=== PATIENT | female | born 1965 | race Caucasian/White ===

== ENCOUNTER 2020-03-17 09:00 | Outpatient (REF) | payer OTHER, SELFPAY ==
[2020-03-17 10:52] LABS: Alanine Aminotransferase 22 U/L (0-31); Albumin Level 4.4 g/dL (3.5-5.0); Alkaline Phosphatase 78 U/L (39-117); Anion Gap 11 (12-20); Aspartate Amino Transferase 19 U/L (5-31); Bilirubin Total 0.6 mg/dL (0.0-1.0); Blood Urea Nitrogen 22 mg/dL (9-16); Calcium 9.4 mg/dL (8.4-10.2); Carbon Dioxide 32 mmol/L (22-29); Chloride 99 mmol/L (96-108); Cholesterol 146 mg/dL; Estimated Glomerular Filt Rate > 60; Glucose Fasting 96 mg/dL (60-99); HDL Cholesterol 56 mg/dL; LDL Cholesterol Calculated 69 mg/dl; Potassium 3.8 mmol/l (3.3-5.1); Sodium 138 mmol/L (135-145); Triglycerides 105 mg/dL
[2020-03-17 11:14] LABS: TSH reflex Free T4 1.38 mIU/mL (0.32-4.0)
== END 2020-03-17 09:01 | disposition home or self-care (01) ==
LOC: HO.LAB 09:00
PROVIDERS: PCP Internal Medicine; Visit Provider Internal Medicine
DX: I10 Essential (primary) hypertension (principal); E66.01 Morbid (severe) obesity due to excess calories
CPT/HCPCS: 80053; 80061; 84443

== ENCOUNTER → 2020-03-24 09:49 | Outpatient (BNVA) | payer OTHER, SELFPAY | PROVIDERS: PCP Internal Medicine; Referring Provider Internal Medicine; Visit Provider Internal Medicine Gastroenterology | DX: K21.00 Gastro-esophageal reflux disease with esophagitis, without bleeding (principal); K64.8 Other hemorrhoids; Z86.010 Personal history of colon polyps; Z80.0 Family history of malignant neoplasm of digestive organs | CPT/HCPCS: 99213 ==

== ENCOUNTER 2020-03-29 08:09 | Outpatient (REF) | payer OTHER, SELFPAY | END 2020-03-29 08:10 | disposition home or self-care (01) | LOC: HO.RADIR 08:09 | PROVIDERS: Visit Provider Anesthesiology | DX: Z13.89 Encounter for screening for other disorder (principal) ==

== ENCOUNTER 2020-03-29 10:13 | Outpatient (REF) | payer OTHER, SELFPAY | END 2020-03-29 10:14 | disposition home or self-care (01) | LOC: HO.LAB 10:13 | PROVIDERS: Visit Provider Internal Medicine | DX: Z20.828 Contact with and (suspected) exposure to other viral communicable diseases (principal) | CPT/HCPCS: 87635 ==

== ENCOUNTER 2020-04-19 05:33 | Outpatient (REF) | payer OTHER, SELFPAY ==
--- NOTE | 2020-04-19 15:07 | FL_ITS ---
EXAMINATION: XR FLUOROSCOPY WITH IMAGES CLINICAL INFORMATION: Spondylosis without myelopathy or radiculopathy COMPARISON: None. TECHNIQUE: Fluoroscopy performed by Dr. Jeffery Flores. Fluoroscopy time: 0.3 minutes DAP: 3.44 Gycm2 Images: 4 FINDINGS: Radiopaque needles project over the lower lumbar spine at multiple levels bilaterally, likely L4-L5 and L5-S1. Contrast injected with spread. FL/FL guidance in treatment room IMPRESSION: Fluoroscopic guidance for lumbar spinal intervention. Please refer to procedural report for further information.
== END 2020-04-19 05:34 | disposition home or self-care (01) ==
LOC: HO.RADIR 05:33
PROVIDERS: Visit Provider Anesthesiology
DX: M47.816 Spondylosis without myelopathy or radiculopathy, lumbar region (principal)
CPT/HCPCS: 64493; 99212; Q9967

== ENCOUNTER 2020-04-29 14:23 | Outpatient (REF) | payer OTHER, SELFPAY | END 2020-04-29 14:24 | disposition home or self-care (01) | LOC: HO.LAB 14:23 | PROVIDERS: Visit Provider Internal Medicine | DX: Z20.828 Contact with and (suspected) exposure to other viral communicable diseases (principal) | CPT/HCPCS: C9803; U0003 ==

== ENCOUNTER 2020-05-05 09:05 | Outpatient (REF) | payer OTHER, SELFPAY ==
[2020-05-09 15:37] LABS: HPV mRNA E6/E7 Not Detected (Not Detected)
== END 2020-05-05 09:06 | disposition home or self-care (01) ==
LOC: HO.LAB 09:05
PROVIDERS: PCP Internal Medicine; Referring Provider Internal Medicine; Visit Provider Obstetrics & Gynecology
DX: Z01.419 Encounter for gynecological examination (general) (routine) without abnormal findings (principal); Z79.899 Other long term (current) drug therapy
CPT/HCPCS: 87624; 88142

== ENCOUNTER 2020-06-10 11:01 | Outpatient (REF) | payer OTHER, SELFPAY | END 2020-06-10 11:02 | disposition home or self-care (01) | LOC: HO.LAB 11:01 | PROVIDERS: Visit Provider Internal Medicine | DX: Z20.822 Contact with and (suspected) exposure to COVID-19 (principal) | CPT/HCPCS: 36415; C9803; U0003 ==

== ENCOUNTER 2020-06-20 16:35 | Outpatient (REF) | payer OTHER, SELFPAY ==
--- NOTE | 2020-06-20 16:51 | US_ITS ---
EXAMINATION: NONINVASIVE ASSESSMENT OF THE ARTERIES OF THE RIGHT LOWER EXTREMITY Balbir Mello MD CLINICAL INFORMATION: Right lower extremity pain TECHNIQUE: Right lower extremity duplex ultrasound was performed with velocity measurements and waveform analysis in the common femoral artery, profunda femoris artery, proximal mid and distal superficial femoral arteries, popliteal arteries and tibial vessels. This study was performed only at rest. COMPARISON: None FINDINGS: Velocities in cm/sec and phasicity as well as the presence of plaque are reported below. RIGHT LEG: Minimal plaque is present. Multiphasic flow (mostly triphasic) is noted throughout the right lower extremity. No areas of velocity acceleration are seen to suggest focal stenoses. Common Femoral: 179 Profunda Femoris: 98 Proximal SFA: 141 Mid SFA: 101 Distal SFA: 106 Popliteal: 78 Posterior tibial artery 128 Peroneal: 85 Some right groin lymph nodes are present measuring 1.0 x 0.5 x 0.8 cm and 2.8 x 0.6 x 2.6 cm. US/US arterial duplex LE RT IMPRESSION: There is no evidence of any hemodynamically significant lower extremity arterial disease by pressure, waveform or duplex Doppler criteria at rest.
== END 2020-06-20 16:36 | disposition home or self-care (01) ==
LOC: HO.US 16:35
PROVIDERS: PCP Internal Medicine; Visit Provider Internal Medicine
DX: M79.604 Pain in right leg (principal); R60.0 Localized edema
CPT/HCPCS: 93926

== ENCOUNTER 2020-09-16 13:41 | Outpatient (REF) | payer OTHER, SELFPAY | END 2020-09-16 13:42 | disposition home or self-care (01) | LOC: HO.LAB 13:41 | PROVIDERS: Visit Provider Internal Medicine | DX: Z20.822 Contact with and (suspected) exposure to COVID-19 (principal) | CPT/HCPCS: C9803; U0003; U0005 ==

== ENCOUNTER 2020-10-28 12:32 | Outpatient (REF) | payer OTHER, SELFPAY ==
[2020-10-28 12:51] LABS: COVID-19 Test Negative (Negative)
== END 2020-10-28 12:33 | disposition home or self-care (01) ==
LOC: HO.LAB 12:32
PROVIDERS: PCP Internal Medicine; Visit Provider Internal Medicine
DX: Z20.822 Contact with and (suspected) exposure to COVID-19 (principal)
CPT/HCPCS: 36415; 87635; C9803

== ENCOUNTER 2021-01-19 13:53 | Outpatient (REF) | payer OTHER, SELFPAY ==
--- NOTE | ~2021-01-19 | MM_ITS ---
EXAMINATION: MM SCREENING DIGITAL BREAST TOMOSYNTHESIS, BILATERAL CLINICAL INFORMATION: Screening. Asymptomatic. The lifetime risk of breast cancer based on the Tyrer-Cuzick Model is 7%. COMPARISON: Mammography: 01/14/2020, 01/08/2019, 01/02/2018 TECHNIQUE: Digital breast tomosynthesis is performed in both the craniocaudal and mediolateral oblique views along with computer-aided detection (CAD). Synthesized 2D images are generated from the tomosynthesis. FINDINGS: There are scattered areas of fibroglandular density (ACR BI-RADS breast composition Category b). The left breast is unremarkable. There is no interval mass or architectural abnormality. Neither breast shows abnormal calcifications. The bilateral axilla and skin contours are unremarkable. The right breast has 0.4 cm nodule with incompletely defined margins mid 9:30 o'clock position. Patient will be recalled for additional imaging. MM/MM tomosynthesis screening BI IMPRESSION: 1. Right: Small nodule with incompletely defined margins mid 9:30 o'clock position. 2. Left: No mammographic evidence of malignancy. ASSESSMENT: BI-RADS 0: Incomplete - Need Additional Imaging Evaluation RECOMMENDATION: 1. Additional views of the right breast for margins (3-D spot CC, 3-D spot ML). 2. Targeted ultrasound right breast. 3. Radiology department staff will contact the patient for additional imaging. This patient's information was entered into a reminder system with a target due date for their next mammogram.
== END 2021-01-19 13:54 | disposition home or self-care (01) ==
LOC: HO.MAMMO 13:53
PROVIDERS: PCP Internal Medicine; Visit Provider Internal Medicine
DX: Z12.31 Encounter for screening mammogram for malignant neoplasm of breast (principal)
CPT/HCPCS: 77063; 77067

== ENCOUNTER 2021-01-26 14:45 | Outpatient (REF) | payer OTHER, SELFPAY ==
--- NOTE | ~2021-01-26 | MM_ITS ---
EXAMINATION: MM DIAGNOSTIC DIGITAL BREAST TOMOSYNTHESIS, RIGHT US DIAGNOSTIC ULTRASOUND BREAST, RIGHT CLINICAL INFORMATION: Recall from screening for small nodule mid 9:30 o'clock position right breast. COMPARISON: Mammography: 01/19/2021, 01/14/2020, 01/08/2019 TECHNIQUE: Digital breast tomosynthesis is performed. 2D images are generated from the tomosynthesis. The following views are obtained: Spot CC x2, spot ML. Ultrasound right breast is targeted to the outer quadrants. Grayscale imaging and color Doppler are performed without and with harmonics. FINDINGS: There are scattered areas of fibroglandular density (ACR BI-RADS breast composition Category b). US additional spot views demonstrate benign-appearing smooth oval nodule mid 9:30 o'clock position measuring approximately 4 x 5 mm. Ultrasound right breast demonstrates a oval 4 mm cyst 9:00 position 9 cm from nipple, anechoic with circumscribed margins and mild increased through-transmission of sound. No associated color flow. The size and shape and location correspond to finding on mammography. There is no solid mass or architectural abnormality. Results are discussed with the patient at time of visit, using an pharmacy specialist. MM/MM tomosynthesis added views R IMPRESSION: Small cyst mid 9:00 right breast corresponding to nodule on recent screening exam. ASSESSMENT: BI-RADS 2: Benign RECOMMENDATION: Routine annual mammography screening. This patient's information was entered into a reminder system with a target due date for their next mammogram.
== END 2021-01-26 14:46 | disposition home or self-care (01) ==
LOC: HO.MAMMO 14:45
PROVIDERS: PCP Internal Medicine; Visit Provider Internal Medicine
DX: N63.11 Unspecified lump in the right breast, upper outer quadrant (principal)
CPT/HCPCS: 76642; 77061; 77065

== ENCOUNTER 2021-03-06 13:48 | Emergency (ER) | payer OTHER, SELFPAY ==
--- NOTE | ~2021-03-06 | XR_ITS ---
EXAMINATION: XR SHOULDER, RIGHT CLINICAL INFORMATION: Trauma, pain COMPARISON: Radiographs right shoulder 10/07/2018 TECHNIQUE: Right shoulder is imaged in 4 views. FINDINGS: There is no fracture dislocation or destructive process. The glenohumeral joint appears normal. The acromioclavicular alignment is normal. Again, there is calcific tendinosis adjacent to the greater tuberosity. Some mild spurring is present at the superolateral lateral acromium likely related to the origin deltoid. There is no destructive process. XR/XR shoulder RT min 2V IMPRESSION: 1. No fracture or dislocation. 2. Chronic calcific tendinosis in region of distal superior rotator cuff.
[2021-03-06 14:38] VITALS: BP 136/65; PULSE 78; RESP 17; TEMP 36; O2SAT 98; BMI 32.9
--- NOTE | 2021-03-06 15:52 | ED.UPPEXIN ---
HPI - Extremity Injury (Upper) General Chief Complaint: Extremity Injury, Upper Stated Complaint: shoulder pain Time Seen by Provider: 03/06/21 15:47 Source: patient Mode of arrival: ambulatory Limitations: no limitations History of Present Illness HPI narrative: 55-year-old female presenting to the ED with work related injury to the right shoulder. 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 She denies head injury or loss of consciousness or any other injuries complaints or concerns at this time. complaint: injury to: right and shoulder Onset (ago): day(s) (Four days ago) Other Extremity Injury: right: shoulder Other injuries: none Place: work Severity: moderate Relieving factors: none Exacerbating factors: other (Trying to elevate the arm) Context: fall Associated symptoms: denies other symptoms Related Data Home Medications Medication Instructions Recorded Confirmed buspirone 10 mg tablet mg PO 03/24/20 06/20/20 Previous Rx's Medication Instructions Recorded losartan 100 mg tablet 100 mg PO DAILY 90 Days #90 tab 03/30/20 methylcellulose (laxative) 500 mg [id number] mg PO DAILY #30 tab 05/02/20 tablet (Citrucel) omeprazole 20 mg capsule,delayed 20 mg PO DAILY 60 Days #60 cap 05/03/20 release loratadine 10 mg tablet 10 mg PO DAILY #30 tab 09/16/20 chlorthalidone 25 mg tablet 25 mg PO QAM 90 Days #90 tab 02/03/21 acetaminophen 500 mg tablet 1,000 mg PO QID PRN #14 tab 03/06/21 (Tylenol Extra Strength) oxycodone 5 mg tablet 5 mg PO Q6H PRN #14 tab 03/06/21 Allergies Allergy/AdvReac Type Severity Reaction Status Date / Time aspirin [ASA] Allergy Unknown THROAT Verified 06/20/20 16:11 SWELLING, pruritus, tracheal swelling Review of Systems Review of Systems: Constitutional : No Weight loss, No Fever, No Chills, No Night Sweats, No Fatigue, No Malaise ENT/Mouth : No Hearing loss, No Ear Pain, No Nasal Congestion, No Sinus Pain, No Hoarseness, No sore throat, No Rhinorrhea, No Swallowing Difficulty Eyes: No Eye Pain, No Swelling, No Redness, No Foreign Body, No Discharge, No Vision Changes Cardiovascular : No Chest Pain, No SOB, No Dyspnea on Exertion, No Orthopnea, No Edema, No Palpitations Respiratory : No Cough, No Sputum, No Wheezing, No Smoke Exposure, No Dyspnea Gastrointestinal : No Nausea, No Vomiting, No Diarrhea, No Constipation, No abdominal Pain, No Hematochezia, No Melena Genitourinary : no irregular bleeding, No Dysuria, No Urinary Frequency, No Hematuria, No Urinary Incontinence, No Urgency, No Flank Pain, No Urinary Flow Changes, No Hesitancy Musculoskeletal : Positive right shoulder joint pain, No Myalgias, No Joint Swelling Skin : No Skin Lesions, No rash Neuro : No Weakness, No Numbness, No Paresthesias, No Loss of Consciousness, No Dizziness, No Headache Psych : No Anxiety/Panic, No Depression, No SI/HI/AH/VH, No Social Issues, Heme/Lymph: No Bruising, No Bleeding,No Lymphadenopathy Endocrine : No Polyuria, No Polydipsia, No Temperature Intolerance Yes all other systems are reviewed and are negative [facility] Past Medical History Attestation statement: The following information was validated with the patient. Medical History Diverticulosis Essential hypertension Essential hypertension Family history of colon cancer GERD with esophagitis Hemorrhoids, internal, with bleeding History of colon polyps Hypertension Rhinitis Right leg pain Surgical History H/O basal cell carcinoma excision History of section History of colonoscopy (~02/2018) History of tubal ligation Hx of endoscopy Family History Family History Father Alive and well Mother Colon cancer Hypertension Brother No problems noted. Sister Psychiatric disorder Chronic mental illness Family/Other Chronic mental illness Social History Social History Alcohol intake: current Alcohol intake frequency: a few times a week Alcohol type: wine Advance Directives: No Advance Directives Information Provided: No Patient : No Sexual orientation: Straight/Heterosexual Gender identity: Female Physical Exam Vital Signs: Vital Signs: Last Vital Signs Temp 96.8 F 03/06/21 14:38 Pulse 78 03/06/21 14:38 Resp 17 03/06/21 14:38 BP 136/65 03/06/21 14:38 Pulse Ox 98 03/06/21 14:38 Body Mass Index 32.9 vital signs have been reviewed as normal and appeared to be correct. Blood pressure normal. Heart rate normal. Respiration rate normal. Temperature normal. Oxygen saturation normal. Appearance: Alert. Oriented X3. No acute distress. Head: Normal external exam. Normocephalic. Atraumatic. Eyes: PERRLA. EOMI. Conjunctiva and sclera normal. Eyelids normal. ENT: Pharynx normal. Uvula midline. Moist mucous membranes. Neck: Normal inspection. Neck supple. FROM. No adenopathy. No meningeal signs. CVS: Normal heart rate and rhythm. Heart sound normal. Pulses normal throughout. No murmurs/rales/gallops. Respiratory: No respiratory distress. Painless inspiration. Breath sounds normal. No wheezes/rales/rhonchi noted. Chest nontender. No accessory muscle usage noted or decreased air movement noted. Back: Full range of motion noted. No rashes/lesion/induration/fluctuance or signs of infection noted. Skin: Skin warm and dry. Normal skin color. Normal skin turgor. No rashes/lesions/lacerations noted. Extremities: Patient with tenderness palpation to right anterior AC joint with limited range of motion with lifting the arm up above her head otherwise no other limited range of motion. No extremity edema. Otherwise all other extremities exhibit normal range of motion and nontender. Neuro: Oriented X 3. No motor deficit. No sensory deficit. Reflexes normal. Normal steady gait. No focal neuro deficits noted. Vascular: + radial pulses/+ 2 distal pedal pulses/+2 dorsalis pedis b/l. Normal cap refill. No cyanosis noted to upper extremity nails and lower extremity toes nails. Course Course Course Narrative: 55-year-old female presenting to the ED with right shoulder pain after she had a mechanical fall while at work injuring her right shoulder no other injuries. X-ray negative for any acute fractures. X-ray revealed chronic calcification tendinitis in the region of the distal superior rotator cuff otherwise no other acute processes. Therefore will DC home with a sling and symptomatic treatment instructions to return if any new or worse symptoms and to follow-up with orthopedic if symptoms persist for longer than 2-3 weeks and to follow up with [facility]. Patient understands agrees with this plan. MDM - Extremity Injury (Upper) Medical Records Attestation: I reviewed the patient's medical records. Imaging Data Right shoulder x-ray: Attestation: I personally reviewed and interpreted this imaging study as follows: Radiologist's impression: FINDINGS: There is no fracture dislocation or destructive process. The glenohumeral joint appears normal. The acromioclavicular alignment is normal. Again, there is calcific tendinosis adjacent to the greater tuberosity. Some mild spurring is present at the superolateral lateral acromium likely related to the origin deltoid. There is no destructive process.? XR/XR shoulder RT min 2V IMPRESSION: 1. No fracture or dislocation. 2. Chronic calcific tendinosis in region of distal superior rotator cuff. Procedures Orthopedic Splinting/Casting Injury #1: Side: right Upper Extremity Immobilizer: sling/shoulder immobilizer Discharge Plan Discharge Clinical Impression: Calcific tendinitis of right shoulder Fall Qualifiers: Encounter type: initial encounter Qualified Code(s): W19.XXXA - Unspecified fall, initial encounter Sprain of right shoulder Qualifiers: Encounter type: initial encounter Shoulder sprain type: other part of shoulder region Qualified Code(s): S43.491A - Other sprain of right shoulder joint, initial encounter Patient Disposition: Home, Self-Care Instructions: How to Use a Sling (ED), Shoulder Sprain (ED), Calcific Tendinitis (ED) Prescriptions: New acetaminophen [Tylenol Extra Strength] 500 mg tablet 1,000 mg PO QID PRN (Reason: fever or pain) Qty: 14 RF: 0 oxycodone 5 mg tablet 5 mg PO Q6H PRN (Reason: pain) Qty: 14 RF: 0 No Action losartan 100 mg tablet 100 mg PO DAILY 90 Days Qty: 90 RF: 3 methylcellulose (laxative) [Citrucel] 500 mg tablet [id number] mg PO DAILY Qty: 30 RF: 4 omeprazole 20 mg capsule,delayed release(DR/EC) 20 mg PO DAILY 60 Days Qty: 60 RF: 3 loratadine 10 mg tablet 10 mg PO DAILY Qty: 30 RF: 6 chlorthalidone 25 mg tablet 25 mg PO QAM 90 Days Qty: 90 RF: 3 buspirone 10 mg tablet PO RF: 0 Referrals: [facility] [Provider Group] - 2 days Mac Sierra MD [Physician] - 1 week Arelis Irvin MD [Primary Care Provider] - 2 days Stand Alone Forms: Work/School Release Print Language: Lithuanian
== END 2021-03-06 16:15 | disposition home or self-care (01) ==
PROVIDERS: Emergency Provider Emergency Medicine; PCP Internal Medicine
DX: S43.491A Other sprain of right shoulder joint, initial encounter (principal); M75.31 Calcific tendinitis of right shoulder; W01.0XXA Fall on same level from slipping, tripping and stumbling without subsequent striking against object, initial encounter; Y93.9 Activity, unspecified; Y92.9 Unspecified place or not applicable; Y99.0 Civilian activity done for income or pay; Z79.899 Other long term (current) drug therapy
CPT/HCPCS: 29105; 73030; 99283; 99284

== ENCOUNTER → 2021-03-17 08:01 | Outpatient (BNVA) | payer OTHER, SELFPAY | PROVIDERS: Visit Provider Physician Assistant | DX: M75.31 Calcific tendinitis of right shoulder (principal) | CPT/HCPCS: 99202 ==

== ENCOUNTER 2021-04-19 14:10 | Emergency (ER) | payer OTHER, SELFPAY ==
--- NOTE | ~2021-04-19 | XR_ITS ---
EXAMINATION: XR KNEE, RIGHT CLINICAL INFORMATION: Pain COMPARISON: None TECHNIQUE: AP and lateral views of the right knee. FINDINGS: No fracture, dislocation, or destructive process. There are degenerative changes lateral knee joint compartment with joint narrowing and small marginal osteophyte lateral tibial plateau. There is borderline narrowing medial tibial compartment with borderline marginal osteophyte femoral condyle. There are no erosive changes or chondrocalcinosis. Moderate to large suprapatellar effusion is present. Hoffa's fat pad appears normal. XR/XR knee RT 2V IMPRESSION: 1. Degenerative changes medial lateral knee joint compartments. No erosive change. 2. Moderate to large suprapatellar effusion.
[2021-04-19 14:21] VITALS: BP 138/54; PULSE 83; RESP 16; TEMP 36.7; O2SAT 98; BMI 32.9
--- NOTE | 2021-04-19 15:55 | ED.EXTPRO ---
HPI - Extremity Problem General Chief complaint: Extremity Problem Stated complaint: rt knee pain Time Seen by Provider: 04/19/21 15:54 Source: patient Mode of arrival: ambulatory History of Present Illness HPI Narrative: 55-year-old female with a past medical history of a shoulder tendinitis, diverticulosis, hypertension, GERD, presenting to the ED complaining of atraumatic right knee pain and swelling x4 days. Reports pain with ambulation/walking greater to medial aspect. Denies known injury/trauma or fall. Admits stands most of the time at work. Denies numbness, tingling, weakness, fever, chills MD Complaint: extremity pain, extremity swelling and joint swelling Related Data Home Medications Medication Instructions Recorded Confirmed buspirone 10 mg tablet mg PO 03/24/20 03/08/21 Previous Rx's Medication Instructions Recorded methylcellulose (laxative) 500 mg [id number] mg PO DAILY #30 tab 05/02/20 tablet (Citrucel) acetaminophen 500 mg tablet 1,000 mg PO QID PRN #14 tab 03/06/21 (Tylenol Extra Strength) oxycodone 5 mg tablet 5 mg PO Q6H PRN #14 tab 03/06/21 lidocaine 5 % topical ointment 1 appl TOPICAL BEDTIME PRN 14 Days 03/08/21 #30 g lidocaine 5 % topical patch 1 patch TOPICAL DAILY 15 Days #15 03/08/21 ea chlorthalidone 25 mg tablet 25 mg PO QAM 90 Days #90 tab 03/29/21 loratadine 10 mg tablet 10 mg PO DAILY #30 tab 03/29/21 losartan 100 mg tablet 100 mg PO DAILY 90 Days #90 tab 03/29/21 omeprazole 20 mg capsule,delayed 20 mg PO DAILY 60 Days #60 cap 03/29/21 release hydrocodone 5 mg-acetaminophen 325 1 tab PO Q8H PRN 3 Days #5 tab 04/19/21 mg tablet Allergies Allergy/AdvReac Type Severity Reaction Status Date / Time aspirin [ASA] Allergy Intermediate THROAT Verified 03/17/21 08:16 SWELLING, pruritus, tracheal swelling Review of Systems Review of Systems: Constitutional: No Fever, No Chills ENT/Mouth: No Ear Pain, No Nasal Congestion Cardiovascular: No Chest Pain, No SOB Respiratory: No Cough Gastrointestinal: No Nausea, No Vomiting, No Diarrhea, No Constipation, No Abdominal pain Genitourinary: No Hematuria, No Flank Pain Musculoskeletal: + joint pain, No Myalgias, + Joint Swelling Skin: No Skin Lesions, No rash Neuro: No Weakness, No Numbness, No Paresthesias Yes all other systems are reviewed and are negative [facility] Past Medical History Attestation statement: The following information was validated with the patient. Medical History Calcific shoulder tendinitis Class 1 obesity with body mass index (BMI) of 34.0 to 34.9 in adult Diverticulosis Essential hypertension Essential hypertension Family history of colon cancer GERD with esophagitis Hemorrhoids, internal, with bleeding History of colon polyps Hypertension Rhinitis Right leg pain Surgical History H/O basal cell carcinoma excision History of section History of colonoscopy (~02/2018) History of tubal ligation Hx of endoscopy Family History Family History Father Alive and well Mother Colon cancer Hypertension Brother No problems noted. Sister Psychiatric disorder Chronic mental illness Family/Other Chronic mental illness Social History Social History Housing: Apartment Alcohol intake: current Alcohol intake frequency: a few times a week Alcohol type: wine Patient Tobacco Use Status: Never used Tobacco e-Cigarette/Vaping Use: Never Used Second Hand Smoke Exposure: No Advance Directives: No Advance Directives Information Provided: No service: No Current occupational status: employed Current occupational exposures/hazards: No Sexual orientation: Straight/Heterosexual Gender identity: Female Physical Exam Vital Signs: Vital Signs: Last Vital Signs Temp 98.0 F 04/19/21 14:21 Pulse 83 04/19/21 14:21 Resp 16 04/19/21 14:21 BP 138/54 L 04/19/21 14:21 Pulse Ox 98 04/19/21 14:21 Body Mass Index 32.9 Const: General: cooperative, healthy appearing and no acute distress Orientation/consciousness: patient oriented x3 Limitations: no limitations HENMT: Head: Yes normal to inspection Ears: hearing grossly normal bilaterally General nose exam: Normal external nose present Face and sinus: Yes normal facial exam Eyes: General: appearance normal, both eyes and all related structures EOM: EOMs intact bilaterally Neck: Neck: Yes normal visual inspection and Yes no meningeal signs Resp: Effort & Inspection: normal respiratory effort and no respiratory distress Cardio: Rate: regular rate Heart sounds: S1 normal heart sound present and S2 normal heart sound present Peripheral pulses: dorsalis pedis present Skin: Rashes: no rashes Wounds: no wounds Neuro: General: patient oriented x3 and no meningeal signs Gait exam (Neuro): Normal gait present Extrem: Other: + right knee effusion. No overlying cellulitis/erythema/ecchymosis. Mildly tender to palpation. Full range of motion intact. Neurovascularly intact distally. Distal pulses intact Course Course Course Narrative: XR knee RT 2V IMPRESSION: 1. Degenerative changes medial lateral knee joint compartments. No erosive change. 2. Moderate to large suprapatellar effusion. 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 Jose wrap applied. Is to follow-up with orthopedic surgeon MDM - Extremity (Nontraumatic) MDM Narrative Medical decision making narrative: 55-year-old female with a past medical history of a shoulder tendinitis, diverticulosis, hypertension, GERD, presenting to the ED complaining of atraumatic right knee pain and swelling x4 days. On exam vital signs stable, NAD, nontoxic, physical exam as above. Concern for joint effusion due to underlying with a mental or tendon injury vs arthritis flare. Low concern for septic joint or the arthritis. No evidence of cellulitis or abscess Plan: X-rays Discharge Plan Discharge Clinical Impression: Effusion of knee joint right Patient Disposition: Home, Self-Care Instructions: Swollen Knee Joint (ED) Additional Instructions: Your x-ray showed degenerative changes/arthritis as well as a moderate to large joint effusion You need to wear Jose wrap at home for comfort/compression Ice and elevate Take Tylenol and [place] as needed for pain. [place] is in opiate pain medication, take only when pain is severe for the next 3 days. Be aware [place] has Tylenol mixed in, do not exceed 4 g of Tylenol in 1 day Please follow-up with Orthopedics, you will likely need injections into knee/fluid removed and or an MRI If symptoms persist or worsen, area begins to look infected please return to the ED Orozco radiograf?a mostr? cambios degenerativos / artritis, as? rk un derrame articular de moderado a karma Debe usar joanna envoltura Jose en casa para mayor comodidad / compresi?n Hielo y eleva [place]ia Tylenol y [place] seg?n sea necesario para el dolor. W[place]zeka est? en analg?sicos opi?ceos, t?melos solo cuando el dolor sea intenso kirby los pr?ximos 3 d?as. Tenga en cuenta que W[place]zeka tiene Tylenol mezclado, no exceda los 4 g de Tylenol en 1 d?a [place] un seguimiento con ortopedia, es probable que necesite inyecciones en la rodilla / extracci?n de l?quido o joanna resonancia magn?lulú Si los s?ntomas persisten o empeoran, el ?paul comienza a verse infectada, regrese al servicio de urgencias Prescriptions: New hydrocodone-acetaminophen 5-325 mg tablet 1 tab PO Q8H PRN (Reason: pain, severe) 3 Days Qty: 5 RF: 0 No Action methylcellulose (laxative) [Citrucel] 500 mg tablet [id number] mg PO DAILY Qty: 30 RF: 4 lidocaine 5 % adhesive patch,medicated 1 patch topical DAILY 15 Days Qty: 15 RF: 0 chlorthalidone 25 mg tablet 25 mg PO QAM 90 Days Qty: 90 RF: 3 loratadine 10 mg tablet 10 mg PO DAILY Qty: 30 RF: 6 losartan 100 mg tablet 100 mg PO DAILY 90 Days Qty: 90 RF: 3 omeprazole 20 mg capsule,delayed release(DR/EC) 20 mg PO DAILY 60 Days Qty: 60 RF: 3 acetaminophen [Tylenol Extra Strength] 500 mg tablet 1,000 mg PO QID PRN (Reason: fever or pain) Qty: 14 RF: 0 oxycodone 5 mg tablet 5 mg PO Q6H PRN (Reason: pain) Qty: 14 RF: 0 buspirone 10 mg tablet PO RF: 0 lidocaine 5 % ointment 1 appl topical BEDTIME PRN (Reason: pain) 14 Days Qty: 30 RF: 0 Referrals: Josh Larson PA-C [Physician Counselor/Art Therapist] - 5 days Print Language: Kinyarwanda
[2021-04-19] MEDS: oxyCODONE HCl Immed Release 5 MG TABLET PO (16:00)
== END 2021-04-19 16:14 | disposition home or self-care (01) ==
PROVIDERS: Emergency Provider Emergency Medicine; PCP Internal Medicine
DX: M25.461 Effusion, right knee (principal); I10 Essential (primary) hypertension
CPT/HCPCS: 73560; 99283; 99284

== ENCOUNTER 2021-05-11 15:09 | Outpatient (REF) | payer OTHER, SELFPAY ==
[2021-05-15 22:07] LABS: HPV mRNA E6/E7 rflx Not Detected (Not Detected)
== END 2021-05-11 15:10 | disposition home or self-care (01) ==
LOC: HO.LAB 15:09
PROVIDERS: PCP Internal Medicine; Visit Provider Obstetrics & Gynecology
DX: Z01.419 Encounter for gynecological examination (general) (routine) without abnormal findings (principal); N85.2 Hypertrophy of uterus; N93.9 Abnormal uterine and vaginal bleeding, unspecified
CPT/HCPCS: 87624; 88142

== ENCOUNTER 2021-06-05 13:59 | Outpatient (REF) | payer OTHER, SELFPAY ==
--- NOTE | ~2021-06-05 | US_ITS ---
EXAMINATION: US PELVIS AND TRANSVAGINAL CLINICAL INFORMATION: 55-year-old female with abnormal uterine bleeding. Having vaginal bleeding currently. COMPARISON: Pelvic ultrasound of 11/16/2019 and 03/26/2019 TECHNIQUE: Real-time scanning is performed via transabdominal and transvaginal approach. The examination is technically significantly limited. FINDINGS: An enlarged uterus is noted, approximately measuring 14.8 x 8.0 x 8.2 cm in length, AP and transverse dimensions respectively. Endometrial stripe is not clearly seen. A broad-based exophytic fibroid is noted arising from the anterior mid to lower left uterine body, measuring 4.1 x 3.4 x 3.4 cm, previously 4.5 x 4.1 x 4.1 cm. Ovaries could not be visualized. No definite adnexal mass or free fluid is noted within the limits of study. US/US pelvic and transvaginal IMPRESSION: Technically significantly limited examination. Enlarged fibroid uterus, as detailed above. If clinically deemed necessary, consider correlation with pelvic MRI (without and with contrast), for further evaluation.
== END 2021-06-05 14:00 | disposition home or self-care (01) ==
LOC: HO.US 13:59
PROVIDERS: Visit Provider Obstetrics & Gynecology
DX: N93.9 Abnormal uterine and vaginal bleeding, unspecified (principal); N85.2 Hypertrophy of uterus
CPT/HCPCS: 76830; 76856

== ENCOUNTER → 2021-06-12 13:46 | Outpatient (BNVA) | payer OTHER, SELFPAY | PROVIDERS: PCP Internal Medicine; Visit Provider Obstetrics & Gynecology | DX: Z13.89 Encounter for screening for other disorder (principal) | CPT/HCPCS: 99212 ==

== ENCOUNTER 2021-06-20 14:14 | Outpatient (REF) | payer OTHER, SELFPAY ==
[2021-06-20 15:05] LABS: MANUAL DIFF FLAG NO
[2021-06-20 15:37] LABS: Basophils Percent Auto 0.4 % (0-2); Eosinophils Absolute Auto 0.2 X10*3/uL (0.0-0.4); Eosinophils Percent Auto 1.7 % (0-4); Hemoglobin 11.6 g/dl (12.0-16.0); Imm Gran Abs Auto 0.04 X10*3/uL (0.00-0.03); Imm Gran Pct Auto 0.4 % (0.0-0.4); Lymphocytes Absolute Auto 3.8 X10*3/uL (1.2-4.9); Lymphocytes Percent Auto 38.3 % (20-40); Mean Corpuscular HGB Conc 31.4 g/dl (31.0-35.0); Mean Corpuscular Hemoglobin 26.3 pg (27.0-33.0); Mean Corpuscular Volume 83.9 fL (80.0-98.0); Mean Platelet Volume 9.7 fL (9.4-12.3); Monocytes Absolute Auto 0.9 X10*3/uL (0.1-1.2); Monocytes Percent Auto 9.2 % (2-11); Neutrophils Absolute Auto 4.9 x10*3/uL (2.0-8.3); Platelet Count 391 X10*3/uL (160-400); Red Blood Count 4.41 X10*6/uL (4.20-5.50); Red Cell Distribution Width 15.9 % (11.0-16.0); White Blood Count 9.8 X10*3/uL (4.8-10.8)
[2021-06-20 16:00] LABS: Alanine Aminotransferase 13 U/L (0-31); Albumin Level 4.1 g/dL (3.5-5.0); Alkaline Phosphatase 60 U/L (39-117); Anion Gap 12 (12-20); Aspartate Amino Transferase 15 U/L (5-31); Bilirubin Total 0.6 mg/dL (0.0-1.0); Blood Urea Nitrogen 17 mg/dL (9-16); Calcium 10.3 mg/dL (8.4-10.2); Carbon Dioxide 29 mmol/L (22-29); Chloride 101 mmol/L (96-108); Estimated Glomerular Filt Rate > 60; Glucose Random 86 mg/dL (60-115); Sodium 138 mmol/L (135-145); Total Protein 7.8 g/dL (6.5-8.0)
== END 2021-06-20 14:15 | disposition home or self-care (01) ==
LOC: HO.LAB 14:14
PROVIDERS: PCP Internal Medicine; Referring Provider Internal Medicine; Visit Provider Nurse Practitioner
DX: D12.6 Benign neoplasm of colon, unspecified (principal); Z80.0 Family history of malignant neoplasm of digestive organs
CPT/HCPCS: 36415; 80053; 85025; 99202

== ENCOUNTER 2021-06-30 13:44 | Outpatient (REF) | payer OTHER, SELFPAY ==
--- NOTE | ~2021-06-30 | MR_ITS ---
EXAMINATION: MR PELVIS WITHOUT AND WITH CONTRAST CLINICAL INFORMATION: Hypertrophy of the uterus. COMPARISON: Previous pelvic ultrasound most recent 06/05/2021. TECHNIQUE: Sagittal axial and coronal sequences through the pelvis with and without contrast. 9 mL of Gadavist contrast. FINDINGS: The uterus is anteverted and measures 12 x 8 x 8 cm in sagittal AP and transverse dimension. There are multiple uterine lesions, at least 10 fibroids are identified. The largest fibroids measure 2.5 cm in the anterior uterine body, 4.5 x 3 x 4.4 cm in the anterior uterine body/lower uterine segment and 3 cm in the anterior uterine body adjacent to the endometrium and 3 cm in the left posterior uterine fundus. These are low signal on T1-weighted sequences, low signal on T2-weighted sequences and demonstrates enhancement. The endometrial thickness is normal measuring 0.5 cm. The junctional zone thickness is difficult to assess given the multiple fibroids. The ovaries are normal appearing. The cervix is normal appearing. There is a tampon in place. The bladder is empty. No ascites or adenopathy is seen. Visualized bowel is unremarkable. No hernia is seen. Bony structures are unremarkable. MR/MR pelvis wo/w con IMPRESSION: Enlarged fibroid uterus. At least 10 fibroids are identified. The largest fibroid measures 4.5 x 3 x 4.4 cm in the anterior uterine body/lower uterine segment.
== END 2021-06-30 13:45 | disposition home or self-care (01) ==
LOC: HO.MRI 13:44
PROVIDERS: Visit Provider Obstetrics & Gynecology
DX: N85.2 Hypertrophy of uterus (principal)
CPT/HCPCS: 72197; A9585

== ENCOUNTER → 2021-07-13 15:12 | Outpatient (BNVA) | payer OTHER, SELFPAY | PROVIDERS: PCP Internal Medicine; Visit Provider Obstetrics & Gynecology ==

== ENCOUNTER → 2021-07-17 13:57 | Outpatient (BNVA) | payer OTHER, SELFPAY | PROVIDERS: PCP Internal Medicine; Visit Provider Obstetrics & Gynecology ==

== ENCOUNTER → 2021-08-01 13:00 | Outpatient (BNVA) | payer OTHER, SELFPAY | PROVIDERS: Visit Provider Obstetrics & Gynecology ==

== ENCOUNTER 2021-09-21 14:00 | Outpatient (RCR) | payer OTHER, SELFPAY | END 2021-11-06 16:30 | disposition home or self-care (01) | LOC: HO.PT 14:00 | PROVIDERS: PCP Internal Medicine; Visit Provider Orthopaedic Surgery | DX: M24.662 Ankylosis, left knee (principal) | CPT/HCPCS: 97110; 97140; 97162; 97530 ==

== ENCOUNTER 2021-12-06 10:39 | Outpatient (REF) | payer OTHER, SELFPAY ==
--- NOTE | ~2021-12-06 | US_ITS ---
EXAMINATION: US PELVIS CLINICAL INFORMATION: Myoma. Currently menstruating. COMPARISON: 06/05/2021 TECHNIQUE: Ultrasound of the pelvis is performed using both transabdominal and transvaginal transducers along with Doppler. Transvaginal imaging is performed due to inadequate visualization transabdominally. FINDINGS: Uterus: The uterus is anteverted and measures 12.4 x 7.7 x 8.5 cm. Uterine echotexture is heterogeneous. The double wall endometrial thickness is 9 mm. Pedunculated left uterine fibroid measures 4.4 x 3.5 x 4.3 cm. Posterior left intramural fibroid measures 2.2 x 2.1 x 2.1 cm. Adnexa: Right ovary is not visualized. Left ovary measures 2.1 x 1.6 x 1.5 cm. US/US pelvic and transvaginal IMPRESSION: Uterine fibroids.
== END 2021-12-06 10:40 | disposition home or self-care (01) ==
LOC: HO.US 10:39
PROVIDERS: Visit Provider Obstetrics & Gynecology
DX: D21.9 Benign neoplasm of connective and other soft tissue, unspecified (principal)
CPT/HCPCS: 76830; 76856

== ENCOUNTER 2021-12-20 13:59 | Outpatient (REF) | payer OTHER, SELFPAY ==
[2021-12-20 16:01] LABS: Hematocrit 33.3 % (37.0-47.0); Hemoglobin 10.4 g/dl (12.0-16.0); Mean Corpuscular HGB Conc 31.2 g/dl (31.0-35.0); Mean Corpuscular Hemoglobin 25.2 pg (27.0-33.0); Mean Corpuscular Volume 80.8 fL (80.0-98.0); Mean Platelet Volume 9.6 fL (9.4-12.3); Platelet Count 511 X10*3/uL (160-400); Red Blood Count 4.12 X10*6/uL (4.20-5.50); White Blood Count 10.9 X10*3/uL (4.8-10.8)
[2021-12-20 16:40] LABS: HCG Quantitative < 2 mIU/mL; TSH reflex Free T4 1.45 uIU/mL (0.32-4.0)
== END 2021-12-20 14:00 | disposition home or self-care (01) ==
LOC: CF 13:59
PROVIDERS: PCP Internal Medicine; Visit Provider Obstetrics & Gynecology
DX: D21.9 Benign neoplasm of connective and other soft tissue, unspecified (principal); N93.9 Abnormal uterine and vaginal bleeding, unspecified
CPT/HCPCS: 36415; 58100; 84443; 84702; 85027; 87491; 87591; 99212

== ENCOUNTER 2021-12-20 15:07 | Outpatient (REF) | payer OTHER, SELFPAY ==
[2021-12-21 06:51] LABS: CT PCR NOT DETECTED (Not Detect.); NG PCR NOT DETECTED (Not Detect.)
== END 2021-12-20 15:08 | disposition home or self-care (01) ==
LOC: HO.LAB 15:07
PROVIDERS: Visit Provider Obstetrics & Gynecology
DX: N93.9 Abnormal uterine and vaginal bleeding, unspecified (principal)
CPT/HCPCS: 87491; 87591; 88305

== ENCOUNTER → 2022-01-11 13:31 | Outpatient (BNVA) | payer OTHER, SELFPAY | PROVIDERS: PCP Internal Medicine; Visit Provider Obstetrics & Gynecology | DX: N93.9 Abnormal uterine and vaginal bleeding, unspecified (principal) | CPT/HCPCS: 99212 ==

== ENCOUNTER 2022-01-19 08:22 | Day surgery (SDC) | payer OTHER, SELFPAY ==
--- NOTE | 2022-01-18 08:29 | HO.ANESPROP2 ---
Documented by User: Eliz Hernandez NP 01/18/22 08:30 HPI - Anesthesia Eval Consult details Narrative: 56yo F for Uterine Ablation w/Bala PMFSH Active Problems Active Problems: All Active Problems (Updated 01/11/22 @ 14:09 by Alejandro Hernandez MD) Abnormal uterine bleeding (AUB) (Acute) VAHE (generalized anxiety disorder) (Acute) Hypercalcemia (Acute) Myoma (Acute) Tubular adenoma of colon (Acute) Enlarged uterus (Acute) Right knee pain (Acute) Calcific shoulder tendinitis (Acute) Class 1 obesity with body mass index (BMI) of 34.0 to 34.9 in adult (Acute) Right leg pain (Acute) Essential hypertension (Acute) Well woman exam (Acute) Spondylosis of lumbar region without myelopathy or radiculopathy (Acute) Diverticulosis (Acute) Hemorrhoids, internal, with bleeding (Acute) Family history of colon cancer (Acute) GERD with esophagitis (Acute) Past Medical History Medical History Calcific shoulder tendinitis Class 1 obesity with body mass index (BMI) of 34.0 to 34.9 in adult Diverticulosis Essential hypertension Essential hypertension Family history of colon cancer VAHE (generalized anxiety disorder) GERD with esophagitis Hemorrhoids, internal, with bleeding History of colon polyps Hypercalcemia Hypertension Rhinitis Right leg pain Family History Family History Father Alive and well Mother Colon cancer Hypertension Brother No problems noted. Sister Psychiatric disorder Chronic mental illness Family/Other Chronic mental illness Surgical History Surgical History H/O basal cell carcinoma excision History of section History of colonoscopy (~02/2018) History of tubal ligation Hx of endoscopy Social History Social History Housing: Apartment Alcohol intake: current Alcohol intake frequency: holidays/special occasions only Alcohol type: wine Patient Tobacco Use Status: Never used Tobacco e-Cigarette/Vaping Use: Never Used Second Hand Smoke Exposure: No Use of substances other than those prescribed or required for medical reasons: No Are you DNR?: No Advance Directives: No Advance Directives Information Provided: Yes Recently lost weight without trying: No Nutrition Risks: No Nutritional Risk service: No Current occupational status: employed Current occupational exposures/hazards: No Sexual orientation: Straight/Heterosexual Gender identity: Female Cognitive needs: No Hearing needs: No Vision needs: Yes Meds Allergies Allergy/AdvReac Type Severity Reaction Status Date / Time aspirin [ASA] Allergy Intermediate THROAT Verified 12/20/21 14:10 SWELLING, pruritus, tracheal swelling Home Medications Medication Instructions Recorded Confirmed Last Taken Type buspirone 10 mg tablet mg PO 03/24/20 09/26/21 Unknown History Exam Exam Date and Time: January 18, 2022828 Pertinent Lab Results Pertinent Lab Results: Laboratory Tests 06/20/21 12/20/21 15:03 15:10 WBC 10.9 H Hgb 10.4 L Hct 33.3 L Plt Count 511 H D Sodium 138 Potassium 4.0 Chloride 101 Carbon Dioxide 29 BUN 17 H Creatinine 0.66 Assessment and Plan Assessment Anesthesia Assessment: Chart Reviewed Documented by User: Roni Ndiaye MD 01/19/22 08:49 PMFSH Past Medical History Medical History Calcific shoulder tendinitis Class 1 obesity with body mass index (BMI) of 34.0 to 34.9 in adult Diverticulosis Essential hypertension Essential hypertension Family history of colon cancer VAHE (generalized anxiety disorder) GERD with esophagitis Hemorrhoids, internal, with bleeding History of colon polyps Hypercalcemia Hypertension Rhinitis Right leg pain Family History Family History Father Alive and well Mother Colon cancer Hypertension Brother No problems noted. Sister Psychiatric disorder Chronic mental illness Family/Other Chronic mental illness Family history of problems with anesthesia: No Surgical History Surgical History H/O basal cell carcinoma excision History of section History of colonoscopy (~02/2018) History of tubal ligation Hx of endoscopy History of Problems with Anesthesia: No Social History Social History Housing: Apartment Alcohol intake: current Alcohol intake frequency: holidays/special occasions only Alcohol type: wine Patient Tobacco Use Status: Never used Tobacco e-Cigarette/Vaping Use: Never Used Second Hand Smoke Exposure: No Use of substances other than those prescribed or required for medical reasons: No Are you DNR?: No Advance Directives: No Advance Directives Information Provided: Yes Recently lost weight without trying: No Nutrition Risks: No Nutritional Risk service: No Current occupational status: employed Current occupational exposures/hazards: No Sexual orientation: Straight/Heterosexual Gender identity: Female Cognitive needs: No Hearing needs: No Vision needs: Yes Meds Allergies Allergy/AdvReac Type Severity Reaction Status Date / Time aspirin [ASA] Allergy Intermediate THROAT Verified 12/20/21 14:10 SWELLING, pruritus, tracheal swelling Home Medications Medication Instructions Recorded Confirmed Last Taken Type buspirone 10 mg tablet mg PO 03/24/20 09/26/21 Unknown History Exam Airway Mallampati Class: I TM Dist: >3cm Loose/Missing/Broken Teeth: No (Rrr) Lungs: clear Assessment and Plan Final Anesthetic Review Family History of Problems with Anesthesia: No History of Problems with Anesthesia: No NPO: Yes ASA Class: II Final Preanesthetic Review: No Changes in Pt Med Stat, Meds/Allgs Chart Reviewed, Consent Obtained/Reviewed and Anes Risks/Benef Reviewed Patient Risk: Intermediate Procedure Risk: Low Anesthetic Plan Anesthetic Plan: GA Disposition: Standard PACU
[2022-01-19 08:43] VITALS: BMI 33.8
[2022-01-19 08:45] LABS: UPreg QC Valid YES; Urine Pregnancy NEGATIVE (NEGATIVE)
[2022-01-19 08:47] VITALS: BP 137/71; PULSE 73; RESP 16; TEMP 36.4; O2SAT 99
--- NOTE | 2022-01-19 08:59 | MHC.SHP ---
Pre-Procedural Eval Section A Date of Service: 01/19/22 The patient is an INPATIENT: No Changes since office visit: No Cold of Flu in the past 2 weeks, No New Medical Problems, No Changes in Medication and No Patient answered all questions The History & Physical has been completed within 30 days and I have reviewed it.: Yes Section B Chief Complaint: bleeding Allergies: Allergies Allergy/AdvReac Type Severity Reaction Status Date / Time aspirin [ASA] Allergy Intermediate THROAT Verified 12/20/21 14:10 SWELLING, pruritus, tracheal swelling Plan Diagnosis/Plan: Unchanged I have reviewed the history and physical and performed a pertinent physical examination on my patient. No changes have occurred unless specified.
[2022-01-19] MEDS: Lactated Ringers 1,000 ML 100 ML IVCONT (09:00)
--- NOTE | 2022-01-19 10:02 | P.OP_ITS ---
Operative Note Operative Note Date of Service: 01/19/22 Narrative: Preop diagnosis: Menorrhagia Post Op Diagnosis: Same Op: Novasure Endometrial Ablation Anesthesia: MAC Disability Liaison Officer: None QBL: Minimal Pathology: None Complications: None Procedure: The patient was put in the dorsal lithotomy position. She was prepped and draped in the usual sterile manner. Bimanual exam prior to prepping revealed a mobile, anteverted uterus. A speculum was placed in the vagina and the anterior lip of the cervix was grasped with a single toothed tenaculum and brought forward. Taking care not to enter deep into the uterus, a sound was passed inside to measure the length of the uterus and cervix. This length was found to be 8 cm. Next, Hegar dilator was inserted into the cervical os to measure the cervical length which was 3 cm. This yielded an endometrial cavity length of 6.5 cm. A series of Hegar dilators were then inserted sequentially into the cervical os up to a size of 5 mm. The Novasure device was then opened and tested; the fan deployed easily. The instrument was set to the correct cavity length and introduced into the uterine cavity. The fan was slowly deployed with gentle movements to ensure a snug fit within the cavity. The cavity width read 4.5 cm. The measurements were imported and a cavity check was done. The trumpet was then slid down to the cervix and the device was activated. The total burn time was 74 seconds. The fan was retracted and device removed. The fan was examined and revealed charred tissue. The tenaculum was removed and the cervix examined for hemostasis which was achieved using pressure. Finally the speculum was removed. The patient tolerated the procedure well and was brought to the recovery room in a stable condition. At the end of the procedure all sponges and instruments were counted and correct. The blood loss was minimal and there were no complications.
--- NOTE | 2022-01-19 10:02 | PM.OP ---
Brief Operative Note Date of Service: 04/15/20 Pre-op diagnosis: Menometrorrhagia Post-op diagnosis: same Procedure: NovaSure Endometrial Ablation Surgeon: Alejandro Hernandez MD Anesthesia: MAC Was an Artificial Log Machine Operator used for this Procedure?: No Estimated blood loss (mL): 0 Pathology: none sent Condition: stable Disposition: PACU
[2022-01-19 10:08] VITALS: BP 117/59; PULSE 73; RESP 16; TEMP 36.3; O2SAT 98
[2022-01-19 10:13] VITALS: BP 108/62; PULSE 68; RESP 16; O2SAT 98
[2022-01-19 10:18] VITALS: BP 123/69; PULSE 63; RESP 16; O2SAT 98
[2022-01-19 10:23] VITALS: BP 115/69; PULSE 59; RESP 16; O2SAT 100
[2022-01-19 10:38] VITALS: BP 135/74; PULSE 60; RESP 16; O2SAT 100
== END 2022-01-19 11:17 | disposition home or self-care (01) ==
PROVIDERS: PCP Internal Medicine; Visit Provider Obstetrics & Gynecology
PROC: (CPT 58353; principal; 2022-01-19 10:00)
DX: N93.9 Abnormal uterine and vaginal bleeding, unspecified (principal); N85.4 Malposition of uterus; Z98.51 Tubal ligation status; I10 Essential (primary) hypertension; E66.8 Other obesity; Z68.35 Body mass index [BMI] 35.0-35.9, adult; K21.00 Gastro-esophageal reflux disease with esophagitis, without bleeding; K64.8 Other hemorrhoids; F41.1 Generalized anxiety disorder; Z88.8 Allergy status to other drugs, medicaments and biological substances; E83.52 Hypercalcemia; Z79.899 Other long term (current) drug therapy; Z85.828 Personal history of other malignant neoplasm of skin
CPT/HCPCS: 58353; 81025; J1100; J2250; J2405; J3010

== ENCOUNTER 2022-01-23 09:09 | Outpatient (REF) | payer OTHER, SELFPAY ==
--- NOTE | ~2022-01-23 | MM_ITS ---
EXAMINATION: MM SCREENING DIGITAL BREAST TOMOSYNTHESIS, BILATERAL CLINICAL INFORMATION: Screening. Asymptomatic. The lifetime risk of breast cancer based on the Tyrer-Cuzick Model is 7.1%. COMPARISON: Mammography: January 26, 2021 and studies dating back to October 29, 2014 TECHNIQUE: Digital breast tomosynthesis is performed in both the craniocaudal and mediolateral oblique views along with computer-aided detection (CAD). Synthesized 2D images are generated from the tomosynthesis. FINDINGS: The breasts are almost entirely fatty (ACR BI-RADS breast composition Category a). There are no significant masses, abnormal calcifications, or other abnormalities. MM/MM tomosynthesis screening BI IMPRESSION: No significant changes from prior exam. ASSESSMENT: BI-RADS 1: Negative RECOMMENDATION: Routine annual mammography screening. This patient's information was entered into a reminder system with a target due date for their next mammogram.
== END 2022-01-23 09:10 | disposition home or self-care (01) ==
LOC: HO.MAMMO 09:09
PROVIDERS: Visit Provider Obstetrics & Gynecology
DX: Z12.31 Encounter for screening mammogram for malignant neoplasm of breast (principal)
CPT/HCPCS: 77063; 77067

== ENCOUNTER 2022-01-26 07:07 | Outpatient (REF) | payer OTHER, SELFPAY ==
[2022-01-26 07:26] LABS: MANUAL DIFF FLAG NO
[2022-01-26 07:35] LABS: Basophils Percent Auto 0.6 % (0-2); Eosinophils Absolute Auto 0.3 X10*3/uL (0.0-0.4); Eosinophils Percent Auto 4.2 % (0-4); Hematocrit 37.3 % (37.0-47.0); Hemoglobin 11.7 g/dl (12.0-16.0); Imm Gran Abs Auto 0.02 X10*3/uL (0.00-0.03); Imm Gran Pct Auto 0.3 % (0.0-0.4); Lymphocytes Absolute Auto 2.9 X10*3/uL (1.2-4.9); Lymphocytes Percent Auto 45.5 % (20-40); Mean Corpuscular HGB Conc 31.4 g/dl (31.0-35.0); Mean Corpuscular Hemoglobin 25.4 pg (27.0-33.0); Mean Corpuscular Volume 81.1 fL (80.0-98.0); Monocytes Absolute Auto 0.5 X10*3/uL (0.1-1.2); Monocytes Percent Auto 8.3 % (2-11); Neutrophils Absolute Auto 2.6 x10*3/uL (2.0-8.3); Neutrophils Percent Auto 41.1 % (45-73); Platelet Count 406 X10*3/uL (160-400); White Blood Count 6.4 X10*3/uL (4.8-10.8)
[2022-01-26 08:00] LABS: Alanine Aminotransferase 12 U/L (0-31); Albumin Level 4.2 g/dL (3.5-5.0); Alkaline Phosphatase 74 U/L (39-117); Anion Gap 15 (12-20); Aspartate Amino Transferase 12 U/L (5-31); Bilirubin Total 0.9 mg/dL (0.0-1.0); Blood Urea Nitrogen 14 mg/dL (9-16); Calcium 9.9 mg/dL (8.4-10.2); Carbon Dioxide 29 mmol/L (22-29); Chloride 100 mmol/L (96-108); Estimated Glomerular Filt Rate > 60; Glucose Random 96 mg/dL (60-115); Iron 59 mcg/dL (30-160); Percent Iron Saturation 14 % (15-50); Potassium 3.9 mmol/L (3.3-5.1); Sodium 140 mmol/L (135-145); Total Iron Binding Capacity 412 mcg/dL (228-428); Total Protein 7.8 g/dL (6.5-8.0); Unsaturated Iron Binding 353 ug/dL
[2022-01-28 13:17] LABS: PTHI 37 pg/mL (16-77)
[2022-01-28 15:22] LABS: Calcium, Random Urine 9.5 mg/dL
== END 2022-01-26 07:08 | disposition home or self-care (01) ==
LOC: HO.LAB 07:07
PROVIDERS: Absent Provider Obstetrics & Gynecology; PCP Internal Medicine; Visit Provider Internal Medicine
DX: D64.9 Anemia, unspecified (principal); E83.52 Hypercalcemia
CPT/HCPCS: 36415; 80053; 82306; 82310; 82330; 83540; 83970; 85025

== ENCOUNTER → 2022-02-01 14:57 | Outpatient (BNVA) | payer OTHER, SELFPAY | PROVIDERS: PCP Internal Medicine; Visit Provider Obstetrics & Gynecology | DX: N93.9 Abnormal uterine and vaginal bleeding, unspecified (principal) | CPT/HCPCS: 99212 ==

== ENCOUNTER → 2022-02-12 14:51 | Outpatient (REF) | payer OTHER, SELFPAY | LOC: HO.SL 14:51 | PROVIDERS: PCP Internal Medicine; Visit Provider Internal Medicine | DX: G47.33 Obstructive sleep apnea (adult) (pediatric) (principal); R40.0 Somnolence | CPT/HCPCS: 95806 ==

== ENCOUNTER → 2022-03-07 13:32 | Outpatient (BNVA) | payer OTHER, SELFPAY | PROVIDERS: PCP Internal Medicine; Visit Provider Internal Medicine | DX: G47.33 Obstructive sleep apnea (adult) (pediatric) (principal); G47.34 Idiopathic sleep related nonobstructive alveolar hypoventilation; E66.09 Other obesity due to excess calories; Z68.34 Body mass index [BMI] 34.0-34.9, adult | CPT/HCPCS: 99202 ==

== ENCOUNTER 2022-05-11 10:02 | Day surgery (SDC) | payer OTHER, SELFPAY ==
[2022-05-07 15:15] VITALS: BMI 33.3
[2022-05-07 15:39] VITALS: BMI 32.9
--- NOTE | 2022-05-10 12:18 | P.CONAN_ITS ---
Documented by User: Eliz Hernandez NP 05/10/22 13:52 HPI - Anesthesia Eval Consult details Narrative: 56yo F for Colonoscopy s/p novasure 01/2022 with GA-LMA 5 PMFSH Active Problems Active Problems: All Active Problems (Updated 03/07/22 @ 14:21 by Fox Norton MD) Nocturnal hypoxemia (Acute) SIXTO (obstructive sleep apnea) (Acute) Daytime sleepiness (Acute) Abnormal uterine bleeding (AUB) (Acute) VAHE (generalized anxiety disorder) (Acute) Hypercalcemia (Acute) Myoma (Acute) Tubular adenoma of colon (Acute) Enlarged uterus (Acute) Right knee pain (Acute) Calcific shoulder tendinitis (Acute) Class 1 obesity with body mass index (BMI) of 34.0 to 34.9 in adult (Acute) Right leg pain (Acute) Essential hypertension (Acute) Well woman exam (Acute) Spondylosis of lumbar region without myelopathy or radiculopathy (Acute) Diverticulosis (Acute) Hemorrhoids, internal, with bleeding (Acute) Family history of colon cancer (Acute) GERD with esophagitis (Acute) Past Medical History Medical History Calcific shoulder tendinitis Class 1 obesity with body mass index (BMI) of 34.0 to 34.9 in adult Diverticulosis Essential hypertension Family history of colon cancer VAHE (generalized anxiety disorder) GERD with esophagitis Hemorrhoids, internal, with bleeding History of colon polyps Hypercalcemia Rhinitis Right leg pain Sleep apnea Family History Family History Father Alive and well Mother Colon cancer Hypertension Brother No problems noted. Sister Psychiatric disorder Chronic mental illness Family/Other Chronic mental illness Family history of problems with anesthesia: No Surgical History Surgical History H/O basal cell carcinoma excision History of section History of colonoscopy (~02/2018) History of tubal ligation Hx of endoscopy History of Problems with Anesthesia: No Social History Social History Housing: Apartment Do you presently have visiting nurse or other home services: No Alcohol intake: current Alcohol intake frequency: holidays/special occasions only Alcohol type: wine Patient Tobacco Use Status: Never used Tobacco e-Cigarette/Vaping Use: Never Used Second Hand Smoke Exposure: No Use of substances other than those prescribed or required for medical reasons: No Have you been hit, kicked, punched, or otherwise hurt by someone within the past year? If so, by whom?: No Are you DNR?: No Advance Directives: No Advance Directives Information Provided: Yes Advance Directives on File: No Recently lost weight without trying: No Nutrition Risks: No Nutritional Risk service: No Current occupational status: employed Current occupational exposures/hazards: No Sexual orientation: Straight/Heterosexual Gender identity: Female Cognitive needs: No Hearing needs: No Vision needs: Yes Meds Allergies Allergy/AdvReac Type Severity Reaction Status Date / Time aspirin [ASA] Allergy Severe Anaphylaxis Verified 05/07/22 15:38 Home Medications Medication Instructions Recorded Confirmed Last Taken Type buspirone 10 mg tablet 10 mg PO DAILY 03/24/20 05/07/22 05/11/22 History ferrous sulfate 325 mg (65 mg 325 mg PO DAILY 03/07/22 03/07/22 Unknown History iron) tablet,delayed release Exam Exam Date and Time: May 10, 2022 1218 Height,Weight and Vital Signs: Height 5 ft 2 in Weight 81.647 kg Pertinent Lab Results Pertinent Lab Results: Laboratory Tests 01/26/22 01/26/22 07:23 07:23 WBC 6.4 Hgb 11.7 L Hct 37.3 Plt Count 406 H Sodium 140 Potassium 3.9 Chloride 100 Carbon Dioxide 29 BUN 14 Creatinine 0.71 Assessment and Plan Assessment Anesthesia Assessment: Chart Reviewed Final Anesthetic Review Family History of Problems with Anesthesia: No History of Problems with Anesthesia: No Documented by User: Kimberli Cueto MD 05/11/22 11:39 [facility] Past Medical History Medical History Calcific shoulder tendinitis Class 1 obesity with body mass index (BMI) of 34.0 to 34.9 in adult Diverticulosis Essential hypertension Family history of colon cancer VAHE (generalized anxiety disorder) GERD with esophagitis Hemorrhoids, internal, with bleeding History of colon polyps Hypercalcemia Rhinitis Right leg pain Sleep apnea Functional capacity: independent ambulation Patient : No Family History Family History Father Alive and well Mother Colon cancer Hypertension Brother No problems noted. Sister Psychiatric disorder Chronic mental illness Family/Other Chronic mental illness Surgical History Surgical History H/O basal cell carcinoma excision History of section History of colonoscopy (~02/2018) History of tubal ligation Hx of endoscopy Social History Social History Housing: Apartment Do you presently have visiting nurse or other home services: No Alcohol intake: current Alcohol intake frequency: holidays/special occasions only Alcohol type: wine Patient Tobacco Use Status: Never used Tobacco e-Cigarette/Vaping Use: Never Used Second Hand Smoke Exposure: No Use of substances other than those prescribed or required for medical reasons: No Have you been hit, kicked, punched, or otherwise hurt by someone within the past year? If so, by whom?: No Are you DNR?: No Advance Directives: No Advance Directives Information Provided: Yes Advance Directives on File: No Recently lost weight without trying: No Nutrition Risks: No Nutritional Risk service: No Current occupational status: employed Current occupational exposures/hazards: No Sexual orientation: Straight/Heterosexual Gender identity: Female Cognitive needs: No Hearing needs: No Vision needs: Yes Meds Allergies Allergy/AdvReac Type Severity Reaction Status Date / Time aspirin [ASA] Allergy Severe Anaphylaxis Verified 05/07/22 15:38 Home Medications Medication Instructions Recorded Confirmed Last Taken Type buspirone 10 mg tablet 10 mg PO DAILY 03/24/20 05/07/22 05/11/22 History ferrous sulfate 325 mg (65 mg 325 mg PO DAILY 03/07/22 03/07/22 Unknown History iron) tablet,delayed release Exam Airway Mallampati Class: II TM Dist: >3cm Neck ROM: Full Heart: RRR Lungs: CTA Assessment and Plan Final Anesthetic Review ASA Class: II Final Preanesthetic Review: No Changes in Pt Med Stat, Meds/Allgs Chart Reviewed, Consent Obtained/Reviewed and Anes Risks/Benef Reviewed Patient Risk: Low Procedure Risk: Low Anesthetic Plan Anesthetic Plan: MAC: Disposition: Standard PACU
[2022-05-11 10:20] VITALS: BP 134/69; PULSE 69; RESP 16; TEMP 36.3; O2SAT 100
--- NOTE | 2022-05-11 10:23 | MHC.SHP ---
Pre-Procedural Eval Section A Date of Service: 05/11/22 The patient is an INPATIENT: No The History & Physical has been completed within 30 days and I have reviewed it.: No Section B Chief Complaint: Family history of malignant neoplasm of digestive Relevant Family History (Specify if Yes): Yes Relevant Social History: None Present Medications: see Short Stay Collaborative assessment Medical History: Significant History (Calcific shoulder tendinitis Class 1 obesity with body mass index (BMI) of 34.0 to 34.9 in adult Diverticulosis Essential hypertension Essential hypertension Family history of colon cancer GERD with esophagitis Hemorrhoids, internal, with bleeding History of colon polyps Hypertension Rhinitis Right ) History of Previous Operations: Relevant previous surgery/procedure and date(s) (H/O basal cell carcinoma excision History of section History of colonoscopy (~02/2018) History of tubal ligation Hx of endoscopy) Allergies: Allergies Allergy/AdvReac Type Severity Reaction Status Date / Time aspirin [ASA] Allergy Severe Anaphylaxis Verified 05/07/22 15:38 Review of Systems Sugical H&P ROS: Negative: Constitution, Cardiovascular, Respiratory and Gastrointestinal Exam Surgical H&P Exam: Normal: Heart, Normal: Lungs, Normal: Extremities and Normal: Abdomen Plan Diagnosis/Plan: Unchanged I have reviewed the history and physical and performed a pertinent physical examination on my patient. No changes have occurred unless specified.
[2022-05-11] MEDS: Lactated Ringers 1,000 ML 100 ML IVCONT (10:34)
--- NOTE | 2022-05-11 11:17 | P.BOP_ITS ---
Brief Operative Note Date of Service: 05/11/22 Pre-op diagnosis: Colon cancer screening, history of colon polyps Post-op diagnosis: other (Diverticulosis, hemorrhoids) Procedure: COLONOSCOPY TO CECUM Surgeon: Ange Mckoy MD Anesthesia: MAC Was an Clinic Mgr used for this Procedure?: No Clinic Mgr: Niru Zapata Estimated blood loss (mL): 0 Pathology: none sent Condition: stable Disposition: PACU
--- NOTE | 2022-05-11 11:17 | W.PM.OPN ---
Operative Note Operative Note Date of Service: 05/11/22 Narrative: Pre-op diagnosis: Colon cancer screening, history of colon polyps Post-op diagnosis:?other (Diverticulosis, hemorrhoids) Surgeon: Ange Mckoy MD Anesthesia:?MAC COLONOSCOPY TILL CECUM Consent: Indications for the procedure and potential complications of bleeding, perforation, reaction to medications and missed diagnosis were discussed with the patient and informed consent was obtained. Instrument: Olympus PCF H 190 L variable stiffness pediatric colonoscope Monitoring: Vital signs and clinical assessment, intermittent blood pressure monitoring, continuous EKG monitoring, Pulse oximetry and Carbon Dioxide monitoring were done throughout the procedure. Colon withdrawl time was 15 minutes. Procedure: The patient was placed in the left lateral decubitis position and pre-procedure medications were administered. After a digital rectal examination of the ano-rectum, the video colonoscope was inserted into the rectum and advanced through the colon to the cecum. The colonoscope was slowly withdrawn in a retrograde panoramic fashion and the colon mucosa was carefully examined including a retroflexed view of the rectum. Findings and interventions are described below. Procedure Difficulty: Without difficulty Findings: Terminal Ileum: Not evaluated Cecum: Normal Ascending Colon: Normal Transverse Colon: Normal Descending Colon: Moderate diverticulosis Sigmoid Colon: Moderate diverticulosis Rectum: Normal Ano-rectum: Moderate internal hemorrhoids Colon preparation: Excellent Impression and Post Procedure Diagnosis: Colonoscopy Findings: No polyps were detected Moderate diverticulosis seen in the left colon Moderate hemorrhoids on retroflexed exam. Plan: Patient has an appointment on 05/25/22 in the [facility] with Reba Orosco NP. Repeat Colonoscopy in 5 years (due to a hx of adenomatous colon polyps). Above findings were reviewed with the patient and diverticulosis handout was given in the discharge area
[2022-05-11 11:54] VITALS: BP 117/63; PULSE 72; RESP 16; TEMP 36.6; O2SAT 99
[2022-05-11 12:09] VITALS: BP 127/72; PULSE 53; RESP 16; TEMP 36.6; O2SAT 100
--- NOTE | 2022-05-11 12:25 | PC.NURSE ---
medical staff credentialing coordinator present to provide discharge instructions.
== END 2022-05-11 12:48 | disposition home or self-care (01) ==
PROVIDERS: PCP Internal Medicine; Visit Provider Internal Medicine Gastroenterology
PROC: 0DJD8ZZ Inspection of Lower Intestinal Tract, Via Natural or Artificial Opening Endoscopic (ICD-10-PCS; CPT 45378; principal; 2022-05-11 11:10)
DX: Z12.11 Encounter for screening for malignant neoplasm of colon (principal); K57.30 Diverticulosis of large intestine without perforation or abscess without bleeding; K64.8 Other hemorrhoids; Z86.010 Personal history of colon polyps; Z80.0 Family history of malignant neoplasm of digestive organs; I10 Essential (primary) hypertension; F41.9 Anxiety disorder, unspecified; Z79.899 Other long term (current) drug therapy; Z88.6 Allergy status to analgesic agent
CPT/HCPCS: 45378

== ENCOUNTER 2022-05-16 15:39 | Outpatient (REF) | payer OTHER, SELFPAY ==
[2022-05-17 02:10] LABS: CT PCR NOT DETECTED (Not Detect.); NG PCR NOT DETECTED (Not Detect.)
== END 2022-05-16 15:40 | disposition home or self-care (01) ==
LOC: HO.LNP 15:39
PROVIDERS: Visit Provider Obstetrics & Gynecology
DX: Z11.3 Encounter for screening for infections with a predominantly sexual mode of transmission (principal); N93.9 Abnormal uterine and vaginal bleeding, unspecified
CPT/HCPCS: 87491; 87591

== ENCOUNTER → 2022-05-30 10:19 | Outpatient (BNVA) | payer OTHER, SELFPAY | PROVIDERS: PCP Internal Medicine; Visit Provider Internal Medicine | DX: G47.33 Obstructive sleep apnea (adult) (pediatric) (principal); G47.34 Idiopathic sleep related nonobstructive alveolar hypoventilation; E66.01 Morbid (severe) obesity due to excess calories; Z68.32 Body mass index [BMI] 32.0-32.9, adult | CPT/HCPCS: 99212 ==

== ENCOUNTER → 2022-06-01 14:17 | Outpatient (BNVA) | payer OTHER, SELFPAY | PROVIDERS: PCP Internal Medicine; Visit Provider Nurse Practitioner | DX: D12.6 Benign neoplasm of colon, unspecified (principal); K59.00 Constipation, unspecified; Z80.0 Family history of malignant neoplasm of digestive organs | CPT/HCPCS: 99212 ==

== ENCOUNTER 2022-06-03 13:31 | Emergency (ER) | payer OTHER, SELFPAY ==
[2022-06-03 13:43] VITALS: BP 169/52; PULSE 68; RESP 18; TEMP 36.6; O2SAT 98; BMI 32.9
--- NOTE | 2022-06-03 13:44 | ED_ITS ---
HPI - General Adult General Chief complaint: Eye Problems Stated complaint: swollen, itchy eye Time Seen by Provider: 06/03/22 13:44 Source: patient Mode of arrival: ambulatory Limitations: no limitations History of Present Illness HPI narrative: Patient is a 56 year old assigned female at with a history of VAHE presenting to the emergency department today with right eye irritation and drainage. Patient states that she woke up this morning with right sided eye irritation and drainage. Patient denies any dizziness, lightheadedness, abdominal pain, nausea, vomiting, fever, chills, blurry vision, double vision, loss of vision, chest pain, difficulty breathing, shortness of breath, back pain, night sweats, pain with urination, increased urinary frequency, increased urinary urgency, blood in her urine or stool, syncope or a near syncopal episode, recent trauma or falls, bowel incontinence, bladder incontinence, bowel retention, bladder retention, or any other complaints at this time. Onset (ago): hour(s) Location: eyes (right) Radiation: non-radiation Severity: mild Severity scale (1-10): 2 Relieving factors: none Exacerbating factors: none Associated symptoms: denies other symptoms Treatments prior to arrival: none Related Data Home Medications Medication Instructions Recorded Confirmed buspirone 10 mg tablet 10 mg PO DAILY 03/24/20 05/30/22 escitalopram oxalate 5 mg tablet 5 mg PO DAILY 06/01/22 ketoconazole 2 % shampoo topical 06/01/22 omeprazole 20 mg capsule,delayed 20 mg PO DAILY 06/01/22 release Previous Rx's Medication Instructions Recorded loratadine 10 mg tablet 10 mg PO DAILY #30 tabs 03/29/21 acetaminophen 500 mg tablet 1,000 mg PO Q6H PRN fever or pain 01/30/22 (Tylenol Extra Strength) 90 days #300 tabs CPAP (CPAP Machine/Device) #1 ea 02/26/22 losartan 100 mg tablet 100 mg PO DAILY 90 days #90 tabs 03/12/22 chlorthalidone 25 mg tablet 25 mg PO QAM 90 days #90 tabs 04/27/22 polyethylene glycol 3350 17 17 g PO DAILY 30 days #510 grams 06/01/22 gram/dose oral powder (Miralax) erythromycin 5 mg/gram (0.5 %) eye 0.5 inch ophthalmic (eye) Q4H #3.5 06/03/22 ointment grams Allergies Allergy/AdvReac Type Severity Reaction Status Date / Time aspirin [ASA] Allergy Severe Anaphylaxis Verified 06/01/22 14:46 Review of Systems Constitutional: Constitutional: Reports no additional constitutional complaints, Denies chills, Denies fever(s) and Denies night sweats Eyes: Eyes: Reports no additional eye complaints, Denies blurry vision, Denies change in vision, Denies diplopia, Reports eye discharge (right eye), Denies loss of vision and Reports eye pain (right eye) ENT: Denies dizziness Cardiovascular: Cardiovascular: Reports no additional cardiovascular complaints, Denies chest pain, Denies lightheadedness, Denies Loss of Consciousness and Denies dyspnea Respiratory: Respiratory: Reports no additional respiratory complaints and Denies dyspnea Gastrointestinal: Gastrointestinal: Reports no additional gastrointestinal complaints, Denies abdominal pain, Denies melena, Denies hematochezia, Denies change in bowel habits and Denies change in stool character Genitourinary: Genitourinary: Denies hematuria, Denies urinary frequency, Denies dysuria, Denies urinary incontinence, Denies urinary hesitancy and Denies urinary urgency Musculoskeletal: Musculoskeletal: Reports no additional musculoskeletal complaints, Denies numbness and Denies tingling Neurologic: Denies dizziness, Denies loss of vision, Denies numbness and Denies tingling Psychiatric: Psychiatric: Reports no additional psychiatric complaints Endocrine: Endocrine: Reports no additional endocrine complaints Hematologic/Lymphatic: Hematologic/Lymphatic: Reports no additional hematologic/lymphatic complaints Allergic/Immunologic: Allergic/Immunologic: Reports no additional allergic/immunologic complaints [facility] Past Medical History Attestation statement: The following information was validated with the patient. Source: old records reviewed and nursing notes reviewed Medical History Calcific shoulder tendinitis Class 1 obesity with body mass index (BMI) of 34.0 to 34.9 in adult Diverticulosis Essential hypertension Family history of colon cancer VAHE (generalized anxiety disorder) GERD with esophagitis Hemorrhoids, internal, with bleeding History of colon polyps Hypercalcemia Obesity (BMI 30-39.9) Rhinitis Right leg pain Sleep apnea Surgical History H/O basal cell carcinoma excision History of section History of colonoscopy (~02/2018) History of tubal ligation Hx of endoscopy Family History Family History Father Alive and well Mother Colon cancer Hypertension Brother No problems noted. Sister Psychiatric disorder Chronic mental illness Family/Other Chronic mental illness Social History Social History Housing: Apartment Do you presently have visiting nurse or other home services: No Alcohol intake: current Alcohol intake frequency: holidays/special occasions only Alcohol type: wine Patient Tobacco Use Status: Never used Tobacco e-Cigarette/Vaping Use: Never Used Second Hand Smoke Exposure: No Advance Directives: No Advance Directives Information Provided: Yes service: No Current occupational status: employed Current occupational exposures/hazards: No Sexual orientation: Straight/Heterosexual Gender identity: Female Cognitive needs: No Hearing needs: No Vision needs: Yes Physical Exam ED Vital Signs: Vital Signs - 24 hr 06/03/22 13:43 Temperature 98 F Pulse Rate 68 Respiratory Rate 18 Blood Pressure 169/52 H Pulse Oximetry 98 Oxygen Delivery Method Room Air BMI result Body Mass Index 32.9 Const General: cooperative, no acute distress, alert and awake Nutritional Appearance: well nourished Orientation/consciousness: patient oriented x3 Limitations: no limitations HENMT Head: Yes normal to inspection and Yes atraumatic Ears: hearing grossly normal bilaterally and external ears normal General nose exam: Normal external nose present, no nasal discharge noted and no epistaxis Face and sinus: Yes normal facial exam, No abrasion and No laceration Mouth: Normal oral and palatal mucosa present, no drooling and no muffled voice Eyes General: appearance normal, both eyes and all related structures Periorbital: periorbital findings normal Eyelids: Yes eyelids normal Conjunctivae: conjunctival abnormal right conjunctival icterus and discharge Pupils: Equal, round and reactive pupils present EOM: EOMs intact bilaterally Neck Neck: Yes normal visual inspection, Yes full ROM and Yes no lymphadenopathy Chest Chest palpation & inspection: normal inspection of the chest Resp Effort & Inspection: normal respiratory effort and able to speak in complete sentences Auscultation: clear to auscultation bilaterally Cardio Rate: regular rate Rhythm: regular rhythm GI Inspection: Yes normal to inspection Palpation (GI): Soft to palpation, not firm, nontender and no guarding Neuro General: patient oriented x3 and moves all extremities Cranial nerves: Yes Equal, round and reactive pupils present Cognition (Neuro): normal cognition Motor exam (neuro): 5/5 motor strength present throughout Sensory Exam: Normal double simultaneous stimulation for sensation Coordination: [id number] test normal Extrem General: Yes normal to inspection, Yes full ROM and Yes capillary refill normal Psych Appearance: grossly normal Mental Status: mental status grossly normal Affect: normal affect Attitude: cooperative Thought process: Normal thought process present Thought content: Normal thought content present Insight: Good insight present (Psych) Medical Decision Making Medical Decision Making MDM Narrative: Patient is a 56 year old assigned female at with a history of VAHE presenting to the emergency department today with right eye irritation and discharge. Patient's physical exam showed right sided conjunctival irritation and discharge, consistent with conjunctivitis. I explained my physical exam findings to the patient. I answered all questions asked by the patient. I stressed the importance of the patient taking her medication as prescribed. I stressed the importance of the patient following up with her primary care provider. I stressed the importance of the patient returning to the emergency department immediately if her symptoms were to worsen or if she were to develop any dizziness, shortness of breath, difficulty breathing, chest pain, blurry vision, loss of vision, nausea, vomiting, abdominal pain, fever, chills, back pain, or any other complaints. Patient verbalized agreement and understanding with this treatment plan and discharge. Differential Diagnosis Differential Diagnoses: The differential diagnosis associated with the presentation includes Conjunctivitis Discharge Plan Discharge Clinical Impression: Conjunctivitis Patient Disposition: Home, Self-Care Instructions: Conjunctivitis (ED) Additional Instructions: Follow up with your primary care provider. Return to the emergency department immediately if your symptoms worsen or if you develop any dizziness, shortness of breath, difficulty breathing, chest pain, blurry vision, loss of vision, nausea, vomiting, abdominal pain, fever, chills, back pain, or any other complaints. [place] un seguimiento con belle proveedor de atenci?n primaria. [place] de emergencias de inmediato si gene s?ntomas empeoran o si presenta mareos, dificultad para respirar, dolor de pecho, visi?n borrosa, p?rdida de la visi?n, n?useas, v?mitos, dolor abdominal, fiebre, escalofr?os, dolor de espalda o cualquier otras quejas. Prescriptions: New erythromycin 5 mg/gram (0.5 %) ointment 0.5 inch ophthalmic (eye) Q4H Qty: 3.5 0RF No Action loratadine 10 mg tablet 10 mg PO DAILY Qty: 30 6RF (DME) CPAP Machine/Device Device See Rx Instructions .Route Qty: 1 0RF Rx Instructions: autoPAP mode, 6-20 cm H2O losartan 100 mg tablet 100 mg PO DAILY 90 Days Qty: 90 3RF chlorthalidone 25 mg tablet 25 mg PO QAM 90 Days Qty: 90 3RF buspirone 10 mg tablet 10 mg PO DAILY acetaminophen [Tylenol Extra Strength] 500 mg tablet 1,000 mg PO Q6H PRN (Reason: fever or pain) 90 Days Qty: 300 1RF escitalopram oxalate 5 mg tablet 5 mg PO DAILY ketoconazole 2 % shampoo topical omeprazole 20 mg capsule,delayed release(DR/EC) 20 mg PO DAILY polyethylene glycol 3350 [Miralax] 17 gram/dose powder 17 g PO DAILY 30 Days Qty: 510 3RF Referrals: Arelis Irvin MD [Primary Care Provider] - Interventions: ED Discharge Assessment Last Done: 06/03/22 13:47 Discharge Date/Time: 06/03/22 13:59 Print Language: Bel[place]an
== END 2022-06-03 13:59 | disposition home or self-care (01) ==
LOC: HO.ED 13:49
PROVIDERS: Emergency Provider Emergency Medicine; PCP Internal Medicine
DX: H10.9 Unspecified conjunctivitis (principal); Z79.899 Other long term (current) drug therapy
CPT/HCPCS: 99282

== ENCOUNTER 2022-06-05 09:19 | Emergency (ER) | payer OTHER, SELFPAY ==
[2022-06-05 09:33] VITALS: BP 158/71; PULSE 77; RESP 20; TEMP 36.9; O2SAT 95; BMI 32.9
--- NOTE | 2022-06-05 11:54 | ED.EYEPROB ---
HPI - Eye Problem General Chief complaint: Eye Problems Stated complaint: Red/itchy eyes Time Seen by Provider: 06/05/22 11:54 Source: patient Mode of arrival: ambulatory Limitations: language barrier (Persian-speaking clinical specialist medical device utilized) History of Present Illness HPI Narrative: Patient is a 56-year-old female who presents to the emergency department for evaluation of red watery eyes. Reports symptom onset to be 5 days ago. Denies associated pain, itching, fevers, chills, purulent drainage. She states that she was seen in the emergency department 2 days ago, at that time it was only the right side. Symptoms have since spread over to the left eye as well. She was discharged with a prescription for erythromycin ointment. 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 She has currently been on antibiotic ointment for greater than 24 hours. Additionally, she states over the past hour while in the waiting room she has also developed a sore throat. Related Data Home Medications Medication Instructions Recorded Confirmed buspirone 10 mg tablet 10 mg PO DAILY 03/24/20 05/30/22 escitalopram oxalate 5 mg tablet 5 mg PO DAILY 06/01/22 ketoconazole 2 % shampoo topical 06/01/22 omeprazole 20 mg capsule,delayed 20 mg PO DAILY 06/01/22 release Previous Rx's Medication Instructions Recorded loratadine 10 mg tablet 10 mg PO DAILY #30 tabs 03/29/21 acetaminophen 500 mg tablet 1,000 mg PO Q6H PRN fever or pain 01/30/22 (Tylenol Extra Strength) 90 days #300 tabs CPAP (CPAP Machine/Device) #1 ea 02/26/22 losartan 100 mg tablet 100 mg PO DAILY 90 days #90 tabs 03/12/22 chlorthalidone 25 mg tablet 25 mg PO QAM 90 days #90 tabs 04/27/22 polyethylene glycol 3350 17 17 g PO DAILY 30 days #510 grams 06/01/22 gram/dose oral powder (Miralax) erythromycin 5 mg/gram (0.5 %) eye 0.5 inch ophthalmic (eye) Q4H #3.5 06/03/22 ointment grams Allergies Allergy/AdvReac Type Severity Reaction Status Date / Time aspirin [ASA] Allergy Severe Anaphylaxis Verified 06/01/22 14:46 Review of Systems Review of Systems: Constitutional: No weight loss, fever, chills, weakness or fatigue. Eye: Right eye redness and drainage Throat: Positive sore throat Skin: No rash or itching. Cardiovascular: No chest pain, chest pressure or chest discomfort. No palpitations or pedal edema. Respiratory: No shortness of breath, cough or sputum production. Gastrointestinal: No anorexia, nausea, vomiting or diarrhea. No abdominal pain or blood in stool. Genitourinary: No burning micturition. No urinary frequency or incontinence. Musculoskeletal: No muscle pain, back pain, joint pain or stiffness. Psychiatric: No depression or anxiety. Yes all other systems are reviewed and are negative [facility] Past Medical History Attestation statement: The following information was validated with the patient. Source: old records reviewed Medical History Calcific shoulder tendinitis Class 1 obesity with body mass index (BMI) of 34.0 to 34.9 in adult Diverticulosis Essential hypertension Family history of colon cancer VAHE (generalized anxiety disorder) GERD with esophagitis Hemorrhoids, internal, with bleeding History of colon polyps Hypercalcemia Obesity (BMI 30-39.9) Rhinitis Right leg pain Sleep apnea Surgical History H/O basal cell carcinoma excision History of section History of colonoscopy (~02/2018) History of tubal ligation Hx of endoscopy Family History Family History Father Alive and well Mother Colon cancer Hypertension Brother No problems noted. Sister Psychiatric disorder Chronic mental illness Family/Other Chronic mental illness Social History Social History Housing: Apartment Do you presently have visiting nurse or other home services: No Alcohol intake: current Alcohol intake frequency: holidays/special occasions only Alcohol type: wine Patient Tobacco Use Status: Never used Tobacco e-Cigarette/Vaping Use: Never Used Second Hand Smoke Exposure: No Advance Directives: No Advance Directives Information Provided: No service: No Current occupational status: employed Current occupational exposures/hazards: No Sexual orientation: Straight/Heterosexual Gender identity: Female Cognitive needs: No Hearing needs: No Vision needs: Yes Physical Exam Vital Signs: Vital Signs: Last Vital Signs Temp 98.9 F 06/05/22 11:57 Pulse 53 06/05/22 11:57 Resp 12 06/05/22 11:57 BP 159/47 H 06/05/22 11:57 Pulse Ox 94 06/05/22 11:57 O2 Del Method 06/05/22 11:57 BMI result Body Mass Index 32.9 Appearance: Alert.?Oriented to person, place and time. No acute distress.?Normal affect. Eyes: Pupils equal, round and reactive to light.? EOMI. No nystagmus. Sclerae injected bilaterally with clear drainage, conjunctival erythema ENT: Pharynx normal. No erythema, exudates, or tonsillar hypertrophy?? Neck: Normal inspection.? Neck supple.??No cervical lymphadenopathy CVS: Heart sounds normal. Normal heart rate and rhythm.? Pulses normal.?? Respiratory: No respiratory distress.? Lung sounds clear to auscultation bilaterally?? Abdomen: Soft and non-tender. Skin: Skin warm and dry.? Normal skin color.? ? Extremities: No lower extremity edema.? Neuro: Moves all extremities spontaneously. Sensation intact bilaterally. CN II-XII intact. No focal neuro deficits. Ambulates with normal steady gait. Medical Decision Making Medical Decision Making MDM Narrative: Patient is a 56-year-old female who presents emergency department for evaluation of bilateral eye redness with clear drainage and sore throat of 1 hour. Regarding her eyes, she is already on treatment for conjunctivitis with erythromycin ointment which I feel is appropriate. She was requiring return to work no she was sent home today. She has been on antibiotic ointment for greater than 24 hour period, I see no reason that she cannot return to work at this time. Physical examination is not consistent with preseptal or septal cellulitis, atraumatic, does not wear contact lenses, low suspicion for any corneal abrasion or ulcer. However, she did express concern about a sore throat that has developed over the past hour. She requested tested for COVID-19 and influenza which is reasonable, both COVID and flu are negative. Provided with a return to work note accordingly. Reviewed worrisome signs and symptoms that would warrant re-evaluation in the emergency department, and advised outpatient follow-up with her primary care provider, in addition to continued use of erythromycin ointment to both eyes every 4 hours. Differential Diagnosis Differential Diagnoses: The differential diagnosis associated with the presentation includes (As noted above) Lab Data MDM Lab Attestation statement: I reviewed the patient's lab results. Labs: Lab Results 06/05/22 06/05/22 06/05/22 Range/Units 12:27 12:27 12:56 COVID-19 (GREGORIO) Cancelled COVID-19 Clin Com Cancelled Influenza Type A (CARMEN) Cancelled Negative Influenza Type B (CARMEN) Cancelled Negative Influenza A & B Note Cancelled See Note 06/05/22 Range/Units 12:56 COVID-19 (GREGORIO) Negative COVID-19 Clin Com See Note Influenza Type A (CARMEN) Influenza Type B (CARMEN) Influenza A & B Note Discharge Plan Discharge Clinical Impression: Conjunctivitis, Pharyngitis Patient Disposition: Home, Self-Care Instructions: Pharyngitis (ED), Conjunctivitis (ED) Additional Instructions: Continue using the erythromycin ointment to both eyes every 4 hours. Your testing for COVID and flu were negative today Follow-up with your primary care provider as needed. Return to emergency department any new or worsening symptoms or concerns. Prescriptions: No Action loratadine 10 mg tablet 10 mg PO DAILY Qty: 30 6RF (DME) CPAP Machine/Device Device See Rx Instructions .Route Qty: 1 0RF Rx Instructions: autoPAP mode, 6-20 cm H2O losartan 100 mg tablet 100 mg PO DAILY 90 Days Qty: 90 3RF chlorthalidone 25 mg tablet 25 mg PO QAM 90 Days Qty: 90 3RF erythromycin 5 mg/gram (0.5 %) ointment 0.5 inch ophthalmic (eye) Q4H Qty: 3.5 0RF buspirone 10 mg tablet 10 mg PO DAILY acetaminophen [Tylenol Extra Strength] 500 mg tablet 1,000 mg PO Q6H PRN (Reason: fever or pain) 90 Days Qty: 300 1RF escitalopram oxalate 5 mg tablet 5 mg PO DAILY ketoconazole 2 % shampoo topical omeprazole 20 mg capsule,delayed release(DR/EC) 20 mg PO DAILY polyethylene glycol 3350 [Miralax] 17 gram/dose powder 17 g PO DAILY 30 Days Qty: 510 3RF Referrals: Arelis Irvin MD [Primary Care Provider] - Stand Alone Forms: Work/School Release
[2022-06-05 11:57] VITALS: BP 159/47; PULSE 53; RESP 12; TEMP 37.2; O2SAT 94
--- NOTE | 2022-06-05 12:37 | PC.NURSE ---
pt swabs obtained
[2022-06-05 13:20] LABS: COVID-19 Test Negative (Negative); IDNOW Serial# BCCEAD1C
[2022-06-05 13:23] LABS: IDNOW Serial# 9DB6401D; Influenza A Negative (Negative); Influenza B2 Negative (Negative)
== END 2022-06-05 13:40 | disposition home or self-care (01) ==
PROVIDERS: Nurse Practitioner Family; Emergency Provider Emergency Medicine; PCP Internal Medicine
DX: H10.9 Unspecified conjunctivitis (principal); J02.9 Acute pharyngitis, unspecified; Z20.822 Contact with and (suspected) exposure to COVID-19
CPT/HCPCS: 87502; 87635; 99283

== ENCOUNTER 2022-06-15 14:15 | Outpatient (REF) | payer OTHER, SELFPAY ==
--- NOTE | ~2022-06-15 | US_ITS ---
EXAMINATION: US PELVIS COMPLETE US PELVIS ENDOVAGINAL CLINICAL INFORMATION: Abnormal uterine and vaginal bleeding COMPARISON: MRI 06/30/2021 TECHNIQUE: Transabdominal and transvaginal images of the pelvis were obtained. FINDINGS: UTERUS: Anteverted, anteflexed Normal size and contour, measuring 11.3 x 8.3 x 7.4 cm (cervix to fundus x AP x transverse). The endometrial stripe is not well seen, at least in part obscured by leiomyomata. Again seen is a 4.3 cm left uterine body leiomyoma, similar in size. Adjacent 2.4 cm left uterine body leiomyoma is again seen, similar in size as well. There is a 2.7 cm right anterior uterine body leiomyoma and a 3.1 cm right uterine body myoma there are not seen on prior ultrasound. There are even a greater number of leiomyomata identified on the recent MRI. Incidentally noted nabothian cysts in the cervix. RIGHT OVARY: Seen only transabdominally. Normal size and echogenicity measuring 2.2 x 1.6 x 1.6 cm. LEFT OVARY: Seen only transabdominally. Normal size and echogenicity measuring 3.4 x 1.3 x 1.7 cm. FREE FLUID: No pelvic free fluid. US/US pelvic and transvaginal IMPRESSION: Myomatous uterus. Endometrial stripe not well seen, obscured by leiomyomata.
== END 2022-06-15 14:16 | disposition home or self-care (01) ==
LOC: HO.US 14:15
PROVIDERS: PCP Internal Medicine; Visit Provider Obstetrics & Gynecology
DX: N93.9 Abnormal uterine and vaginal bleeding, unspecified (principal)
CPT/HCPCS: 76830; 76856

== ENCOUNTER 2022-06-27 12:59 | Outpatient (REF) | payer OTHER, SELFPAY | END 2022-06-27 13:00 | disposition home or self-care (01) | LOC: HO.LNP 12:59 | PROVIDERS: PCP Internal Medicine; Visit Provider Obstetrics & Gynecology | DX: N93.9 Abnormal uterine and vaginal bleeding, unspecified (principal) | CPT/HCPCS: 58100; 88305 ==

== ENCOUNTER → 2022-07-18 08:03 | Outpatient (BNVA) | payer OTHER, SELFPAY | PROVIDERS: PCP Internal Medicine; Visit Provider Obstetrics & Gynecology | DX: D21.9 Benign neoplasm of connective and other soft tissue, unspecified (principal); N93.9 Abnormal uterine and vaginal bleeding, unspecified | CPT/HCPCS: 99212 ==

== ENCOUNTER 2022-08-07 15:00 | Emergency (ER) | payer OTHER, SELFPAY ==
--- NOTE | ~2022-08-07 | XR_ITS ---
EXAMINATION: XR KNEE, RIGHT CLINICAL INFORMATION: Persistent pain. Decreased range of motion. COMPARISON: None TECHNIQUE: Four views of the right knee. FINDINGS: No fracture or subluxation. Moderate lateral compartment joint space narrowing. Tricompartmental marginal osteophytes. Small joint effusion. XR/XR knee RT 4V IMPRESSION: Tricompartmental degenerative changes which are greatest at the lateral compartment. Small joint effusion.
--- NOTE | ~2022-08-07 | XR_ITS ---
EXAMINATION: XR SHOULDER, LEFT CLINICAL INFORMATION: Persistent pain, decreased range of motion. COMPARISON: None TECHNIQUE: Three views of the left shoulder. FINDINGS: Mild left acromioclavicular degenerative joint changes are seen. There is no acute fracture or dislocation. The left glenohumeral joint is intact. Mild calcification is seen at the rotator cuff insertion. XR/XR shoulder LT min 2V IMPRESSION: 1. Mild left acromioclavicular degenerative joint changes. 2. Mild calcific tendinosis at the rotator cuff insertion.
--- NOTE | 2022-08-07 15:11 | ED_ITS ---
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 R knee pain and swelling onset 1-2 weeks ago, reports a history of right meniscus injury with surgical repair 1 year ago. Left shoulder pain, onset 1 week ago, taking tylenol with no relief. 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 Denies associated neck pain. Denies fevers or chills, no redness. Related Data Home Medications Medication Instructions Recorded Confirmed buspirone 10 mg tablet 10 mg PO DAILY 03/24/20 05/30/22 escitalopram oxalate 5 mg tablet 5 mg PO DAILY 06/01/22 ketoconazole 2 % shampoo topical 06/01/22 Previous Rx's Medication Instructions Recorded CPAP (CPAP Machine/Device) #1 ea 02/26/22 losartan 100 mg tablet 100 mg PO DAILY 90 days #90 tabs 03/12/22 chlorthalidone 25 mg tablet 25 mg PO QAM 90 days #90 tabs 04/27/22 polyethylene glycol 3350 17 17 g PO DAILY 30 days #510 grams 06/01/22 gram/dose oral powder (Miralax) erythromycin 5 mg/gram (0.5 %) eye 0.5 inch ophthalmic (eye) Q4H #3.5 06/03/22 ointment grams acetaminophen 500 mg tablet 1,000 mg PO Q6H PRN fever or pain 06/05/22 (Tylenol Extra Strength) 90 days #300 tabs loratadine 10 mg tablet 10 mg PO DAILY #30 tabs 06/05/22 omeprazole 20 mg capsule,delayed 20 mg PO DAILY 90 days #90 caps 06/05/22 release lidocaine 5 % topical patch 2 patch topical DAILY #30 ea 08/07/22 (Lidoderm) oxycodone 5 mg tablet 5 mg PO Q6H PRN pain #10 tabs 08/07/22 Allergies Allergy/AdvReac Type Severity Reaction Status Date / Time aspirin [ASA] Allergy Severe Anaphylaxis Verified 07/18/22 08:08 Review of Systems Review of Systems: Yes all other systems are reviewed and are negative [facility] Past Medical History Attestation statement: The following information was validated with the patient. Source: old records reviewed Medical History Calcific shoulder tendinitis Class 1 obesity with body mass index (BMI) of 34.0 to 34.9 in adult Diverticulosis Essential hypertension Family history of colon cancer VAHE (generalized anxiety disorder) GERD with esophagitis Hemorrhoids, internal, with bleeding History of colon polyps Hypercalcemia Obesity (BMI 30-39.9) Rhinitis Right leg pain Sleep apnea Surgical History H/O basal cell carcinoma excision History of section History of colonoscopy (~02/2018) History of tubal ligation Hx of endoscopy Family History Family History Father Alive and well Mother Colon cancer Hypertension Brother No problems noted. Sister Psychiatric disorder Chronic mental illness Family/Other Chronic mental illness Social History Social History Housing: Apartment Do you presently have visiting nurse or other home services: No Alcohol intake: current Alcohol intake frequency: holidays/special occasions only Alcohol type: wine Patient Tobacco Use Status: Never used Tobacco e-Cigarette/Vaping Use: Never Used Second Hand Smoke Exposure: No Advance Directives: No Advance Directives Information Provided: No service: No Current occupational status: employed Current occupational exposures/hazards: No Sexual orientation: Straight/Heterosexual Gender identity: Female Cognitive needs: No Hearing needs: No Vision needs: Yes Physical Exam Vital Signs: Vital Signs: Last Vital Signs Temp 97.3 F 08/07/22 17:49 Pulse 82 08/07/22 17:49 Resp 18 08/07/22 17:49 BP 139/76 08/07/22 17:49 Pulse Ox 98 08/07/22 17:49 O2 Del Method 08/07/22 17:49 BMI result Body Mass Index 32.9 Appearance: Alert.?Oriented to person, place and time. No acute distress.?Normal affect. Neck: Normal inspection.? Neck supple.?? CVS: Heart sounds normal. Normal heart rate and rhythm.? Pulses normal.?? Respiratory: No respiratory distress.? Lung sounds clear to auscultation bilaterally?? Abdomen: Soft and non-tender.?? Skin: Skin warm and dry.? Normal skin color.? Extremities: No lower extremity edema.? No calf ttp. No laxity upon examination of the right knee. Very mild effusion present. No erythema. No warmth. 2+ DP/PT pulse bilaterally. Patellar and Achilles reflexes 2+. Left shoulder with decreased AROM, particularly worse with abduction and overhead extension. No erythema, warmth. No rash. 2+ radial pulse bilaterally Neuro: Moves all extremities spontaneously. Sensation intact bilaterally. Ambulates with normal steady gait. Medical Decision Making Medical Decision Making MDM Narrative: Patient is a 56-year-old female who presents to the emergency department for evaluation of right knee and left shoulder pain as reported in HPI. At the time of examination she is overall well-appearing. Ambulatory with a steady gait. Examination of the right knee is overall unremarkable, neurovascularly intact distally, not consistent with septic arthritis. XR revealing no acute fracture dislocation, there is however tricompartmental degenerative changes, most consistent with arthritis. Left upper extremities also neurovascularly intact distally, examination not consistent with fracture dislocation, XR imaging revealing degenerative changes and mild calcific tendinosis at the rotator cuff insertion site. She has been seen in the past by Orthopedics for similar calcific tendinitis of the right shoulder, at that time she did not want any orthopedic intervention such as cortisone injection, but was advised that she may follow-up as needed. We discussed these findings. Advised rest, ice/heat, acetaminophen for pain, sent prescription for Lidoderm patch and oxycodone to pharmacy. Reviewed [facility], no conflicting prescriptions. Provided with contact information for orthopedics. Reviewed worrisome signs and symptoms of warrant re-evaluation. All questions answered. Stable for discharge. Differential Diagnosis Differential Diagnoses: The differential diagnosis associated with the presentation includes (As noted above) Independent Interpretation I performed an independent interpretation of an: Plain X-Ray (I personally int erpreted x-ray imaging and agree with the radiologist impression) Radiology Impression Discussion of test interpretation with radiology: I have reviewed the radiologist's reading. Radiologist Impression: XR/XR knee RT 4V IMPRESSION: Tricompartmental degenerative changes which are greatest at the lateral compartment. Small joint effusion. XR/XR shoulder LT min 2V IMPRESSION: 1.? Mild left acromioclavicular degenerative joint changes. 2.? Mild calcific tendinosis at the rotator cuff insertion. External Record Review External record reviewed: Other ([facility] as noted above) Prescription Management I considered prescription management with: Pain Medication Discharge Plan Discharge Clinical Impression: Calcific tendonitis of left shoulder, Arthritis of knee, right Patient Disposition: Home, Self-Care Instructions: Osteoarthritis (ED), Calcific Tendinitis (ED) Additional Instructions: As we discussed, your symptoms are consistent with calcific tendinitis of the left shoulder, and arthritis of your right knee. X-ray imaging does not show any broken bones or dislocation. You can take Tylenol 500 mg, 2 tablets (1,000mg) every 4-6 hours as needed for pain, but not to exceed 3 doses daily (3,000mg).? Apply lidoderm patches to areas of pain. New prescription for oxycodone was sent to pharmacy use as needed for severe pain. This is an opiate medication in may be addictive. It may also make you drowsy. You should not drive, drink alcohol, or operate machinery while taking this medication. I have provided the contact information for the orthopedic office, please call their office tomorrow to arrange for follow-up. You may also follow-up with your primary care provider. Prescriptions: New lidocaine [Lidoderm] 5 % adhesive patch,medicated 2 patch topical DAILY Qty: 30 0RF Rx Instructions: leave on most painful area for up to 12 hrs oxycodone 5 mg tablet 5 mg PO Q6H PRN (Reason: pain) Qty: 10 0RF Rx Instructions: Partial Fill upon patient request. No Action (DME) CPAP Machine/Device Device See Rx Instructions .Route Qty: 1 0RF Rx Instructions: autoPAP mode, 6-20 cm H2O losartan 100 mg tablet 100 mg PO DAILY 90 Days Qty: 90 3RF chlorthalidone 25 mg tablet 25 mg PO QAM 90 Days Qty: 90 3RF omeprazole 20 mg capsule,delayed release(DR/EC) 20 mg PO DAILY 90 Days Qty: 90 2RF acetaminophen [Tylenol Extra Strength] 500 mg tablet 1,000 mg PO Q6H PRN (Reason: fever or pain) 90 Days Qty: 300 1RF loratadine 10 mg tablet 10 mg PO DAILY Qty: 30 6RF erythromycin 5 mg/gram (0.5 %) ointment 0.5 inch ophthalmic (eye) Q4H Qty: 3.5 0RF buspirone 10 mg tablet 10 mg PO DAILY escitalopram oxalate 5 mg tablet 5 mg PO DAILY ketoconazole 2 % shampoo topical polyethylene glycol 3350 [Miralax] 17 gram/dose powder 17 g PO DAILY 30 Days Qty: 510 3RF Referrals: Joseline Arce PA-C [Physician G[facility]er Chief Delivery] - Arelis Irvin MD [Primary Care Provider] - Stand Alone Forms: Work/School Release
[2022-08-07 15:13] VITALS: BP 160/88; PULSE 80; RESP 18; TEMP 36.7; O2SAT 98; BMI 32.9
[2022-08-07 17:49] VITALS: BP 139/76; PULSE 82; RESP 18; TEMP 36.3; O2SAT 98
== END 2022-08-07 18:36 | disposition home or self-care (01) ==
PROVIDERS: Emergency Provider Emergency Medicine; PCP Internal Medicine
DX: M75.32 Calcific tendinitis of left shoulder (principal); M12.561 Traumatic arthropathy, right knee; Z79.899 Other long term (current) drug therapy
CPT/HCPCS: 73030; 73564; 99282; 99283

== ENCOUNTER → 2022-08-22 15:12 | Outpatient (BNVA) | payer OTHER, SELFPAY | PROVIDERS: PCP Internal Medicine; Visit Provider Nurse Practitioner | DX: K59.00 Constipation, unspecified (principal) | CPT/HCPCS: 99212 ==

== ENCOUNTER → 2022-08-29 14:59 | Outpatient (BNVA) | payer OTHER, SELFPAY | PROVIDERS: PCP Internal Medicine; Visit Provider Internal Medicine | DX: G47.33 Obstructive sleep apnea (adult) (pediatric) (principal); G47.34 Idiopathic sleep related nonobstructive alveolar hypoventilation; E66.9 Obesity, unspecified; Z68.35 Body mass index [BMI] 35.0-35.9, adult; Z99.89 Dependence on other enabling machines and devices | CPT/HCPCS: 99212 ==

== ENCOUNTER → 2022-09-04 14:31 | Outpatient (BNVA) | payer OTHER, SELFPAY | PROVIDERS: PCP Internal Medicine; Visit Provider Physician Assistant | DX: M75.32 Calcific tendinitis of left shoulder (principal) | CPT/HCPCS: 20610; 99202; J1040 ==

== ENCOUNTER 2022-10-08 14:00 | Outpatient (RCR) | payer OTHER, SELFPAY ==
--- NOTE | 2022-09-19 13:47 | MHC.PT.EP ---
[facility] [place] [facility] [place] [facility] [place] [facility] [address] Rebecca Lew [address] [phone] F: [phone] F: [phone] F: [phone] F: [phone] Physical Therapy Plan of Care Date of Evaluation: Date of Surgery: N/A Diagnosis: disorders of tendon, left shoulder (RC) Assessment: pt is a 56 y/o female presenting to physical therapy w/ referring diagnosis of disorders of tendon, left shoulder. Impairments include pain, decreased range of motion, decreased strength, impaired functional mobility, impaired postural awareness, and altered ambulation mechanics. pt is a good candidate for skilled PT due to age, potential remediation of impairments, typical disease/condition progression and prognosis, comorbidities, and motivation. pt would benefit from skilled PT intervention to provide a tailored strengthening and stretching exercise program, functional training, gait training, postural re-training, neuromuscular re-education, modalities as needed for pain, equipment safety demonstration. Frequency and Duration: The patient will be seen 2x/wk for 4 wks Short Term Goals: pt will be I w/ HEP to promote self-management of condition. pt will improve L shoulder flexion AROM by 10 degrees to promote ease in reaching for objects on higher shelves. Bedspread Cutter Goals: pt will improve deltoid strength by at least 1 MMT grade to promote improved shoulder arthrokinematics w/ reaching/lifting. pt will report a statistically significant improvement in self-reported outcome measure, SPADI, to promote return to PLOF. Treatment Plan: Modalities to reduce pain, spasms and effusion. Manual therapy to restore motion and function. Therapeutic exercise to improve strength and flexibility. Neuromuscular re-education for posture and balance. Therapeutic activities to return to functional activities of daily living. Electronically signed by: Krystal Walsh PT, DPT Please sign and return to therapist. Thank you for your referral.
--- NOTE | 2022-10-26 09:31 | MHC.PT.DC ---
[facility] [place] Office [place] Office [place] Office [address] [phone] F: [phone] F: [phone] F: [phone] F: [phone] Physical Therapy Discharge Report Diagnosis: disorders of tendon, left shoulder (RC) Date of Surgery: N/A Date of Evaluation: 09/19/22 Date of Discharge: 10/26/22 Treatments to Date: 6 Cancellations to Date: 3 No Shows to Date: 0 Discharge Status: Improved Function Independent with HEP Discharge Summary: The patient stated she is feeling better and shoulder pain is resolved so she would like to be discharged from physical therapy. She is independent with her home exercise program. She is being discharged from this physical therapy plan of care per her request. Electronically signed by: Krystal Walsh PT, DPT Please sign and return to therapist. Thank you for your referral.
== END 2022-10-26 09:32 | disposition home or self-care (01) ==
LOC: HO.PT 14:00
PROVIDERS: PCP Internal Medicine; Visit Provider Internal Medicine
DX: M67.814 Other specified disorders of tendon, left shoulder (principal)
CPT/HCPCS: 97110; 97140; 97162

== ENCOUNTER 2022-10-10 07:54 | Outpatient (REF) | payer OTHER, SELFPAY | END 2022-10-10 07:55 | disposition home or self-care (01) | LOC: HO.LNP 07:54 | PROVIDERS: PCP Internal Medicine; Visit Provider Obstetrics & Gynecology | DX: N93.9 Abnormal uterine and vaginal bleeding, unspecified (principal) | CPT/HCPCS: 58100; 88305; 99212 ==

== ENCOUNTER 2022-10-10 08:26 | Outpatient (REF) | payer OTHER, SELFPAY ==
[2022-10-10 10:45] LABS: HCG Quantitative < 2 mIU/mL; TSH reflex Free T4 1.42 uIU/mL (0.32-4.0)
[2022-10-10 12:34] LABS: CT PCR NOT DETECTED (Not Detect.); NG PCR NOT DETECTED (Not Detect.)
[2022-10-12 06:08] LABS: Follicle Stimulating Hormone 13.3 mIU/mL; Lutenizing Hormone 10.4 mIU/mL; Prolactin 36.4 ng/mL
== END 2022-10-10 08:27 | disposition home or self-care (01) ==
LOC: HO.LAB 08:26
PROVIDERS: PCP Internal Medicine; Visit Provider Obstetrics & Gynecology
DX: N93.9 Abnormal uterine and vaginal bleeding, unspecified (principal)
CPT/HCPCS: 0353U; 83001; 83002; 84146; 84443; 84702

== ENCOUNTER 2022-10-12 14:38 | Outpatient (REF) | payer OTHER, SELFPAY ==
--- NOTE | ~2022-10-12 | US_ITS ---
EXAM: Pelvic Ultrasound CLINICAL INDICATION: Abnormal uterine bleeding. COMPARISON: Pelvic ultrasound 06/15/2022 TECHNIQUE: The pelvis was evaluated using transabdominal and transvaginal imaging. Today's examination is limited due to artifact from numerous fibroids. FINDINGS: The uterus measures 12.9 x 7.4 x 7.4 cm in longitudinal by AP by transverse dimension. Several fibroids again noted within the uterus, largest measuring approximately 5.6 cm. Endometrium not clearly visualized. The cervix measures measures approximately 3.6 cm in length. Numerous nabothian cysts noted. Neither ovary clearly visualized. There is no free fluid in the pelvis. Incidentally noted is a 7 mm echogenic nonshadowing avascular focus contiguous with the left bladder wall, nonspecific. US/US pelvic and transvaginal IMPRESSION: 1. Fibroid uterus. 2. Endometrium not clearly visualized. 3. Incidentally noted is a 7 mm echogenic nonshadowing avascular focus contiguous with the left bladder wall. This is a nonspecific finding. This may represent debris or nonshadowing stone. A bladder mass is less likely given lack of color flow, however, not excluded. Dedicated bladder ultrasound recommended. Direct inspection may be warranted.
== END 2022-10-12 14:39 | disposition home or self-care (01) ==
LOC: HO.US 14:38
PROVIDERS: PCP Internal Medicine; Visit Provider Obstetrics & Gynecology
DX: N93.9 Abnormal uterine and vaginal bleeding, unspecified (principal)
CPT/HCPCS: 76830; 76856

== ENCOUNTER 2022-10-12 15:28 | Emergency (ER) | payer OTHER, SELFPAY ==
--- NOTE | ~2022-10-12 | US_ITS ---
EXAMINATION: US VENOUS ULTRASOUND WITH DOPPLER LOWER EXTREMITY, LEFT CLINICAL INFORMATION: Swelling and pain COMPARISON: None available. TECHNIQUE: Ultrasound of the deep veins is performed from the hip to the calf with compression sonography and color and pulse Doppler assessment. Spectral analysis with color-flow imaging is performed. FINDINGS: There is normal venous compression and respiratory variation and augmented flow. The visualized common femoral vein, superficial femoral vein, profunda femoral vein, popliteal vein, and the trifurcation region shows no evidence of deep venous thrombosis. There is no significant popliteal fossa cyst. If the patient's symptoms persist, followup ultrasound in 5 days 7 days might be of value to exclude proximal propagation from a non-visualized calf vein. US/US venous duplex LE LT IMPRESSION: No DVT demonstrated in the left lower extremity.
--- NOTE | ~2022-10-12 | XR_ITS ---
EXAMINATION: XR FOOT, LEFT CLINICAL INFORMATION: Pain and swelling. COMPARISON: None available. TECHNIQUE: AP, lateral, and oblique views of the left foot. FINDINGS: There is no visible acute fracture or dislocation. There is normal joint space and alignment of the foot. There is a small calcaneal heel and retrocalcaneal enthesophyte. Small distal foot soft tissue swelling is seen. XR/XR foot LT min 3V IMPRESSION: Small calcaneal heel and retrocalcaneal enthesophytes. No visible acute fracture, dislocation or subluxation seen. Small distal foot soft tissue swelling.
[2022-10-12 15:45] VITALS: BP 128/74; PULSE 89; RESP 18; TEMP 36.4; O2SAT 98; BMI 36.2
--- NOTE | 2022-10-12 15:45 | ED.GENADULT ---
HPI - General Adult General Chief complaint: Extremity Injury, Lower Stated complaint: swollen left foot Time Seen by Provider: 10/12/22 18:35 Source: patient Mode of arrival: ambulatory Limitations: language barrier (portuguese speaking ) History of Present Illness HPI narrative: 57yoF with a PMHx of arthritis who is portuguese speaking and presenting to the ED with c/o of left dorsal foot pain/swelling/redness x 3 weeks worse today. she reports she has been taking [id number] Motrin Tylenol no symptomatic relief. She reports she has never had this in the past. Reports she does have a history of a right meniscus injury with surgical repair although this was 1 year ago. 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 She denies any fevers, chills, chest pain or shortness of breath, palpitations appears cage just, dyspnea on exertion orthopnea, rashes, recent falls or trauma, recent surgery, recent immobilization, history of DVT or PE, history of cancer, history of IV drug use or hypercoagulation disorder. MD complaint: left foot pain/swelling Onset (ago): week(s) (3) Location: left and lower extremity (foot) Radiation: non-radiation Severity: moderate Quality: aching and constant Pain Consistency: constant Relieving factors: none Exacerbating factors: none Associated symptoms: denies other symptoms Treatments prior to arrival: none Related Data Home Medications Medication Instructions Recorded Confirmed buspirone 10 mg tablet 10 mg PO DAILY 03/24/20 10/04/22 escitalopram oxalate 5 mg tablet 5 mg PO DAILY 06/01/22 10/04/22 ketoconazole 2 % shampoo topical 06/01/22 10/04/22 omeprazole 20 mg capsule,delayed 20 mg PO DAILY PRN 08/29/22 10/04/22 release polyethylene glycol 3350 17 17 g PO DAILY PRN 08/29/22 10/04/22 gram/dose oral powder (Miralax) Previous Rx's Medication Instructions Recorded CPAP (CPAP Machine/Device) #1 ea 02/26/22 losartan 100 mg tablet 100 mg PO DAILY 90 days #90 tabs 03/12/22 chlorthalidone 25 mg tablet 25 mg PO QAM 90 days #90 tabs 04/27/22 acetaminophen 500 mg tablet 1,000 mg PO Q6H PRN fever or pain 06/05/22 (Tylenol Extra Strength) 90 days #300 tabs loratadine 10 mg tablet 10 mg PO DAILY #30 tabs 06/05/22 lidocaine 5 % topical patch 2 patch topical DAILY #30 ea 08/07/22 (Lidoderm) cephalexin 500 mg capsule 500 mg PO Q6H 10 days #40 caps 10/12/22 doxycycline monohydrate 100 mg 100 mg PO BID 10 days #20 tabs 10/12/22 tablet oxycodone 5 mg tablet 5 mg PO Q6H PRN pain #14 tabs 10/12/22 prednisone 20 mg tablet 40 mg PO DAILY 5 days #10 tabs 10/12/22 Allergies Allergy/AdvReac Type Severity Reaction Status Date / Time aspirin [ASA] Allergy Severe Anaphylaxis Verified 10/12/22 15:49 Review of Systems Review of Systems: Constitutional : No Weight loss, No Fever, No Chills, No Night Sweats, No Fatigue, No Malaise ENT/Mouth : No Hearing loss, No Ear Pain, No Nasal Congestion, No Sinus Pain, No Hoarseness, No sore throat, No Rhinorrhea, No Swallowing Difficulty Eyes: No Eye Pain, No Swelling, No Redness, No Foreign Body, No Discharge, No Vision Changes Cardiovascular : No Chest Pain, No SOB, No Dyspnea on Exertion, No Orthopnea, No Edema, No Palpitations Respiratory : No Cough, No Sputum, No Wheezing, No Smoke Exposure, No Dyspnea Gastrointestinal : No Nausea, No Vomiting, No Diarrhea, No Constipation, No abdominal Pain, No Hematochezia, No Melena Genitourinary : no irregular bleeding, No Dysuria, No Urinary Frequency, No Hematuria, No Urinary Incontinence, No Urgency, No Flank Pain, No Urinary Flow Changes, No Hesitancy Musculoskeletal : + left foot joint pain/swelling, No Myalgias Skin : No Skin Lesions, No rash Neuro : No Weakness, No Numbness, No Paresthesias, No Loss of Consciousness, No Dizziness, No Headache Psych : No Anxiety/Panic, No Depression, No SI/HI/AH/VH, No Social Issues, Heme/Lymph: No Bruising, No Bleeding,No Lymphadenopathy Endocrine : No Polyuria, No Polydipsia, No Temperature Intolerance Yes all other systems are reviewed and are negative [facility] Past Medical History Attestation statement: The following information was validated with the patient. Source: old records reviewed and nursing notes reviewed Medical History Calcific shoulder tendinitis Class 1 obesity with body mass index (BMI) of 34.0 to 34.9 in adult Diverticulosis Essential hypertension Family history of colon cancer VAHE (generalized anxiety disorder) GERD with esophagitis Hemorrhoids, internal, with bleeding History of colon polyps Hypercalcemia Obesity (BMI 30-39.9) Rhinitis Right leg pain Sleep apnea Surgical History H/O basal cell carcinoma excision History of section History of colonoscopy (~02/2018) History of tubal ligation Hx of endoscopy S/P right knee arthroscopy Family History Family History Father Pancreatic cancer Mother Colon cancer Hypertension Brother No problems noted. Sister Psychiatric disorder Chronic mental illness Family/Other Chronic mental illness Social History Social History Housing: Apartment Do you presently have visiting nurse or other home services: No Alcohol intake: current Alcohol intake frequency: holidays/special occasions only Alcohol type: wine Patient Tobacco Use Status: Never used Tobacco e-Cigarette/Vaping Use: Never Used Second Hand Smoke Exposure: No Advance Directives: No Advance Directives Information Provided: No service: No Current occupational status: employed Current occupational exposures/hazards: No Sexual orientation: Straight/Heterosexual Gender identity: Female Cognitive needs: No Hearing needs: No Vision needs: Yes Physical Exam ED Vital Signs: Vital Signs - 24 hr 10/12/22 15:45 Temperature 97.6 F Pulse Rate 89 Respiratory Rate 18 Blood Pressure 128/74 Pulse Oximetry 98 Oxygen Delivery Method Room Air BMI result Body Mass Index 36.2 vital signs have been reviewed as normal and appeared to be correct. Blood pressure normal. Heart rate normal. Respiration rate normal. Temperature normal. Oxygen saturation normal. Appearance: Alert. Oriented X3. No acute distress. Head: Normal external exam. Normocephalic. Atraumatic. Eyes: PERRLA. EOMI. Conjunctiva and sclera normal. Eyelids normal. ENT: Pharynx normal. Uvula midline. Moist mucous membranes. No lesions/ulcerations or masses noted on the tongue. Normal voice. No trismus noted. No drooling noted. No muffled voice noted. Neck: Normal inspection. Neck supple. FROM. No adenopathy. Thyroid Normal. No meningeal signs. No signs of trauma noted. CVS: Normal heart rate and rhythm. Heart sound normal. Pulses normal throughout. No murmurs/rales/gallops. Respiratory: No respiratory distress. Painless inspiration. Breath sounds normal. No wheezes/rales/rhonchi noted. Chest nontender. No crepitus is noted. No signs of trauma noted. No accessory muscle usage noted or decreased air movement noted. No signs of trauma. Back: Full range of motion noted. Nontender. Skin: Skin warm and dry. Normal skin color. Normal skin turgor. No rashes/lesions/lacerations noted. Extremities: to left foot dorsal/lateral aspect pt has mild TTP/STS and warm to touch slight erythema noted. No streaking/induration or fluctuance noted at this time. No lower extremity edema. No calf tenderness is noted. Otherwise all other Extremities exhibit normal range of motion and nontender. Neuro: Oriented X 3. No motor deficit. No sensory deficit. Reflexes normal. Normal steady gait. No focal neuro deficits noted. CN's II-XII intact bilaterally? Vascular: + radial pulses/+ 2 distal pedal pulses/+2 dorsalis pedis b/l. Normal cap refill. No cyanosis noted to upper extremity nails and lower extremity toes nails. Course Course Course Narrative: RME: 57-year-old female with a medical history of diverticulosis, HTN, GED, GERD, obesity, sleep apnea, presenting to the ED complaining of LLE swelling and pain x 3 weeks. Denies known injury/trauma, cigarette smoking, recent travel, history of clots, SOB. Denies taking AC + left foot/ankle and LLE swelling/pitting edema. Mild left foot erythema. NV intact Foot x-ray and venous duplex ultrasound ordered Full HPI, ROS and PE to be performed by primary ED provider. Reevaluation(s) Reevaluation #1: 57yoF with a PMHx of Arthritis is a presenting to the ER with complaints of 3 weeks of left dorsal lateral foot pain / swelling with mild redness that continues to worsen. Denies chest pain or shortness of breath. Denies history of DVT or PE. Denies recent travel or surgery. She is PERC negative. On exam she does have some mild erythema/ warm to touch/soft tissue swelling and tenderness palpation to the left lateral dorsal aspect of the foot. No fluctuance/ induration/ foreign bodies. Patient most likely cellulitis versus gout. Not consistent with septic joint. Not consistent with obvious ligamentous or tendon injury noted. Not consistent with DVT or PE. Not consistent with CHF. Not consistent with fracture. XRay and US of LLE negative for acute processes including DVT this was ordered in Triage. Plan: Labs including uric acid. Provide Oxycodone. patient will be signed out [facility] PENDING LABS. Time: 18:45 Reevaluation #2: CBC appears to be within normal limits. Chemistry with no acute findings requiring intervention. CRP slightly elevated, normal uric acid. Will treat for cellulitis. No signs of neurovascular compromise. No DVT demonstrated. Educated patient on diagnosis and treatment plan, answered all question, patient verbalizes understanding. At this time patient will be discharged home, advised to return with new or worsening symptoms. Educated on worrisome signs and symptoms and when to return. At this time I feel comfortable discharge home. Medications Administered Discontinued Medications Generic Name Dose Route Start Last Admin Trade Name Freq PRN Reason Stop Dose Admin Oxycodone HCl 5 mg 10/12/22 18:46 10/12/22 18:54 Oxycodone Hcl Immed Release 5 Mg Tablet PO 10/12/22 18:47 5 mg ONCE ONE Administration Medical Decision Making Lab Data [facility] Lab Attestation statement: I reviewed the patient's lab results. 10/12/22 20:02 10/12/22 20:02 Labs: Lab Results 10/12/22 10/12/22 10/12/22 Range/Units 20:02 20:02 20:02 WBC 8.9 (4.8-10.8) X10*3/uL RBC 4.43 (4.20-5.50) X10*6/uL Hgb 12.4 (12.0-16.0) g/dl Hct 37.9 (37.0-47.0) % MCV 85.6 (80.0-98.0) fL MCH 28.0 (27.0-33.0) pg MCHC 32.7 (31.0-35.0) g/dl RDW 14.5 (11.0-16.0) % Plt Count 311 (160-400) X10*3/uL MPV 9.2 L (9.4-12.3) fL Immature Gran % (Auto) 0.6 H (0.0-0.4) % Neut % (Auto) 48.1 (45-73) % Lymph % (Auto) 36.8 (20-40) % [place] % (Auto) 11.1 H (2-11) % Eos % (Auto) 3.0 (0-4) % Baso % (Auto) 0.4 (0-2) % Lymph # (Auto) 3.3 (1.2-4.9) X10*3/uL [place] # (Auto) 1.0 (0.1-1.2) X10*3/uL Eos # (Auto) 0.3 (0.0-0.4) X10*3/uL Baso # (Auto) 0.0 (0.0-0.2) X10*3/uL Abs Immat Gran (auto) 0.05 H (0.00-0.03) X10*3/uL Absolute Neuts (auto) 4.3 (2.0-8.3) x10*3/uL Absolute Nucleated RBC 0.000 (0.0-0.012) X10*3/uL Nucleated RBC % (auto) 0.0 (0.0-0.2) /100WBC Sodium 140 (135-145) mmol/L Potassium 3.6 (3.3-5.1) mmol/L Chloride 103 (96-108) mmol/L Carbon Dioxide 31 H (22-29) mmol/L Anion Gap 10 L (12-20) BUN 15 (9-16) mg/dL Creatinine 0.64 (0.5-1.4) mg/dL Estim Creat Clear Calc 103.4 Estimated GFR > 60 Random Glucose 100 (60-115) mg/dL Uric Acid 4.7 (2.4-5.7) mg/dL Calcium 9.9 (8.4-10.2) mg/dL Magnesium 2.0 (1.6-2.6) mg/dL Total Bilirubin 0.3 (0.0-1.0) mg/dL AST 16 (5-31) U/L ALT 20 (0-31) U/L Alkaline Phosphatase 70 (39-117) U/L C-Reactive Protein 0.60 H (< or = 0.50) mg/dL B-Natriuretic Peptide 10 (<100) pg/mL Total Protein 7.3 (6.5-8.0) g/dL Albumin 4.1 (3.5-5.0) g/dL Independent Interpretation I performed an independent interpretation of an: Plain X-Ray (xray reviewed by myself no acute findings agreeable with radiologist report) and Ultrasound ( ultrasound reviewed by myself no DVT agreeable with radiologist report) Radiology Impression Discussion of test interpretation with radiology: I have reviewed the radiologist's reading. Radiologist Impression: EXAMINATION:? US VENOUS ULTRASOUND WITH DOPPLER LOWER EXTREMITY, LEFT CLINICAL INFORMATION:? Swelling and pain COMPARISON:? None available. TECHNIQUE: Ultrasound of the deep veins is performed from the hip to the calf with compression sonography and color and pulse Doppler assessment. Spectral analysis with color-flow imaging is performed. FINDINGS: There is normal venous compression and respiratory variation and augmented flow. The visualized common femoral vein, superficial femoral vein, profunda femoral vein, popliteal vein, and the trifurcation region shows no evidence of deep venous thrombosis. ? There is no significant popliteal fossa cyst. If the patient's symptoms persist, followup ultrasound in 5 days 7 days might be of value to exclude proximal propagation from a non-visualized calf vein. US/US venous duplex LE LT IMPRESSION: No DVT demonstrated in the left lower extremity. EXAMINATION: XR FOOT, LEFT CLINICAL INFORMATION: Pain and swelling.? COMPARISON: None available.? TECHNIQUE: AP, lateral, and oblique views of the left foot. FINDINGS: There is no visible acute fracture or dislocation. There is normal joint space and alignment of the foot. There is a small calcaneal heel and retrocalcaneal enthesophyte. Small distal foot soft tissue swelling is seen.? XR/XR foot LT min 3V IMPRESSION: Small calcaneal heel and retrocalcaneal enthesophytes. No visible acute fracture, dislocation or subluxation seen. Small distal foot soft tissue swelling. Prescription Management I considered prescription management with: Pain Medication and Antibiotic questioning gout versus cellulitis patient most likely be sent home with pain meds questioning possible antibiotics for cellulitis infection Discharge Plan Discharge Clinical Impression: Foot pain, left, Cellulitis Patient Disposition: Home, Self-Care Instructions: Cellulitis (ED), Arthralgia (ED) Additional Instructions: Take your medications as prescribed. If you were prescribed antibiotics today, it is important that you take your medication to their entirety, do not skip any doses, do not finish them early. Follow-up with your primary care provider this week. Return to the emergency department with new or worsening symptoms. Such as fevers, chills, chest pain, shortness of breath, nausea, vomiting, dizziness, headache, vision changes, lethargy In case of emergency call 911 Your labs were reassuring. Prescriptions: New oxycodone 5 mg tablet 5 mg PO Q6H PRN (Reason: pain) Qty: 14 0RF Rx Instructions: Partial Fill upon patient request. prednisone 20 mg tablet 40 mg PO DAILY 5 Days Qty: 10 0RF cephalexin 500 mg capsule 500 mg PO Q6H 10 Days Qty: 40 0RF doxycycline monohydrate 100 mg tablet 100 mg PO BID 10 Days Qty: 20 0RF No Action (DME) CPAP Machine/Device Device See Rx Instructions .Route Qty: 1 0RF Rx Instructions: autoPAP mode, 6-20 cm H2O losartan 100 mg tablet 100 mg PO DAILY 90 Days Qty: 90 3RF chlorthalidone 25 mg tablet 25 mg PO QAM 90 Days Qty: 90 3RF acetaminophen [Tylenol Extra Strength] 500 mg tablet 1,000 mg PO Q6H PRN (Reason: fever or pain) 90 Days Qty: 300 1RF loratadine 10 mg tablet 10 mg PO DAILY Qty: 30 6RF lidocaine [Lidoderm] 5 % adhesive patch,medicated 2 patch topical DAILY Qty: 30 0RF Rx Instructions: leave on most painful area for up to 12 hrs buspirone 10 mg tablet 10 mg PO DAILY escitalopram oxalate 5 mg tablet 5 mg PO DAILY ketoconazole 2 % shampoo topical omeprazole 20 mg capsule,delayed release(DR/EC) 20 mg PO DAILY PRN polyethylene glycol 3350 [Miralax] 17 gram/dose powder 17 g PO DAILY PRN Referrals: Arelis Irvin MD [Primary Care Provider] - 2 days Stand Alone Forms: Work/School Release
[2022-10-12] MEDS: oxyCODONE HCl Immed Release 5 MG TABLET PO (18:54)
[2022-10-12 20:06] LABS: MANUAL DIFF FLAG NO
[2022-10-12 20:09] LABS: Basophils Percent Auto 0.4 % (0-2); Eosinophils Absolute Auto 0.3 X10*3/uL (0.0-0.4); Hematocrit 37.9 % (37.0-47.0); Hemoglobin 12.4 g/dl (12.0-16.0); Imm Gran Abs Auto 0.05 X10*3/uL (0.00-0.03); Imm Gran Pct Auto 0.6 % (0.0-0.4); Lymphocytes Absolute Auto 3.3 X10*3/uL (1.2-4.9); Lymphocytes Percent Auto 36.8 % (20-40); Mean Corpuscular HGB Conc 32.7 g/dl (31.0-35.0); Mean Corpuscular Volume 85.6 fL (80.0-98.0); Mean Platelet Volume 9.2 fL (9.4-12.3); Monocytes Percent Auto 11.1 % (2-11); Neutrophils Absolute Auto 4.3 x10*3/uL (2.0-8.3); Neutrophils Percent Auto 48.1 % (45-73); Platelet Count 311 X10*3/uL (160-400); Red Blood Count 4.43 X10*6/uL (4.20-5.50); Red Cell Distribution Width 14.5 % (11.0-16.0); White Blood Count 8.9 X10*3/uL (4.8-10.8)
[2022-10-12 20:22] LABS: Alanine Aminotransferase 20 U/L (0-31); Albumin Level 4.1 g/dL (3.5-5.0); Alkaline Phosphatase 70 U/L (39-117); Anion Gap 10 (12-20); Aspartate Amino Transferase 16 U/L (5-31); Bilirubin Total 0.3 mg/dL (0.0-1.0); Blood Urea Nitrogen 15 mg/dL (9-16); Calcium 9.9 mg/dL (8.4-10.2); Carbon Dioxide 31 mmol/L (22-29); Chloride 103 mmol/L (96-108); Creatinine Clr Calc Pharmacy 103.4; Estimated Glomerular Filt Rate > 60; Glucose Random 100 mg/dL (60-115); Potassium 3.6 mmol/L (3.3-5.1); Sodium 140 mmol/L (135-145); Total Protein 7.3 g/dL (6.5-8.0); Uric Acid 4.7 mg/dL (2.4-5.7)
[2022-10-12 20:27] LABS: B Type Natriuretic Peptide 10 pg/mL (<100)
[2022-10-12 21:11] LABS: Erythrocyte Sedimentation Rate 16 MM/HR (0-20)
[2022-10-12 21:18] VITALS: BP 130/74; PULSE 76; RESP 14; TEMP 36.9; O2SAT 98
== END 2022-10-12 21:19 | disposition home or self-care (01) ==
PROVIDERS: Physician Assistant Medical; Emergency Provider Internal Medicine; PCP Internal Medicine
DX: L03.116 Cellulitis of left lower limb (principal); M79.672 Pain in left foot; R60.0 Localized edema
CPT/HCPCS: 36415; 73630; 80053; 83735; 83880; 84550; 85025; 85652; 86140; 93971; 99284

== ENCOUNTER 2022-10-16 06:44 | Outpatient (REF) | payer OTHER, SELFPAY ==
[2022-10-16 07:45] LABS: Basophils Absolute Auto 0.1 X10*3/uL (0.0-0.2); Basophils Percent Auto 0.4 % (0-2); Eosinophils Absolute Auto 0.1 X10*3/uL (0.0-0.4); Eosinophils Percent Auto 0.5 % (0-4); Hematocrit 37.9 % (37.0-47.0); Imm Gran Abs Auto 0.11 X10*3/uL (0.00-0.03); Imm Gran Pct Auto 0.8 % (0.0-0.4); Lymphocytes Absolute Auto 4.5 X10*3/uL (1.2-4.9); Lymphocytes Percent Auto 31.3 % (20-40); MANUAL DIFF FLAG SCAN; Mean Corpuscular HGB Conc 31.7 g/dl (31.0-35.0); Mean Corpuscular Hemoglobin 27.6 pg (27.0-33.0); Mean Corpuscular Volume 87.3 fL (80.0-98.0); Mean Platelet Volume 9.8 fL (9.4-12.3); Monocytes Absolute Auto 1.7 X10*3/uL (0.1-1.2); Monocytes Percent Auto 11.8 % (2-11); Neutrophils Absolute Auto 7.9 x10*3/uL (2.0-8.3); Neutrophils Percent Auto 55.2 % (45-73); Platelet Count 363 X10*3/uL (160-400); Red Blood Count 4.34 X10*6/uL (4.20-5.50); Red Cell Distribution Width 14.9 % (11.0-16.0); SCAN SMEAR FLAG 1; White Blood Count 14.2 X10*3/uL (4.8-10.8)
[2022-10-16 08:18] LABS: Alanine Aminotransferase 17 U/L (0-31); Alkaline Phosphatase 59 U/L (39-117); Anion Gap 11 (12-20); Aspartate Amino Transferase 15 U/L (5-31); Bilirubin Total 0.6 mg/dL (0.0-1.0); Blood Urea Nitrogen 16 mg/dL (9-16); Calcium 9.8 mg/dL (8.4-10.2); Carbon Dioxide 29 mmol/L (22-29); Chloride 103 mmol/L (96-108); Cholesterol 156 mg/dL; Estimated Glomerular Filt Rate > 60; Glucose Fasting 91 mg/dL (60-99); HDL Cholesterol 68 mg/dL; Iron 120 mcg/dL (30-160); LDL Cholesterol Calculated 69 mg/dl; Percent Iron Saturation 34 % (15-50); Potassium 3.7 mmol/L (3.3-5.1); Sodium 139 mmol/L (135-145); Total Iron Binding Capacity 349 mcg/dL (228-428); Triglycerides 97 mg/dL; Unsaturated Iron Binding 229 ug/dL
[2022-10-16 08:29] LABS: SLIDE REVIEW VERIFIED
[2022-10-16 08:36] LABS: Vitamin D 25-OH Total 26.9 ng/mL (>30)
[2022-10-18 00:53] LABS: Prolactin 53.1 ng/mL
== END 2022-10-16 06:45 | disposition home or self-care (01) ==
LOC: HO.LAB 06:44
PROVIDERS: Obstetrics & Gynecology; PCP Internal Medicine; Visit Provider Internal Medicine
DX: E78.5 Hyperlipidemia, unspecified (principal); D64.9 Anemia, unspecified; E55.9 Vitamin D deficiency, unspecified; K59.00 Constipation, unspecified; N93.9 Abnormal uterine and vaginal bleeding, unspecified
CPT/HCPCS: 36415; 80053; 80061; 82306; 83540; 84146; 85025; 85027

== ENCOUNTER → 2022-10-24 14:28 | Outpatient (BNVA) | payer OTHER, SELFPAY | PROVIDERS: PCP Internal Medicine; Visit Provider Obstetrics & Gynecology | DX: R93.41 Abnormal radiologic findings on diagnostic imaging of renal pelvis, ureter, or bladder (principal); R79.89 Other specified abnormal findings of blood chemistry | CPT/HCPCS: 99212 ==

== ENCOUNTER → 2022-10-30 13:33 | Outpatient (BNVA) | payer OTHER, SELFPAY | PROVIDERS: PCP Internal Medicine; Visit Provider Internal Medicine Endocrinology, Diabetes & Metabolism | DX: R79.89 Other specified abnormal findings of blood chemistry (principal) | CPT/HCPCS: 99202 ==

== ENCOUNTER 2022-11-12 11:23 | Emergency (ER) | payer OTHER, SELFPAY ==
--- NOTE | ~2022-11-12 | XR_ITS ---
EXAMINATION: XR KNEE, RIGHT CLINICAL INFORMATION: Pain COMPARISON: Previous x-ray August 2022 TECHNIQUE: Four views of the right knee. FINDINGS: Bone alignment is normal. No fracture or dislocation. Mild tricompartment arthritis with joint space narrowing and osteophyte formation. Small joint effusion. XR/XR knee RT 4V IMPRESSION: Mild degenerative changes.
[2022-11-12 11:26] VITALS: BP 144/92; PULSE 93; RESP 19; TEMP 36.6; O2SAT 98; BMI 38.6
--- NOTE | 2022-11-12 11:26 | ED.LOWEXIN ---
HPI - Extremity Injury (Lower) General Chief Complaint: Extremity Injury, Lower Stated Complaint: R knee pain Time Seen by Provider: 11/12/22 11:39 Source: patient Mode of arrival: ambulatory Limitations: no limitations History of Present Illness HPI Narrative: 57-year-old female history of torn meniscus status post repair presenting with right knee pain, swelling to the past few days worsening, patient reports that over the past week her knee has become very swollen and painful, she tells me she is on her feet often. Patient reports pain is worse with movement better at rest. Patient denies numbness, tingling, fevers, chills, chest pain, shortness of breath, headache, vision changes, dizziness and weakness. Related Data Home Medications Medication Instructions Recorded Confirmed buspirone 10 mg tablet 10 mg PO DAILY 03/24/20 10/30/22 ketoconazole 2 % shampoo topical 06/01/22 10/30/22 omeprazole 20 mg capsule,delayed 20 mg PO DAILY PRN 08/29/22 10/30/22 release polyethylene glycol 3350 17 17 g PO DAILY PRN 08/29/22 10/30/22 gram/dose oral powder (Miralax) Previous Rx's Medication Instructions Recorded CPAP (CPAP Machine/Device) #1 ea 02/26/22 losartan 100 mg tablet 100 mg PO DAILY 90 days #90 tabs 03/12/22 chlorthalidone 25 mg tablet 25 mg PO QAM 90 days #90 tabs 04/27/22 acetaminophen 500 mg tablet 1,000 mg PO Q6H PRN fever or pain 06/05/22 (Tylenol Extra Strength) 90 days #300 tabs loratadine 10 mg tablet 10 mg PO DAILY #30 tabs 06/05/22 lidocaine 5 % topical patch 2 patch topical DAILY #30 ea 08/07/22 (Lidoderm) medroxyprogesterone 10 mg tablet 10 mg PO DAILY 90 days #90 tabs 10/24/22 (Provera) escitalopram oxalate 5 mg tablet 5 mg PO DAILY 90 days #90 tabs 11/02/22 morphine 15 mg immediate release 15 mg PO Q6H PRN pain 5 days #10 11/12/22 tablet tabs prednisone 20 mg tablet 40 mg PO DAILY 5 days #10 tabs 11/12/22 Allergies Allergy/AdvReac Type Severity Reaction Status Date / Time aspirin [ASA] Allergy Severe Anaphylaxis Verified 11/12/22 11:26 Review of Systems Review of Systems: Constitutional : No Weight loss, No Fever, No Chills, No Fatigue, No Malaise ENT/Mouth : No sore throat, No Rhinorrhea Eyes: No Eye Pain, No Swelling, No Redness Cardiovascular : No Chest Pain, No SOB, No Dyspnea on Exertion, No Orthopnea, No Edema, No Palpitations Respiratory : No Cough, No Sputum, No Wheezing Gastrointestinal : No Nausea, No Vomiting, No Diarrhea, No Constipation, No abdominal Pain, No Hematochezia, No Melena Genitourinary : No Dysuria, No Urinary Frequency, No Hematuria, Musculoskeletal : + joint pain, No Myalgias, + Joint Swelling Skin : No Skin Lesions, No rash Neuro : No Weakness, No Numbness, No Dizziness, No Headache Psych : No Anxiety/Panic, No Depression All other systems reviewed and are negative Yes all other systems are reviewed and are negative [facility] Past Medical History Attestation statement: The following information was validated with the patient. Source: old records reviewed and nursing notes reviewed Medical History Calcific shoulder tendinitis Class 1 obesity with body mass index (BMI) of 34.0 to 34.9 in adult Diverticulosis Essential hypertension Family history of colon cancer VAHE (generalized anxiety disorder) GERD with esophagitis Hemorrhoids, internal, with bleeding History of colon polyps Hypercalcemia Obesity (BMI 30-39.9) Rhinitis Right leg pain Sleep apnea Surgical History H/O basal cell carcinoma excision History of section History of colonoscopy (~02/2018) History of tubal ligation Hx of endoscopy S/P right knee arthroscopy Family History Family History Father Pancreatic cancer Mother Colon cancer Hypertension Brother No problems noted. Sister Psychiatric disorder Chronic mental illness Family/Other Chronic mental illness Social History Social History Housing: Apartment Do you presently have visiting nurse or other home services: No Alcohol intake: current Alcohol intake frequency: holidays/special occasions only Alcohol type: wine Patient Tobacco Use Status: Never used Tobacco e-Cigarette/Vaping Use: Never Used Second Hand Smoke Exposure: No Advance Directives: No Advance Directives Information Provided: Yes service: No Current occupational status: employed Current occupational exposures/hazards: No Sexual orientation: Straight/Heterosexual Gender identity: Female Cognitive needs: No Hearing needs: No Vision needs: Yes Physical Exam Vital Signs: Vital Signs: Last Vital Signs Temp 98 F 11/12/22 11:26 Pulse 93 11/12/22 11:26 Resp 19 11/12/22 11:26 BP 144/92 H 11/12/22 11:26 Pulse Ox 98 11/12/22 11:26 O2 Del Method Room Air 11/12/22 11:26 BMI result Body Mass Index 38.6 vss Appearance: Alert.? Oriented X3.? No acute distress.? Head: Normocephalic, atraumatic, no step-offs or deformities Eyes: Pupils equal, round and reactive to light.? ENT: Pharynx normal.? Neck: Normal inspection.? Neck supple.? CVS: Normal heart rate and rhythm.? Pulses normal.? Respiratory: No respiratory distress.? Breath sounds normal.? Abdomen: Soft and nontender.? Skin: Skin warm and dry.? Normal skin color.? Normal skin turgor.? Extremities: No lower extremity edema.? No calf ttp. 5/5 strength to bilateral upper and lower extremities 2+ dorsalis pedis, anterior tibialis and posterior tibialis pulses equal bilateral. No foot drop. Normal sensation to bilateral lower extremities distally. Patient is noted to have a moderate-sized joint effusion overlying the right knee. No overlying erythema or warmth. Patient with full range of motion to bilateral knees however slight discomfort with range of motion of right knee. Back: No midline tenderness, no C-spine tenderness, full range of motion, no CVA tenderness bilaterally Neuro: Oriented X 3.? No motor deficit.? No sensory deficit. CN 2-12 intact Course Course Course Narrative: RME: 57yo F w/PMHx HTN, GERD, VAHE, sleep apnea obesity, c/o acute on chronic R knee pain x1 year. Reports prior meniscus surgery to right knee 1 year ago. Denies recent injury/fall/trauma, calf pain, pedal edema Unable to fully evaluate extremity in triage, appears swollen through pants, tender, decreased ROM secondary to pain. Has been taking Tylenol for pain. Admits has ortho appt 11/23/22 XRs ordered Full HPI, ROS and PE to be performed by primary ED provider. Reevaluation(s) Reevaluation #1: X-ray of right knee with mild degenerative changes, small joint effusion. Patient will be discharged home with prednisone and orthopedic follow-up. No need for draining at this time, I do not suspect septic joint no need for labs. Educated patient on diagnosis and treatment plan, answered all question, patient verbalizes understanding. At this time patient will be discharged home, advised to return with new or worsening symptoms. Educated on worrisome signs and symptoms and when to return. At this time I feel comfortable discharge home. Time: 12:48 Medical Decision Making Medical Decision Making [facility] Narrative: 1220 Patient is a 57 year old female presenting with pain to her right knee. No lower extremity edema.? No calf ttp. 5/5 strength to bilateral upper and lower extremities 2+ dorsalis pedis, anterior tibialis and posterior tibialis pulses equal bilateral. No foot drop. Normal sensation to bilateral lower extremities distally. Patient is noted to have a moderate-sized joint effusion overlying the right knee. No overlying erythema or warmth. Differential diagnosis includes knee effusion Versus inflammatory arthritis, ligament or tendon sprain/strain, overuse injury, arthritic joint. Unlikely fracture as there is minimal swelling and no history of traumatic event. Unlikely septic joint, patient without fevers and effusion. No evidence of acute threat to limb, or NV compromise Plan imaging. Differential Diagnosis Differential Diagnoses: The differential diagnosis associated with the presentation includes Differential diagnosis includes knee effusion versus inflammatory arthritis, ligament or tendon sprain/strain, overuse injury, arthritic joint. Unlikely fracture as there is minimal swelling and no history of traumatic event. Unlikely septic joint, patient without fevers and effusion. No evidence of acute threat to limb, or NV compromise Independent Interpretation I performed an independent interpretation of an: Plain X-Ray (XR/XR knee RT 4V IMPRESSION: Mild degenerative changes.) Radiology Impression Discussion of test interpretation with radiology: I have reviewed the radiologist's reading. Core Measures AMI core measures followed: Yes Measure exclusions: not indicated Critical Care Time Critical Care Time Critical Care Time: No Discharge Plan Discharge Clinical Impression: Knee pain, right Patient Disposition: Home, Self-Care Instructions: Knee Pain (ED), Arthralgia (ED), Heat Pack Application (ED) Additional Instructions: Take your medications as prescribed. If you were prescribed antibiotics today, it is important that you take your medication to their entirety, do not skip any doses, do not finish them early. Follow-up with your primary care provider this week. follow-up with the orthopedic team Return to the emergency department with new or worsening symptoms. fevers, chills, numbness, tingling, overlying skin changes. In case of emergency call 911 A narcotic has been sent to your pharmacy please take this as prescribed. Do not take more than the prescribed dose. Narcotic medications can cause addiction. Please do not mix them with alcohol. Do not take them while driving or operating machinery. Do not take them with any other narcotics. Do not share them with friends or family. They can cause constipation. Take them only for severe pain. XR/XR knee RT 4V IMPRESSION: Mild degenerative changes. Prescriptions: New prednisone 20 mg tablet 40 mg PO DAILY 5 Days Qty: 10 0RF morphine 15 mg tablet 15 mg PO Q6H PRN (Reason: pain) 5 Days Qty: 10 0RF Rx Instructions: Partial Fill upon patient request. No Action (DME) CPAP Machine/Device Device See Rx Instructions .Route Qty: 1 0RF Rx Instructions: autoPAP mode, 6-20 cm H2O losartan 100 mg tablet 100 mg PO DAILY 90 Days Qty: 90 3RF chlorthalidone 25 mg tablet 25 mg PO QAM 90 Days Qty: 90 3RF acetaminophen [Tylenol Extra Strength] 500 mg tablet 1,000 mg PO Q6H PRN (Reason: fever or pain) 90 Days Qty: 300 1RF loratadine 10 mg tablet 10 mg PO DAILY Qty: 30 6RF escitalopram oxalate 5 mg tablet 5 mg PO DAILY 90 Days Qty: 90 1RF lidocaine [Lidoderm] 5 % adhesive patch,medicated 2 patch topical DAILY Qty: 30 0RF Rx Instructions: leave on most painful area for up to 12 hrs buspirone 10 mg tablet 10 mg PO DAILY ketoconazole 2 % shampoo topical omeprazole 20 mg capsule,delayed release(DR/EC) 20 mg PO DAILY PRN polyethylene glycol 3350 [Miralax] 17 gram/dose powder 17 g PO DAILY PRN medroxyprogesterone [Provera] 10 mg tablet 10 mg PO DAILY 90 Days Qty: 90 3RF Rx Instructions: start Provera 1 tablet daily Referrals: [facility] – [place] Orth[facility] Surgeons [Provider Group] - 1 week Arelis Irvin MD [Primary Care Provider] - 2 days
--- NOTE | 2022-11-12 11:56 | ED.LOWEXIN ---
HPI - Extremity Injury (Lower) General Chief Complaint: Extremity Injury, Lower Stated Complaint: R knee pain Time Seen by Provider: 11/12/22 11:39 Source: patient Mode of arrival: ambulatory Limitations: no limitations History of Present Illness HPI Narrative: Patient is a 57 year old female presenting with chronic right knee pain. She denies any additional symptoms at this time including chest pain, shortness of breath, cough, numbness, tingling, weakness, dizziness, lightheadedness. Related Data Home Medications Medication Instructions Recorded Confirmed buspirone 10 mg tablet 10 mg PO DAILY 03/24/20 10/30/22 ketoconazole 2 % shampoo topical 06/01/22 10/30/22 omeprazole 20 mg capsule,delayed 20 mg PO DAILY PRN 08/29/22 10/30/22 release polyethylene glycol 3350 17 17 g PO DAILY PRN 08/29/22 10/30/22 gram/dose oral powder (Miralax) Previous Rx's Medication Instructions Recorded CPAP (CPAP Machine/Device) #1 ea 02/26/22 losartan 100 mg tablet 100 mg PO DAILY 90 days #90 tabs 03/12/22 chlorthalidone 25 mg tablet 25 mg PO QAM 90 days #90 tabs 04/27/22 acetaminophen 500 mg tablet 1,000 mg PO Q6H PRN fever or pain 06/05/22 (Tylenol Extra Strength) 90 days #300 tabs loratadine 10 mg tablet 10 mg PO DAILY #30 tabs 06/05/22 lidocaine 5 % topical patch 2 patch topical DAILY #30 ea 08/07/22 (Lidoderm) medroxyprogesterone 10 mg tablet 10 mg PO DAILY 90 days #90 tabs 10/24/22 (Provera) escitalopram oxalate 5 mg tablet 5 mg PO DAILY 90 days #90 tabs 11/02/22 Allergies Allergy/AdvReac Type Severity Reaction Status Date / Time aspirin [ASA] Allergy Severe Anaphylaxis Verified 11/12/22 11:26 Review of Systems Review of Systems: Constitutional : No Weight loss, No Fever, No Chills, No Fatigue, No Malaise Cardiovascular : No Chest Pain, No SOB, No Dyspnea on Exertion, No Orthopnea, No Edema, No Palpitations Respiratory : No Cough, No Sputum, No Wheezing Gastrointestinal : No Nausea, No Vomiting, No Diarrhea, No Constipation, No abdominal Pain, No Hematochezia, No Melena Genitourinary : No Dysuria, No Urinary Frequency, No Hematuria, Musculoskeletal : + right knee joint pain, No Myalgias, No Joint Swelling Skin : No Skin Lesions, No rash Neuro : No Weakness, No Numbness, No Dizziness, No Headache Psych : No Anxiety/Panic, No Depression All other systems reviewed and are negative Yes all other systems are reviewed and are negative [facility] Past Medical History Attestation statement: The following information was validated with the patient. Source: old records reviewed and nursing notes reviewed Medical History Calcific shoulder tendinitis Class 1 obesity with body mass index (BMI) of 34.0 to 34.9 in adult Diverticulosis Essential hypertension Family history of colon cancer VAHE (generalized anxiety disorder) GERD with esophagitis Hemorrhoids, internal, with bleeding History of colon polyps Hypercalcemia Obesity (BMI 30-39.9) Rhinitis Right leg pain Sleep apnea Surgical History H/O basal cell carcinoma excision History of section History of colonoscopy (~02/2018) History of tubal ligation Hx of endoscopy S/P right knee arthroscopy Family History Family History Father Pancreatic cancer Mother Colon cancer Hypertension Brother No problems noted. Sister Psychiatric disorder Chronic mental illness Family/Other Chronic mental illness Social History Social History Housing: Apartment Do you presently have visiting nurse or other home services: No Alcohol intake: current Alcohol intake frequency: holidays/special occasions only Alcohol type: wine Patient Tobacco Use Status: Never used Tobacco e-Cigarette/Vaping Use: Never Used Second Hand Smoke Exposure: No service: No Current occupational status: employed Current occupational exposures/hazards: No Sexual orientation: Straight/Heterosexual Gender identity: Female Cognitive needs: No Hearing needs: No Vision needs: Yes Physical Exam Vital Signs: Vital Signs: Last Vital Signs Temp 98 F 11/12/22 11:26 Pulse 93 11/12/22 11:26 Resp 19 11/12/22 11:26 BP 144/92 H 11/12/22 11:26 Pulse Ox 98 11/12/22 11:26 O2 Del Method Room Air 11/12/22 11:26 BMI result Body Mass Index 38.6 vital signs stable Appearance: Alert.? Oriented X3.? No acute distress.? Head: Normocephalic, atraumatic, no step-offs or deformities Eyes: Pupils equal, round and reactive to light.? CVS: Normal heart rate and rhythm.? Pulses normal.? Respiratory: No respiratory distress.? Breath sounds normal.? Abdomen: Soft and nontender.? Skin: Skin warm and dry.? Normal skin color.? Normal skin turgor.? Extremities: + tenderness to palpation surrounding right knee. No evidence of joint effusion, septic joint. No lower extremity edema.? No calf ttp. 5/5 strength to bilateral upper and lower extremities Neuro: Oriented X 3.? No motor deficit.? No sensory deficit. CN 2-12 intact Course Reevaluation(s) Reevaluation #1: Xray obtained showing no evidence of acute fracture. Time: 12:02 Medical Decision Making Medical Decision Making MDM Narrative: Patient is a 57 year old female presenting with pain to her right knee. Physical exam significant for tenderness to palpation surrounding right knee. Neurovascular exam intact to lower extremities bilaterally. Differential diagnosis includes ligament or tendon sprain/strain, overuse injury, arthritic joint. Unlikely fracture as there is minimal swelling and no history of traumatic event. Unlikely septic joint, patient without fevers and effusion. No evidence of acute threat to limb. Plan imaging. Differential Diagnosis Differential Diagnoses: The differential diagnosis associated with the presentation includes Differential diagnosis includes ligament or tendon sprain/strain, overuse injury, arthritic joint. Unlikely fracture as there is minimal swelling and no history of traumatic event. Unlikely septic joint, patient without fevers and effusion. No evidence of acute threat to limb. Admission/Observation Consideration of admission/observation: Escalation of care including admission/observation considered unlikely Independent Interpretation I performed an independent interpretation of an: Plain X-Ray Radiology Impression Discussion of test interpretation with radiology: I have reviewed the radiologist's reading. External Record Review External record reviewed: Inpatient record, Office record, Outpatient record, Prior outpatient labs, Prior outpatient radiology, Primary care record and Outside ED record Core Measures AMI core measures followed: Yes Measure exclusions: not indicated Discharge Plan Discharge Clinical Impression: Knee pain, right Patient Disposition: Home, Self-Care Instructions: Knee Pain (ED), Arthralgia (ED), Heat Pack Application (ED) Additional Instructions: Take your medications as prescribed. If you were prescribed antibiotics today, it is important that you take your medication to their entirety, do not skip any doses, do not finish them early. Follow-up with your primary care provider this week. Return to the emergency department with new or worsening symptoms. In case of emergency call 911 Prescriptions: No Action (DME) CPAP Machine/Device Device See Rx Instructions .Route Qty: 1 0RF Rx Instructions: autoPAP mode, 6-20 cm H2O losartan 100 mg tablet 100 mg PO DAILY 90 Days Qty: 90 3RF chlorthalidone 25 mg tablet 25 mg PO QAM 90 Days Qty: 90 3RF acetaminophen [Tylenol Extra Strength] 500 mg tablet 1,000 mg PO Q6H PRN (Reason: fever or pain) 90 Days Qty: 300 1RF loratadine 10 mg tablet 10 mg PO DAILY Qty: 30 6RF escitalopram oxalate 5 mg tablet 5 mg PO DAILY 90 Days Qty: 90 1RF lidocaine [Lidoderm] 5 % adhesive patch,medicated 2 patch topical DAILY Qty: 30 0RF Rx Instructions: leave on most painful area for up to 12 hrs buspirone 10 mg tablet 10 mg PO DAILY ketoconazole 2 % shampoo topical omeprazole 20 mg capsule,delayed release(DR/EC) 20 mg PO DAILY PRN polyethylene glycol 3350 [Miralax] 17 gram/dose powder 17 g PO DAILY PRN medroxyprogesterone [Provera] 10 mg tablet 10 mg PO DAILY 90 Days Qty: 90 3RF Rx Instructions: start Provera 1 tablet daily
[2022-11-12] MEDS: Morphine Sulfate Immed Release 15 MG TABLET PO (13:04)
== END 2022-11-12 13:24 | disposition home or self-care (01) ==
PROVIDERS: Emergency Provider Emergency Medicine; PCP Internal Medicine
DX: M25.561 Pain in right knee (principal); E66.9 Obesity, unspecified; Z68.38 Body mass index [BMI] 38.0-38.9, adult
CPT/HCPCS: 73564; 99283

== ENCOUNTER → 2022-11-29 10:35 | Outpatient (BNVA) | payer OTHER, SELFPAY | PROVIDERS: Visit Provider Urology | DX: R93.41 Abnormal radiologic findings on diagnostic imaging of renal pelvis, ureter, or bladder (principal); R39.15 Urgency of urination; R35.0 Frequency of micturition | CPT/HCPCS: 51798; 99202 ==

== ENCOUNTER 2022-12-27 09:37 | Outpatient (REF) | payer OTHER, SELFPAY ==
[2022-12-28 20:19] LABS: Prolactin 14.8 ng/mL
== END 2022-12-27 09:38 | disposition home or self-care (01) ==
LOC: HO.LAB 09:37
PROVIDERS: PCP Internal Medicine; Visit Provider Internal Medicine Endocrinology, Diabetes & Metabolism
DX: E66.9 Obesity, unspecified (principal); R79.89 Other specified abnormal findings of blood chemistry; G47.33 Obstructive sleep apnea (adult) (pediatric)
CPT/HCPCS: 36415; 84146; 99212

== ENCOUNTER 2022-12-27 13:00 | Outpatient (RCR) | payer OTHER, SELFPAY ==
--- NOTE | 2022-11-07 13:35 | MHC.PT.EP ---
[facility] [place] [address] [place] [address] [place] Office [address] Rebecca Lew [address] [phone] F: [phone] F: [phone] F: [phone] F: [phone] Physical Therapy Plan of Care Date of Evaluation: Date of Surgery: N/A Diagnosis: pain in right knee (RL) Assessment: pt is a 57 y/o female presenting to physical therapy w/ referring diagnosis of pain in the right knee. Impairments include pain, decreased range of motion, decreased strength, impaired functional mobility, impaired postural awareness, and altered ambulation mechanics. pt is a good candidate for skilled PT due to age, potential remediation of impairments, typical disease/condition progression and prognosis, comorbidities, and motivation. pt would benefit from skilled PT intervention to provide a tailored strengthening and stretching exercise program, functional training, gait training, postural re-training, neuromuscular re-education, modalities as needed for pain, equipment safety demonstration. Frequency and Duration: The patient will be seen 2x/wk for 4 wks Short Term Goals: pt will be I w/ HEP to promote self-management of condition. pt will improve R knee extension to 0 degrees to normalize gait on even ground. Rotary Swaging Machine Operator Goals: pt will report a statistically significant improvement in self-reported outcome measure, LEFI, to promote return to PLOF. pt will improve R hip flexor and knee extensor strength to at least 4+/5 to promote ease in navigating stairs. Treatment Plan: Modalities to reduce pain, spasms and effusion. Manual therapy to restore motion and function. Therapeutic exercise to improve strength and flexibility. Neuromuscular re-education for posture and balance. Therapeutic activities to return to functional activities of daily living. Electronically signed by: Krystal Liu PT, DPT Please sign and return to therapist. Thank you for your referral.
--- NOTE | 2022-12-31 12:53 | MHC.PT.DC ---
[facility] [place] Office [place] Office [place] Office [address] Rebecca Lew 140 [facility] [phone] F: [phone] F: [phone] F: [phone] F: [phone] Physical Therapy Discharge Report Diagnosis: pain in right knee (RL) Date of Surgery: N/A Date of Evaluation: 11/06/22 Date of Discharge: 12/31/22 Treatments to Date: 11 Cancellations to Date: 0 No Shows to Date: 0 Discharge Status: Improved Function Independent with HEP Discharge Summary: The patient has reported a significant improvement in her pain severity; however, she does still have persistent moderate swelling to the right knee and thigh areas. She does seem to have swelling bilaterally and some varicosities that are apparent via observation. The right knee is particularly swollen. She is independent with her home exercise program and is discharged from this physical therapy plan of care. Electronically signed by: Krystal Liu PT, DPT Please sign and return to therapist. Thank you for your referral.
== END 2022-12-31 12:53 | disposition home or self-care (01) ==
LOC: HO.PT 13:00
PROVIDERS: PCP Internal Medicine; Visit Provider Internal Medicine
DX: M25.561 Pain in right knee (principal)
CPT/HCPCS: 97110; 97140; 97162

== ENCOUNTER 2022-12-27 14:36 | Outpatient (AMB) | payer OTHER, SELFPAY ==
[2022-12-27 15:02] VITALS: BP 126/70; PULSE 89; O2SAT 96; BMI 38.5
--- NOTE | 2022-12-27 15:02 | MHC.OFFVIS ---
Intake Vital Signs 12/27/22 15:02 Height 5 ft 2 in Weight 210 lb 8.663 oz BMI 38.5 BP 126/70 Blood Pressure Location Lt brachial Position Sitting Pulse 89 Pulse Source Pulse Oximeter Pulse Oximetry (%) 96 Oxygen Delivery Method Room Air Intake Visit Reasons: [employer] Speech Language Pathologist Required: No Allergies aspirin [ASA] Allergy (Severe, Verified 12/27/22 15:34) Anaphylaxis Medication List - Last Reconciled 12/27/22 by Fox Norton MD acetaminophen (Tylenol Extra Strength) 1,000 mg (2 x 500 mg) PO Q6H PRN 90 days buspirone 10 mg PO DAILY chlorthalidone 25 mg PO QAM 90 days CPAP (CPAP Machine/Device) autoPAP mode, 6-20 cm H2O escitalopram oxalate 5 mg PO DAILY 90 days ketoconazole 2% topical lidocaine 5% (Lidoderm) 2 patches topical DAILY loratadine 10 mg PO DAILY losartan 100 mg PO DAILY 90 days medroxyprogesterone (Provera) 10 mg PO DAILY 90 days omeprazole 20 mg PO DAILY PRN polyethylene glycol 3350 (Miralax) 17 grams PO DAILY PRN solifenacin 10 mg PO DAILY Do you need a note to return to daycare/school/sports/work: No HPI sixto HPI Details This 57 years old British-speaking female who is grossly obese and has diagnosis of obstructive sleep apnea, Comes after 4 months for follow-up. She has severe SIXTO with nocturnal hypoxemia. She uses CPAP with auto PAP mode and pressure setting of 6-16 cm, Finely she did not have much complaint about the high pressure. The main issue is she has not been using the CPAP regularly. Gives an excuse that she was on vocation. She has not lost much weight. She has history of anxiety and mild depression. I had a good conversation with her through the import/export freight forwarder. [facility] Medical History Calcific shoulder tendinitis Class 1 obesity with body mass index (BMI) of 34.0 to 34.9 in adult Diverticulosis Essential hypertension Family history of colon cancer VAHE (generalized anxiety disorder) GERD with esophagitis Hemorrhoids, internal, with bleeding History of colon polyps Hypercalcemia Obesity (BMI 30-39.9) Rhinitis Right leg pain Sleep apnea Surgical History H/O basal cell carcinoma excision History of section History of colonoscopy (~02/2018) History of tubal ligation Hx of endoscopy S/P right knee arthroscopy Family History Father Pancreatic cancer Mother Colon cancer Hypertension Brother No problems noted. Sister Psychiatric disorder Chronic mental illness Family/Other Chronic mental illness Social History Housing: Apartment Do you presently have visiting nurse or other home services: No Alcohol intake: current Alcohol intake frequency: holidays/special occasions only Alcohol type: wine Patient Tobacco Use Status: Never used Tobacco e-Cigarette/Vaping Use: Never Used Second Hand Smoke Exposure: No service: No Current occupational status: employed Current occupational exposures/hazards: No Sexual orientation: Straight/Heterosexual Gender identity: Female Cognitive needs: No Hearing needs: No Vision needs: Yes Female Reproductive History Menstrual Age of Menarche: 15 Review of Systems Const All systems reviewed & are unremarkable except as noted in HPI and below Eyes Reports no additional complaints ENT Reports nasal congestion (Off and on only with the change of seasons.) Card Denies chest pain, Denies irregular heart rhythm, Denies leg edema and Denies dyspnea Resp Denies cough, Denies dyspnea and Denies wheezing GI Reports no additional complaints Reports no additional complaints Musc Reports no additional complaints Skin/Breast Reports system reviewed and no additional complaints, except as documented Neuro Reports no additional complaints Psych Reports anxiety (Controlled) Endo Reports no additional complaints Den/Lymph Reports no additional complaints Aller/Immun Denies wheezing Physical Exam Vital Signs: Last Vital Signs Pulse 89 12/27/22 15:02 BP 126/70 12/27/22 15:02 Pulse Ox 96 12/27/22 15:02 Oxygen Delivery Method Room Air 12/27/22 15:02 BMI result Body Mass Index 38.5 Const General: healthy appearing (Except for being overweight), comfortable, no acute distress, alert and awake Orientation/consciousness: patient oriented x3 HEENT Head: Yes normal to inspection General nose exam: No nasal polyps present, No nasal discharge present and Other nasal findings present (Mild DNS to left) Face and sinus: Yes sinuses nontender Mouth: oropharynx normal Throat: Yes posterior oropharynx normal Eyes General: appearance normal, both eyes and all related structures Neck Neck: Yes normal visual inspection, Yes no lymphadenopathy, Yes trachea midline and Yes no JVD Thyroid: Thyroid normal Chest Chest palpation & inspection: normal inspection of the chest, normal palpation of entire chest wall and no tenderness Resp Effort & Inspection: normal respiratory effort and no cough Auscultation: clear to auscultation bilaterally, no crackles and no wheezes Cardio Palpation: normal PMI Rate: regular rate Rhythm: regular rhythm Heart sounds: no gallops and no murmurs Peripheral pulses: Peripheral pulses 2+ throughout GI Palpation (GI): Soft to palpation, nontender, No hepatosplenomegaly present and no masses Auscultation: normal bowel sounds Back/Spine/Pelvis Thoracic/Lumbar Spine: thoracic and lumbar spine normal to inspection Skin General skin exam: no rashes or lesions noted Neuro General: patient oriented x3 and no focal motor deficits Cranial nerves: Yes CN's II-XII intact bilaterally Extrem General: Yes normal to inspection, Yes no clubbing, cyanosis or edema and Yes no calf tenderness Psych Appearance: grossly normal and well kempt Speech and movement: Normal speech and movement present Assessment & Plan Assessment & Plan (1) Obesity (BMI 30-39.9): Comment: CONTINUES TO BE MODERATELY OBESE, WEIGHT HAS ACTUALLY GONE UP CURRENT BMI 38.5 AGAIN ADVISED THAT SHE SHOULD CUT DOWN THE CALORIES INTAKE AND TRY TO LOSE ABOUT 10-15 LB OF WEIGHT. Code(s): E66.9 - Obesity, unspecified (2) SIXTO (obstructive sleep apnea): Comment: PATIENT HAS SYMPTOMATIC OBSTRUCTIVE SLEEP APNEA, SEVERE, PATIENT DOES USE THE CPAP AT NIGHT BUT HER COMPLIANCE REMAINS SUBOPTIMAL. I HAD A DETAILED DISCUSSION WITH HER WITH THE HELP OF THE TOBACCO WAREHOUSE AGENT AND STRESSED THAT SHE MUST USE THE CPAP AT LEAST FOR 4-5 HOURS EVERY NIGHT. SHE DOES HAVE A WELL-FUNCTIONING CPAP DEVICE. Code(s): G47.33 - Obstructive sleep apnea (adult) (pediatric) Coding Level of Care Code Est Pt Level 3 (87916) Diagnoses Obesity (BMI 30-39.9) E66.9 SIXTO (obstructive sleep apnea) G47.33
== END 2022-12-27 15:18 | disposition home or self-care (01) ==
PROVIDERS: PCP Internal Medicine; Visit Provider Internal Medicine
DX: E66.9 Obesity, unspecified (principal); G47.33 Obstructive sleep apnea (adult) (pediatric)
CPT/HCPCS: 99213

== ENCOUNTER 2022-12-28 12:26 | Outpatient (REF) | payer OTHER, SELFPAY ==
--- NOTE | ~2022-12-28 | US_ITS ---
EXAMINATION: US RETROPERITONEAL LIMITED (RENAL ONLY) CLINICAL INFORMATION: Frequency of micturition. COMPARISON: None available. TECHNIQUE: Real-time imaging of the kidneys. FINDINGS: RIGHT KIDNEY: 13.0 x 6.0 x 6.0 cm (SAG x AP x TRV). The kidney is normal in size, contour, and echogenicity. Renal cortical thickness is normal. No calculi or focal parenchymal lesions. No hydronephrosis. LEFT KIDNEY: 12.8 x 6.2 x 5.0 cm (SAG x AP x TRV). The kidney is normal in size, contour, and echogenicity. Renal cortical thickness is normal. No calculi or focal parenchymal lesions. No hydronephrosis. US/US renal BI IMPRESSION: Normal renal ultrasound.
== END 2022-12-28 12:27 | disposition home or self-care (01) ==
LOC: HO.US 12:26
PROVIDERS: PCP Internal Medicine; Visit Provider Urology
DX: R35.0 Frequency of micturition (principal); R39.15 Urgency of urination; R93.41 Abnormal radiologic findings on diagnostic imaging of renal pelvis, ureter, or bladder
CPT/HCPCS: 76775

== ENCOUNTER 2023-01-01 15:23 | Outpatient (AMB) | payer OTHER, SELFPAY ==
--- NOTE | 2023-01-01 15:30 | A.OFFVIS_ITS ---
Intake Vital Signs 01/01/23 15:31 Height 5 ft 2 in Weight 212 lb 8.41 oz BMI 38.9 BP 147/77 H Pulse 81 Intake Visit Reasons: Elevated Prolactin Level Intake Note: Patient presents today for elevated prolactin level. Broiler Manager Required: Yes Broiler Manager Language: Concrete Grinder Operator Name: Patrice Garcia, MAYCOL/RAVI SPANI Accompanied by: Self / Same As Patient Allergies aspirin [ASA] Allergy (Severe, Verified 01/01/23 15:35) Anaphylaxis Medication List - Last Reconciled 01/01/23 by Drew Hays MD acetaminophen (Tylenol Extra Strength) 1,000 mg (2 x 500 mg) PO Q6H PRN 90 days buspirone 10 mg PO DAILY chlorthalidone 25 mg PO QAM 90 days CPAP (CPAP Machine/Device) autoPAP mode, 6-20 cm H2O ketoconazole 2% topical lidocaine 5% (Lidoderm) 2 patches topical DAILY loratadine 10 mg PO DAILY losartan 100 mg PO DAILY 90 days omeprazole 20 mg PO DAILY PRN solifenacin 10 mg PO DAILY HPI HPI Comments History of Present Illness Details Is a 57-year-old female referred for hyperprolactinemia. just recently diagnosed Patient denies any galactorrhea but had in past . Menses have been nl . Denies use of neuroleptics medications but takes [facility] . [facility] C/O headache but no loss of vision. Denies any thyroid problems with symptoms of hypothyroidism. [facility] Medical History Calcific shoulder tendinitis Class 1 obesity with body mass index (BMI) of 34.0 to 34.9 in adult Diverticulosis Essential hypertension Family history of colon cancer VAHE (generalized anxiety disorder) GERD with esophagitis Hemorrhoids, internal, with bleeding History of colon polyps Hypercalcemia Obesity (BMI 30-39.9) Rhinitis Right leg pain Sleep apnea Surgical History H/O basal cell carcinoma excision History of section History of colonoscopy (~02/2018) History of tubal ligation Hx of endoscopy S/P right knee arthroscopy Family History Father Pancreatic cancer Mother Colon cancer Hypertension Brother No problems noted. Sister Psychiatric disorder Chronic mental illness Family/Other Chronic mental illness Social History Housing: Apartment Do you presently have visiting nurse or other home services: No Alcohol intake: current Alcohol intake frequency: holidays/special occasions only Alcohol type: wine Patient Tobacco Use Status: Never used Tobacco e-Cigarette/Vaping Use: Never Used Second Hand Smoke Exposure: No service: No Current occupational status: employed Current occupational exposures/hazards: No Sexual orientation: Straight/Heterosexual Gender identity: Female Cognitive needs: No Hearing needs: No Vision needs: Yes Female Reproductive History Menstrual Age of Menarche: 15 Physical Exam Vital Signs: Last Vital Signs Pulse 81 01/01/23 15:31 BP 147/77 H 01/01/23 15:31 BMI result Body Mass Index 38.9 Assessment & Plan Assessment & Plan (1) Elevated prolactin level: Code(s): R79.89 - Other specified abnormal findings of blood chemistry Plan: This is a 57-year-old female found to have an increased prolactin level. Prolactin has now normalized off buspirone. Patient can resume BuSpar. No need to recheck prolactin as patient is perimenopausal Plan is to have patient follow-up with primary care provider. Should return back to endocrinology as needed Coding Level of Care Code Est Pt Level 3 (21679) Diagnoses Elevated prolactin level R79.89
[2023-01-01 15:31] VITALS: BP 147/77; PULSE 81; BMI 38.9
== END 2023-01-01 15:44 | disposition home or self-care (01) ==
PROVIDERS: PCP Internal Medicine; Visit Provider Internal Medicine Endocrinology, Diabetes & Metabolism
DX: R79.89 Other specified abnormal findings of blood chemistry (principal)
CPT/HCPCS: 99213

== ENCOUNTER → 2023-01-01 15:23 | Outpatient (BNVA) | payer OTHER, SELFPAY | PROVIDERS: Visit Provider Internal Medicine Endocrinology, Diabetes & Metabolism | DX: E22.1 Hyperprolactinemia (principal) | CPT/HCPCS: 99212 ==

== ENCOUNTER 2023-01-14 14:06 | Outpatient (REF) | payer OTHER, SELFPAY ==
--- NOTE | ~2023-01-14 | US_ITS ---
EXAMINATION: US PELVIS COMPLETE CLINICAL INFORMATION: Myomas; the last menstrual period was on 12/20/2022. COMPARISON: Pelvic ultrasound dated 10/12/2022. TECHNIQUE: Transabdominal and transvaginal imaging were performed. FINDINGS: The uterus is of normal size and echogenicity, measuring 11.9 x 9.6 x 7.0 cm. The uterus is anteverted and anteflexed. The endometrial stripe is nonvisualized with certainty secondary to uterine fibroid disease. Nabothian cysts are seen within the cervix FIBROIDS: There are 4 fibroids seen. 1. Location: Anterior fundus, myometrial. Size: 5.0 x 3.3 x 4.2 cm. Prior: 3.4 x 3.7 x 3.3 cm. Fibroid characteristics: Heterogeneous echotexture. 2. Location: Posterior fundus, myometrial. Size: 2.7 x 3.1 x 2.7 cm. Prior: Not seen. Fibroid characteristics: Heterogeneous echotexture. 3. Location: Posterior body, myometrial. Size: 2. 5.9 x 2.6 cm. Prior: Not seen. Fibroid characteristics: Hypoechoic. 4. Location: Rightward lower uterine segment, myometrial. Size: 1.7 x 1.8 x 1.6 cm. Prior: Not seen. Fibroid characteristics: Heterogeneous echotexture. The right ovary is not visualized. The left ovary measures 2.3 x 1.9 x 2.3 cm, for a volume of 5.3 mL. There is no pelvic free fluid. US/US pelvic and transvaginal IMPRESSION: 1. Multiple uterine fibroids are seen, as detailed. 2. There is suboptimal visualization of the endometrial stripe secondary to extensive uterine fibroid disease. 3. Nabothian cysts are seen within the cervix. 4. The right ovary is not visualized.
== END 2023-01-14 14:07 | disposition home or self-care (01) ==
LOC: HO.US 14:06
PROVIDERS: PCP Internal Medicine; Visit Provider Obstetrics & Gynecology
DX: D21.9 Benign neoplasm of connective and other soft tissue, unspecified (principal)
CPT/HCPCS: 76830; 76856

== ENCOUNTER 2023-01-16 10:23 | Outpatient (AMB) | payer OTHER, SELFPAY ==
--- NOTE | 2023-01-16 03:46 | A.OFFVIS_ITS ---
Intake Intake Visit Reasons: 6w/US/cysto Intake Note: Patient presents today for a CYSTOSCOPY Procedure: Meds: Solifenacin Allergies to Antibiotic: No Known Allergies Blood Thinner: None Urinalysis test cleared for Cysto Disposible Uro-G Cystoscope Cannula: Lot: [id number] Exp: 10/10/2024 Recycling Or Rubbish Collector Required: Yes Recycling Or Rubbish Collector Language: Predatory Animal Exterminator Name: MAYCOL Christie/RAVI MEEK Information Interpreted: non-clinical & clinical Accompanied by: Self / Same As Patient Allergies aspirin [ASA] Allergy (Severe, Verified 01/16/23 10:25) Anaphylaxis HPI HPI Comments History of Present Illness Details Nuria is a 57-year-old female who presents today to the office for office Cystoscopy. 01/16/2023? The patient is a Bengali speaking female. Certified program dir was present during the visit. She was last seen by me on 11/29/2022 as a new patient evaluation. She has had pelvic US on 10/12/2022 which revealed 7 mm echogenic non shadowing avascular focus. She was started on Vesicare 10 mg for lower urinary tract symptoms. I reviewed the results of renal US from 12/28/2022 revealed both kidneys were normal. she states that she is taking Veiscare daily. Cystoscopy findings: Uterine fibroids causing extrinsic compression noted left posterior lateral wall, no suspicious bladder lesions visualized. Review of charts? Last visit: 11/29/2022? Nuria is a 57-year-old female who presents to the office as a new patient evaluation due to abnormal bladder ultrasound findings. 11/29/22-- The patient is a Bengali speaking female. Certified program dir was present during the visit. Past medical history-- hypertension, generalized anxiety disorder, obesity, being evaluated by NUTRITION SERVICES WORKER for vaginal bleeding and had a pelvic US, which noted abnormal bladder findings as noted below. She denies frequent UTI episode. Has episodes of urinary urgency and frequency, urine leakage associated with urgency. Denies dysuria. Evaluation today: Blood-- negative, leukocytes: negative. Bladder scan PVR: 258 mL. Pelvis US results reviewed-- 10/12/22?noted incidental 7 mm echogenic nonshadowing avascular focus. Unclear etiology. Plan: Renal US prior was ordered. Cystoscopy discussed to be scheduled. Vesicare 10 mg QD was ordered. Follow-up after 6 weeks. 01/16/2023?Plan: Continue Vesicare. Follow up in 6 months [facility] Medical History Calcific shoulder tendinitis Class 1 obesity with body mass index (BMI) of 34.0 to 34.9 in adult Diverticulosis Essential hypertension Family history of colon cancer VAHE (generalized anxiety disorder) GERD with esophagitis Hemorrhoids, internal, with bleeding History of colon polyps Hypercalcemia Obesity (BMI 30-39.9) Rhinitis Right leg pain Sleep apnea Surgical History H/O basal cell carcinoma excision History of section History of colonoscopy (~02/2018) History of tubal ligation Hx of endoscopy S/P right knee arthroscopy Family History Father Pancreatic cancer Mother Colon cancer Hypertension Brother No problems noted. Sister Psychiatric disorder Chronic mental illness Family/Other Chronic mental illness Social History Housing: Apartment Do you presently have visiting nurse or other home services: No Alcohol intake: current Alcohol intake frequency: holidays/special occasions only Alcohol type: wine Patient Tobacco Use Status: Never used Tobacco e-Cigarette/Vaping Use: Never Used Second Hand Smoke Exposure: No service: No Current occupational status: employed Current occupational exposures/hazards: No Sexual orientation: Straight/Heterosexual Gender identity: Female Cognitive needs: No Hearing needs: No Vision needs: Yes Female Reproductive History Menstrual Age of Menarche: 15 Review of Systems Const All systems reviewed & are unremarkable except as noted in HPI and below Reports no additional complaints Eyes Reports no additional complaints ENT Reports no additional complaints Card Denies dyspnea Resp Denies cough and Denies dyspnea GI Reports no additional complaints Reports no additional complaints Musc Reports no additional complaints Skin/Breast Denies rash and Denies unusual bruising Neuro Reports no additional complaints Psych Reports no additional complaints Endo Reports no additional complaints Den/Lymph Reports no additional complaints Aller/Immun Reports no additional complaints Office Procedures Cystoscopy Consent Discussed risk and benefit or proposed procedure with the patient. Information consent for procedure given to the patient. Discussed technical aspects, risks, benefits and alternatives in full. Addressed all of the patient's questions and concerns regarding the procedure. The patient demonstrated knowledge and understanding. They wish to proceed with this procedure. Preparation The patient was prepped in the usual manner. A logistics program manager was present and in the room. Genitalia was prepped with betadine solution in a sterile manner. Lidocaine Jelly 2% was placed into the urethra and 16Fr flexible Olympus cystoscope was inserted into the meatus after adequate lubrication. Procedure Time out per protocol performed. Bladder Inspection Bladder Inspection: The bladder was inspected in its entirety with utilization retroflexion displaying: Tumor(s): none visualized Trabeculation: N/A Mucosal Erthema: N/A Orifices: normal shape and position Urethra: normal Cystoscopy findings: Uterine fibroids causing extrinsic compression noted left posterior lateral wall, no suspicious bladder lesions visualized [id number] DISPOSABLE SCOPE URO-G FLEXIBLE SCOPE Procedure code (CPT) selection complete Office Meds lidocaine HCl Performing Provider: Fatuma Schmidt MD Administered by: Oliva Alonzo RN on 01/16/23 10:54 Dose Route Admin Location Lot Number Expiration Date ND Hand Tool Filer 10 mL intra-urethral naproxen Performing Provider: Fatuma Schmidt MD Administered by: Oliva Alonzo RN on 01/16/23 10:54 Dose Route Admin Location Lot Number Expiration Date NDC Hand Tool Filer 500 mg PO ciprofloxacin HCl Performing Provider: Fatuma Schmidt MD Administered by: Oliva Alonzo RN on 01/16/23 10:54 Dose Route Admin Location Lot Number Expiration Date NDC Hand Tool Filer 500 mg PO Results AMB Urinalysis, Automated UA Leukoctes 0 Erik/uL Last Edit by MAYCOL Christie on 01/16/23 10:55 UA Nitrite Negative Last Edit by MAYCOL Christie on 01/16/23 10:55 UA Urobilinogen 0.2 mg/dL Last Edit by Patrice Jose, A on 01/16/23 10:5 5 UA Protein 0 mg/dL Last Edit by Patrice Jose, A on 01/16/23 10:55 UA pH 6.0 Last Edit by Dashawnzahraashazia Hirschirez, A on 01/16/23 10:55 UA Blood 0 [place]/uL Last Edit by Patrice Jose, A on 01/16/23 10:55 UA Specific [place] 1.025 Last Edit by Patrice Hirschirez, A on 01/16/23 10: 55 UA Ketone Negative Last Edit by Patrice Jose, A on 01/16/23 10:55 UA Bilirubin 0 mg/dL Last Edit by Patrice Jose, A on 01/16/23 10:55 UA Glucose 0 mg/dL Last Edit by Dashawnzahraashazia Hirschirez, A on 01/16/23 10:55 Results Reviewed Results Reviewed: Laboratory Last Values Urine pH (Auto) 6.0 01/16/23 10:53 Specific [place] (Auto) 1.025 01/16/23 10:53 Urine Protein (Auto) 0 mg/dL 01/16/23 10:53 Glucose (UA)(Auto) 0 mg/dL 01/16/23 10:53 Urine Ketones (Auto) Negative 01/16/23 10:53 Urine Blood (Auto) 0 [place]/uL 01/16/23 10:53 Urine Nitrite (Auto) Negative 01/16/23 10:53 Urine Bilirubin (Auto) 0 mg/dL 01/16/23 10:53 Urine Urobilinogen (Auto) 0.2 mg/dL 01/16/23 10:53 Leukocyte Esterase (Auto) 0 Erik/uL 01/16/23 10:53 Date of Service: 01/14/23 EXAMINATION: US PELVIS COMPLETE CLINICAL INFORMATION: Myomas; the last menstrual period was on 12/20/2022. COMPARISON: Pelvic ultrasound dated 10/12/2022. FINDINGS: The uterus is of normal size and echogenicity, measuring 11.9 x 9.6 x 7.0 cm. The uterus is anteverted and anteflexed. The endometrial stripe is nonvisualized with certainty secondary to uterine fibroid disease. Nabothian cysts are seen within the cervix FIBROIDS: There are 4 fibroids seen. ?1. Location: Anterior fundus, myometrial. ?? ? Size: 5.0 x 3.3 x 4.2 cm. Prior: 3.4 x 3.7 x 3.3 cm. ?? ? Fibroid characteristics: Heterogeneous echotexture. ?2. Location: Posterior fundus, myometrial. ?? ? Size: 2.7 x 3.1 x 2.7 cm. Prior: Not seen. ?? ? Fibroid characteristics: Heterogeneous echotexture. ?3. Location: Posterior body, myometrial. ?? ? Size: 2. 5.9 x 2.6 cm. Prior: Not seen. ?? ? Fibroid characteristics: Hypoechoic. ?4. Location: Rightward lower uterine segment, myometrial. ?? ? Size: 1.7 x 1.8 x 1.6 cm. Prior: Not seen. ?? ? Fibroid characteristics: Heterogeneous echotexture. The right ovary is not visualized. The left ovary measures 2.3 x 1.9 x 2.3 cm, for a volume of 5.3 mL. There is no pelvic free fluid. IMPRESSION: ? 1. Multiple uterine fibroids are seen, as detailed. ? 2. There is suboptimal visualization of the endometrial stripe secondary to extensive uterine fibroid disease. ? 3. Nabothian cysts are seen within the cervix. ? 4. The right ovary is not visualized. Date of Service: 12/28/22 EXAMINATION: US RETROPERITONEAL LIMITED (RENAL ONLY) CLINICAL INFORMATION: Frequency of micturition. COMPARISON: None available. FINDINGS: RIGHT KIDNEY: 13.0 x 6.0 x 6.0 cm (SAG x AP x TRV). The kidney is normal in size, contour, and echogenicity. Renal cortical thickness is normal. No calculi or focal parenchymal lesions. No hydronephrosis. LEFT KIDNEY: 12.8 x 6.2 x 5.0 cm (SAG x AP x TRV). The kidney is normal in size, contour, and echogenicity. Renal cortical thickness is normal. No calculi or focal parenchymal lesions. No hydronephrosis. IMPRESSION: Normal renal ultrasound. ? Assessment & Plan Assessment & Plan (1) Overactive bladder: Code(s): N32.81 - Overactive bladder (2) Uterine fibroid: Code(s): D25.9 - Leiomyoma of uterus, unspecified Orders: Orders AMB Cystoscopy Today R35.0 - Frequency of micturition, R39.15 - Urgency of urination AMB Urinalysis Automated Today Z13.9 - Encounter for screening, unspecified Patient Instructions: The patient had an opportunity to ask questions regarding treatment plan. All questions were answered. Imaging, Laboratory studies and physical exam results were discussed and reviewed in detail. No major barriers to understanding were identified. The patient expressed understanding and agreement with the above treatment plan.? ? ? The patient is aware they should contact our office by phone for worsening of their current condition or the appearance of new symptoms. Compliance is encouraged with any medications and followup testing that is ordered.? ? ? It is a privilege to be allowed the opportunity to participate in the urologic care of your patient. If you have any questions or concerns regarding treatment for the above conditions please do not hesitate to contact me. The office telephone contact is [phone].? ? ? This note is constructed in part using voice recognition software. While every effort has been made to ensure accuracy pilot plant supervisor errors may have been included.? ? ? Yours sincerely,? ? ? Fatuma Schmidt MD? Coding Level of Care Code Procedure Only Diagnoses Overactive bladder N32.81 Uterine fibroid D25.9 CPT Codes Cystoscopy - CPT: 35553-[id number] ([id number]) Cystoscopy - CPT: DISPOSABLE SCOPE URO-G FLEXIBLE SCOPE ([id number])
== END 2023-01-16 11:24 | disposition home or self-care (01) ==
PROVIDERS: PCP Internal Medicine; Visit Provider Urology
DX: R35.0 Frequency of micturition (principal); R39.15 Urgency of urination; N32.81 Overactive bladder; D25.9 Leiomyoma of uterus, unspecified
CPT/HCPCS: 52000

== ENCOUNTER → 2023-01-16 10:23 | Outpatient (BNVA) | payer OTHER, SELFPAY | PROVIDERS: PCP Internal Medicine; Visit Provider Urology | DX: N32.81 Overactive bladder (principal); D25.9 Leiomyoma of uterus, unspecified | CPT/HCPCS: 52000; 81003; C1747 ==

== ENCOUNTER 2023-02-14 14:34 | Outpatient (REF) | payer OTHER, SELFPAY | END 2023-02-14 14:35 | disposition home or self-care (01) | LOC: HO.MAMMO 14:34 | PROVIDERS: PCP Internal Medicine; Visit Provider Internal Medicine | DX: Z12.31 Encounter for screening mammogram for malignant neoplasm of breast (principal) | CPT/HCPCS: 77063; 77067 ==

== ENCOUNTER → 2023-02-14 15:00 | Outpatient (BNV) | payer OTHER, SELFPAY | PROVIDERS: PCP Internal Medicine; Visit Provider Radiology Diagnostic Radiology | DX: Z12.31 Encounter for screening mammogram for malignant neoplasm of breast (principal) | CPT/HCPCS: 77063; 77067 ==

== ENCOUNTER 2023-03-07 13:47 | Outpatient (AMB) | payer OTHER, SELFPAY ==
[2023-03-07 14:23] VITALS: BP 126/82; PULSE 78; O2SAT 99; BMI 36.6
--- NOTE | 2023-03-07 14:23 | MHC.PC.OV ---
Vital Signs 03/07/23 14:23 Height 5 ft 2 in Weight 200 lb BMI 36.6 BP 126/82 Blood Pressure Location Lt brachial Position Sitting Pulse 78 Pulse Source Pulse Oximeter Temp Source Skin Pulse Oximetry (%) 99 Oxygen Delivery Method Room Air Intake Visit Reasons: PE Intake Note: Patient is here today for a physical. Detention Attendant Required: Yes Detention Attendant Language: Distribution Estimator Name: flor [id number] Information Interpreted: non-clinical & clinical Allergies aspirin [ASA] Allergy (Severe, Verified 03/07/23 14:45) Anaphylaxis Medication List - Last Reconciled 03/07/23 by GALINA Johansen acetaminophen (Tylenol Extra Strength) 1,000 mg (2 x 500 mg) PO Q6H PRN 90 days buspirone 10 mg PO DAILY chlorthalidone 25 mg PO QAM 90 days CPAP (CPAP Machine/Device) autoPAP mode, 6-20 cm H2O ketoconazole 2% topical lidocaine 5% (Lidoderm) 2 patches topical DAILY loratadine 10 mg PO DAILY losartan 100 mg PO DAILY 90 days omeprazole 20 mg PO DAILY PRN solifenacin 10 mg PO DAILY Tobacco use date assessed: 03/07/23 Dental Screening Dental Screen Date: 03/07/23 Did you have a dental visit in the last 12 months?: Yes Did you have a dental problem in the last 6 months where you did not have access to dental care?: No Was dental information given to patient?: Patient has dentist HPI HPI Comments History of Present Illness Details This is a 57-year-old female GERD, diverticulosis, hypertension, generalized anxiety disorder, SIXTO, nocturnal hypoxemia, tendinitis of left shoulder. Patient Dr. Hurt presents today for follow up. Patient states has ongoing postnasal drip and previously on Flonase however she does not have prescription for this at this time, refill sent to patient's pharmacy. Patient also reports she is having dry throat at night and has to wake up to drink water patient admits that she does only wear CPAP for 4 hours at night with good effect. Patient made aware dry mouth is likely related to when she is not wearing her CPAP machine and she is possibly snoring with her mouth open. Patient states her does report that she snores nightly when she is wearing her CPAP machine. Patient encouraged to wear her CPAP machine for greater than 4 hours a night. Patient also reports left-sided neck lump and she is concerned about her thyroid. Left-sided goiter noted on exam. Patient denies any dysphagia. [facility] Medical History Calcific shoulder tendinitis Class 1 obesity with body mass index (BMI) of 34.0 to 34.9 in adult Diverticulosis Essential hypertension Family history of colon cancer VAHE (generalized anxiety disorder) GERD with esophagitis Hemorrhoids, internal, with bleeding History of colon polyps Hypercalcemia Obesity (BMI 30-39.9) Rhinitis Right leg pain Sleep apnea Surgical History H/O basal cell carcinoma excision History of section History of colonoscopy (~02/2018) History of tubal ligation Hx of endoscopy S/P right knee arthroscopy Family History Father Pancreatic cancer Mother Colon cancer Hypertension Brother No problems noted. Sister Psychiatric disorder Chronic mental illness Family/Other Chronic mental illness Social History Housing: Apartment Do you presently have visiting nurse or other home services: No Alcohol intake: current Alcohol intake frequency: holidays/special occasions only Alcohol type: wine Patient Tobacco Use Status: Never used Tobacco e-Cigarette/Vaping Use: Never Used Second Hand Smoke Exposure: No service: No Current occupational status: employed Current occupational exposures/hazards: No Sexual orientation: Straight/Heterosexual Gender identity: Female Cognitive needs: No Hearing needs: No Vision needs: Yes Female Reproductive History Menstrual Age of Menarche: 15 Questionnaire PHQ-9 Over the last 2 weeks, how often have you been bothered by any of the following problems? 1. Little interest or pleasure in doing things: not at all 2. Feeling down, depressed, or hopeless: not at all 3. Trouble falling or staying asleep, or sleeping too much: not at all 4. Feeling tired or having little energy: not at all 5. Poor appetite or overeating: not at all 6. Feeling bad about yourself - or that you are a failure or have let yourself or your family down: not at all 7. Trouble concentrating on things, such as reading the newspaper or watching television: not at all 8. Moving or speaking so slowly that other people could have noticed. Or the opposite - being so fidgety or restless that you have been moving around a lot more than usual: not at all 9. Thoughts that you would be better off or of hurting yourself in some way: not at all Total score: 0 Depression Screening Interpretation: Negative Depression Screening Done: Yes Source: Developed by Drs. Drew Cartagena, Emmy Hilton, Kirby Vasquez and colleagues, with an educational jose from [employer]. Thrive Questionnaire Date Thrive assessed: 08/20/22 AUDIT C Alcohol Use Questionnaire (AUDIT-C) 1. How often do you have a drink containing alcohol?: Monthly or less 2. How many drinks containing alcohol do you have on a typical day when you are drinking?: 1 or 2 3. How often do you have six or more drinks on one occasion?: Never Total Score: 1 Score Reviewed/Action Taken: No VAHE-7 AMB Questionnaire VAHE-7 Date VAHE - 7 assessed: 03/07/23 Feeling nervous, anxious, or on edge: 1 = Several days Not being able to stop or control worryin = Not at all Worrying too much about different things: 0 = Not at all Trouble relaxin = Not at all Being so restless that it is hard to sit still: 0 = Not at all Becoming easily annoyed or irritable: 0 = Not at all Feeling afraid as if something awful might happen: 0 = Not at all Total VAHE-7 score (0-4 normal; 5-9 mild; 10-14 moderate; 15-21 severe): 1 Source: Developed by Drs. Drew Cartagena, Emmy Hilton, Kirby Vasquez and colleagues, with an educational jose from [employer]. Review of Systems Const Denies chills, Denies fatigue, Denies fever(s) and Denies poor appetite Eyes Denies no additional complaints ENT Reports Normal hearing present, Denies dysphagia, Denies hoarseness, Denies neck pain, Reports post nasal drip and Reports other (left sided neck lump) Card Denies chest pain, Denies syncope, Denies rapid heart rate and Denies dyspnea Resp Denies cough and Denies dyspnea GI Denies change in stool character, Denies constipation, Denies dysphagia, Denies diarrhea, Denies nausea and Denies vomiting Denies urinary frequency, Denies dysuria and Denies urinary urgency Musc Denies neck pain Neuro Reports Normal hearing present, Denies confusion and Denies syncope Psych Denies confusion Endo Denies fatigue Physical exam (Primary Care) Vital Signs: Last Vital Signs Pulse 78 03/07/23 14:23 BP 126/82 03/07/23 14:23 Pulse Ox 99 03/07/23 14:23 Oxygen Delivery Method Room Air 03/07/23 14:23 BMI result Body Mass Index 36.6 Tobacco/Smoking Status: Tobacco use Status Tobacco use date assessed 03/07/23 03/07/23 14:25 Patient Tobacco Use Status Never used Tobacco 03/07/23 14:25 e-Cigarette/Vaping Use Never Used 03/07/23 14:25 PHQ-9: PHQ-9 Score PHQ-9: Total score 0 03/07/23 14:44 Depression Screening Interpretation: Negative Thrive Assessment: Date of Thrive Assessment Date Thrive assessed 08/20/22 03/07/23 14:25 Const General: No confusion Orientation/consciousness: No confusion HENMT Head: Yes normocephalic and Yes atraumatic Eyes Conjunctivae: conjunctivae normal Neck Thyroid: lateral enlargement on the left Chest Chest palpation & inspection: normal inspection of the chest Resp Effort & Inspection: normal respiratory effort Auscultation: clear to auscultation bilaterally, no crackles, no rhonchi and no wheezes Cardio Rate: regular rate Rhythm: regular rhythm Heart sounds: S1 normal heart sound present and S2 normal heart sound present GI Inspection: Yes normal to inspection Neuro General: No confusion Cranial nerves: Yes Normal hearing present Extrem General: No edema Office Procedures Flu Questionnaire Does the patient have a severe egg allergy?: No Does the patient have severe life threatening allergies?: No Does the patient have a fever or illness today?: No Has the patient ever had Guillain-Sweet Briar Syndrome?: No Has the patient ever had any past reaction to a flu shot?: No Immunizations flu vacc [id number] 6mos up(PF) 60 mcg(15 mcgx4)/0.5 mL IM syringe Performing Provider: GALINA Johansen [facility] Administered by: MAYCOL Freitas on 03/07/23 14:36 Dose Route Admin Location Dispensed Lot Number Expiration Date NDC Poly Operator 0.5 mL IM Left Deltoid 0.5 mL [id number] 12/01/23 [id number] [employer] VIS Given Date VIS Provided VIS Publication Date 03/07/23 Single Vaccine 21 Eligibility Eligibility Date Funding Source Not [facility] Eligible 03/07/23 Private Assessment and Plan Assessment & Plan (1) Goiter: Code(s): E04.9 - Nontoxic goiter, unspecified Plan: Thyroid ultrasound ordered to further evaluate. (2) SIXTO (obstructive sleep apnea): Comment: PATIENT HAS SYMPTOMATIC OBSTRUCTIVE SLEEP APNEA, SEVERE, PATIENT DOES USE THE CPAP AT NIGHT BUT HER COMPLIANCE REMAINS SUBOPTIMAL. I HAD A DETAILED DISCUSSION WITH HER WITH THE HELP OF THE FEDERAL DISTRICT CLERK AND STRESSED THAT SHE MUST USE THE CPAP AT LEAST FOR 4-5 HOURS EVERY NIGHT. SHE DOES HAVE A WELL-FUNCTIONING CPAP DEVICE. Code(s): G47.33 - Obstructive sleep apnea (adult) (pediatric) Plan: Patient encouraged to wear CPAP machine for greater than 4 hours a night with good effect. (3) Nocturnal hypoxemia: Comment: PATIENT DOES HAVE SIGNIFICANT DEGREE OF NOCTURNAL HYPOXEMIA PROBABLY DUE TO SLEEP-RELATED HYPOVENTILATION. IT IS HOPED THAT WITH THE PROPER USE OF CPAP HER HYPOXEMIA WILL RESOLVE. Code(s): G47.34 - Idiopathic sleep related nonobstructive alveolar hypoventilation Orders: Orders Influenza [id number] Immunization 03/07/23 Z23 - Encounter for immunization US thyroid 03/07/23 E04.9 - Nontoxic goiter, unspecified Medications: New fluticasone propionate 50 mcg/actuation (Flonase Allergy Relief) administer into each nostril 1 spray intranasal DAILY 16 grams 0RF Patient Instructions: Keep scheduled follow-up with PCP or follow-up sooner if needed. Coding Level of Care Code Est Pt Level 3 (75639) Diagnoses Goiter E04.9 SIXTO (obstructive sleep apnea) G47.33 Nocturnal hypoxemia G47.34
== END 2023-03-07 15:06 | disposition home or self-care (01) ==
PROVIDERS: PCP Internal Medicine; Visit Provider Nurse Practitioner Family
DX: Z23 Encounter for immunization (principal)
CPT/HCPCS: 90471; 90686; 99213

== ENCOUNTER 2023-03-14 14:45 | Outpatient (AMB) | payer OTHER, SELFPAY ==
--- NOTE | 2023-03-14 14:48 | MHC.OFFVIS ---
Intake Intake Visit Reasons: EMB/DO NOT RS Assembly Machine Feeder Required: Yes Assembly Machine Feeder Language: Area Plant Manager Name: Tricia Diaz Information Interpreted: non-clinical & clinical Configuration Management Analyst: Configuration Management Analyst Present (Tricia) Allergies aspirin [ASA] Allergy (Severe, Verified 03/07/23 14:45) Anaphylaxis Is last menstrual period known: Yes Last menstrual period: 03/11/23 Post menopausal: No HPI HPI Comments History of Present Illness Details Presenting for ultrasound follow-up for previously seen myomas on previous ultrasound in 10/23. Ultrasound showed the following: The uterus is of normal size and echogenicity, measuring 11.9 x 9.6 x 7.0 cm. The uterus is anteverted and anteflexed. The endometrial stripe is nonvisualized with certainty secondary to uterine fibroid disease. Nabothian cysts are seen within the cervix FIBROIDS: There are 4 fibroids seen. 1. Location: Anterior fundus, myometrial. Size: 5.0 x 3.3 x 4.2 cm. Prior: 3.4 x 3.7 x 3.3 cm. Fibroid characteristics: Heterogeneous echotexture. 2. Location: Posterior fundus, myometrial. Size: 2.7 x 3.1 x 2.7 cm. Prior: Not seen. Fibroid characteristics: Heterogeneous echotexture. 3. Location: Posterior body, myometrial. Size: 2. 5.9 x 2.6 cm. Prior: Not seen. Fibroid characteristics: Hypoechoic. 4. Location: Rightward lower uterine segment, myometrial. Size: 1.7 x 1.8 x 1.6 cm. Prior: Not seen. Fibroid characteristics: Heterogeneous echotexture. The right ovary is not visualized. The left ovary measures 2.3 x 1.9 x 2.3 cm, for a volume of 5.3 mL. There is no pelvic free fluid. The patient had proliferative endometrium on previously endometrial pathology, and was started on Provera and since then has been bleeding Last mammogram was BI-RADS 1 in 02/23, last co testing was negative in 05/23 [facility] Medical History Obesity (BMI 30-39.9) Sleep apnea VAHE (generalized anxiety disorder) Hypercalcemia Calcific shoulder tendinitis Class 1 obesity with body mass index (BMI) of 34.0 to 34.9 in adult Right leg pain Essential hypertension Diverticulosis Hemorrhoids, internal, with bleeding Family history of colon cancer History of colon polyps GERD with esophagitis Rhinitis Surgical History S/P right knee arthroscopy Hx of endoscopy History of colonoscopy (~02/2018) H/O basal cell carcinoma excision History of section History of tubal ligation Family History Father Pancreatic cancer Mother Colon cancer Hypertension Brother No problems noted. Sister Psychiatric disorder Chronic mental illness Family/Other Chronic mental illness Social History Housing: Apartment Do you presently have visiting nurse or other home services: No Alcohol intake: current Alcohol intake frequency: holidays/special occasions only Alcohol type: wine Patient Tobacco Use Status: Never used Tobacco e-Cigarette/Vaping Use: Never Used Second Hand Smoke Exposure: No service: No Current occupational status: employed Current occupational exposures/hazards: No Sexual orientation: Straight/Heterosexual Gender identity: Female Cognitive needs: No Hearing needs: No Vision needs: Yes Female Reproductive History Menstrual Age of Menarche: 15 Duration of menses: 6-7 days Date of last menstrual period: 03/11/23 control method: permanent sterilization Date of last pap smear: 05/12/21 (negative) Office Procedures Endometrial Biopsy Details: The patient was counseled regarding the indication and benefits of endometrial sampling to rule out endometrial pathology including not limited to endometrial hyperplasia or endometrial cancer and others; The alternatives (Either do nothing vs. hysteroscopy D&C) & the risks were discussed with the patient including but not limited: pain, uterine perforation, bleeding, infection, possible injury to bladder, bowel, ureter, possible need for blood transfusion with all its possible risks. The patient verbalized understanding all questions answered and signed consent. Urine test done in the office was negative The patient was placed into the dorsal lithotomy position; a speculum was inserted in the vagina. Using aseptic technique for the procedure, the cervix was cleansed with Betadine. The anterior lip of the cervix was grasped with a single tooth tenaculum. The uterus was sounded to 7 cm with a 4 mm Pipelle was used. Tissues samples were obtained and placed in formalin, in a patient labeled container and sent to the pathology department. At the end of the procedure, there was minimal bleeding noted The patient tolerated the procedure well and was discharged in good condition with the following instructions: Nothing in the vagina until the bleeding stops. No sex until the bleeding stops, to call if any of the following occurs: fever (>100.4), flu-like symptoms, abdominal pain, heavy bleeding, four smelling vaginal discharge. The patient was instructed to schedule a Follow up appointment in 2 weeks to discuss pathology results of the biopsy and treatment options. This note was generated with a voice recognition program. Some errors may have been overlooked during the review of this note. Sometimes these errors may affect the content or meaning of a given sentence. [id number] Biopsy Results AMB Test Urine AMB Test Urine Negative Last Edit by MAYCOL Isabel on 03/14/23 15:02 Assessment & Plan Assessment & Plan (1) Myoma: Code(s): D21.9 - Benign neoplasm of connective and other soft tissue, unspecified Plan: Discussed with the patient the findings on pelvic ultrasound , 1 myoma increase in size and 3 new onset myoma & the risk of myosarcoma; discussed with the patient the options of treatment including expectant management versus hysterectomy; the pros and cons, risks benefits of each approach were discussed with the patient including the fact that in cases of myosarcoma, surgical treatment can lead to early diagnosis and positively affects the prognosis; after further discussion, the patient decided to think about it and get back to us next visit (2) Abnormal uterine bleeding (AUB): Comment: Proliferative endometrium on EMB in 10/23 on Provera since then Code(s): N93.9 - Abnormal uterine and vaginal bleeding, unspecified Plan: Will repeat CBC, EMB done, see procedure note. Instructions given the patient to schedule a 2 week follow-up appointment to discuss options of treatment Orders: Orders AMB HCG Urine Test Today Z32.02 - Encounter for test, result negative Complete Blood Count no Diff Today N93.9 - Abnormal uterine and vaginal bleeding, unspecified AMB Endometrial Biopsy Today N93.9 - Abnormal uterine and vaginal bleeding, unspecified Coding Level of Care Code Est Pt Level 3 (71654) Procedure Only Diagnoses Myoma D21.9 Abnormal uterine bleeding (AUB) N93.9 CPT Codes Endometrial Biopsy - CPT: 32849-Eclglmwwqab Biopsy ([id number])
== END 2023-03-14 15:21 | disposition home or self-care (01) ==
PROVIDERS: Visit Provider Obstetrics & Gynecology
DX: D25.9 Leiomyoma of uterus, unspecified (principal); N93.9 Abnormal uterine and vaginal bleeding, unspecified; Z32.02 Encounter for pregnancy test, result negative
CPT/HCPCS: 58100; 99213

== ENCOUNTER 2023-03-14 14:45 | Outpatient (REF) | payer OTHER, SELFPAY | END 2023-03-14 14:46 | disposition home or self-care (01) | LOC: HO.LNP 14:45 | PROVIDERS: Visit Provider Obstetrics & Gynecology | DX: N93.9 Abnormal uterine and vaginal bleeding, unspecified (principal); D21.9 Benign neoplasm of connective and other soft tissue, unspecified | CPT/HCPCS: 58100; 81025; 88305; 99212 ==

== ENCOUNTER 2023-03-14 15:34 | Outpatient (REF) | payer OTHER, SELFPAY ==
[2023-03-14 16:40] LABS: Hematocrit 37.7 % (37.0-47.0); Hemoglobin 11.9 g/dl (12.0-16.0); Mean Corpuscular HGB Conc 31.6 g/dl (31.0-35.0); Mean Corpuscular Hemoglobin 27.4 pg (27.0-33.0); Mean Corpuscular Volume 86.7 fL (80.0-98.0); Mean Platelet Volume 9.6 fL (9.4-12.3); Platelet Count 399 X10*3/uL (160-400); Red Blood Count 4.35 X10*6/uL (4.20-5.50); Red Cell Distribution Width 13.7 % (11.0-16.0)
[2023-03-14 17:40] LABS: HCG Quantitative < 2 mIU/mL; TSH reflex Free T4 1.28 uIU/mL (0.32-4.0)
== END 2023-03-14 15:35 | disposition home or self-care (01) ==
LOC: HO.LAB 15:34
PROVIDERS: PCP Internal Medicine; Visit Provider Obstetrics & Gynecology
DX: N93.9 Abnormal uterine and vaginal bleeding, unspecified (principal); Z32.02 Encounter for pregnancy test, result negative
CPT/HCPCS: 36415; 84443; 84702; 85027

== ENCOUNTER 2023-03-28 13:53 | Outpatient (REF) | payer OTHER, SELFPAY ==
--- NOTE | ~2023-03-28 | US_ITS ---
EXAMINATION: US THYROID CLINICAL INFORMATION: Nontoxic goiter, unspecified. COMPARISON: None available. TECHNIQUE: Linear transducer grayscale and color Doppler examination with attention to the region of the thyroid. FINDINGS: SIZE: Measurements of the thyroid lobes and nodules are given in sagittal, anteroposterior and transverse dimensions respectively. Right Thyroid Lobe: 6.1 x 2.1 x 1.8 cm, volume 12.2 mL. Parenchyma: The gland echotexture is mildly heterogeneous. Thyroid vascularity is normal. Left Thyroid Lobe: 5.2 x 1.7 x 1.4 cm, volume 6.4 mL. Parenchyma: The gland echotexture is mildly heterogeneous. Thyroid vascularity is normal. Isthmus: 0.41 cm in maximum AP dimension. Estimated total number of nodules greater than or equal to 1 cm: 1. Equipment Maintenance Engineer nodules are described as follows: 1. Location: Right inferior. Size: 0.46 x 0.32 x 0.40 cm, volume 0.03 mL. Nodule characteristics: Composition: Solid (2). Echogenicity: Hypoechoic (2). Shape: Not taller than wide (0). Margins: Smooth (0). Echogenic Foci: None (0). ACR TI-RADS total points: 4 ACR TI-RADS category: 4 2. Location: Right mid. Size: 1.4 x 1.0 x 0.60 cm, volume 0.4 mL. Nodule characteristics: Composition: Cystic(0). ACR TI-RADS total points: 0 ACR TI-RADS category: 1 NODES: No lymphadenopathy is seen in the tissue surrounding the thyroid gland. US/US thyroid IMPRESSION: 1. Right 0.46 cm TR 4 thyroid nodule. 2. Mild diffuse heterogeneity of the thyroid gland. Right lobe larger than left. ACR TI-RADS RECOMMENDATION REFERENCE: Ultrasound-guided fine-needle aspiration, followup ultrasound, no further follow up. * TR1 (0 point) and TR2 (2 points): No FNA or follow up. * TR3 (3 points): FNA if more than or equal to 2.5 cm in maximum dimension, followup ultrasound in 1, 3 and 5 years if 1.5 to 2.4 cm in maximum dimension. * TR4 (4-6 points): FNA if more than or equal to 1.5 cm in maximum dimension, followup ultrasound in 1, 2, 3 and 5 years if 1 to 1.4 cm in maximum dimension. * TR5 (more than or equal to 7 points): FNA if more than or equal to 1 cm in maximum dimension, followup ultrasound every year for 5 years if 0.5 to 0.9 cm in maximum dimension. * TR3, TR4 or TR5 nodules that are below the size threshold for followup receive no follow up.
== END 2023-03-28 13:54 | disposition home or self-care (01) ==
LOC: HO.US 13:53
PROVIDERS: PCP Internal Medicine; Visit Provider Nurse Practitioner Family
DX: E04.9 Nontoxic goiter, unspecified (principal)
CPT/HCPCS: 76536

== ENCOUNTER 2023-05-01 14:53 | Outpatient (AMB) | payer OTHER, SELFPAY ==
[2023-05-01 14:57] VITALS: BP 124/76; BMI 36.3
--- NOTE | 2023-05-01 14:57 | A.OFFVIS_ITS ---
Intake Vital Signs 05/01/23 14:57 Height 5 ft 2 in Weight 198 lb 6.656 oz BMI 36.3 BP 124/76 Intake Visit Reasons: EMB Result Allergies aspirin [ASA] Allergy (Severe, Verified 03/07/23 14:45) Anaphylaxis HPI HPI Comments History of Present Illness Details Presenting post EMB for follow-up. The patient is doing well with no complaints. The results the pathology showed the following: Abundant mucin and few strips of inactive endometrium with stromal and glandular breakdown and fragments of benign endocervical mucosa; negative for atypia or malignancy [facility] Medical History Obesity (BMI 30-39.9) Sleep apnea VAHE (generalized anxiety disorder) Hypercalcemia Calcific shoulder tendinitis Class 1 obesity with body mass index (BMI) of 34.0 to 34.9 in adult Right leg pain Essential hypertension Diverticulosis Hemorrhoids, internal, with bleeding Family history of colon cancer History of colon polyps GERD with esophagitis Rhinitis Surgical History S/P right knee arthroscopy Hx of endoscopy History of colonoscopy (~02/2018) H/O basal cell carcinoma excision History of section History of tubal ligation Family History Father Pancreatic cancer Mother Colon cancer Hypertension Brother No problems noted. Sister Psychiatric disorder Chronic mental illness Family/Other Chronic mental illness Social History Housing: Apartment Do you presently have visiting nurse or other home services: No Alcohol intake: current Alcohol intake frequency: holidays/special occasions only Alcohol type: wine Patient Tobacco Use Status: Never used Tobacco e-Cigarette/Vaping Use: Never Used Second Hand Smoke Exposure: No service: No Current occupational status: employed Current occupational exposures/hazards: No Sexual orientation: Straight/Heterosexual Gender identity: Female Cognitive needs: No Hearing needs: No Vision needs: Yes Female Reproductive History Menstrual Age of Menarche: 15 Review of Systems Const All systems reviewed & are unremarkable except as noted in HPI and below Reports as per HPI and Reports no additional complaints GI Reports no additional complaints Reports no additional complaints Physical Exam Vital Signs: Last Vital Signs BP 124/76 05/01/23 14:57 BMI result Body Mass Index 36.3 Assessment & Plan Assessment & Plan (1) Abnormal uterine bleeding (AUB): Comment: Proliferative endometrium on EMB in 10/23 on Provera since then-reversed to inactive endometrium Code(s): N93.9 - Abnormal uterine and vaginal bleeding, unspecified Plan: Discussed with the patient the results of the pathology with no evidence of proliferative endometrium, hyperplasia or and/or malignancy. The patient was reassured, recommend to the patient to stay on Provera as directed schedule a repeat EMB appoint in 6 months and to call in case of abnormal uterine bleeding prior to that, will proceed with EMB on an earlier date . All questions an swered, the patient verbalized understanding and agreed with the plan. Coding Level of Care Code Est Pt Level 3 (74237) Diagnoses Abnormal uterine bleeding (AUB) N93.9
== END 2023-05-01 15:21 | disposition home or self-care (01) ==
LOC: HO.HWS 14:53
PROVIDERS: PCP Internal Medicine; Visit Provider Obstetrics & Gynecology
DX: N93.9 Abnormal uterine and vaginal bleeding, unspecified (principal)
CPT/HCPCS: 99213

== ENCOUNTER → 2023-05-01 14:53 | Outpatient (BNVA) | payer OTHER, SELFPAY | PROVIDERS: PCP Internal Medicine; Visit Provider Obstetrics & Gynecology | DX: N93.9 Abnormal uterine and vaginal bleeding, unspecified (principal) | CPT/HCPCS: 99212 ==

== ENCOUNTER 2023-05-02 13:43 | Outpatient (AMB) | payer OTHER, SELFPAY ==
[2023-05-02 13:54] VITALS: BP 134/80; PULSE 79; O2SAT 98; BMI 37.1
--- NOTE | 2023-05-02 13:54 | MHC.PC.OV ---
Vital Signs 05/02/23 13:54 Height 5 ft 2 in Weight 203 lb 2 oz BMI 37.1 BP 134/80 Blood Pressure Location Lt brachial Position Sitting Pulse 79 Pulse Source Pulse Oximeter Pulse Oximetry (%) 98 Oxygen Delivery Method Room Air Intake Visit Reasons: discuss results Warehouse Handler Required: Yes Warehouse Handler Language: Public Relations Name: Solange [id number] Information Interpreted: non-clinical & clinical Accompanied by: Self / Same As Patient Allergies aspirin [ASA] Allergy (Severe, Verified 05/02/23 13:55) Anaphylaxis Tobacco use date assessed: 03/07/23 Dental Screening Dental Screen Date: 05/02/23 Did you have a dental visit in the last 12 months?: Yes Did you have a dental problem in the last 6 months where you did not have access to dental care?: No Was dental information given to patient?: Patient has dentist HPI HPI Comments History of Present Illness Details This is a 57-year-old female GERD, diverticulosis, hypertension, generalized anxiety disorder, SIXTO, nocturnal hypoxemia, tendinitis of left shoulder. Patient Dr. Hurt presents today for follow-up to discuss her thyroid ultrasound results. US/US thyroid IMPRESSION: 1. Right 0.46 cm TR 4 thyroid nodule. 2. Mild diffuse heterogeneity of the thyroid gland. Right lobe larger than left. Above ultrasound results reviewed with patient in office, no recommended follow-up for 0.4 cm thyroid nodule. Patient continues to experience trouble swallowing her saliva only at night while she is lying on her back. Patient reports if she rolls to her side she does not have difficulty swallowing. Noted history of SIXTO wear CPAP nightly. Denies any trouble swallowing throughout the day or difficulty swallowing her food. Discussed with patient sleeping position changes and to try to sleep on her side to prevent symptoms of difficulty swallowing. However patient reports when she is on her side to her CPAP mask tends to leak so then she will roll back over on her back. Patient requesting to have her swallowing evaluated further. Will order modified barium swallow. [facility] Medical History Obesity (BMI 30-39.9) Sleep apnea VAHE (generalized anxiety disorder) Hypercalcemia Calcific shoulder tendinitis Class 1 obesity with body mass index (BMI) of 34.0 to 34.9 in adult Right leg pain Essential hypertension Diverticulosis Hemorrhoids, internal, with bleeding Family history of colon cancer History of colon polyps GERD with esophagitis Rhinitis Surgical History S/P right knee arthroscopy Hx of endoscopy History of colonoscopy (~02/2018) H/O basal cell carcinoma excision History of section History of tubal ligation Family History Father Pancreatic cancer Mother Colon cancer Hypertension Brother No problems noted. Sister Psychiatric disorder Chronic mental illness Family/Other Chronic mental illness Social History Housing: Apartment Do you presently have visiting nurse or other home services: No Alcohol intake: current Alcohol intake frequency: holidays/special occasions only Alcohol type: wine Patient Tobacco Use Status: Never used Tobacco e-Cigarette/Vaping Use: Never Used Second Hand Smoke Exposure: No service: No Current occupational status: employed Current occupational exposures/hazards: No Sexual orientation: Straight/Heterosexual Gender identity: Female Cognitive needs: No Hearing needs: No Vision needs: Yes Female Reproductive History Menstrual Age of Menarche: 15 Questionnaire Thrive Questionnaire Date Thrive assessed: 08/20/22 VAHE-7 AMB Questionnaire VAHE-7 Date VAHE - 7 assessed: 03/07/23 Source: Developed by Drs. Drew Cartagena, Emmy Hilton, Kirby Vasquez and colleagues, with an educational jose from [employer]. Review of Systems Const Denies chills, Denies fatigue, Denies fever(s) and Denies poor appetite Eyes Denies no additional complaints ENT Reports Normal hearing present, Reports dysphagia (at night ) and Reports dry mouth Card Denies chest pain, Denies syncope, Denies rapid heart rate and Denies dyspnea Resp Denies cough and Denies dyspnea GI Denies change in stool character, Denies constipation, Reports dysphagia (at night ), Denies diarrhea, Denies nausea and Denies vomiting Denies urinary frequency, Denies dysuria and Denies urinary urgency Neuro Reports Normal hearing present, Denies confusion and Denies syncope Psych Denies confusion Endo Denies fatigue Physical exam (Primary Care) Vital Signs: Last Vital Signs Pulse 79 05/02/23 13:54 BP 134/80 05/02/23 13:54 Pulse Ox 98 05/02/23 13:54 Oxygen Delivery Method Room Air 05/02/23 13:54 BMI result Body Mass Index 37.1 Tobacco/Smoking Status: Tobacco use Status Tobacco use date assessed 03/07/23 05/02/23 13:58 Patient Tobacco Use Status Never used Tobacco 05/02/23 13:58 e-Cigarette/Vaping Use Never Used 05/02/23 13:58 Thrive Assessment: Date of Thrive Assessment Date Thrive assessed 08/20/22 05/02/23 13:58 Const General: No confusion Orientation/consciousness: No confusion HENMT Head: Yes normocephalic and Yes atraumatic Eyes Conjunctivae: conjunctivae normal Chest Chest palpation & inspection: normal inspection of the chest Resp Effort & Inspection: normal respiratory effort Auscultation: clear to auscultation bilaterally, no crackles, no rhonchi and no wheezes Cardio Rate: regular rate Rhythm: regular rhythm Heart sounds: S1 normal heart sound present and S2 normal heart sound present GI Inspection: Yes normal to inspection Neuro General: No confusion Cranial nerves: Yes Normal hearing present Extrem General: No edema Assessment and Plan Assessment & Plan (1) Dysphagia: Code(s): R13.10 - Dysphagia, unspecified Plan: Barium swallow ordered. Patient encouraged to change position of her sleeping as she only has difficulty swallowing at night when she is lying flat on her back likely related to her obstructive sleep apnea/Goiter. (2) Thyroid nodule: Comment: 04/02/23:Right 0.46 cm Code(s): E04.1 - Nontoxic single thyroid nodule (3) Essential hypertension: Code(s): I10 - Essential (primary) hypertension Plan: Continue on current medications. Blood pressure below goal in office today. (4) SIXTO (obstructive sleep apnea): Comment: PATIENT HAS SYMPTOMATIC OBSTRUCTIVE SLEEP APNEA, SEVERE, PATIENT DOES USE THE CPAP AT NIGHT BUT HER COMPLIANCE REMAINS SUBOPTIMAL. I HAD A DETAILED DISCUSSION WITH HER WITH THE HELP OF THE WASTE WATER TREATMENT PLANT OPERATOR AND STRESSED THAT SHE MUST USE THE CPAP AT LEAST FOR 4-5 HOURS EVERY NIGHT. SHE DOES HAVE A WELL-FUNCTIONING CPAP DEVICE. Code(s): G47.33 - Obstructive sleep apnea (adult) (pediatric) Plan: Continue to use CPAP nightly for greater than 4 hours and patient benefits from this. Plan Keep scheduled follow-up with PCP or follow-up sooner needed Orders: Orders FL barium swallow modified 05/02/23 R13.10 - Dysphagia, unspecified Coding Level of Care Code Est Pt Level 3 (57112) Diagnoses Dysphagia R13.10 Thyroid nodule E04.1 Essential hypertension I10 SIXTO (obstructive sleep apnea) G47.33
== END 2023-05-02 14:16 | disposition home or self-care (01) ==
PROVIDERS: PCP Internal Medicine; Visit Provider Nurse Practitioner Family
DX: R13.10 Dysphagia, unspecified (principal); E04.1 Nontoxic single thyroid nodule; I10 Essential (primary) hypertension; G47.33 Obstructive sleep apnea (adult) (pediatric)
CPT/HCPCS: 99213

== ENCOUNTER 2023-05-08 15:42 | Outpatient (AMB) | payer OTHER, SELFPAY ==
--- NOTE | 2023-05-08 15:52 | MHC.OFFVIS ---
Intake Vital Signs 05/08/23 15:53 Height 5 ft 2 in Weight 203 lb BMI 37.1 BP 120/68 Blood Pressure Location Lt brachial Position Sitting Pulse 85 Pulse Oximetry (%) 96 Intake Visit Reasons: sixto Intake Note: pt is here for follow up of using cpap, she has a machine that she needs a download from the [facility], pt has been dx with thyroid nodule. She states she has blood tinged nasal drainage, and could this be related, should she get a humidfier? Software Development Advisor Required: Yes Software Development Advisor Name: Kathy Allergies aspirin [ASA] Allergy (Severe, Verified 05/08/23 16:01) Anaphylaxis Medication List - Last Reconciled 05/08/23 by Fox Norton MD acetaminophen (Tylenol Extra Strength) 1,000 mg (2 x 500 mg) PO Q6H PRN 90 days buspirone 10 mg PO DAILY chlorthalidone 25 mg PO QAM 90 days CPAP (CPAP Machine/Device) autoPAP mode, 6-20 cm H2O fluticasone propionate 50 mcg/actuation (Flonase Allergy Relief) 1 spray intranasal DAILY ketoconazole 2% topical lidocaine 5% (Lidoderm) 2 patches topical DAILY loratadine 10 mg PO DAILY losartan 100 mg PO DAILY 90 days omeprazole 20 mg PO DAILY PRN solifenacin 10 mg PO DAILY HPI sixto HPI Details This 57 years old female grossly obese with diagnosis of obstructive sleep apnea, uses CPAP, and is here for her routine follow-up after 6 months. She does use the CPAP every night but only about 3-4 hours. She is probably not using enough humidification because she needs to change the water every other night. Complains of dryness of the nose. And sometime she has says slight bleeding from the right nostril. She has had surgery on the right side of the nose, in the past. She uses Flonase is 1 spray in each nostril daily and also loratadine 10 mg p.r.n. She has a fullface mask. Weight is unchanged. [facility] Medical History Obesity (BMI 30-39.9) Sleep apnea VAHE (generalized anxiety disorder) Hypercalcemia Calcific shoulder tendinitis Class 1 obesity with body mass index (BMI) of 34.0 to 34.9 in adult Right leg pain Essential hypertension Diverticulosis Hemorrhoids, internal, with bleeding Family history of colon cancer History of colon polyps GERD with esophagitis Rhinitis Surgical History S/P right knee arthroscopy Hx of endoscopy History of colonoscopy (~02/2018) H/O basal cell carcinoma excision History of section History of tubal ligation Family History Father Pancreatic cancer Mother Colon cancer Hypertension Brother No problems noted. Sister Psychiatric disorder Chronic mental illness Family/Other Chronic mental illness Social History Housing: Apartment Do you presently have visiting nurse or other home services: No Alcohol intake: current Alcohol intake frequency: holidays/special occasions only Alcohol type: wine Patient Tobacco Use Status: Never used Tobacco e-Cigarette/Vaping Use: Never Used Second Hand Smoke Exposure: No service: No Current occupational status: employed Current occupational exposures/hazards: No Sexual orientation: Straight/Heterosexual Gender identity: Female Cognitive needs: No Hearing needs: No Vision needs: Yes Female Reproductive History Menstrual Age of Menarche: 15 Review of Systems Const All systems reviewed & are unremarkable except as noted in HPI and below Eyes Reports no additional complaints ENT Reports nasal congestion (Off and on only with the change of seasons.) Card Denies chest pain, Denies irregular heart rhythm, Denies leg edema and Denies dyspnea Resp Denies cough, Denies dyspnea and Denies wheezing GI Reports no additional complaints Reports no additional complaints Musc Reports no additional complaints Skin/Breast Reports system reviewed and no additional complaints, except as documented Neuro Reports no additional complaints Psych Reports anxiety (Controlled) Endo Reports no additional complaints Den/Lymph Reports no additional complaints Aller/Immun Denies wheezing Physical Exam Vital Signs: Last Vital Signs Pulse 85 05/08/23 15:53 BP 120/68 05/08/23 15:53 Pulse Ox 96 05/08/23 15:53 BMI result Body Mass Index 37.1 Const General: healthy appearing (Except for being overweight), comfortable, no acute distress, alert and awake Orientation/consciousness: patient oriented x3 HEENT Head: Yes normal to inspection General nose exam: No nasal polyps present, abnormal septum (DNS to the left. A small excoriation over the anterior septum on Rt.side), No nasal discharge present and Other nasal findings present (Mild DNS to left) Face and sinus: Yes sinuses nontender Mouth: oropharynx normal Throat: Yes posterior oropharynx normal Eyes General: appearance normal, both eyes and all related structures Neck Neck: Yes normal visual inspection, Yes no lymphadenopathy, Yes trachea midline and Yes no JVD Thyroid: Thyroid normal Chest Chest palpation & inspection: normal inspection of the chest, normal palpation of entire chest wall and no tenderness Resp Effort & Inspection: normal respiratory effort and no cough Auscultation: clear to auscultation bilaterally, no crackles and no wheezes Cardio Palpation: normal PMI Rate: regular rate Rhythm: regular rhythm Heart sounds: no gallops and no murmurs Peripheral pulses: Peripheral pulses 2+ throughout GI Palpation (GI): Soft to palpation, nontender, No hepatosplenomegaly present and no masses Auscultation: normal bowel sounds Back/Spine/Pelvis Thoracic/Lumbar Spine: thoracic and lumbar spine normal to inspection Skin General skin exam: no rashes or lesions noted Neuro General: patient oriented x3 and no focal motor deficits Cranial nerves: Yes CN's II-XII intact bilaterally Extrem General: Yes normal to inspection, Yes no clubbing, cyanosis or edema and Yes no calf tenderness Psych Appearance: grossly normal and well kempt Speech and movement: Normal speech and movement present Assessment & Plan Assessment & Plan (1) Obesity (BMI 30-39.9): Comment: CONTINUES TO BE MODERATELY OBESE, NOT ABLE TO LOSE WEIGHT BECAUSE SHE DOES NOT DO ANY EXERCISE. AGAIN ADVISED THAT SHE SHOULD CUT DOWN THE CALORIES INTAKE AND TRY TO LOSE ABOUT 10-15 LB OF WEIGHT. Code(s): E66.9 - Obesity, unspecified Plan: as above (2) SIXTO (obstructive sleep apnea): Comment: PATIENT HAS SYMPTOMATIC OBSTRUCTIVE SLEEP APNEA, SEVERE, PATIENT DOES USE THE CPAP AT NIGHT BUT HER COMPLIANCE REMAINS SUBOPTIMAL. USING MOSTLY 3-4 HOURS PER NIGHT. HAD A DETAILED DISCUSSION WITH HER WITH THE HELP OF THE ASSISTANT PROFESSOR OF ENGLISH AND STRESSED THAT SHE MUST USE THE CPAP AT LEAST FOR 4-5 HOURS EVERY NIGHT. SHE DOES HAVE A WELL-FUNCTIONING CPAP DEVICE, BUT WE CANNOT DOWNLOAD THE COMPLIANCE DATA. Code(s): G47.33 - Obstructive sleep apnea (adult) (pediatric) Plan: ADVISED TO USE THE CPAP REGULARLY, AT LEAST 5 HOURS PER NIGHT, SHE IS ADVISED TO USE THE HUMIDIFICATION REGULARLY. IN ADDITION SHE SHOULD HAVE A EASE SMALL VAPORIZER IN THE BEDROOM AT NIGHTTIME. (3) Nocturnal hypoxemia: Comment: PATIENT DOES HAVE SIGNIFICANT DEGREE OF NOCTURNAL HYPOXEMIA PROBABLY DUE TO SLEEP-RELATED HYPOVENTILATION. IT IS HOPED THAT WITH THE PROPER USE OF CPAP HER HYPOXEMIA WILL RESOLVE. Code(s): G47.34 - Idiopathic sleep related nonobstructive alveolar hypoventilation Plan: NOCTURNAL HYPOXEMIA, EXPECTED TO RESOLVE WITH THE USE OF CPAP. Coding Level of Care Code Est Pt Level 3 (87405) Diagnoses Obesity (BMI 30-39.9) E66.9 SIXTO (obstructive sleep apnea) G47.33 Nocturnal hypoxemia G47.34
[2023-05-08 15:53] VITALS: BP 120/68; PULSE 85; O2SAT 96; BMI 37.1
== END 2023-05-08 16:08 | disposition home or self-care (01) ==
PROVIDERS: PCP Internal Medicine; Visit Provider Internal Medicine
DX: E66.9 Obesity, unspecified (principal); G47.33 Obstructive sleep apnea (adult) (pediatric); G47.34 Idiopathic sleep related nonobstructive alveolar hypoventilation
CPT/HCPCS: 99213

== ENCOUNTER → 2023-05-08 15:42 | Outpatient (BNVA) | payer OTHER, SELFPAY | PROVIDERS: PCP Internal Medicine; Visit Provider Internal Medicine | DX: G47.33 Obstructive sleep apnea (adult) (pediatric) (principal); G47.34 Idiopathic sleep related nonobstructive alveolar hypoventilation; E66.9 Obesity, unspecified; Z68.37 Body mass index [BMI] 37.0-37.9, adult | CPT/HCPCS: 99212 ==

== ENCOUNTER 2023-05-13 09:44 | Emergency (ER) | payer OTHER, SELFPAY ==
--- NOTE | ~2023-05-13 | US_ITS ---
EXAMINATION: US VENOUS ULTRASOUND WITH DOPPLER LOWER EXTREMITY, RIGHT CLINICAL INFORMATION: Right calf pain COMPARISON: None available. TECHNIQUE: Ultrasound of the deep veins is performed from the hip to the calf with compression sonography and color and pulse Doppler assessment. Spectral analysis with color-flow imaging is performed. FINDINGS: There is normal venous compression and respiratory variation and augmented flow. The visualized common femoral vein, superficial femoral vein, profunda femoral vein, popliteal vein, and the trifurcation region shows no evidence of deep venous thrombosis. There is no significant popliteal fossa cyst. Contralateral common femoral vein is patent. If the patient's symptoms persist, followup ultrasound in 5 days 7 days might be of value to exclude proximal propagation from a non-visualized calf vein. US/US venous duplex LE RT IMPRESSION: No DVT demonstrated in the right lower extremity.
--- NOTE | ~2023-05-13 | XR_ITS ---
EXAMINATION: XR KNEE, RIGHT CLINICAL INFORMATION: Right knee swelling COMPARISON: Right knee radiograph from [facility] 11/12/ TECHNIQUE: Four views of the right knee. FINDINGS: No acute visible fracture or dislocation. Mild multicompartment degenerative changes. Mild narrowing of the medial femorotibial compartment. Periarticular osteophytes along the inferior margin of the patella and tibial plateau. Slight enthesopathy at the quadriceps tendon insertion site. A fabella is noted in the posterior compartment. Joint spaces alignment are otherwise maintained. Trace knee joint effusion. Soft tissues are unremarkable XR/XR knee RT 4V IMPRESSION: 1. No acute visible fracture or dislocation. 2. Mild multicompartment degenerative changes. 3. Trace knee joint effusion.
[2023-05-13 10:24] VITALS: BP 168/78; PULSE 83; RESP 20; TEMP 36.7; O2SAT 98; BMI 37.1
[2023-05-13] MEDS: Acetaminophen 325 MG TABLET 975 MG PO (11:39)
[2023-05-13] MEDS: predniSONE 20 MG TABLET 60 MG PO (11:40)
[2023-05-13 11:48] LABS: COVID-19 Test Negative (Negative); IDNOW Serial# 9DB6401D; IDNOW Serial# BCCEAD1C; Influenza A Negative (Negative); Influenza B2 Negative (Negative)
[2023-05-13 11:49] LABS: IDNOW Serial# 08D9AD1C; Strep A Nucleic Acid Negative (Negative)
--- NOTE | 2023-05-13 12:57 | ED_ITS ---
HPI - General Adult General Chief complaint: Extremity Injury, Lower Stated complaint: Swollen R leg/Flu symptoms Time Seen by Provider: 05/13/23 11:21 Source: patient Mode of arrival: ambulatory Limitations: no limitations History of Present Illness HPI narrative: 57-year-old female with history of hypertension and pmh of Right mensicus knee surgyer in the past presents to ED for right knee pain as worse for the past 3 weeks history of knee issues for the past 3 years. Patient states she thinks right leg is swollen also. Patient denies any chest pain or shortness of breath. Patient's secondary complaint is sore throat and headache/congestion. Patient denies any pleurisy, fever, or chills. Related Data Home Medications Medication Instructions Recorded Confirmed buspirone 10 mg tablet 10 mg PO DAILY 03/24/20 03/07/23 ketoconazole 2 % shampoo topical 06/01/22 03/07/23 omeprazole 20 mg capsule,delayed 20 mg PO DAILY PRN 08/29/22 03/07/23 release Previous Rx's Medication Instructions Recorded CPAP (CPAP Machine/Device) #1 ea 02/26/22 acetaminophen 500 mg tablet 1,000 mg (2 x 500 mg) PO Q6H PRN 06/05/22 (Tylenol Extra Strength) fever or pain 90 days #300 tabs lidocaine 5 % topical patch 2 patch topical DAILY #30 ea 11/27/22 (Lidoderm) loratadine 10 mg tablet 10 mg PO DAILY #30 tabs 01/12/23 solifenacin 10 mg tablet 10 mg PO DAILY #90 tabs 01/23/23 losartan 100 mg tablet 100 mg PO DAILY 90 days #90 tabs 02/26/23 fluticasone propionate 50 1 spray intranasal DAILY #16 grams 03/07/23 mcg/actuation nasal spray,suspension (Flonase Allergy Relief) chlorthalidone 25 mg tablet 25 mg PO QAM 90 days #90 tabs 04/19/23 Allergies Allergy/AdvReac Type Severity Reaction Status Date / Time aspirin [ASA] Allergy Severe Anaphylaxis Verified 05/13/23 10:29 Review of Systems 2 Review of Systems: Right knee swelling, sore throat, headache/congestion Yes all other systems are reviewed and are negative PMFSH Past Medical History Medical History Obesity (BMI 30-39.9) Sleep apnea VAHE (generalized anxiety disorder) Hypercalcemia Calcific shoulder tendinitis Class 1 obesity with body mass index (BMI) of 34.0 to 34.9 in adult Right leg pain Essential hypertension Diverticulosis Hemorrhoids, internal, with bleeding Family history of colon cancer History of colon polyps GERD with esophagitis Rhinitis Surgical History S/P right knee arthroscopy Hx of endoscopy History of colonoscopy (~02/2018) H/O basal cell carcinoma excision History of section History of tubal ligation Family History Family History Father Pancreatic cancer Mother Colon cancer Hypertension Brother No problems noted. Sister Psychiatric disorder Chronic mental illness Family/Other Chronic mental illness Social History Social History Housing: Apartment Do you presently have visiting nurse or other home services: No Alcohol intake: current Alcohol intake frequency: holidays/special occasions only Alcohol type: wine Patient Tobacco Use Status: Never used Tobacco e-Cigarette/Vaping Use: Never Used Second Hand Smoke Exposure: No Advance Directives: No Advance Directives Information Provided: Yes service: No Current occupational status: employed Current occupational exposures/hazards: No Sexual orientation: Straight/Heterosexual Gender identity: Female Cognitive needs: No Hearing needs: No Vision needs: Yes Physical Exam ED Vital Signs: Vital Signs - 24 hr 05/13/23 10:24 Temperature 98.0 F Pulse Rate 83 Respiratory Rate 20 Blood Pressure 168/78 H Pulse Oximetry 98 Oxygen Delivery Method Room Air BMI result Body Mass Index 37.1 Const General: cooperative, healthy appearing, comfortable, no acute distress, well developed, alert, awake and Physically active Orientation/consciousness: oriented to person, oriented to place and patient oriented x3 HENMT Head: Yes normal to inspection, Yes No palpable skull fracture present, Yes normocephalic and Yes atraumatic Throat: Yes posterior oropharynx normal, Yes tonsils normal and Yes uvula midline Eyes General: appearance normal, both eyes and all related structures Neck Neck: Yes normal visual inspection, Yes full ROM, Yes no lymphadenopathy, Yes no meningeal signs, Yes trachea midline, Yes supple, No anterior neck swelling and No tender Chest Chest palpation & inspection: normal inspection of the chest and normal palpation of entire chest wall Resp Effort & Inspection: normal respiratory effort and able to speak in complete sentences Auscultation: clear to auscultation bilaterally Cardio Jugular venous distension: no JVD Heart sounds: S1 normal heart sound present and S2 normal heart sound present GI Inspection: Yes normal to inspection and No abdominal wall ecchymosis Palpation (GI): Soft to palpation, not firm, nontender, no guarding and not rigid General: No CVA tenderness and Yes no CVA tenderness Back/Spine/Pelvis Back: no CVA tenderness, No CVA tenderness and No back tenderness Skin General skin exam: no rashes or lesions noted and elasticity normal Neuro General: oriented to person, oriented to place, patient oriented x3, gait normal, tone normal, moves all extremities, Normal light touch and pain sensation, no meningeal signs, no focal motor deficits, CN's II-XI intact bilaterally and normal sensation to monofilament Extrem Other: Bilateral lower extremity negative for calf pain, pittign edema General: Yes normal to inspection and Yes full ROM Knee images: 2 1. tenderness on palpation with some swelling. Negative any warmth or redness. Negative for stiffness. Patient has complete range of motion of knee. Negative for any elasticity. Mild calf tenderness on palpation. Motor/ neuro/vascular exam of extremity intact 2. tenderness on palpation with some swelling. Negative any warmth or redness. Negative for stiffness. Patient has complete range of motion of knee. Negative for any elasticity. Mild calf tenderness on palpation. Motor/ neuro/vascular exam of extremity intact Psych Appearance: grossly normal, well kempt and not disheveled Medications Administered Discontinued Medications Generic Name Dose Route Start Last Admin Trade Name Naifq PRN Reason Stop Dose Admin Acetaminophen 975 mg 05/13/23 11:32 05/13/23 11:39 Acetaminophen 325 Mg Tablet PO 05/13/23 11:33 975 mg ONCE ONE Administration Prednisone 60 mg 05/13/23 11:36 05/13/23 11:40 Prednisone 20 Mg Tablet PO 05/13/23 11:37 60 mg ONCE ONE Administration Medical Decision Making Medical Decision Making MDM Narrative: 57-year-old female history of hypertension and right meniscus surgery in the past presents to the ED for right knee swelling and pain does worsen the past 3 weeks but after he has been occurring for the past 3 years. Patient thinks right leg cyst is swollen. Negative for any recent trauma. Check an incomplete sore throat and head congestion. COVID influenza swab ordered. The x-ray and ultrasound ordered. 2:41pm: knee x-ray positive for arthritis and slight knee joint effusion. No indication for arthrocentesis. Patient is safe for discharge. Patient discharged with pain medication and steroids. Patient informed to follow-up with orthopedic surgeon. Not suspecting compartment syndrome or arterial occlusion. Not suspecting cellulitis or septic knee joint. Differential Diagnosis Differential Diagnoses: The differential diagnosis associated with the presentation includes ( Knee arthritis, DVT, knee dislocation, langley cyst, strep throat, COVID, influenza) Lab Data Labs: Lab Results 05/13/23 Range/Units 11:18 COVID-19 (GREGORIO) Negative (Negative) COVID-19 Clin Com See Note Influenza Type A (CARMEN) Negative (Negative) Influenza Type B (CARMEN) Negative (Negative) Influenza A & B Note See Note S. pyogenes GrpA CARMEN Negative (Negative) Independent Interpretation I performed an independent interpretation of an: Plain X-Ray and Ultrasound Radiology Impression Discussion of test interpretation with radiology: I have reviewed the radiologist's reading. External Record Review External record reviewed: Other (Prior visits) Prescription Management I considered prescription management with: Pain Medication Discharge Plan Discharge Clinical Impression: Degenerative arthritis of knee, Joint effusion of knee, Acute viral syndrome, Class 1 obesity with body mass index (BMI) of 34.0 to 34.9 in adult Patient Disposition: Home, Self-Care Instructions: Osteoarthritis (ED), Swollen Knee Joint (ED), Viral Syndrome (ED) Additional Instructions: Recomendar seguimiento con el cirujano ortop?dico. Radiograf?a de rodilla negativa para fractura. La radiograf?a de rodilla muestra artritis y ligero l?quido. La ecograf?a result? negativa para TVP. Los hisopos de COVID, influenza y estreptococos dieron negativos. Ser? dado de james con esteroides. Contin?e tomando Tylenol para aliviar el dolor. Regrese al servicio de urgencias de inmediato si aumenta la hinchaz?n de la rodilla, enrojecimiento, calor, dolor en la pantorrilla, dolor en el pecho, dificultad para respirar, incapacidad para department store manager la rodilla, incapacidad para caminar o cualquier otro s?ntoma preocupante. recommend follow-up with the orthopedic surgeon. Knee x-ray negative for fracture. Knee x-ray shows arthritis and slight fluid. Ultrasound came back negative for DVT. COVID, influenza, and strep swab were negative. He will be discharged with steroids. Continue taking Tylenol for pain relief. Return to the ED immediately for increased knee swelling, redness, warmth, calf pain, chest pain, shortness of breath, inability to move knee, inability to walk, or any other concerning symptoms. Prescriptions: No Action (DME) CPAP Machine/Device Device See Rx Instructions .Route Qty: 1 0RF Rx Instructions: autoPAP mode, 6-20 cm H2O acetaminophen [Tylenol Extra Strength] 500 mg tablet 1,000 mg PO Q6H PRN (Reason: fever or pain) 90 Days Qty: 300 1RF lidocaine [Lidoderm] 5 % adhesive patch,medicated 2 patch topical DAILY Qty: 30 0RF Rx Instructions: leave on most painful area for up to 12 hrs loratadine 10 mg tablet 10 mg PO DAILY Qty: 30 6RF solifenacin 10 mg tablet 10 mg PO DAILY Qty: 90 2RF losartan 100 mg tablet 100 mg PO DAILY 90 Days Qty: 90 3RF chlorthalidone 25 mg tablet 25 mg PO QAM 90 Days Qty: 90 3RF buspirone 10 mg tablet 10 mg PO DAILY fluticasone propionate [Flonase Allergy Relief] 50 mcg/actuation spray,suspension 1 spray intranasal DAILY Qty: 16 0RF Rx Instructions: administer into each nostril ketoconazole 2 % shampoo topical omeprazole 20 mg capsule,delayed release(DR/EC) 20 mg PO DAILY PRN Stand Alone Forms: Work/School Release Interventions: ED Discharge Assessment Last Done: 05/13/23 14:57 Discharge Date/Time: 05/13/23 14:58 Print Language: Citizen Of [place]
== END 2023-05-13 14:58 | disposition home or self-care (01) ==
PROVIDERS: Emergency Provider Emergency Medicine; PCP Internal Medicine
DX: M17.11 Unilateral primary osteoarthritis, right knee (principal); M25.461 Effusion, right knee; M79.661 Pain in right lower leg; B34.9 Viral infection, unspecified; J02.9 Acute pharyngitis, unspecified; R51.9 Headache, unspecified; E66.9 Obesity, unspecified; Z68.37 Body mass index [BMI] 37.0-37.9, adult; I10 Essential (primary) hypertension; Z11.52 Encounter for screening for COVID-19
CPT/HCPCS: 73564; 87502; 87635; 87651; 93971; 99283; 99284

== ENCOUNTER 2023-05-15 10:22 | Outpatient (AMB) | payer OTHER, SELFPAY ==
[2023-05-15 10:25] VITALS: BP 146/78; PULSE 70; O2SAT 100; BMI 36.9
--- NOTE | 2023-05-15 10:25 | MHC.PC.OV ---
Vital Signs 05/15/23 10:25 Height 5 ft 2 in Weight 202 lb 0.2 oz BMI 36.9 BP 146/78 H Blood Pressure Location Lt brachial Position Sitting Pulse 70 Pulse Source Pulse Oximeter Pulse Oximetry (%) 100 Oxygen Delivery Method Room Air Intake Visit Reasons: [facility] swollen [place], 05/13 Intake Note: Patient is here to follow-up after a visit the emergency department at [facility] on 05/13/23 Customer Sales Specialist Required: Yes Customer Sales Specialist Language: Yemeni Allergies aspirin [ASA] Allergy (Severe, Verified 05/15/23 10:59) Anaphylaxis Medication List - Last Reconciled 05/15/23 by GALINA Naqvi acetaminophen (Tylenol Extra Strength) 1,000 mg (2 x 500 mg) PO Q6H PRN 90 days buspirone 10 mg PO DAILY chlorthalidone 25 mg PO QAM 90 days CPAP (CPAP Machine/Device) autoPAP mode, 6-20 cm H2O fluticasone propionate 50 mcg/actuation (Flonase Allergy Relief) 1 spray intranasal DAILY ketoconazole 2% topical lidocaine 5% (Lidoderm) 2 patches topical DAILY loratadine 10 mg PO DAILY losartan 100 mg PO DAILY 90 days omeprazole 20 mg PO DAILY PRN solifenacin 10 mg PO DAILY Tobacco use date assessed: 05/15/23 Dental Screening Dental Screen Date: 05/15/23 HPI [facility] [place], swollen right leg, 05/13 HPI Details Patient is a 57-year-old female who presents today to follow-up after [place] [facility] visit due to right knee pain. Patient of Dr. Hurt. Per ED notes: 57-year-old female history of hypertension and right meniscus surgery in the past presents to the ED for right knee swelling and pain does worsen the past 3 weeks but after he has been occurring for the past 3 years. Patient thinks right leg cyst is swollen. Negative for any recent trauma. Check an incomplete sore throat and head congestion. COVID influenza swab ordered. The x-ray and ultrasound ordered. 2:41pm: knee x-ray positive for arthritis and slight knee joint effusion. No indication for arthrocentesis. Patient is safe for discharge. Patient discharged with pain medication and steroids. Patient informed to follow-up with orthopedic surgeon. Not suspecting compartment syndrome or arterial occlusion. Not suspecting cellulitis or septic knee joint. recommend follow-up with the orthopedic surgeon. Knee x-ray negative for fracture. Knee x-ray shows arthritis and slight fluid. Ultrasound came back negative for DVT. COVID, influenza, and strep swab were negative. He will be discharged with steroids. Continue taking Tylenol for pain relief. Return to the ED immediately for increased knee swelling, redness, warmth, calf pain, chest pain, shortness of breath, inability to move knee, inability to walk, or any other concerning symptoms. Today, patient reports that she has an upcoming appointment with [facility] 06/2023. Denies knee pain now, reports pain with prolonged walking. Reports using ice/heat packs and compression. No shortness of breath or chest pain. Also requesting referral to see eye doctor for an eye exam. 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 [facility] Medical History Obesity (BMI 30-39.9) Sleep apnea VAHE (generalized anxiety disorder) Hypercalcemia Calcific shoulder tendinitis Class 1 obesity with body mass index (BMI) of 34.0 to 34.9 in adult Right leg pain Essential hypertension Diverticulosis Hemorrhoids, internal, with bleeding Family history of colon cancer History of colon polyps GERD with esophagitis Rhinitis Surgical History S/P right knee arthroscopy Hx of endoscopy History of colonoscopy (~02/2018) H/O basal cell carcinoma excision History of section History of tubal ligation Family History Father Pancreatic cancer Mother Colon cancer Hypertension Brother No problems noted. Sister Psychiatric disorder Chronic mental illness Family/Other Chronic mental illness Social History Housing: Apartment Do you presently have visiting nurse or other home services: No Alcohol intake: current Alcohol intake frequency: holidays/special occasions only Alcohol type: wine Patient Tobacco Use Status: Never used Tobacco e-Cigarette/Vaping Use: Never Used Second Hand Smoke Exposure: No service: No Current occupational status: employed Current occupational exposures/hazards: No Sexual orientation: Straight/Heterosexual Gender identity: Female Cognitive needs: No Hearing needs: No Vision needs: Yes Female Reproductive History Menstrual Age of Menarche: 15 Questionnaire Thrive Questionnaire Date Thrive assessed: 08/20/22 AUDIT C Alcohol Use Questionnaire (AUDIT-C) 1. How often do you have a drink containing alcohol?: Monthly or less 2. How many drinks containing alcohol do you have on a typical day when you are drinking?: 1 or 2 3. How often do you have six or more drinks on one occasion?: Never Total Score: 1 Score Reviewed/Action Taken: No VAHE-7 AMB Questionnaire VAHE-7 Date VAHE - 7 assessed: 03/07/23 Source: Developed by Drs. Drew Cartagena, Emmy Hilton, Kirby Vasquez and colleagues, with an educational jose from [employer]. Review of Systems Const Denies body aches, Denies chills, Denies fever(s) and Denies headache(s) ENT Details: Hard time to read small letters Denies dizziness, Denies otalgia, Denies headache(s), Denies nasal discharge, Denies sinus pain and Denies sore throat Card Denies chest pain, Denies edema, Denies lightheadedness and Denies dyspnea Resp Denies cough, Denies dyspnea and Denies wheezing GI Denies abdominal pain Denies dysuria Musc Denies myalgias and Reports arthralgias Skin/Breast Denies rash Neuro Denies dizziness and Denies headache(s) Aller/Immun Denies wheezing Physical exam (Primary Care) Vital Signs: Last Vital Signs Pulse 70 05/15/23 10:25 BP 146/78 H 05/15/23 10:25 Pulse Ox 100 05/15/23 10:25 Oxygen Delivery Method Room Air 05/15/23 10:25 BMI result Body Mass Index 36.9 Tobacco/Smoking Status: Tobacco use Status Tobacco use date assessed 05/15/23 05/15/23 10:27 Patient Tobacco Use Status Never used Tobacco 05/15/23 10:27 e-Cigarette/Vaping Use Never Used 05/15/23 10:27 Thrive Assessment: Date of Thrive Assessment Date Thrive assessed 08/20/22 05/15/23 10:27 Const General: cooperative and no acute distress Orientation/consciousness: patient oriented x3 HENMT Head: Yes normocephalic and Yes atraumatic Throat: Yes posterior oropharynx normal Eyes General: appearance normal, both eyes and all related structures Neck Neck: Yes normal visual inspection and Yes full ROM Resp Effort & Inspection: normal respiratory effort and able to speak in complete sentences Auscultation: clear to auscultation bilaterally, no crackles, no rales, no rhonchi and no wheezes Cardio Rate: regular rate Rhythm: regular rhythm Heart sounds: S1 normal heart sound present and S2 normal heart sound present GI Auscultation: normal bowel sounds Skin General skin exam: no rashes or lesions noted Neuro General: patient oriented x3 Gait exam (Neuro): Normal gait present Extrem General: Yes full ROM and No edema Right lower extremity: knee Details: normal to inspection, tenderness (Posterior ) and abnormal ROM (Pain with range of motion posterior aspect); no swelling, no ecchymosis, no crepitus and no unusual warmth Assessment and Plan Assessment & Plan (1) Eye exam, routine: Code(s): Z01.00 - Encounter for examination of eyes and vision without abnormal findings Plan: Ophthalmology referral (2) Right knee pain: Code(s): M25.561 - Pain in right knee Plan: Keep appointment with orthopedics as scheduled Physical therapy referral Continue heat/cold packs p.r.n. Continue compression Continue [id number] Tylenol 1000 mg every 6 hours as needed Lidocaine patch sent Orders: Orders PT Evaluation and Treatment Today M25.561 - Pain in right knee Referrals Ophthalmology Referral Z01.00 - Encounter for examination of eyes and vision without abnormal findings Medications: Changed From lidocaine 5% (Lidoderm) leave on most painful area for up to 12 hrs 2 patches topical DAILY 30 ea 0RF M25.561 - Pain in right knee To lidocaine 5% (Lidoderm) leave on most painful area for up to 12 hrs 1 patch topical DAILY 30 ea 0RF M25.561 - Pain in right knee Coding Level of Care Code Est Pt Level 3 (71994) Diagnoses Eye exam, routine Z01.00 Right knee pain M25.561
== END 2023-05-15 11:14 | disposition home or self-care (01) ==
PROVIDERS: PCP Internal Medicine; Visit Provider Nurse Practitioner Family
DX: Z01.00 Encounter for examination of eyes and vision without abnormal findings (principal); M25.561 Pain in right knee
CPT/HCPCS: 99213

== ENCOUNTER 2023-05-22 14:39 | Outpatient (AMB) | payer OTHER, SELFPAY ==
--- NOTE | 2023-05-22 14:41 | A.OFFVIS_ITS ---
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 No complaints. Last Pap/HPV was in 05/23 was negative Last Mammogram was BI-RADS 1 in 02/23 Last Colonoscopy was a year ago, the patient is due for next screening colonoscopy in a year [facility] Medical History Obesity (BMI 30-39.9) Sleep apnea VAHE (generalized anxiety disorder) Hypercalcemia Calcific shoulder tendinitis Class 1 obesity with body mass index (BMI) of 34.0 to 34.9 in adult Right leg pain Essential hypertension Diverticulosis Hemorrhoids, internal, with bleeding Family history of colon cancer History of colon polyps GERD with esophagitis Rhinitis Surgical History S/P right knee arthroscopy Hx of endoscopy History of colonoscopy (~02/2018) H/O basal cell carcinoma excision History of section History of tubal ligation Family History Father Pancreatic cancer Mother Colon cancer Hypertension Brother No problems noted. Sister Psychiatric disorder Chronic mental illness Family/Other Chronic mental illness Social History Housing: Apartment Do you presently have visiting nurse or other home services: No Alcohol intake: current Alcohol intake frequency: holidays/special occasions only Alcohol type: wine Patient Tobacco Use Status: Never used Tobacco e-Cigarette/Vaping Use: Never Used Second Hand Smoke Exposure: No Patient : No service: No Current occupational status: employed Current occupational exposures/hazards: No Sexual orientation: Straight/Heterosexual Gender identity: Female Cognitive needs: No Hearing needs: No Vision needs: Yes Female Reproductive History Menstrual Age of Menarche: 15 Duration of menses: 6-7 days Date of last menstrual period: 03/18/23 control method: permanent sterilization Total pregnancies: 3 Full term: 3 Number of Living Children: 3 Date of last pap smear: 05/12/21 (negative) Date of Mammogram: 02/14/23 Review of Systems Const All systems reviewed & are unremarkable except as noted in HPI and below Card Reports as per HPI Resp Reports as per HPI GI Reports as per HPI and Reports no additional complaints Reports as per HPI Physical Exam Vital Signs: Last Vital Signs BP 124/68 05/22/23 14:42 BMI result Body Mass Index 37.3 Const General: cooperative, healthy appearing and comfortable Chest Chest palpation & inspection: normal inspection of the chest and normal palpation of entire chest wall Breast/axilla inspection: normal inspection of the breasts and normal inspection of the axillae Breast/axilla palpation: normal palpation of the breasts, normal palpation of the axillae and no axillary lymphadenopathy Resp Effort & Inspection: normal respiratory effort Auscultation: clear to auscultation bilaterally Percussion: percussion normal Cardio Palpation: normal PMI Rate: regular rate Rhythm: regular rhythm Heart sounds: no murmurs and no rubs Peripheral pulses: Peripheral pulses 2+ throughout GI Inspection: Yes normal to inspection Palpation (GI): Soft to palpation, nontender, no guarding, not rigid and No hepatosplenomegaly present Percussion: Yes normal to percussion Auscultation: normal bowel sounds Rectal Exam - Female: deferred General: Yes bladder normal to palpation External Female Exam: No lesion Speculum Exam - Vagina: normal appearance of the vagina, normal palpation, normal vaginal discharge and not erythematous Speculum Exam - Cervix: normal appearance of the cervix and normal palpation Bimanual exam- vagina & uterus: normal bimanual exam, normal palpation, uterine size normal, bladder normal to palpation, consistency normal and normal palpation Bimanual Exam- Adnexa, other: normal adnexae, no masses and no tenderness Assessment & Plan Assessment & Plan (1) Well woman exam: Code(s): Z01.419 - Encounter for gynecological examination (general) (routine) without abnormal findings Plan: Co testing not indicated this year. Counseled the patient about the recommended dietary allowance of 1200 mg of Calcium & 600 IU of vitamin D. Instructions given the patient to schedule next screen Mammogram in 02/24. The patient was instructed to perform monthly self-breast exams and schedule annual exam in a year. All questions answered and the patient verbalized understanding. Coding Level of Care Code Est Pt Prev Care 40-64y(43540) Diagnoses Well woman exam Z01.419
[2023-05-22 14:42] VITALS: BP 124/68; BMI 37.3
== END 2023-05-22 15:17 | disposition home or self-care (01) ==
LOC: HO.HWS 14:39
PROVIDERS: PCP Internal Medicine; Visit Provider Obstetrics & Gynecology
DX: Z01.419 Encounter for gynecological examination (general) (routine) without abnormal findings (principal)
CPT/HCPCS: 99396

== ENCOUNTER → 2023-05-22 14:39 | Outpatient (BNVA) | payer OTHER, SELFPAY | PROVIDERS: PCP Internal Medicine; Visit Provider Obstetrics & Gynecology | DX: Z01.419 Encounter for gynecological examination (general) (routine) without abnormal findings (principal) | CPT/HCPCS: 99396 ==

== ENCOUNTER 2023-07-09 14:26 | Outpatient (AMB) | payer OTHER, SELFPAY ==
--- NOTE | 2023-07-09 14:31 | MHC.PC.OV ---
Vital Signs 07/09/23 14:32 Height 5 ft 2 in Weight 210 lb BMI 38.4 BP 130/70 Blood Pressure Location Lt brachial Position Sitting Intake Visit Reasons: SIXTO, GERD, HTN Intake Note: Patient here for a follow up SIXTO, GERD, HTN, thyroid nodule, right knee replacement on 07/19/23 [facility] Director Of Individual Giving Required: No Accompanied by: Self / Same As Patient Allergies aspirin [ASA] Allergy (Severe, Verified 07/09/23 15:07) Anaphylaxis Medication List - Last Reconciled 07/09/23 by Arelis Hughes MD acetaminophen (Tylenol Extra Strength) 1,000 mg (2 x 500 mg) PO Q6H PRN 90 days buspirone 10 mg PO DAILY chlorthalidone 25 mg PO QAM 90 days CPAP (CPAP Machine/Device) autoPAP mode, 6-20 cm H2O escitalopram oxalate 5 mg PO DAILY fluticasone propionate 50 mcg/actuation (Flonase Allergy Relief) 1 spray intranasal DAILY ketoconazole 2% topical lidocaine 5% (Lidoderm) 1 patch topical DAILY loratadine 10 mg PO DAILY losartan 100 mg PO DAILY 90 days medroxyprogesterone 10 mg PO DAILY omeprazole 20 mg PO DAILY PRN solifenacin 10 mg PO DAILY Tobacco use date assessed: 07/09/23 Dental Screening Dental Screen Date: 07/09/23 Did you have a dental visit in the last 12 months?: Yes Did you have a dental problem in the last 6 months where you did not have access to dental care?: No Was dental information given to patient?: Patient has dentist HPI HPI Comments History of Present Illness Details This is a 57 year old female with hypertension, GERD, anxiety and obstructive sleep apnea that comes today for follow-up on her conditions. Blood pressure stable. GERD stable with PPIs. Anxiety well controlled with escitalopram and buspirone. She is compliant with her CPAP machine for her obstructive sleep apnea and feels more rested. She is obese with a BMI of 38.4 and was advised to diet and exercise to reach BMI goal less than 30. Will have right knee replacement this month. [facility] Medical History Obesity (BMI 30-39.9) Sleep apnea VAHE (generalized anxiety disorder) Hypercalcemia Calcific shoulder tendinitis Class 1 obesity with body mass index (BMI) of 34.0 to 34.9 in adult Right leg pain Essential hypertension Diverticulosis Hemorrhoids, internal, with bleeding Family history of colon cancer History of colon polyps GERD with esophagitis Rhinitis Surgical History S/P right knee arthroscopy Hx of endoscopy History of colonoscopy (~02/2018) H/O basal cell carcinoma excision History of section History of tubal ligation Family History Father Pancreatic cancer Mother Colon cancer Hypertension Brother No problems noted. Sister Psychiatric disorder Chronic mental illness Family/Other Chronic mental illness Social History Housing: Apartment Do you presently have visiting nurse or other home services: No Alcohol intake: current Alcohol intake frequency: holidays/special occasions only Alcohol type: wine Patient Tobacco Use Status: Never used Tobacco e-Cigarette/Vaping Use: Never Used Second Hand Smoke Exposure: No service: No Current occupational status: employed Current occupational exposures/hazards: No Sexual orientation: Straight/Heterosexual Gender identity: Female Cognitive needs: No Hearing needs: No Vision needs: Yes Female Reproductive History Menstrual Age of Menarche: 15 Questionnaire PHQ-9 Over the last 2 weeks, how often have you been bothered by any of the following problems? 1. Little interest or pleasure in doing things: not at all 2. Feeling down, depressed, or hopeless: not at all 3. Trouble falling or staying asleep, or sleeping too much: not at all 4. Feeling tired or having little energy: not at all 5. Poor appetite or overeating: not at all 6. Feeling bad about yourself - or that you are a failure or have let yourself or your family down: not at all 7. Trouble concentrating on things, such as reading the newspaper or watching television: not at all 8. Moving or speaking so slowly that other people could have noticed. Or the opposite - being so fidgety or restless that you have been moving around a lot more than usual: not at all 9. Thoughts that you would be better off or of hurting yourself in some way: not at all Total score: 0 Depression Screening Interpretation: Negative Depression Screening Done: Yes 22723 - PHQ-9 Billing: Yes Source: Developed by Drs. Drew Cartagena, Emmy Hilton, Kirby Vasquez and colleagues, with an educational jose from [employer]. Thrive Questionnaire Date Thrive assessed: 07/09/23 I am a: Patient What is your living situation today?: I have a steady place to live Within the past 12 months, did the food you bought not last and you didn't have the money to get more?: Never true Within the past 12 months, did you worry whether your food would run out before you got money to buy more?: Never true Do you have trouble paying for medicines?: No Do you have trouble getting transportation to medical appointments?: No Do you have trouble paying your heating and electricity bill?: No Do you have trouble taking care of your child, family member or friend?: No Do you have trouble with day-to-day activities such as bathing, preparing meals, shopping, managing finances, etc.?: No Are you currently unemployed and looking for a job?: No Are you interested in more education?: No Please select the resources that you would like help with: None Currently or been in a relationship where the following occur: no concerns reported THRIVE Score: 0 AUDIT C Alcohol Use Questionnaire (AUDIT-C) 1. How often do you have a drink containing alcohol?: Monthly or less 2. How many drinks containing alcohol do you have on a typical day when you are drinking?: 1 or 2 3. How often do you have six or more drinks on one occasion?: Never Total Score: 1 VAHE-7 AMB Questionnaire VAHE-7 Date VAHE - 7 assessed: 07/09/23 Feeling nervous, anxious, or on edge: 1 = Several days Not being able to stop or control worryin = Not at all Worrying too much about different things: 0 = Not at all Trouble relaxin = Not at all Being so restless that it is hard to sit still: 0 = Not at all Becoming easily annoyed or irritable: 0 = Not at all Feeling afraid as if something awful might happen: 0 = Not at all Total VAHE-7 score (0-4 normal; 5-9 mild; 10-14 moderate; 15-21 severe): 1 Source: Developed by Drs. Drew Cartagena, Emmy Hilton, Kirby Vasquez and colleagues, with an educational jose from [employer]. VAHE-7 Assessment Billing VAHE-7 Assessment Tool: VAHE-7 Assessment 29768 Review of Systems Const All systems reviewed & are unremarkable except as noted in HPI and below Eyes Reports no additional complaints, Denies change in vision and Denies other visual disturbances Card Denies chest pain at rest, Denies chest pain with activity, Denies edema, Denies irregular heart rhythm, Denies claudication, Denies dyspnea, Denies dyspnea on exertion, Denies orthopnea, Denies paroxysmal nocturnal dyspnea and Denies slow heart rate Resp Denies cough, Denies dyspnea and Denies dyspnea on exertion GI Denies abdominal pain, Denies change in bowel habits, Denies excessive flatus, Denies nausea and Denies vomiting Denies urinary incontinence, Denies urinary hesitancy and Denies urinary urgency Musc Denies abnormal gait, Denies atrophy, Denies deformity and Denies limited range of motion Skin/Breast Denies bleeding lesions, Denies changing lesions and Denies rash Neuro Denies abnormal gait, Denies behavioral changes and Denies lack of coordination Psych Denies behavioral changes Physical exam (Primary Care) Vital Signs: Last Vital Signs BP 130/70 07/09/23 14:32 BMI result Body Mass Index 38.4 Tobacco/Smoking Status: Tobacco use Status Tobacco use date assessed 07/09/23 07/09/23 14:41 Patient Tobacco Use Status Never used Tobacco 07/09/23 14:33 e-Cigarette/Vaping Use Never Used 07/09/23 14:33 PHQ-9: PHQ-9 Score PHQ-9: Total score 0 07/09/23 15:36 Depression Screening Interpretation: Negative Thrive Assessment: Date of Thrive Assessment Date Thrive assessed 07/09/23 07/09/23 14:41 Currently or been in a relationship where the following occur: no concerns reported Eyes General: appearance normal, both eyes and all related structures Eyelids: Yes eyelids normal Conjunctivae: conjunctivae normal Neck Neck: Yes normal visual inspection and Yes supple Resp Effort & Inspection: normal respiratory effort Auscultation: clear to auscultation bilaterally Cardio Jugular venous distension: no JVD Rate: regular rate Rhythm: regular rhythm Heart sounds: S1 normal heart sound present and S2 normal heart sound present Extrem General: Yes full ROM Assessment and Plan Assessment & Plan (1) SIXTO (obstructive sleep apnea): Comment: PATIENT HAS SYMPTOMATIC OBSTRUCTIVE SLEEP APNEA, SEVERE, PATIENT DOES USE THE CPAP AT NIGHT BUT HER COMPLIANCE REMAINS SUBOPTIMAL. USING MOSTLY 3-4 HOURS PER NIGHT. HAD A DETAILED DISCUSSION WITH HER WITH THE HELP OF THE OPERATIONS EXPERT AND STRESSED THAT SHE MUST USE THE CPAP AT LEAST FOR 4-5 HOURS EVERY NIGHT. SHE DOES HAVE A WELL-FUNCTIONING CPAP DEVICE, BUT WE CANNOT DOWNLOAD THE COMPLIANCE DATA. Code(s): G47.33 - Obstructive sleep apnea (adult) (pediatric) Plan: Continue CPAP machine. (2) Essential hypertension: Code(s): I10 - Essential (primary) hypertension Plan: Continue chlorthalidone and losartan. Blood pressure goal is equal or less than 130/80. (3) GERD with esophagitis: Code(s): K21.00 - Gastro-esophageal reflux disease with esophagitis, without bleeding Plan: Continue PPIs (4) VAHE (generalized anxiety disorder): Code(s): F41.1 - Generalized anxiety disorder Plan: Continue buspirone. Continue escitalopram. Orders: Orders Comprehensive [place]. Panel Fast Today E66.9 - Obesity, unspecified, Z68.38 - Body mass index [BMI] 38.0-38.9, adult Free T4 (Free Thyroxine) Today E04.1 - Nontoxic single thyroid nodule Lipid Panel Today E78.5 - Hyperlipidemia, unspecified Thyroid Stimulating Hormone Today E04.1 - Nontoxic single thyroid nodule Thyroid Peroxidase Antibodies Today E04.1 - Nontoxic single thyroid nodule Thyroglobulin Antibodies Today E04.1 - Nontoxic single thyroid nodule Medications: Refilled lidocaine 5% (Lidoderm) leave on most painful area for up to 12 hrs 1 patch topical DAILY 30 ea 0RF M25.561 - Pain in right knee Coding Level of Care Code Est Pt Level 4 (87952) Diagnoses SIXTO (obstructive sleep apnea) G47.33 Essential hypertension I10 GERD with esophagitis K21.00 VAHE (generalized anxiety disorder) F41.1 Additional Codes VAHE-7 Assessment Billing - VAHE-7 Assessment Tool: VAHE-7 Assessment 99350 ([id number]) Time Spent (min) 24
[2023-07-09 14:32] VITALS: BP 130/70; BMI 38.4
== END 2023-07-09 15:14 | disposition home or self-care (01) ==
PROVIDERS: PCP Internal Medicine; Visit Provider Internal Medicine
DX: G47.33 Obstructive sleep apnea (adult) (pediatric) (principal); I10 Essential (primary) hypertension; K21.00 Gastro-esophageal reflux disease with esophagitis, without bleeding; E04.1 Nontoxic single thyroid nodule; F41.1 Generalized anxiety disorder
CPT/HCPCS: 99214

== ENCOUNTER 2023-07-18 15:22 | Outpatient (AMB) | payer OTHER, SELFPAY ==
--- NOTE | 2023-07-18 15:22 | A.OFFVIS_ITS ---
Intake Intake Visit Reasons: 6m follow up Intake Note: Patient presents today for 6 month follow-up: Meds: Solifenacin Allergies to Antibiotic: No Known Allergies Blood Thinner: None Post Void Residual: 0 mL Strategic Partnership Specialist Required: Yes Strategic Partnership Specialist Language: Step Down Nurse Name: Patrice Garcia, MAYCOL/RAVI MEEK Information Interpreted: non-clinical & clinical Accompanied by: Self / Same As Patient Allergies aspirin [ASA] Allergy (Severe, Verified 07/09/23 15:07) Anaphylaxis HPI HPI Comments History of Present Illness Details 07/18/23--Nuria is a 57-year-old female w ho presents today to the office for Follow up. She has been of vesicare for OAB urinary symptoms. She states also had some leakage with sneezing. She states she has surgery pending on right knee tomorrow. Discussed will have her follow up once she is recovered from knee surgery to reevaluated and discussed other treatment options for mixed urinary incontinence, may consider further evaluation with urodynamics. Review of chart: 01/16/2023? The patient is a Tamazight speaking female. Certified veterinary technician assistant was present during the visit. She was last seen by me on 11/29/2022 as a new patient evaluation. She has had pelvic US on 10/12/2022 which revealed 7 mm echogenic non shadowing avascular focus. She was started on Vesicare 10 mg for lower urinary tract symptoms. I reviewed the results of renal US from 12/28/2022 revealed both kidneys were normal. she states that she is taking Veiscare daily. Cystoscopy findings: Uterine fibroids causing extrinsic compression noted left posterior lateral wall, no suspicious bladder lesions visualized. 11/29/2022? Nuria is a 57-year-old female who presents to the office as a new patient evaluation due to abnormal bladder ultrasound findings. The patient is a Tamaz[place] speaking female. Certified veterinary technician assistant was present during the visit. Past medical history-- hypertension, generalized anxiety disorder, obesity, being evaluated by OBJECTS CONSERVATOR for vaginal bleeding and had a pelvic US, which noted abnormal bladder findings as noted below. She denies frequent UTI episode. Has episodes of urinary urgency and frequency, urine leakage associated with urgency. Denies dysuria. Evaluation today: Blood-- negative, leukocytes: negative. Bladder scan PVR: 258 mL. Pelvis US results reviewed-- 10/12/22?noted incidental 7 mm echogenic nonshadowing avascular focus. Unclear etiology. Plan: Renal US prior was ordered. Cystoscopy discussed to be scheduled. Vesicare 10 mg QD was ordered. Follow-up after 6 weeks. 07/18/23?Plan:Continue Vesicare.Follow up in 12 weeks [facility] Medical History Obesity (BMI 30-39.9) Sleep apnea VAHE (generalized anxiety disorder) Hypercalcemia Calcific shoulder tendinitis Class 1 obesity with body mass index (BMI) of 34.0 to 34.9 in adult Right leg pain Essential hypertension Diverticulosis Hemorrhoids, internal, with bleeding Family history of colon cancer History of colon polyps GERD with esophagitis Rhinitis Surgical History S/P right knee arthroscopy Hx of endoscopy History of colonoscopy (~02/2018) H/O basal cell carcinoma excision History of section History of tubal ligation Family History Father Pancreatic cancer Mother Colon cancer Hypertension Brother No problems noted. Sister Psychiatric disorder Chronic mental illness Family/Other Chronic mental illness Social History Housing: Apartment Do you presently have visiting nurse or other home services: No Alcohol intake: current Alcohol intake frequency: holidays/special occasions only Alcohol type: wine Patient Tobacco Use Status: Never used Tobacco e-Cigarette/Vaping Use: Never Used Second Hand Smoke Exposure: No service: No Current occupational status: employed Current occupational exposures/hazards: No Sexual orientation: Straight/Heterosexual Gender identity: Female Cognitive needs: No Hearing needs: No Vision needs: Yes Female Reproductive History Menstrual Age of Menarche: 15 Review of Systems Const All systems reviewed & are unremarkable except as noted in HPI and below Reports no additional complaints Eyes Reports no additional complaints ENT Reports no additional complaints Card Reports no additional complaints Resp Reports no additional complaints GI Reports no additional complaints Reports as per HPI Musc Reports no additional complaints Skin/Breast Reports system reviewed and no additional complaints, except as documented Neuro Reports no additional complaints Psych Reports no additional complaints Endo Reports no additional complaints Den/Lymph Reports no additional complaints Aller/Immun Reports no additional complaints Office Procedures Post Void Residual Post Residual Void Post Void Residual (PVR): 0 [id number] Void Residual by ultrasound Results AMB Urinalysis, Automated UA Leukoctes 0 Erik/uL Last Edit by Patrice Garcia [facility] on 07/18/23 15:47 UA Nitrite Negative Last Edit by Patrice Garcia [facility] on 07/18/23 15:47 UA Urobilinogen 0.2 mg/dL Last Edit by Patrice Garcia [facility] on 07/18/23 15:4 7 UA Protein 15 mg/dL Last Edit by Patrice Garcia [facility] on 07/18/23 15:47 UA pH 7.0 Last Edit by Patrice Garcia [facility] on 07/18/23 15:47 UA Blood 0 [place]/uL Last Edit by Patrice Garcia [facility] on 07/18/23 15:47 UA Specific [place] 1.015 Last Edit by Patrice Garcia [facility] on 07/18/23 15: 47 UA Ketone Negative Last Edit by Patrice Garcia [facility] on 07/18/23 15:47 UA Bilirubin 0 mg/dL Last Edit by Patrice Garcia [facility] on 07/18/23 15:47 UA Glucose 0 mg/dL Last Edit by Patrice Garcia [facility] on 07/18/23 15:47 Results Reviewed Results Reviewed: Laboratory Last Values Urine pH (Auto) 7.0 07/18/23 15:46 Specific [place] (Auto) 1.015 07/18/23 15:46 Urine Protein (Auto) 15 mg/dL 07/18/23 15:46 Glucose (UA)(Auto) 0 mg/dL 07/18/23 15:46 Urine Ketones (Auto) Negative 07/18/23 15:46 Urine Blood (Auto) 0 [place]/uL 07/18/23 15:46 Urine Nitrite (Auto) Negative 07/18/23 15:46 Urine Bilirubin (Auto) 0 mg/dL 07/18/23 15:46 Urine Urobilinogen (Auto) 0.2 mg/dL 07/18/23 15:46 Leukocyte Esterase (Auto) 0 Erik/uL 07/18/23 15:46 Assessment & Plan Assessment & Plan (1) Overactive bladder: Code(s): N32.81 - Overactive bladder (2) BEE (stress urinary incontinence, female): Code(s): N39.3 - Stress incontinence (female) (male) Plan Continue Vesicare.Follow up in 12 weeks Orders: Orders AMB Urinalysis Automated 07/18/23 Z13.9 - Encounter for screening, unspecified AMB Post Void Residual by ultrasound 07/18/23 N39.8 - Other specified disorders of urinary system Patient Instructions: The patient had an opportunity to ask questions regarding treatment plan. All questions were answered. The patient expressed understanding and agreement with the above treatment plan. The patient is aware they should contact our office by phone for worsening of their current condition or the appearance of new symptoms. Compliance is encouraged with any medications and followup testing that is ordered. It is a privilege to be allowed the opportunity to participate in the urologic care of your patient. If you have any questions or concerns regarding treatment for the above conditions please do not hesitate to contact me. The office telephone contact is [phone]. This note is constructed in part using voice recognition software. While every effort has been made to ensure accuracy cream beater errors may have been included. Yours sincerely, Fatuma Schmidt MD Coding Level of Care Code Est Pt Level 3 (76032) Diagnoses Overactive bladder N32.81 BEE (stress urinary incontinence, female) N39.3 CPT Codes Post Residual Void - PVR CPT Code: 18057-Fytn Void Residual by ultrasound ([id number])
== END 2023-07-18 16:16 | disposition home or self-care (01) ==
PROVIDERS: PCP Internal Medicine; Visit Provider Urology
DX: N32.81 Overactive bladder (principal); N39.3 Stress incontinence (female) (male)
CPT/HCPCS: 99213

== ENCOUNTER → 2023-07-18 15:22 | Outpatient (BNVA) | payer OTHER, SELFPAY | PROVIDERS: PCP Internal Medicine; Visit Provider Urology | DX: N32.81 Overactive bladder (principal); N39.3 Stress incontinence (female) (male) | CPT/HCPCS: 51798; 81003; 99212 ==

== ENCOUNTER 2023-10-10 13:56 | Outpatient (AMB) | payer OTHER, SELFPAY ==
--- NOTE | 2023-10-10 14:14 | A.OFFVIS_ITS ---
Intake Visit Reasons: 12w follow up Intake Note: Patient presents today for 12 weeks follow-up: Meds: Solifenacin Allergies to Antibiotic: No Known Allergies Blood Thinner: None Post Void Residual: 0 mL Mine Motor Engineer Required: Yes Mine Motor Engineer Language: Electric Dolly Operator Name: Patrice Garcia, MAYCOL/RAVI MEEK Information Interpreted: non-clinical & clinical Accompanied by: Self / Same As Patient Allergies aspirin [ASA] Allergy (Severe, Verified 10/10/23 14:14) Anaphylaxis HPI Comments Details: 10/10/23--Nuria this be followed for lower urinary tract symptoms stress and urge incontinence. Certified aerial photograph interpreter present. She has been on VESIcare. She had knee surgery done in July and has been getting physical therapy. She states that she continued leakage associated with coughing and physical activity. Will schedule urodynamics in January to be sure she has fully recuperated from her knee surgery. Review of chart: 07/18/23--Nuria is a 57-year-old female who presents today to the office for Follow up. She has been of vesicare for OAB urinary symptoms. She states also had some leakage with sneezing. She states she has surgery pending on right knee tomorrow. Discussed will have her follow up once she is recovered from knee surgery to reevaluated and discussed other treatment options for mixed urinary incontinence, may consider further evaluation with urodynamics. 01/16/2023? The patient is a Mexican speaking female. Certified aerial photograph interpreter was present during the visit. She was last seen by me on 11/29/2022 as a new patient evaluation. She has had pelvic US on 10/12/2022 which revealed 7 mm echogenic non shadowing avascular focus. She was started on Vesicare 10 mg for lower urinary tract symptoms. I reviewed the results of renal US from 12/28/2022 revealed both kidneys were normal. she states that she is taking Veiscare daily. Cystoscopy findings: Uterine fibroids causing extrinsic compression noted left posterior lateral wall, no suspicious bladder lesions visualized. 11/29/2022? Nuria is a 57-year-old female who presents to the office as a new patient evaluation due to abnormal bladder ultrasound findings. The patient is a Mexican speaking female. Certified aerial photograph interpreter was present during the visit. Past medical history-- hypertension, generalized anxiety disorder, obesity, being evaluated by TOOLING ENGINEERING TECH for vaginal bleeding and had a pelvic US, which noted abnormal bladder findings as noted below. She denies frequent UTI episode. Has episodes of urinary urgency and frequency, urine leakage associated with urgency. Denies dysuria. Evaluation today: Blood-- negative, leukocytes: negative. Bladder scan PVR: 258 mL. Pelvis US results reviewed-- 10/12/22?noted incidental 7 mm echogenic nonshadowing avascular focus. Unclear etiology. Plan: Renal US prior was ordered. Cystoscopy discussed to be scheduled. Vesicare 10 mg QD was ordered. Follow-up after 6 weeks. 10/10/23?Plan: Schedule urodynamics [facility] Medical History Obesity (BMI 30-39.9) Sleep apnea VAHE (generalized anxiety disorder) Hypercalcemia Calcific shoulder tendinitis Class 1 obesity with body mass index (BMI) of 34.0 to 34.9 in adult Right leg pain Essential hypertension Diverticulosis Hemorrhoids, internal, with bleeding Family history of colon cancer History of colon polyps GERD with esophagitis Rhinitis Surgical History S/P right knee arthroscopy Hx of endoscopy History of colonoscopy (~02/2018) H/O basal cell carcinoma excision History of section History of tubal ligation Family History Father Pancreatic cancer Mother Colon cancer Hypertension Brother No problems noted. Sister Psychiatric disorder Chronic mental illness Family/Other Chronic mental illness Social History Housing: Apartment Do you presently have visiting nurse or other home services: No Alcohol intake: current Alcohol intake frequency: holidays/special occasions only Alcohol type: wine Patient Tobacco Use Status: Never used Tobacco e-Cigarette/Vaping Use: Never Used Second Hand Smoke Exposure: No service: No Current occupational status: employed Current occupational exposures/hazards: No Sexual orientation: Straight/Heterosexual Gender identity: Female Cognitive needs: No Hearing needs: No Vision needs: Yes Female Reproductive History Menstrual Age of Menarche: 15 Review of Systems Const All systems reviewed & are unremarkable except as noted in HPI and below Reports no additional complaints Eyes Reports no additional complaints ENT Reports no additional complaints Card Reports no additional complaints Resp Reports no additional complaints GI Reports no additional complaints Reports as per HPI Musc Reports no additional complaints Skin/Breast Reports system reviewed and no additional complaints, except as documented Neuro Reports no additional complaints Psych Reports no additional complaints Endo Reports no additional complaints Den/Lymph Reports no additional complaints Aller/Immun Reports no additional complaints Results AMB Urinalysis, Automated UA Leukoctes 0 Erik/uL Last Edit by Patrice Garcia [facility] on 10/10/23 14:16 UA Nitrite Negative Last Edit by Patrice Garcia [facility] on 10/10/23 14:16 UA Urobilinogen 0.2 mg/dL Last Edit by Patrice Garcia [facility] on 10/10/23 14:1 6 UA Protein 0 mg/dL Last Edit by Patrice Garcia [facility] on 10/10/23 14:16 UA pH 6.0 Last Edit by Patrice Garcia [facility] on 10/10/23 14:16 UA Blood 0 [place]/uL Last Edit by Patrice Garcia [facility] on 10/10/23 14:16 UA Specific [place] 1.015 Last Edit by Patrice Garcia [facility] on 10/10/23 14: 16 UA Ketone Negative Last Edit by Patrice Garcia [facility] on 10/10/23 14:16 UA Bilirubin 0 mg/dL Last Edit by Patrice Garcia [facility] on 10/10/23 14:16 UA Glucose 0 mg/dL Last Edit by Patrice Garcia [facility] on 10/10/23 14:16 Results Reviewed Results Reviewed: Laboratory Last Values Urine pH (Auto) 6.0 10/10/23 14:14 Specific [place] (Auto) 1.015 10/10/23 14:14 Urine Protein (Auto) 0 mg/dL 10/10/23 14:14 Glucose (UA)(Auto) 0 mg/dL 10/10/23 14:14 Urine Ketones (Auto) Negative 10/10/23 14:14 Urine Blood (Auto) 0 [place]/uL 10/10/23 14:14 Urine Nitrite (Auto) Negative 10/10/23 14:14 Urine Bilirubin (Auto) 0 mg/dL 10/10/23 14:14 Urine Urobilinogen (Auto) 0.2 mg/dL 10/10/23 14:14 Leukocyte Esterase (Auto) 0 Erik/uL 10/10/23 14:14 Assessment & Plan Assessment & Plan (1) Overactive bladder: Code(s): N32.81 - Overactive bladder Category: Medical (2) BEE (stress urinary incontinence, female): Code(s): N39.3 - Stress incontinence (female) (male) Category: Medical Plan Schedule urodynamics in January Orders: Orders AMB Urinalysis Automated Today Z13.9 - Encounter for screening, unspecified AMB Post Void Residual by ultrasound Today N39.8 - Other specified disorders of urinary system Patient Instructions: The patient had an opportunity to ask questions regarding treatment plan. The patient expressed understanding and agreement with the above treatment plan. The patient is aware they should contact our office by phone for worsening of their current condition or the appearance of new symptoms. Compliance is encouraged with any medications and followup testing that is ordered. It is a privilege to be allowed the opportunity to participate in the urologic care of your patient. If you have any questions or concerns regarding treatment for the above conditions please do not hesitate to contact me. The office telephone contact is [phone]. This note is constructed in part using voice recognition software. While every effort has been made to ensure accuracy behavioral school counselors errors may have been included. Yours sincerely, Fatuma Schmidt MD Coding Level of Care Code Est Pt Level 4 (17345) Diagnoses Overactive bladder N32.81 BEE (stress urinary incontinence, female) N39.3
== END 2023-10-10 14:39 | disposition home or self-care (01) ==
PROVIDERS: PCP Internal Medicine; Visit Provider Urology
DX: N32.81 Overactive bladder (principal); N39.3 Stress incontinence (female) (male); Z13.9 Encounter for screening, unspecified
CPT/HCPCS: 99214

== ENCOUNTER → 2023-10-10 13:56 | Outpatient (BNVA) | payer OTHER, SELFPAY | PROVIDERS: PCP Internal Medicine; Visit Provider Urology | DX: N32.81 Overactive bladder (principal); N39.3 Stress incontinence (female) (male) | CPT/HCPCS: 81003; 99212 ==

== ENCOUNTER 2023-10-14 14:17 | Outpatient (AMB) | payer OTHER, SELFPAY ==
--- NOTE | 2023-10-14 14:18 | MHC.PC.OV ---
Vital Signs 10/14/23 14:19 Height 5 ft 2 in Weight 214 lb BMI 39.1 BP 126/70 Blood Pressure Location Lt brachial Position Sitting Intake Visit Reasons: Annual Exam Intake Note: Patient here for an annual physical exam Planning And Analysis Manager Required: No Accompanied by: Self / Same As Patient Allergies aspirin [ASA] Allergy (Severe, Verified 10/14/23 14:31) Anaphylaxis Medication List - Last Reconciled 10/14/23 by Arelis Hughes MD acetaminophen (Tylenol Extra Strength) 1,000 mg (2 x 500 mg) PO Q6H PRN 90 days buspirone 10 mg PO DAILY chlorthalidone 25 mg PO QAM 90 days CPAP (CPAP Machine/Device) autoPAP mode, 6-20 cm H2O escitalopram oxalate 5 mg PO DAILY fluticasone propionate 50 mcg/actuation (Flonase Allergy Relief) 1 spray intranasal DAILY ketoconazole 2% topical lidocaine 5% (Lidoderm) 1 patch topical DAILY loratadine 10 mg PO DAILY losartan 100 mg PO DAILY 90 days medroxyprogesterone 10 mg PO DAILY meloxicam 15 mg PO DAILY omeprazole 20 mg PO DAILY PRN solifenacin 10 mg PO DAILY tramadol 50 mg PO DAILY Tobacco use date assessed: 07/09/23 Dental Screening Dental Screen Date: 07/09/23 HPI HPI Comments History of Present Illness Details This is a 58-year-old female that comes for her physical exam. Walks with no assistive device. Mammogram done February 2023 and was normal. Pap smear done 2020 and was normal with HPV negative. Last colonoscopy was 2021 and needs to be repeated in 2024. No chest pain or shortness of breath. She is obese with a BMI of 39.1 and was advised to diet and exercise to reach BMI goal less than 30. [facility] Medical History Obesity (BMI 30-39.9) Sleep apnea VAHE (generalized anxiety disorder) Hypercalcemia Calcific shoulder tendinitis Class 1 obesity with body mass index (BMI) of 34.0 to 34.9 in adult Right leg pain Essential hypertension Diverticulosis Hemorrhoids, internal, with bleeding Family history of colon cancer History of colon polyps GERD with esophagitis Rhinitis Surgical History S/P right knee arthroscopy Hx of endoscopy History of colonoscopy (~02/2018) H/O basal cell carcinoma excision History of section History of tubal ligation Family History (Updated 10/14/23 @ 14:35 by Arelis Hughes MD) Father Pancreatic cancer Mother Colon cancer, Onset Age: 72 Hypertension Brother No problems noted. Sister Psychiatric disorder Chronic mental illness Family/Other Chronic mental illness Social History Housing: Apartment Do you presently have visiting nurse or other home services: No Alcohol intake: current Alcohol intake frequency: holidays/special occasions only Alcohol type: wine Patient Tobacco Use Status: Never used Tobacco e-Cigarette/Vaping Use: Never Used Second Hand Smoke Exposure: No service: No Current occupational status: employed Current occupational exposures/hazards: No Sexual orientation: Straight/Heterosexual Gender identity: Female Cognitive needs: No Hearing needs: No Vision needs: Yes Female Reproductive History Menstrual Age of Menarche: 15 Questionnaire Thrive Questionnaire Date Thrive assessed: 07/09/23 VAHE-7 AMB Questionnaire VAHE-7 Date VAHE - 7 assessed: 07/09/23 Source: Developed by Drs. Drew Cartagena, Emmy Hilton, Kirby Vasquez and colleagues, with an educational jose from [employer]. Physical exam (Primary Care) Vital Signs: Last Vital Signs BP 126/70 10/14/23 14:19 BMI result Body Mass Index 39.1 Tobacco/Smoking Status: Tobacco use Status Tobacco use date assessed 07/09/23 10/14/23 14:23 Patient Tobacco Use Status Never used Tobacco 10/14/23 14:23 e-Cigarette/Vaping Use Never Used 10/14/23 14:23 Thrive Assessment: Date of Thrive Assessment Date Thrive assessed 07/09/23 10/14/23 14:23 Assessment and Plan Assessment & Plan (1) Physical exam: Code(s): Z00.00 - Encounter for general adult medical examination without abnormal findings Plan: Repeat in a year. Orders: Orders US thyroid 4 Months E04.1 - Nontoxic single thyroid nodule Vitamin D 25-OH Total Today E55.9 - Vitamin D deficiency, unspecified Lipid Panel Today Z00.00 - Encounter for general adult medical examination without abnormal findings Comprehensive [place]. Panel Fast Today Z00.00 - Encounter for general adult medical examination without abnormal findings Coding Level of Care Code Est Pt Prev Care 40-64y(56715) Diagnoses Physical exam Z00.00 Time Spent (min) 31
[2023-10-14 14:19] VITALS: BP 126/70; BMI 39.1
== END 2023-10-14 14:41 | disposition home or self-care (01) ==
PROVIDERS: PCP Internal Medicine; Visit Provider Internal Medicine
DX: Z00.00 Encounter for general adult medical examination without abnormal findings (principal)
CPT/HCPCS: 99396

== ENCOUNTER 2023-10-23 11:58 | Outpatient (AMB) | payer OTHER, SELFPAY ==
[2023-10-23 12:54] VITALS: BP 134/90; BMI 39.1
--- NOTE | 2023-10-23 12:54 | MHC.OFFVIS ---
Vital Signs 10/23/23 12:54 Height 5 ft 2 in Weight 214 lb BMI 39.1 BP 134/90 H Intake Visit Reasons: EMB Desizing Machine Operator Required: Yes Desizing Machine Operator Language: High Density Finishing Operator Name: Tricia SEVERINO Information Interpreted: non-clinical & clinical Director Of Dance: Director Of Dance Present (Tricia) Allergies aspirin [ASA] Allergy (Severe, Verified 10/23/23 12:55) Anaphylaxis HPI Comments Details: Presenting for repeat EMB secondary to proliferative endometrium in menopause on EMB identified on 10/10/2022. Since then the patient has been on Provera 10 mg p.o. q.d. EMB repeated in 03/25 showed inactive endometrium. The patient stated that she has been having spotting on and off over the last few months but did not call because she had right knee replacement and was busy with her recovery Last mammogram was in 02/23 BI-RADS 1 Last co testing was in 05/23 was negative PFSH Medical History Obesity (BMI 30-39.9) Sleep apnea VAHE (generalized anxiety disorder) Hypercalcemia Calcific shoulder tendinitis Class 1 obesity with body mass index (BMI) of 34.0 to 34.9 in adult Right leg pain Essential hypertension Diverticulosis Hemorrhoids, internal, with bleeding Family history of colon cancer History of colon polyps GERD with esophagitis Rhinitis Surgical History S/P right knee arthroscopy Hx of endoscopy History of colonoscopy (~02/2018) H/O basal cell carcinoma excision History of section History of tubal ligation Family History Father Pancreatic cancer Mother Colon cancer, Onset Age: 72 Hypertension Brother No problems noted. Sister Psychiatric disorder Chronic mental illness Family/Other Chronic mental illness Social History Housing: Apartment Do you presently have visiting nurse or other home services: No Alcohol intake: current Alcohol intake frequency: holidays/special occasions only Alcohol type: wine Patient Tobacco Use Status: Never used Tobacco e-Cigarette/Vaping Use: Never Used Second Hand Smoke Exposure: No service: No Current occupational status: employed Current occupational exposures/hazards: No Sexual orientation: Straight/Heterosexual Gender identity: Female Cognitive needs: No Hearing needs: No Vision needs: Yes Female Reproductive History Menstrual Age of Menarche: 15 control method: none Review of Systems Const All systems reviewed & are unremarkable except as noted in HPI and below Physical Exam Vital Signs: Last Vital Signs BP 134/90 H 10/23/23 12:54 BMI result Body Mass Index 39.1 General: Yes no CVA tenderness External Female Exam: normal external appearance and normal appearance of the urethra Speculum Exam - Vagina: normal appearance of the vagina, normal palpation, no lesions and no masses Speculum Exam - Cervix: normal appearance of the cervix, normal palpation, no lesions, no masses and nontender Bimanual exam- vagina & uterus: normal bimanual exam, normal palpation, uterine size normal, normal palpation, uterine shape normal, No Cervical tenderness present and non-tender Bimanual Exam- Adnexa, other: normal adnexae Back/Spine/Pelvis Back: no CVA tenderness Office Procedures Endometrial Biopsy Details: The patient was counseled regarding the indication and benefits of endometrial sampling to rule out endometrial pathology including not limited to endometrial hyperplasia or endometrial cancer and others; The alternatives (Either do nothing vs. hysteroscopy D&C) & the risks were discussed with the patient including but not limited: pain, uterine perforation, bleeding, infection, possible injury to bladder, bowel, ureter, possible need for blood transfusion with all its possible risks. The patient verbalized understanding all questions answered and signed consent. The patient was placed into the dorsal lithotomy position; a speculum was inserted in the vagina. Using aseptic technique for the procedure, the cervix was cleansed with Betadine. The anterior lip of the cervix was grasped with a single tooth tenaculum. The uterus was sounded to 7 cm with a 4 mm Pipelle was used. Tissues samples were obtained and placed in formalin, in a patient labeled container and sent to the pathology department. At the end of the procedure, there was minimal bleeding noted The patient tolerated the procedure well and was discharged in good condition with the following instructions: Nothing in the vagina until the bleeding stops. No sex until the bleeding stops, to call if any of the following occurs: fever (>100.4), flu-like symptoms, abdominal pain, heavy bleeding, four smelling vaginal discharge. The patient was instructed to schedule a Follow up appointment in 2 weeks to discuss pathology results of the biopsy and treatment options. This note was generated with a voice recognition program. Some errors may have been overlooked during the review of this note. Sometimes these errors may affect the content or meaning of a given sentence. 60875-[id number] Biopsy Assessment & Plan Assessment & Plan (1) Abnormal uterine bleeding (AUB): Comment: Proliferative endometrium on EMB in 10/23 on Provera since then-reversed to inactive endometrium in 03/25 Code(s): N93.9 - Abnormal uterine and vaginal bleeding, unspecified Category: Medical Plan: EMB done, see procedure. Instructions given the patient to schedule a 2 week ultrasound follow-up appointment. (2) Uterine fibroid: Code(s): D25.9 - Leiomyoma of uterus, unspecified Category: Medical Plan: Ultrasound ordered to compare the size of previous myoma. Instructions given the patient to schedule the pelvic ultrasound and an ultrasound follow-up appoint Orders: Orders US pelvic and transvaginal Today D25.9 - Leiomyoma of uterus, unspecified, N93.9 - Abnormal uterine and vaginal bleeding, unspecified AMB Endometrial Biopsy Today N93.9 - Abnormal uterine and vaginal bleeding, unspecified Coding Level of Care Code Est Pt Level 3 (80311) Procedure Only Diagnoses Abnormal uterine bleeding (AUB) N93.9 Uterine fibroid D25.9 CPT Codes Endometrial Biopsy - CPT: 86162-Eusnggifowi Biopsy ([id number])
== END 2023-10-23 13:31 | disposition home or self-care (01) ==
PROVIDERS: PCP Internal Medicine; Visit Provider Obstetrics & Gynecology
DX: N93.9 Abnormal uterine and vaginal bleeding, unspecified (principal); D25.9 Leiomyoma of uterus, unspecified
CPT/HCPCS: 58100; 99213

== ENCOUNTER 2023-10-23 11:58 | Outpatient (REF) | payer OTHER, SELFPAY | END 2023-10-23 11:59 | disposition home or self-care (01) | LOC: HO.LNP 11:58 | PROVIDERS: PCP Internal Medicine; Visit Provider Obstetrics & Gynecology | DX: N93.9 Abnormal uterine and vaginal bleeding, unspecified (principal); D25.9 Leiomyoma of uterus, unspecified | CPT/HCPCS: 58100; 88305; 99212 ==

== ENCOUNTER 2023-10-24 16:21 | Emergency (ER) | payer OTHER, SELFPAY ==
--- NOTE | 2023-10-24 16:45 | ED_ITS ---
HPI - General Adult General Chief complaint: General Medical Stated complaint: difficulty sleeping Time Seen by Provider: 10/24/23 17:56 History of Present Illness HPI narrative: patient with 2 complaints main complaint is anxiety for 3 days, her mother was recently hospitalized and this increased her stress she does see a psychiatrist for chronic anxiety She has not suicidal homicidal does not want to harm herself does not hear voices and did not feel like she needed to be evaluated emergently by care team She has no chest pain no shortness of breath no abdominal pain no headache no fainting no dizziness no muscle weakness no fevers no recent illness Related Data Home Medications ?Medication ?Instructions ?Recorded ?Confirmed buspirone 10 mg tablet 10 mg PO DAILY 03/24/20 10/14/23 ketoconazole 2 % shampoo topical 06/01/22 10/14/23 omeprazole 20 mg capsule,delayed 20 mg PO DAILY PRN 08/29/22 10/14/23 release escitalopram oxalate 5 mg tablet 5 mg PO DAILY 05/22/23 10/14/23 meloxicam 15 mg tablet 15 mg PO DAILY 10/14/23 10/14/23 tramadol 50 mg tablet 50 mg PO DAILY 10/14/23 10/14/23 Previous Rx's ?Medication ?Instructions ?Recorded CPAP (CPAP Machine/Device) #1 ea 02/26/22 acetaminophen 500 mg tablet 1,000 mg (2 x 500 mg) PO Q6H PRN 06/05/22 (Tylenol Extra Strength) fever or pain 90 days #300 tabs losartan 100 mg tablet 100 mg PO DAILY 90 days #90 tabs 02/26/23 chlorthalidone 25 mg tablet 25 mg PO QAM 90 days #90 tabs 04/19/23 fluticasone propionate 50 1 spray intranasal DAILY #16 grams 07/24/23 mcg/actuation nasal spray,suspension (Flonase Allergy Relief) loratadine 10 mg tablet 10 mg PO DAILY #30 tabs 08/20/23 lidocaine 5 % topical patch 1 patch topical DAILY #30 ea 08/21/23 (Lidoderm) medroxyprogesterone 10 mg tablet 10 mg PO DAILY #90 tabs 10/07/23 solifenacin 10 mg tablet 10 mg PO DAILY #90 tabs 10/18/23 diazepam 10 mg tablet (Valium) 10 mg PO BEDTIME PRN anxiety #10 10/24/23 tabs Allergies Allergy/AdvReac Type Severity Reaction Status Date / Time aspirin [ASA] Allergy Severe Anaphylaxis Verified 10/24/23 16:46 PMFSH Past Medical History Source: nursing notes reviewed Medical History Obesity (BMI 30-39.9) Sleep apnea VAHE (generalized anxiety disorder) Hypercalcemia Calcific shoulder tendinitis Class 1 obesity with body mass index (BMI) of 34.0 to 34.9 in adult Right leg pain Essential hypertension Diverticulosis Hemorrhoids, internal, with bleeding Family history of colon cancer History of colon polyps GERD with esophagitis Rhinitis Surgical History S/P right knee arthroscopy Hx of endoscopy History of colonoscopy (~02/2018) H/O basal cell carcinoma excision History of section History of tubal ligation Family History Family History Father Pancreatic cancer Mother Colon cancer, Onset Age: 72 Hypertension Brother No problems noted. Sister Psychiatric disorder Chronic mental illness Family/Other Chronic mental illness Social History Social History Housing: Apartment Do you presently have visiting nurse or other home services: No Alcohol intake: current Alcohol intake frequency: holidays/special occasions only Alcohol type: wine Patient Tobacco Use Status: Never used Tobacco e-Cigarette/Vaping Use: Never Used Second Hand Smoke Exposure: No Advance Directives: No Advance Directives Information Provided: No Do you have a plan to hurt others: No Plan service: No Current occupational status: employed Current occupational exposures/hazards: No Sexual orientation: Straight/Heterosexual Gender identity: Female Cognitive needs: No Hearing needs: No Vision needs: Yes Physical Exam ED Vital Signs: Vital Signs - 24 hr 10/24/23 16:46 Temperature 97.9 F Pulse Rate 95 Respiratory Rate 18 Blood Pressure 154/97 H Pulse Oximetry 96 Oxygen Delivery Method Room Air BMI result Body Mass Index 39.4 general appearance no distress, and cooperative Head is normocephalic atraumatic Pupils equal round reactive to light extraocular motions are intact Pharynx is clear with moist mucous membranes no redness swelling or exudate Neck is supple Chest clear to auscultation bilateral no respiratory distress Heart no murmur Abdomen soft nontender Extremities full range of motion x4 Neuro no focal motor sensory deficits, gait and balance are normal, interaction comprehension and expression are normal, cranial nerves 2-12 intact as tested Course Course Course Narrative: This is a Rapid Medical Examination (RME) performed by Bhavesh Desir PA-C in triage. Full HPI, ROS, assessment and treatment plan per primary provider in the Main ED. 58 yo mongolian speaking female hx of HTN, GERD, SIXTO on CPAP, VAHE presents to the ED today for evaluation of insomnia x1 week. Reports increased life stressors. Reports feeling anxious. She does take anxiety medication at home (buspirone). took tylenol PM yesterday without improvement. Has attempted to call her PCP however has not been able to get an appointment. well appearing. rrr. lungs cta b/l. no tremors. Plan: labs A calcium of 10.9 was noted in labs and she will get that rechecked with her doctor in coming weeks, no other urgent finding on CBC or chemistry Patient is not suicidal homicidal a danger to herself or others she has not hearing voices did not request any emergency psych eval and for her complaint of insomnia for 3 days and increased anxiety secondary to her mother's hospitalization I wrote her for Valium 10 mg to use mostly at night and gave her a tablet here and hopefully she will get a night sleep and have reduced anxiety Medications Administered Discontinued Medications Generic Name Dose Route Start Last Admin Trade Name Naifq PRN Reason Stop Dose Admin Diazepam 10 mg 10/24/23 18:27 10/24/23 18:33 Diazepam 5 Mg Tablet PO 10/24/23 18:28 10 mg ONCE ONE Administration Medical Decision Making Lab Data 10/24/23 17:03 10/24/23 17:03 Labs: Lab Results 10/24/23 Range/Units 17:03 WBC 9.5 (4.8-10.8) X10*3/uL RBC 4.25 (4.20-5.50) X10*6/uL Hgb 11.7 L (12.0-16.0) g/dl Hct 36.4 L (37.0-47.0) % MCV 85.6 (80.0-98.0) fL MCH 27.5 (27.0-33.0) pg MCHC 32.1 (31.0-35.0) g/dl RDW 15.5 (11.0-16.0) % Plt Count 337 (160-400) X10*3/uL MPV 9.2 L (9.4-12.3) fL Immature Gran % (Auto) 0.4 (0.0-0.4) % Neut % (Auto) 46.7 (45-73) % Lymph % (Auto) 39.7 (20-40) % Dolores % (Auto) 9.7 (2-11) % Eos % (Auto) 3.0 (0-4) % Baso % (Auto) 0.5 (0-2) % Lymph # (Auto) 3.8 (1.2-4.9) X10*3/uL Dolores # (Auto) 0.9 (0.1-1.2) X10*3/uL Eos # (Auto) 0.3 (0.0-0.4) X10*3/uL Baso # (Auto) 0.1 (0.0-0.2) X10*3/uL Abs Immat Gran (auto) 0.04 H (0.00-0.03) X10*3/uL Absolute Neuts (auto) 4.4 (2.0-8.3) x10*3/uL Absolute Nucleated RBC 0.000 (0.0-0.012) X10*3/uL Nucleated RBC % (auto) 0.0 (0.0-0.2) /100WBC Sodium 143 (135-145) mmol/L Potassium 4.0 (3.3-5.1) mmol/L Chloride 103 (96-108) mmol/L Carbon Dioxide 31 H (22-29) mmol/L Anion Gap 13 (12-20) BUN 20 H (9-16) mg/dL Creatinine 0.82 (0.5-1.4) mg/dL Estim Creat Clear Calc 83.6 Estimated GFR > 60 Random Glucose 106 (60-115) mg/dL Calcium 10.9 H D (8.4-10.2) mg/dL Magnesium 1.8 (1.6-2.6) mg/dL Total Bilirubin 0.4 (0.0-1.0) mg/dL AST 16 (5-31) U/L ALT 17 (0-31) U/L Alkaline Phosphatase 74 (39-117) U/L Total Protein 7.8 (6.5-8.0) g/dL Albumin 4.3 (3.5-5.0) g/dL Lipase 16 (8-78) U/L Discharge Plan Discharge Clinical Impression: Anxiety, Insomnia Patient Disposition: Home, Self-Care Additional Instructions: valium usually lasts for 7 or 8 hours and usually works well for anxiety and insomnia Because there can be an interaction with oxycodone and valium with your sleep apnea I did not want to prescribe both as it may be unsafe so follow with your surgeon in her doctor for further pain control for your knee Follow with your psychiatrist for further evaluation of her anxiety The door here is always open come back any time if anxiety is out of control or if you feel you need an emergency crisis evaluation Come back any time for any worse condition or any concerns your calcium was mildly elevated at 10.9, this should be repeated by the primary care doctor in a week or 2 to see if it needs any further attention Prescriptions: New diazepam [Valium] 10 mg tablet 10 mg PO BEDTIME PRN (Reason: anxiety) Qty: 10 0RF No Action (DME) CPAP Machine/Device Device See Rx Instructions .Route Qty: 1 0RF Rx Instructions: autoPAP mode, 6-20 cm H2O acetaminophen [Tylenol Extra Strength] 500 mg tablet 1,000 mg PO Q6H PRN (Reason: fever or pain) 90 Days Qty: 300 1RF losartan 100 mg tablet 100 mg PO DAILY 90 Days Qty: 90 3RF chlorthalidone 25 mg tablet 25 mg PO QAM 90 Days Qty: 90 3RF fluticasone propionate [Flonase Allergy Relief] 50 mcg/actuation spray,suspension 1 spray intranasal DAILY Qty: 16 0RF Rx Instructions: administer into each nostril loratadine 10 mg tablet 10 mg PO DAILY Qty: 30 6RF lidocaine [Lidoderm] 5 % adhesive patch,medicated 1 patch topical DAILY Qty: 30 0RF Rx Instructions: leave on most painful area for up to 12 hrs medroxyprogesterone 10 mg tablet 10 mg PO DAILY Qty: 90 3RF solifenacin 10 mg tablet 10 mg PO DAILY Qty: 90 2RF buspirone 10 mg tablet 10 mg PO DAILY meloxicam 15 mg tablet 15 mg PO DAILY tramadol 50 mg tablet 50 mg PO DAILY ketoconazole 2 % shampoo topical escitalopram oxalate 5 mg tablet 5 mg PO DAILY omeprazole 20 mg capsule,delayed release(DR/EC) 20 mg PO DAILY PRN Print Language: Latvian
[2023-10-24 16:46] VITALS: BP 154/97; PULSE 95; RESP 18; TEMP 36.6; O2SAT 96; BMI 39.4
[2023-10-24 17:07] LABS: MANUAL DIFF FLAG NO
[2023-10-24 17:08] LABS: Basophils Absolute Auto 0.1 X10*3/uL (0.0-0.2); Basophils Percent Auto 0.5 % (0-2); Eosinophils Absolute Auto 0.3 X10*3/uL (0.0-0.4); Hematocrit 36.4 % (37.0-47.0); Hemoglobin 11.7 g/dl (12.0-16.0); Imm Gran Abs Auto 0.04 X10*3/uL (0.00-0.03); Imm Gran Pct Auto 0.4 % (0.0-0.4); Lymphocytes Absolute Auto 3.8 X10*3/uL (1.2-4.9); Lymphocytes Percent Auto 39.7 % (20-40); Mean Corpuscular HGB Conc 32.1 g/dl (31.0-35.0); Mean Corpuscular Hemoglobin 27.5 pg (27.0-33.0); Mean Corpuscular Volume 85.6 fL (80.0-98.0); Mean Platelet Volume 9.2 fL (9.4-12.3); Monocytes Absolute Auto 0.9 X10*3/uL (0.1-1.2); Monocytes Percent Auto 9.7 % (2-11); Neutrophils Absolute Auto 4.4 x10*3/uL (2.0-8.3); Neutrophils Percent Auto 46.7 % (45-73); Platelet Count 337 X10*3/uL (160-400); Red Blood Count 4.25 X10*6/uL (4.20-5.50); Red Cell Distribution Width 15.5 % (11.0-16.0); White Blood Count 9.5 X10*3/uL (4.8-10.8)
--- OUTSIDE RECORDS SUMMARY | 2023-10-24 17:18 | XMS_ITS | Continuity of Care Document ---
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 Name Role Phone Blu Hughes MD, Arelis Wise Primary Care Physician Encounter [facility] Date(s): 07/26/23 - 07/27/[address] [address]- Discharge Disposition: A-D/C Home Attending Physician: Frederick Sung MD Admitting Physician: Frederick Sung MD Referring Physician: Frederick Sung MD Allergies, Adverse Reactions, Alerts Substance Reaction Severity Status aspirin facial swelling and thorat closing Active NSAIDs Tightness in throat Active Medications acetaminophen 325 mg oral tablet 650 mg, By Mouth, Every 6 hours, May take OTC not to exceed 3000 mg/day, Refills 0, Maintenance, 07/27/23 8:24:00 EST, Partial fill upon patient request if the prescription is for a schedule II opioid drug. Start Date: 07/27/23 Status: Ordered Acetaminophen Tablet 650 mg, Tablet, By Mouth, 07/27/23 10:00:00 EST Start Date: 07/27/23 Stop Date: 07/27/23 Status: Completed busPIRone 10 mg oral tablet 10 mg, 1, tablet, By Mouth, Daily, Refills 0, Maintenance, 08/16/21 16:27:00 EDT, Partial fill uponpatient request if the prescription is for a schedule II opioid drug. Start Date: 08/16/21 Status: Ordered Calcio Shelley 1 tablet, By Mouth, Daily, 0 Refills, Maintenance, 08/16/21 16:29:00 EDT, Partial fill upon patientrequest if the prescription is for a schedule II opioid drug. Start Date: 08/16/21 Status: Ordered chlorthalidone 25 mg oral tablet 25 mg, 1, tablet, By Mouth, Daily, # 30 tablet, Refills 0, Maintenance, 08/16/21 16:27:00 EDT, Partial fill upon patient request if the prescription is for a schedule II opioid drug. Start Date: 08/16/21 Status: Ordered docusate sodium 100 mg oral capsule 100 mg, 1, capsule, By Mouth, 2 times a day, # 60 capsule, Refills 0, Tot. Refills 0, Maintenance, 07/27/23 8:20:00 EST, Route to Pharmacy Electronically, [facility], Partial fill upon patient request if the prescription is for a schedul... Start Date: 07/27/23 Status: Ordered Eliquis 2.5 mg oral tablet 1 tablet = 2.5 mg, By Mouth, 2 times a day, # 60 tablet, 0 Refills, Maintenance, 07/27/23 8:21:00 EST, Tablet, [facility], Partial fill upon patient request if the prescription is for aschedule II opioid drug., 157, cm, 07/27/23 3:53:00... Start Date: 07/27/23 Stop Date: 08/26/23 Status: Ordered escitalopram 5 mg oral tablet 1 tablet = 5 mg, TAKE 1 TABLET BY MOUTH EVERY DAY Start Date: 07/04/23 Status: Ordered lidocaine 0.5% topical gel Topically, Daily, PRN Pain , Moderate, 0 Refills, Maintenance, 08/16/21 16:28:00 EDT, Partial fill upon patient request if the prescription is for a schedule II opioid drug. Start Date: 08/16/21 Status: Ordered Loratadine 10 mg, By Mouth, Daily, Refills 0, Maintenance, 08/16/21 16:27:00 EDT, Partial fill upon patient request if the prescription is for a schedule II opioid drug. Start Date: 08/16/21 Status: Ordered losartan 100 mg oral tablet 1 tablet = 100 mg, By Mouth, Daily, 0 Refills, Maintenance, 08/16/21 16:26:00 EDT, Partial fill upon patient request if the prescription is for a schedule II opioid drug. Start Date: 08/16/21 Status: Ordered losartan 50 mg oral tablet 100 mg, Tablet, By Mouth, Hold for: SBP less than 130, 07/27/23 9:00:00 EST Start Date: 07/27/23 Stop Date: 07/27/23 Status: Completed medroxyPROGESTERone 10 mg oral tablet TAKE 1 TABLET BY MOUTH EVERY DAY Start Date: 07/04/23 Status: Ordered MiraLax Powder 1 pack/packet = 17 Gm, By Mouth, Daily, PRN Constipation, 0 Refills, Maintenance, 07/27/23 8:25:00 EST, Powder, Partial fill upon patient request if the prescription is for a schedule II opioid drug. Start Date: 07/27/23 Status: Ordered oxyCODONE 5 mg oral tablet See Instructions, PRN, 1-2 tablets By Mouth Every 4 hours, # 84 tablet, Refills 0, Tot. Refills 0, Acute 08/03/23 8:23:00 EST, Pain , Severe, 07/27/23 8:22:00 EST, Instructions Replace Required Details, [facility] Start Date: 07/27/23 Stop Date: 08/03/23 Status: Ordered OxyCODONE IR Tablet 10 mg, Tablet, By Mouth, Every 3 hours, PRN for Pain , Severe, Routine, 07/26/23 15:51:00 EST Start Date: 07/26/23 Stop Date: 07/28/23 Status: Discontinued pantoprazole 40 mg oral delayed release tablet = 40 mg, By Mouth, Daily, # 30 tablet, 0 Refills, Maintenance, 07/27/23 8:20:00 EST, EC Tablet, 157, cm, 07/27/23 3:53:00 EST, Height, 95.5, kg, 07/26/23 17:57:00 EST, Dry Weight Start Date: 07/27/23 Stop Date: 08/26/23 Status: Ordered senna 187 mg oral tablet 1 tablet = 8.6 mg, By Mouth, Daily at bedtime, PRN as needed for constipation, 0 Refills, Maintenance, 07/27/23 8:25:00 EST, Tablet, Partial fill upon patient request if the prescription is for a schedule II opioid drug. Start Date: 07/27/23 Status: Ordered solifenacin 10 mg oral tablet TAKE 1 TABLET BY MOUTH EVERY DAY Start Date: 07/04/23 Status: Ordered Problem List Condition Confirmation Course Effective Dates Status Health St atus Informant Obese class II Confirmed Active Results Radiology Reports * Exam Date Time Procedure Performing Provider Status 07/26/23 3:40 PM Knee 1 or 2 Views Right Inez Barreto; Auth (Verified) Notes: (Knee 1 or 2 Views Right) Reason For Exam: Postop RESULT: Knee 1 or 2 Views Right Knee 1 or 2 Views Right, 2 views Reason: Postop; Clinical Question(s): Other:; Implant Position; Special Instructions: To be done inPACU, No flexed knee in the lateral position. Keep leg straight; 2 Views COMPARISON: 05/01/2021. FINDINGS: No bone lesions or fractures. Status post total knee arthroplasty with expected surrounding soft tissue swelling and emphysema. Normal alignment of the hardware. IMPRESSION: Status post total knee arthroplasty with expected postsurgical changes. WSN: [id number] Ordering Physician: Kevin Ge Dictated By: Melissa James MD Dictated Date/Time: 07/26/23 3:46 pm Reviewed By: Melissa James MD Signed By: Melissa James MD Signed Date/Time: 07/26/23 3:46 pm Transcribed By: CATIA Transcribed Date/Time: 07/26/23 3:45 pm Vital Signs Most recent to oldest [Reference Range]: 1 2 3 4 Height 157 cm (07/27/23 3:53 AM) 157 cm (07/27/23 12:00 AM) 157 cm (07/26/23 5:33 PM) Weight 95.5 kg (07/26/23 5:33 PM) 95.5 kg (07/26/23 12:00 PM) Oxygen Saturation [94-100 %] 97 % (07/27/23 1:00 PM) 96 % (07/27/23 7:00 AM) 93 % *L* (07/27/23 3:53 AM) Pulse Rate [55-90 bpm] 72 bpm (07/27/23 1:00 PM) 86 bpm (07/27/23 7:00 AM) 83 bpm (07/27/23 3:53 AM) Body Mass Index [18.5-24.99 kg/m2] 38.74 kg/m2 *>HHI* (07/26/23 5:33 PM) 38.74 kg/m2 *>HHI* (07/26/23 12:00 PM) Blood Pressure [90-138/55-84 mm Hg] 131/74mm Hg (07/27/23 1:00 PM) 141/77mm Hg *H* (07/27/23 9:58 AM) 141/77mm Hg *H* (07/27/23 7:00 AM) Respiratory Rate [16-30 br/min] 18 br/min (07/27/23 1:40 PM) 18 br/min (07/27/23 1:00 PM) 18 br/min (07/27/23 10:57 AM) 18 br/min (07/27/23 10:57 AM) Temperature [96.8-100.4 DegF] 97.9 DegF (07/27/23 1:00 PM) 97.9 DegF (07/27/23 7:00 AM) 98.4 DegF (07/27/23 12:00 AM) Liters per Minute 2 L/min (07/26/23 4:45 PM) 2 L/min (07/26/23 4:30 PM) 2 L/min (07/26/23 4:15 PM) Mode of Delivery (Oxygen) Room air (07/27/23 1:00 PM) Room air (07/27/23 7:00 AM) CPAP (07/27/23 3:53 AM) Blood pressure sites Arm, left (07/27/23 1:00 PM) Arm, left (07/27/23 7:00 AM) Arm, left (07/27/23 3:53 AM) Temperature Route Oral (07/27/23 1:00 PM) Oral (07/27/23 7:00 AM) Oral (07/27/23 12:00 AM) Dry Weight 95.5 kg (07/26/23 5:33 PM) 95.5 kg (07/26/23 12:00 PM) Weight Obtained Via Standing scale (07/26/23 12:00 PM) Dry Weight Obtained Via Standing scale (07/26/23 12:00 PM) Social History Social History Type Response Smoking Status Never (less than 100 in lifetime) entered on: 07/04/23 Sex Note * Event Display: Adult Preadmission Health Questionnaire Authored Date: * Segal RN, Eliz: PERFORM Event Display: Discharge/Transfer Note Hospital Authored Date: [id number] Nursing Discharge Note Entered On: 07/27/2023 14:37 EST Performed On: 07/27/2023 14:36 EST by Eliz Segal RN Nursing Discharge Note 2 Discharge Time : 07/27/2023 14:40 EST Discharge Level of Care at Discharge : Homehealth/VNA Discharge VNA/Hospice/Home Care(v001) : [facility] [phone] Patient Left Unit Via : Wheelchair Patient Accompanied Off Unit with : Responsible adult DC Instructions Provided & Signed by Pt : Yes Patient Understands D/C Instructions : Yes Verbalized Understanding of D/C Plan By : Patient, Significant other Patient Instructions Discharge Signed : Yes Did Pt have Specialty Bed or Wound Vac : No Eliz Segal RN - 07/27/2023 14:36 EST * Julianna Figueroa NP: MODIFY, SIGN, PERFORM, SIGN, VERIFY, MODIFY, SIGN Event Display: Discharge/Transfer Note Hospital Authored Date: [id number] Patient: URSZULA LEE Age: 57 years Sex: Female : 1965 Associated Diagnoses: None Author: Julianna Figueroa NP Discharge Summary Admission Date: 07/26/2023 Discharge Date: 07/27/2023 Admitting Diagnosis: Right knee osteoarthritis Discharge Diagnosis: Right knee osteoarthritis Final Diagnosis: Right knee osteoarthritis Procedure: Right total knee arthroplasty Surgeon: Dr. Frederick Sung Past Medical History: 1. Osteoarthritis of the right knee. 2. SIXTO where the patient wears a CPAP at night with the settings of 6-16. 3. Obesity with a BMI of 38.4. 4. Hypertension. 5. Anxiety. 6. GERD. Orthopedics: The patient is status post right total knee arthroplasty. It is anticipated that she will be discharged home today pending PT, OT clearance. The patient is doing well from a surgical standpoint. Her incision is healing well. Neurovascular status is intact. Calves are supple and nontender. The patient is weight bearing as tolerated. Making good progress with Physical Therapy and Occupational therapy. Supervision with ambulation walking 30 feet, ambulating with a walker. Pain is wellcontrolled on her current regimen, Acetaminophen 650 mg every 6 hours, Celebrex and oxycodone 5-10 mg every 4 hours as needed. Patient is tolerating this well. She will be sent home with a prescription for this medication. Prescription: No tramadol per insurance. Oxycodone 5 mg tablet, 1-2 tablets every 4 hours as needed for severe pain, 7 days # 84 Hospital course: Relatively uneventful medically. Patient is voiding spontaneously. + bowel sounds. all morning bowel medications will be given in anticipation of a BM prior to discharge. No other issues. No calf tenderness. Current Medication List: Acetaminophen (acetaminophen 325 mg oral tablet) 650 Milligram By Mouth Every 6 hours May take OTC not to exceed 3000 mg/day apixaban (Eliquis 2.5 mg oral tablet) 1 tab(s) 2.5 Milligram By Mouth 2 times a day for 30 Days BusPIRone (busPIRone 10 mg oral tablet) 10 Milligram 1 tablet By Mouth Daily Calcium And Vitamin D Combination (Calcio Michele) 1 tab(s) By Mouth Daily Chlorthalidone (chlorthalidone 25 mg oral tablet) 25 Milligram 1 tablet By Mouth Daily Docusate (docusate sodium 100 mg oral capsule) 100 Milligram 1 capsule By Mouth 2 times a day Escitalopram (escitalopram 5 mg oral tablet) 1 tab(s) 5 Milligram TAKE 1 TABLET BY MOUTH EVERY DAY Lidocaine Topical (lidocaine 0.5% topical gel) Topically Daily as needed Pain , Moderate Loratadine 10 Milligram By Mouth Daily Losartan (losartan 100 mg oral tablet) 1 tab(s) 100 Milligram By Mouth Daily MedroxyPROGESTERone (medroxyPROGESTERone 10 mg oral tablet) TAKE 1 TABLET BY MOUTH EVERY DAY Oxycodone (oxyCODONE 5 mg oral tablet) See Instructions as needed 1-2 tablets By Mouth Every 4 hours Pain , Severe Pantoprazole (pantoprazole 40 mg oral delayed release tablet) 40 Milligram By Mouth Daily for 30 Days Polyethylene Glycol 3350 (MiraLax Powder) 1 pack/packet 17 gram By Mouth Daily as needed Constipation Senna (senna 187 mg oral tablet) 1 tab(s) 8.6 Milligram By Mouth Daily at bedtime as needed as needed for constipation Solifenacin (solifenacin 10 mg oral tablet) TAKE 1 TABLET BY MOUTH EVERY DAY Allergies (Active and Proposed Allergies Only) aspirin (Severity: Unknown severity, Onset: Unknown) Reactions: facial swelling and thorat closing NSAIDs (Severity: Unknown severity, Onset: Unknown) Reactions: Tightness in throat Current Labs: BLOOD COUNT & DIFF WBC 12.2 k/mm3 (High) 07/27/2023 01:28 RBC 4.01 m/mm3 (Low) 07/27/2023 01:28 Hgb 11.0 Gm/dL (Low) 07/27/2023 01:28 Hct 33.8 % (Low) 07/27/2023 01:28 MCV 84.3 femtoliters () 07/27/2023 01:28 MCH 27.4 pg () 07/27/2023 01:28 MCHC 32.5 g/dL (Low) 07/27/2023 01:28 Platelet Count 318 k/mm3 () 07/27/2023 01:28 RDW-SD 46.4 femtoliters () 07/27/2023 01:28 MPV 9.8 femtoliters () 07/27/2023 01:28 Nucleated RBC (Automated) 0.0 #/100 WBC'S () 07/27/2023 01:28 Abs. NRBC 0.0 k/mm3 () 07/27/2023 01:28 CHEM GENERAL Sodium 137 mmol/L () 07/27/2023 01:28 Potassium 4.5 mmol/L () 07/27/2023 01:28 Chloride 100 mmol/L () 07/27/2023 01:28 Bicarbonate Level 24 mmol/L () 07/27/2023 01:28 Anion Gap 13 () 07/27/2023 01:28 Glucose, POC 135 mg/dL (High) 07/27/2023 05:29 BUN 13 mg/dL () 07/27/2023 01:28 Creatinine-Blood 0.6 mg/dL () 07/27/2023 01:28 Estimated GFR Creatinine 105 ML/MIN/1.73 M2 () 07/27/2023 01:28 URINE OTHER Est Creatinine Clearance 83.06 mL/min () 07/27/2023 02:50 DVT prophylaxis Apixaban 2.5 mg po bid x 30 days Disposition: Anticipates being discharged today to home. Follow up at [facility] in 2 weeks, patient is aware of this. The patient has an Aquacel dressing in place. She may shower with it and the dressing can be discontinued on POD 14. Discharge Plan Discharge Disposition Discharge: home with VNA. Home Health Face to Face I certify that this patient is under my care and that I or an allowed non- physician practitioner working with me, had a [id number] encounter with the patient on this date: 07/27/2023. The encounter with the patient was in whole, or in part, for the following medical condition, whichis the primary reason for home health care: Osteoarthritis of right knee. Physical Therapy: Functional mobility training, Home exercise program to strengthen, increase ROM, Falls prevention training. Homebound due to: Inability to leave home without assistance/supervision, Inability to ambulate without assistance, Pain, decreased strength, and endurance, Unsteady gait, Impaired transfers, Inability to negotiate stairs. Physician Signature: Pineda GIBSON, Frederick Solitario * Luzma RAE, Eliz: PERFORM Event Display: Patient Education/Instruction Authored Date: [id number] Inpatient Adult Discharge Instructions. [place] [id number] Name: URSZULA LEE : 1965?? Visit: 07/26/2023 10:36?? Current Date: 07/27/2023 12:31 ?? Account: [id number]?? Inpatient Adult Discharge Instructions We would like to thank you for allowing us to assist you with your healthcare needs. The following includes patient education materials and information regarding your injury/illness. Our entire staffstrives to provide an excellent experience for our patients and their families. PLEASE ENSURE YOU FOLLOW-UP PER THE INSTRUCTIONS BELOW! ?? YOUR OPINION IS IMPORTANT TO US! Please complete the survey you may receive by mail or email. Your feedback will be used to make improvements to the healthcare experiences of our patients and their families. Surveys are administered by [employer] ?? If further treatment with your primary care physician or another doctor is recommended, it is important for you to keep the appointment. Call your primary care physician or return to the Emergency Department immediately if your condition worsens, fails to improve, or new symptoms develop. If you need to find a doctor, you can call [facility] for a referral at [phone] or toll free at [phone]) or log in to [email or web address].. ?? [facility], in keeping with [facility] guidance, no longer requires face masks for staff, patientsor visitors in most situations. Similiar to time spent indoors at other locations, there is the chance that you were exposed to repiratory viruses during your time with us (such as flu or COVID-19). If you develop symptoms concerning for a viral respiratory infection, please seek testing (and treatment if indicated) from your medical provider or home test kit. ?? You can view and manage your care through the patient portal or by using a health care lucy of your choosing. [employer] is a website that allows you to securely view your medical information including your hospital discharge summary, office visit summaries, medications and follow-up visits. You can also request appointments, renew medications, and request access to your medical information using a health care lucy of your choosing, or just ask a question. You can enroll at [email or web address] or register during your next office visit. You have been discharged from [facility], Patient Care Unit: SW7??. If you have any questions regarding these instructions, including results of studies pending, afteryou leave, please call us and we will be happy to assist you 24/12. [facility] Your Care Team Attending Physician Frederick Sung?? Consulting Providers Frederick Sung?? Discharging Providers Carolina DAN, Julianna Your Diagnosis Osteoarthritis of right knee Tests Performed Below is a partial list of the tests performed during your hospitalization. You may have had other tests and procedures not included in this list. Please discuss all test results with your provider. BUN CBC Creatinine Electrolytes GLUCOSE POC XR Knee 1 or 2 Views Right BUN?? CBC?? Creatinine?? Electrolytes?? Primary Care Provider Blu Hughes MD , Arelis Wise? Discharge Vitals Temperature: 97.9 DegF Height: 157 cm Pulse Rate: 86 bpm Weight: 95.5 kg Respiratory Rate: 18 br/min Body Mass Index:??38.74 kg/m2??Critical Respiratory Rate: 18 br/min Body surface area: 2.04 Systolic Blood Pressure:??141 mm Hg??High ?? Diastolic Blood Pressure: 77 mm Hg ?? Oxygen Saturation: 96 % ?? Studies Pending All studies ordered during this hospital stay have been completed unless listed below. Please discuss all pending results with your provider listed above in these instructions. ?? BUN?? CBC?? Creatinine?? Electrolytes?? What to do next Instructions From Your Doctor ?? Orders?? Unit Discharge Criteria Met, ??07/27/23 8:28:00 EST?? Prescriptions??, ??07/27/23 8:28:00 EST?? You Need to Schedule the Following Appointments Follow Up with??[facility] When:??Within Within two weeks Where: [address] [place] [address] [address] [place] [address]- Discharge Medications URSZULA LEE :1965 Visit Date:07/26/2023 Medications: Please continue your medications until treatment is completed or stopped by your provider. Medications not listed below should be discontinued. Discuss any questions related to medications with your provider. What How Much When Instructions Next Dose New apixaban (Eliquis 2.5 mg oral tablet) 1 tab(s) Oral Twice a day Duration: 30 Days Pickup at [place] [address] 07/27 PM New Docusate (docusate sodium 100 mg oral capsule) 1 capsule Oral Twice a day Pickup at [place] [address] 07/27 PM New Pantoprazole (pantoprazole 40 mg oral delayed release tablet) 40 Milligram Oral Daily Duration: 30 Days Pickup at [place] [address] 07/28 AM New Polyethylene Glycol 3350 (MiraLax Powder) 17 gram Oral Daily as needed for Constipation as needed New Senna (senna 187 mg oral tablet) 1 tab(s) Oral Daily at Bedtime as needed for as needed for constipation as needed Changed Acetaminophen (acetaminophen 325 mg oral tablet) 650 Milligram Oral Every 6 hours May take OTC not to exceed 3000 mg/ day ?? 07/27 4pm Changed Oxycodone (oxyCODONE 5 mg oral tablet) See instructions 1-2 tablets ??By Mouth Every 4 hours, As needed for Pain , Severe ?? Pickup at [facility] Unchanged BusPIRone (busPIRone 10 mg oral tablet) 1 tab(s) Oral Daily 07/28 AM Unchanged Calcium And Vitamin D Combination (Calcio Michele) 1 tab(s) Oral Daily hold until further instructed by [facility]OS Unchanged Chlorthalidone (chlorthalidone 25 mg oral tablet) 1 tab(s) Oral Daily 07/28 AM Unchanged Escitalopram (escitalopram 5 mg oral tablet) 1 tab(s) TAKE 1 TABLET BY MOUTH EVERY DAY ?? 07/28 AM Unchanged Lidocaine Topical (lidocaine 0.5% topical gel) Topically Daily as needed for Pain , Moderate as needed Unchanged Loratadine 10 Milligram Oral Daily 07/28 AM Unchanged Losartan (losartan 100 mg oral tablet) 1 tab(s) Oral Daily 07/28 AM Unchanged MedroxyPROGESTERone (medroxyPROGESTERone 10 mg oral tablet) TAKE 1 TABLET BY MOUTH EVERY DAY ?? may resume as prescribed Unchanged Solifenacin (solifenacin 10 mg oral tablet) TAKE 1 TABLET BY MOUTH EVERY DAY ?? may resume as prescribed Pharmacy Information [facility]: [address] [place] [address] [phone] Prescription Given During Visit Docusate (docusate sodium 100 mg oral capsule) - 1 capsule = 100 mg, By Mouth, 2 times a day, # 60 capsule, 0 Refills, [address] [address] [phone]?? Oxycodone (oxyCODONE 5 mg oral tablet) - , # 84 tablet, 0 Refills, 1-2 tablets ??By Mouth Every 4 hours, [address] [address] [phone]?? Pantoprazole (pantoprazole 40 mg oral delayed release tablet) - 40 mg, By Mouth, Daily, # 30 tablet, 0 Refills, [address] [address] [phone]?? apixaban (Eliquis 2.5 mg oral tablet) - 1 tablet = 2.5 mg, By Mouth, 2 times a day, # 60 tablet, 0 Refills, [address] [phone]?? Laboratory Results Below is a partial list of the most recent Laboratory test results done prior to this discharge. You may have had other tests and procedures not included in this list. Please discuss all test resultswith your provider. Est Creatinine Clearance - 83.06 mL/min (07/27/2023) BUN (07/27/2023) ???BUN - 13 mg/dL CBC (07/27/2023) ???WBC - 12.2 k/mm3???RBC - 4.01 m/mm3???Hgb - 11.0 Gm/dL???Hct - 33.8 %???MCV - 84.3 femtoliters???MCH - 27.4 pg???MCHC - 32.5 g/dL???Platelet Count - 318 k/mm3???RDW-SD - 46.4 femtoliters???MPV - 9.8 femtoliters???Nucleated RBC (Automated) - 0.0 #/100 WBC'S???Abs. NRBC - 0.0 k/mm3 Creatinine (07/27/2023) ???Creatinine-Blood - 0.6 mg/dL???Estimated GFR Creatinine - 105 ML/MIN/1.73 M2 Electrolytes (07/27/2023) ???Sodium - 137 mmol/L???Potassium - 4.5 mmol/L???Chloride - 100 mmol/L???Bicarbonate Level - 24 mmol/L???Anion Gap - 13 GLUCOSE POC (07/27/2023) ???Glucose, POC - 116 mg/dL Allergies (NKA means No Known Allergies) NSAIDs??(Tightness in throat) aspirin??(facial swelling and thorat closing) Problems Active Problems??(1) Obese class II?? Education Materials Below is the list of Educational Leaflet Providered with your Discharge Instructions. [employer] Patient Education - Total Knee Replacement?? [employer] Patient Education - Oxycodone Oral Tablet 5 mg?? [employer] Patient Education - Apixaban Oral Tablet?? Valuables and Belongings I fully understand and agree that [facility] accepts no responsibility for all my personal property including clothing, toilet articles, radios, jewelry, dentures, hearing aids, rings, money, or any other property that is in my possession or is brought to me after admission. I understand certain valuables may be placed in a hospital safe for a short period of time. I understand that the hospital is not liable for loss or damage due to accident, fire, or other natural occurrence while said property is in the safe. I accept full responsibility for any personal property that I keep with me, and will not hold the hospital responsible in case of loss or disappearance. I acknowledge that i have been encouraged to send valuables and belongings home. ?? Review of Valuable and Belonging List: With patient Disposition of Belongings: Other: panu locker Date for Pt to Sign Valuables/Belongings: 07/26/23 18:06:00 ?? Other Discharge Information ? Case Management Discharge Plan?? Discharge Plan?? Discharge Agency Information?? Discharge Level of Care at Discharge: Homehealth/VNA Agency [employer] Specialist #1: Intake Mode of Transportation Arranged: Other Service Categories #1: Physical Therapy Discharge VNA/Hospice/Home Care: [facility] [phone] Service Comments #1: You will receive a call to arrange a home visit. ??Please call the agency withany questions. ?? Pulmonary Rehab Status?? Pulmonary Rehab Discharge Status?? CPAP/BiPAP Mask Type: Full CPAP/BiPAP Mask Size: Medium Respiratory Rate: 18 br/min Respiratory Rate: 18 br/min ? Common Emergency Awareness Tips IS IT A STROKE? Act FAST and Check for these signs: FACE Does the face look uneven? ARM Does one arm drift down? SPEECH Does their speech sound strange? TIME Call at any sign of stroke ?? Heart Attack Signs Chest discomfort: Most heart attacks involve discomfort in the center of the chest and lasts more than a few minutes, or goes away and comes back. It can feel like uncomfortable pressure, squeezing, fullness or pain. Discomfort in upper body: Symptoms can include pain or discomfort in one or both arms, back, neck, jaw or stomach. Shortness of breath: With or without discomfort. Other signs: Breaking out in a cold sweat, nausea, or lightheaded. Remember, MINUTES DO MATTER. If you experience any of these heart attack warning signs, call to get immediate medical attention! ?? Smoking can increase your chances of developing chronic health problems and can cause harmful effects to other family members in your house. If you smoke, you are strongly encouraged to quit. Please call [facility] Link at [phone] or [phone] ([phone]) or log in to [email or web address] for referrals to smoking cessation programs. ?? 679 Suicide & Crisis Lifeline is available 24/12 if you or someone you know needs to find a reason to keep living. By calling 818 you'll be connected to a skilled, trained counselor at a crisis center in your area. INPATIENT DISCHARGE INSTRUCTIONS SIGNATURE PAGE URSZULA LEE Location:[facility] Registration Date and Time:07/26/2023 10:36 EST Primary Care Physician: Blu Hughes MD , Arelis Wise, Attending Physician: Pineda GIBSON, Frederick Castellanos, I LEEURSZULA BREWER, have received the above patient education materials/instructions and have verbalized understanding. If ambulance or transport services are being used I further acknowledge being given a choice of service. ?? If you need to contact me, please call me at this number: . Patient/Matcher Operator Name: Patient/Matcher Operator Signature: Relationship to Patient: Witness Name/Signature: Date: * Eliz Segal RN: PERFORM Event Display: Patient Education Leaflets Authored Date: Total Knee Replacement ?? [id number] Reemplazo total de rodilla Nitesh joanna cirug??a de reemplazo total de rodilla, se reemplaza la articulaci??n de la rodilla lesionada por joanna articulaci??n artificial llamada pr??tesis. La cirug??a mikey siempre reduce el dolor en la articulaci??n y mejora orozco calidad de karina. Las piezas de la pr??tesis se sujetan en los huesos de la rodilla y en conjunto smooth la articulaci??n nueva. Antes de la cirug??a Lo m??s probable es que ingrese al hospital en la ma??arelis del d??a de la cirug??a. Siga todas las instrucciones de orozco proveedor de atenci??n m??dica al prepararse para la cirug??a. ??? Siga todas lasinstrucciones que le den sobre los medicamentos y no coma ni ariane nada antes de la cirug??a, nuria rk le indicaron. ??? En el hospital, le revisar??n la temperatura, el pulso, la respiraci??n y la presi??n arterial. ??? Le colocar??n joanna v??a intravenosa para administrarle medicamentos y l??quidos nitesh la cirug??a. ?? El procedimiento Cuando el equipo de cirug??a est?? listo, lo llevar??n al quir??fano. All?? le shana??n anestesia para que duerma nitesh la cirug??a. O bimal, la anestesia lo insensibilizar?? de la cintura para abajo.Luego, le binta??n joanna incisi??n en la parte lateral o frontal de la rodilla. Le quitar??n cualquier hueso da??ado. Se colocan las partes de la nueva articulaci??n. La incisi??n se deuce con grapas quir??rgicas o puntos. ?? Despu??s de orozco cirug??a Despu??s de la cirug??a, lo llevar??n a la west de recuperaci??n. Cuando est?? completamente despierto, le llevar??n a orozco habitaci??n. Los enfermeros le shana??n medicamentos para aliviar el dolor. Se le podr??a colocar un cat??ter (un tubo ceballos) en la vejiga. En algunos casos, puede usarse joanna m??quina de movimiento pasivo continuo en la rodilla para evitar la rigidez. Puede usarse un dispositiv o de compresi??n secuencial para prevenir co??gulos de bharti al ejercer joanna suave presi??n intermitente en la parte inferior de la pierna.??Es posible que le administren un medicamento para prevenirla formaci??n de co??gulos.??Poco despu??s, los proveedores de atenci??n m??dica lo ayudar??n a levantarse y a moverse. ?? Cu??ndo??llamar al proveedor de atenci??n m??dica Joanna vez que regrese a casa, llame a orozco proveedor de atenci??n m??dica si presenta cualquiera de estos s??ntomas: ??? Aumento del dolor en la rodilla ??? Dolor o hinchaz??n en la pantorrilla o la pierna ??? El ??paul de la incisi??n muestra un enrojecimiento inusual, est?? caliente o supura ??? Fiebre de 100.4??F??(38??C) o superior, o seg??n lo que le haya indicado el proveedor de atenci??n m??dica ??? Escalofr??os con temblores ??? Dificultad para respirar o dolor en el pecho (llame al 911) ?? Last Reviewed Date: 2020 ?? [id number] [email or web address]. Todos los derechos reservados. Esta informaci??n no pretende sustituir la atenci??n m??dica profesional. S??lo orozco m??dico puede diagnosticar y tratar un problema de fernie. ?? * Eliz Segal RN: PERFORM Event Display: Patient Education Leaflets Authored Date: [id number] Oxycodone Oral Tablet 5 mg ?? [id number] Oxycodone Oral Tablet 5 mg Usos Para el dolor. ?? Instrucciones Las tabletas de algunas marcas de leah medicamento deben tragarse enteras, mientras que las de otras marcas pueden triturarse. Preg??ntele a orozco farmac??utico c??mo debe geoff leah medicamento. Leah medicamento se puede geoff con o sin alimentos. Tragar con un vaso de agua lleno (8 onzas), a menos que orozco m??dico le d?? otras instrucciones. Guarde a temperatura ambiente, alejado del calor, la amber y la humedad. No lo guarde en el ba??o. Pregunte a orozco m??dico, enfermero o farmac??utico c??mo desechar de forma hoang los medicamentos sin usar. Para reducir el estre??imiento, consuma alimentos con alto contenido de fibra, ariane hubert agua y pedro ejercicio. Evite geoff jugo de pomelo o toronja mientras est?? usando leah medicamento. Las interacciones con otros medicamentos pueden cambiar la forma en que act??an los medicamentos o aumentar el riesgo de presentar efectos secundarios. Informe a gene profesionales sanitarios acerca de todos los medicamentos que usa. [place] incluye medicamentos con y sin receta m??dica, vitaminas y medicamentos a base de hierbas. Hable con orozco m??dico o farmac??utico antes de empezar o dejar de usar cualquier medicamento. Informe a orozco m??dico si gene s??ntomas no mejoran o si empeoran. Es posible que salgan trozos de leah medicamento en las heces. [place] es normal. ?? Precauciones Leah medicamento contiene un opioide. Aunque los opioides ayudan a muchas personas, pueden causar adicci??n, en especial si se usan nitesh susy tiempo. El riesgo de adicci??n es mayor si usted padece un trastorno de uso de sustancias (uso excesivo de drogas o alcohol, o adicci??n a estas sustancias). Preg??ntele a orozco m??dico acerca de los beneficios y los riesgos. Pregunte a orozco m??dico o a orozco farmac??utico si usted debe tener naloxona disponible para tratar joanna sobredosis por opioides. Ens?kale a gene familiares o a las personas que viven con usted a identificar los signos de joanna sobredosis por opioides y c??mo tratarla. Si tripp de usar leah medicamento repentinamente despu??s de haberlo usado nitesh susy tiempo, es posible que tenga s??ntomas de abstinencia. Orozco m??dico podr??a reducir orozco dosis lentamente antes de que deje de usarlo. Informe a orozco m??dico de inmediato si tiene s??ntomas, por ejemplo, sudoraci??n inusual, ojos llorosos, goteo nasal, escalofr??os, diarrea, bostezos, kevin musculares, inquietud, ansiedad, problemas para dormir o pensamientos suicidas. Informe a orozco m??dico y a orozco farmac??utico si alguna vez alonso tenido joanna reacci??n al??rgica a un medicamento. No use el medicamento m??s veces de lo indicado. Si es posible, evite el uso con alcohol, marihuana u otros medicamentos que puedan causar mareos o somnolencia. Entre estos se incluyen productos para tratar alergias o resfriados, relajantes musculares, medicamentos para ayudar a dormir y medicamentos para aliviar el dolor. Leah medicamento puede afectar orozco capacidad de mantenerse alerta o de reaccionar con rapidez. No maneje ni opere m??quinas hasta que sepa qu?? efecto le provocar?? leah medicamento. Leah medicamento pasa a la leche materna. Consulte a orozco m??dico antes de amamantar. Leah medicamento puede causar da??os a un beb?? en el ??tero. Si queda embarazada mientras usa estemedicamento, av??lucrecia a orozco m??dico de inmediato. El m??dico puede cambiar el medicamento por otro diferente. Los pacientes con dificultades de respiraci??n deben usar leah medicamento con precauci??n. Llame a orozco m??dico inmediatamente si observa que la respiraci??n es lenta o superficial. No comparta leah medicamento con otras personas a quienes no se les recet??. Algunos pacientes presentan efectos secundarios graves con leah medicamento. P??chucho a orozco farmac??utico que le muestre la informaci??n de la Administraci??n de Alimentos y Medicamentos (FDA) y que laanalice con usted. ?? Efectos Secundarios La siguiente es joanna lista de algunos efectos secundarios comunes de leah medicamento. Hable con el m??dico para saber qu?? debe hacer en christine de tener estos u otros efectos secundarios. ??? p??rdida de apetito ??? estre??imiento ??? mareos o aturdimiento ??? mareo ??? n??useas y v??mitos Llame al m??dico u obtenga atenci??n m??dica de inmediato si nota cualquiera de estos efectos secundarios m??s graves: ??? sensaci??n de agitaci??n o dificultad para dormir ??? reducci??n del nivel de conciencia o de las reacciones ??? interrupci??n de la respiraci??n nitesh el foreign??o ??? respiraci??n r??pida e irregular ??? cambios en la memoria, estado de ??loni o de pensamientos ??? confusi??n ??? desmayo ??? alucinaciones (pensamientos extra??os, tricia u o??r cosas que no son reales) ??? convulsiones ??? dolorintenso del est??brett o las v??as digestivas ??? cansancio o debilidad, extra??o o sin causa aparente ??? dificultad o molestia al orinar ??? p??rdida de peso Algunas personas podr??an tener reacciones al??rgicas a leah medicamento. Entre los s??ntomas pueden incluirse: dificultad para respirar, erupci??n en la piel, comez??n, hinchaz??n o mareos intensos.Si nota algunos de estos s??ntomas, busque asistencia m??dica r??pidamente. ?? Extra Hable con orozco m??dico, enfermero o farmac??utico si tiene alguna pregunta acerca de leah medicamento. ?? [email or web address] NOTA IMPORTANTE: En leah documento hay joanna explicaci??n breve sobre c??mo usar el medicamento, perono incluye todo lo que hay que saber acerca del medicamento. Orozco m??dico o orozco farmac??utico podr??a suministrarle otros documentos acerca de orozco medicamento. Comun??quese con ellos si tiene alguna pregunta. Siga siempre gene consejos. Joanna descripci??n m??s completa de leah medicamento est?? disponibleen ingl??s. Escanee leah c??digo en orozco tel??fono inteligente o en orozco tableta, o use la direcci??n web que aparece a continuaci??n. Tambi??n puede pedirle a orozco farmac??utico joanna copia impresa. Si tiene alguna pregunta, h??gasela a orozco farmac??utico. La exhibici??n y el uso de esta informaci??n sobre f??rmacos est?? sujeta a los T??rminos de Uso. Copyright(c) 2022 [employer]. ?? [id number] [email or web address]. All rights reserved. This information is not intended as a substitute for professional medical care. Always follow your healthcare professional's instructions. ?? * Eliz Segal RN: PERFORM Event Display: Patient Education Leaflets Authored Date: [id number] Apixaban Oral Tablet ?? [id number] Apixaban Oral Tablet Brands: Eliquis Usos Leah medicamento se usa para las siguientes afecciones: ??? co??gulo de bharti ??? prevenir co??gulos de bharti ??? trastorno sangu??elsa ??? tratamiento de co??gulos de bharti ?? Instrucciones Leah medicamento se puede geoff con o sin alimentos. Leah medicamento funciona mejor si se usa a aproximadamente la misma hora todos los d??as. Guarde a temperatura ambiente, alejado del calor, la amber y la humedad. No lo guarde en el ba??o. Es importante que contin??e tomando todas las dosis de leah medicamento a la hora indicada aunque se sienta bimal. Si olvida geoff joanna dosis a tiempo, t??karin mendoza pronto lo recuerde. Si es mikey la hora de la dosis siguiente, no tome la dosis olvidada. Vuelva al horario normal. No tome dos dosis al mismo tiempo. Las interacciones con otros medicamentos pueden cambiar la forma en que act??an los medicamentos o aumentar el riesgo de presentar efectos secundarios. Informe a gene profesionales sanitarios acerca de todos los medicamentos que usa. [place] incluye medicamentos con y sin receta m??dica, vitaminas y medicamentos a base de hierbas. Hable con orozco m??dico o farmac??utico antes de empezar o dejar de usar cualquier medicamento. Hable con orozco m??dico antes de geoff otros medicamentos, incluso las aspirinas y los productos que contienen ibuprofeno. Hable con orozco m??dico acerca de los medicamentos que puede usar sin riesgos mientras use leah medicamento. Es muy importante que siga las instrucciones de orozco m??dico para todos los an??lisis de bharti. ?? Precauciones Esta medicina puede causar graves problemas de hemorragia en pacientes que kirsty medicamentos diluyentes de la bharti. Siga atentamente las instrucciones de orozco m??dico para monitorear gene ex??menes de bharti en laboratorio si sherley diluyentes de la bharti. Informe a orozco m??dico y a orozco farmac??utico si alguna vez alonso tenido joanna reacci??n al??rgica a un medicamento. Leah medicamento puede causar sangrado intenso del est??brett o los intestinos. Deje de geoff leah medicamento y llame a orozco m??dico inmediatamente si nota alguna se??al de sangrado. El sangrado puede causar dolor de est??brett, v??galina de un l??quido parecido a caf?? molido y heces de color ennis, o alquitranadas y oscuras. Hay un mayor riesgo de sangrado mientras sherley esta medicina; av??lucrecia a orozco m??dico o enfermero si observa sangrado excesivo o moretones. No use el medicamento m??s veces de lo indicado. Consulte a orozco m??dico antes de beber alcohol mientras usa leah medicamento. No amamante mientras est?? usando leah medicamento. Leah medicamento puede causar da??os a un beb?? en el ??tero. Si queda embarazada mientras usa estemedicamento, av??lucrecia a orozco m??dico de inmediato. El m??dico puede cambiar el medicamento por otro diferente. No tome hierba de [place] mientras use leah medicamento. No comparta leah medicamento con otras personas a quienes no se les recet??. Algunos pacientes presentan efectos secundarios graves con leah medicamento. P??chucho a orozco farmac??utico que le muestre la informaci??n de la Administraci??n de Alimentos y Medicamentos (FDA) y que laanalice con usted. Siempre vuelva a surtir esta medicina antes de que se le acabe. ?? Efectos Secundarios La siguiente es joanna lista de algunos efectos secundarios comunes de leah medicamento. Hable con el m??dico para saber qu?? debe hacer en christine de tener estos u otros efectos secundarios. ??? hemorragia nasal Llame al m??dico u obtenga atenci??n m??dica de inmediato si nota cualquiera de estos efectos secundarios m??s graves: ??? sangrado o moretones ??? tos con bharti, o v??galina con aspecto de poso de caf? desmayo ???adormecimiento u hormigueo en las tyler y los pies ??? dolor de mikie intenso o persistente ??? dolor de piernas, hinchaz??n, calor o enrojecimiento repentinos ??? p??rdida de movimiento en cualquier parte del cuerpo ??? falta de aliento ??? heces con bharti o de color oscuro/alquitranadas ??? s??ntomas de accidente cerebrovascular (por ejemplo, debilidad en un lado del cuerpo, hablar arrastrando las palabras, confusi??n) ??? dificultad para tragar ??? cansancio o debilidad, extra??o o sin causa aparente ??? bharti en la orina ??? visi??n borrosa o cambios en la visi??n Algunas personas podr??an tener reacciones al??rgicas a leah medicamento. Entre los s??ntomas pueden incluirse: dificultad para respirar, erupci??n en la piel, comez??n, hinchaz??n o mareos intensos.Si nota algunos de estos s??ntomas, busque asistencia m??dica r??pidamente. ?? Extra Hable con orozco m??dico, enfermero o farmac??utico si tiene alguna pregunta acerca de leah medicamento. ?? [email or web address] NOTA IMPORTANTE: En leah documento hay joanna explicaci??n breve sobre c??mo usar el medicamento, perono incluye todo lo que hay que saber acerca del medicamento. Orozco m??dico o orozco farmac??utico podr??a suministrarle otros documentos acerca de orozco medicamento. Comun??quese con ellos si tiene alguna pregunta. Siga siempre gene consejos. Joanna descripci??n m??s completa de leah medicamento est?? disponibleen ingl??s. Escanee leah c??digo en orozco tel??fono inteligente o en orozco tableta, o use la direcci??n web que aparece a continuaci??n. Tambi??n puede pedirle a orozco farmac??utico joanna copia impresa. Si tiene alguna pregunta, h??gasela a orozco farmac??utico. La exhibici??n y el uso de esta informaci??n sobre f??rmacos est?? sujeta a los T??rminos de Uso. Copyright(c) 2022 [employer]. ?? 5435-3058 [facility]. All rights reserved. This information is not intended as a substitute for professional medical care. Always follow your healthcare professional's instructions. ?? Cardiology * Event Display: Cardiac Rhythm Strips Authored Date: Hospital Progress note * Eliz Segal RN: SIGN, MODIFY, PERFORM, SIGN, VERIFY, MODIFY, SIGN Event Display: Progress Note Hospital Authored Date: [id number] Patient: URSZULA LEE Age: 57 years Sex: Female : 1965 Associated Diagnoses: None Author: Eliz Segal RN Findings Problem Related to Alteration in Musculoskeletal : Alteration in Musculoskeletal Func/new 07/27/2023 11:00 EST Alteration in Musculoskeletal Related to Mobility, Orthopedic Procedure, Total joint replacement, Other: R TKA-07/26 Goals & Outcomes, Musculoskeletal Affected extremity will maintain color/motion/sensation, Pt able to perform ADL's to best of ability, Pt demonstrates precautions/exercise/ transfers per protocol, Pt will ambulate safely with assistive device, Pt will be free from complications of immobility, Pt will demonstrate ability to participate in ADL's, Pt will report acceptable level of comfort/painrelief Interventions, Musculoskeletal Monitor patients ambulation status, monitor Color/Motion/Sensation, Assist with repositioning, Encourage deep breathing & coughing exercises, Notify MD immediately if tissue perfusion deteriorates, Teach & Encourage use of Incentive spirometer, Teach pt/caregiver on use of pain scale, Teach Pt/caregiver complications of immobility, Teach Pt/caregiver techniques to increase mobility, Teach Pt/caregiver on safety precautions, Incision care as ordered, Instruct pt on gait training, [place] Pt/caregiver to Total Knee Replacement protocol Goals/Interventions, Musculoskeletal Yes Musculoskeletal, Problem Start 07/26/2023 16:35 Reviewed Plan with, Musculoskeletal Patient Patient Progression, Musculoskeletal Pt progressing according to plan . Nursing Data Vital Signs : VITAL SIGNS SECTION 07/27/2023 7:00 EST Temperature 97.9 DegF Temperature Route Oral Pulse Rate 86 bpm Respiratory Rate 18 br/min Systolic Blood Pressure 141 mm Hg H Diastolic Blood Pressure 77 mm Hg Blood pressure sites Arm, left Pulse Pressure 64 mm Hg Oxygen Saturation 96 % Mode of Delivery (Oxygen) Room air . Narrative/Incidental 57 yo female patient; A&Ox3. Primarily italian speaking but able to have basic conversation andmake needs known in [place]. Lungs wheezy and dim in BLL, IS at bedside and encouraged; denies SOB/CP. +BSx4, abd SNT; LBM 07/25. Tolerating diabetic carb diet; denies N/V. POCs as ordered. Patient voiding in bathroom. Cefazolin admin as ordered. Eliquis and c-boots for DVT prophylaxis. Discharge plan to home with [facility] pending PT/OT clearance. Patient resting in chair, no complaints at this time. Call baugh within reach, bed in lowest locked position. Evaluation P: Alteration in Musculoskeletal I: See interventions listed in care plan E: s/p right TKR PoD1. OOB 1 assist with walker and KI. Right knee aquacel C/D/I with KI in use. +PP, +CMS, +d/p flex. Patient endorsing pain 3/10, requesting 10mg oxycodone. 10mg oxycodone and scheduled tylenol given as ordered, +relief per patient. Plan of care ongoing. Discharge Information Case Management Discharge Plan : Case Management Discharge Plan Data 07/26/2023 13:03 EST Discharge Level of Care at Discharge Homehealth/VNA Discharge VNA/Hospice/Home Care [facility] [phone] Mode of Transportation Arranged Other Agency Biomedical Equipment Specialist #1 Intake Service Categories #1 Physical Therapy Service Comments #1 You will receive a call to arrange a home visit. Please call the agency with any questions. Pulmonary Rehab Discharge : Pulmonary Rehab Discharge Status 07/27/2023 5:58 EST CPAP/BiPAP Mask Type Full CPAP/BiPAP Mask Size Medium 07/27/2023 2:14 EST CPAP/BiPAP Mask Type Full CPAP/BiPAP Mask Size Medium * Eliz Segal RN: PERFORM Event Display: Progress Note Hospital Authored Date: [id number] Discharge instructions reviewed with patient verbalizing understanding; signed and placed in chart.IV D/C without incident; catheter tip intact, DSD applied. * Paula Harvey RN: PERFORM, SIGN, VERIFY Event Display: Progress Note Hospital Authored Date: [id number] Patient: URSZULA LEE Age: 57 years Sex: Female : 1965 Associated Diagnoses: None Author: Paula Harvey RN Findings Problem Related to Alteration in Comfort : Alteration in Comfort/new 07/27/2023 0:26 EST Alteration in Comfort Related to Disease process, Surgery, Other: R TKA-07/26 Goals & Outcomes: Comfort Pt will report acceptable level of comfort & pain control, Pt will state importance of adhering to pain strategy regime, Pt will demonstrate necessary skills to manage pain, Non-verbal indicators will indicate comfort/pain control Interventions Implemented: Comfort Assess pain using appropriate pain scale/tools, Assess aggravating factors & prevent them accordingly, Assess alleviating factors & promote them accordingly BH Goals/Interventions, Comfort Yes Comfort, Problem Start 07/27/2023 0:26 Reviewed plan with, Comfort Patient Patient Progression, Comfort Pt progressing according to plan Comfort, Problem Ongoing Yes . Alteration in Musculoskeletal : Alteration in Musculoskeletal Func/new 07/27/2023 0:26 EST Alteration in Musculoskeletal Related to Mobility, Orthopedic Procedure, Total joint replacement, Other: R TKA-07/26 Goals & Outcomes, Musculoskeletal Affected extremity will maintain color/motion/sensation, Pt able to perform ADL's to best of ability, Pt demonstrates precautions/exercise/ transfers per protocol, Pt will ambulate safely with assistive device, Pt will be free from complications of immobility, Pt will demonstrate ability to participate in ADL's, Pt will report acceptable level of comfort/painrelief Interventions, Musculoskeletal Monitor patients ambulation status, monitor Color/Motion/Sensation, Assist with repositioning, Encourage deep breathing & coughing exercises, Obtain assistive devices as needed, Teach & Encourage use of Incentive spirometer, Teach Pt/caregiver on ADL's & adaptive equipment, Teach Pt/caregiver on exercises, Teach pt/caregiver on use of pain scale, Teach Pt /caregiver complications of immobility, Teach Pt/caregiver techniques to increase mobility, Teach Pt/caregiver on safety precautions, Incision care as ordered, Instruct pt on gait training, [place] Pt/caregiver to Total Knee Replacement protocol BH Goals/Interventions, Musculoskeletal Yes Musculoskeletal, Problem Start 07/26/2023 16:35 Reviewed Plan with, Musculoskeletal Patient Patient Progression, Musculoskeletal Pt progressing according to plan . Nursing Data Vital Signs : VITAL SIGNS SECTION 07/27/2023 0:00 EST Temperature 98.4 DegF Temperature Route Oral Pulse Rate 90 bpm Respiratory Rate 18 br/min Systolic Blood Pressure 142 mm Hg H Diastolic Blood Pressure 72 mm Hg Blood pressure sites Arm, left Mean Arterial Pressure 95 mm Hg Pulse Pressure 70 mm Hg Oxygen Saturation 95 % Mode of Delivery (Oxygen) Room air 07/26/2023 17:33 EST Temperature 98.0 DegF Temperature Route Oral Pulse Rate 84 bpm Respiratory Rate 18 br/min Systolic Blood Pressure 148 mm Hg H Diastolic Blood Pressure 79 mm Hg Blood pressure sites Arm, left Mean Arterial Pressure 102 mm Hg Pulse Pressure 69 mm Hg Oxygen Saturation 100 % Mode of Delivery (Oxygen) Room air . Narrative/Incidental Pt is a 57yo F, admitted for a R TKA on 07/26/23 with . Pt is A+Ox3, pt is primarily Belarusian speaking but understand Martiniquais well enough to answer assessment questions and make needs known, VSS, +CSM, +PP, strong D/P flexion, lung sounds diminished with inspiratory and expiratory wheezing present in bilateral lower lobes, pt has a hx of SIXTO, CPAP utilized overnight. Pt reports 8/10 pain, with minimal/slight relief from Tylenol q 6hr, and 10mg Oxycodone q 3hr, will continue to monitor and manage pain levels. Pt has +BSx4, abd is s/nt/nd, no N/V, last BM 07/26, pt is on a diabetic carb counting diet with a 75g carbohydrate restriction and is tolerating well. Pt is OOB with 1 assistand walker and KI in place, and is voiding cyu in the BR with no issues. Pt has an Aquacel dressingon R knee that is C/D/I. Pt had an elevated A1C level preop and d/t this has scheduled glucose (nsgPOC) for three times a day before meals and at bedtime, glucose POC for bedtime was preformed at 21:15 for a result of 129mg/dL which is WNL of bedtime glucose level and did not require any interventions this evening, will continue to monitor glucose POC as ordered and administered insulin per SS as ordered and needed. Will continue DVT prophylaxis with Cboots on bilaterally, and 2.5mg Eliquis BID. Discharge Information Case Management Discharge Plan : Case Management Discharge Plan Data 07/26/2023 13:03 EST Discharge Level of Care at Discharge Homehealth/VNA Discharge VNA/Hospice/Home Care [facility] [phone] Mode of Transportation Arranged Other Agency Biomedical Equipment Specialist #1 Intake Service Categories #1 Physical Therapy Service Comments #1 You will receive a call to arrange a home visit. Please call the agency with any questions. * Eliz Segal RN: PERFORM, SIGN, VERIFY Event Display: Progress Note Hospital Authored Date: Patient: URSZULA LEE Age: 57 years Sex: Female : 1965 Associated Diagnoses: None Author: Eliz Segal RN Findings Problem Related to Alteration in Musculoskeletal : Alteration in Musculoskeletal Func/new 07/26/2023 16:00 EST Alteration in Musculoskeletal Related to Mobility, Orthopedic Procedure, Total joint replacement, Other: R TKR 07/26 Goals & Outcomes, Musculoskeletal Affected extremity will maintain color/motion/sensation, Pt able to perform ADL's to best of ability, Pt demonstrates precautions/exercise/ transfers per protocol, Pt will ambulate safely with assistive device, Pt will be free from complications of immobility, Pt will report acceptable level of comfort/pain relief Interventions, Musculoskeletal Monitor patients ambulation status, monitor Color/Motion/Sensation, Assist with repositioning, Encourage deep breathing & coughing exercises, Notify MD immediately if tissue perfusion deteriorates, Obtain assistive devices as needed, Teach & Encourage use of Incentive spirometer, Teach Pt/caregiver on ADL's & adaptive equipment, Teach pt/caregiver on useof pain scale, Teach Pt/caregiver on safety precautions, Incision care as ordered, Instruct pt on gait training, [place] Pt/caregiver to Total Knee Replacement protocol Goals/Interventions, Musculoskeletal Yes Musculoskeletal, Problem Start 07/26/2023 16:35 Reviewed Plan with, Musculoskeletal Patient Patient Progression, Musculoskeletal Plan Initiation . Nursing Data Vital Signs : VITAL SIGNS SECTION 07/26/2023 17:33 EST Temperature 98.0 DegF Temperature Route Oral Pulse Rate 84 bpm Respiratory Rate 18 br/min Systolic Blood Pressure 148 mm Hg H Diastolic Blood Pressure 79 mm Hg Blood pressure sites Arm, left Mean Arterial Pressure 102 mm Hg Pulse Pressure 69 mm Hg Oxygen Saturation 100 % Mode of Delivery (Oxygen) Room air . Narrative/Incidental 57 yo female patient; A&Ox3. 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 Lungs wheezy and dim in BLL, IS at bedside and encouraged; denies SOB/CP. +BSx4, abd SNT;LBM 07/25. Diabetic card diet initiated; denies N/V. POC 96. Patient able to void 450cc CYU in bathroom. C- boots for DVT prophylaxis, eliquis to start PoD1. Patient resting in chair, no complaints at this time. Call baugh within reach, bed in lowest locked position. . Evaluation P: Alteration in Musculoskeletal I: See interventions listed in care plan E: s/p right TKR PoD0. Patient arrived to unit from [facility] at 1730. Right knee aquacel C/D/I with KI in use. +PP, +CMS, +d/p flex. Patient endorsing pain 6/10, requesting 10mg oxycodone. 10mg oxycodoneand scheduled tylenol given as ordered. Plan of care ongoing. . Discharge Information Case Management Discharge Plan : Case Management Discharge Plan Data 07/26/2023 13:03 EST Discharge Level of Care at Discharge Homehealth/VNA Discharge VNA/Hospice/Home Care [facility] [phone] Mode of Transportation Arranged Other Agency Biomedical Equipment Specialist #1 Intake Service Categories #1 Physical Therapy Service Comments #1 You will receive a call to arrange a home visit. Please call the agency with any questions. Patient Care team information Care Team Personnel Name: Paula Harvey RN Position: S RN Member Role: Primary Care Nurse Name: Elliot Booker RN Position: S RN Member Role: Primary Care Nurse Name: Arelis Irvin MD Position: Reference Physician Member Role: PCP Address: Address: [address] [place] [address]- Care Team Related Persons Name: DELPHINE VINNY Address: home [address] [address]
--- OUTSIDE RECORDS SUMMARY | 2023-10-24 17:18 | XMS_ITS | Continuity of Care Document ---
Author Organization [facility] ter Address [address] [place] [address]- Care Team Providers Care Blending Machine Operator Name Role Phone Blu Hughes MD, Blossom Primary Care Physician Encounter [facility] [place] Date(s): 07/26/23 - 08/25/[address] [address]- Attending Physician: Not on Staff, Attending MD Admitting Physician: Not on Staff, Admitting MD Referring Physician: Not on Staff, Referring MD Allergies, Adverse Reactions, Alerts Substance Reaction [...] opioid drug. Start Date: 07/27/23 Status: Ordered busPIRone 10 mg oral tablet 10 mg, 1, tablet, By Mouth, Daily, Refills 0, Maintenance, 08/16/21 16:27:00 EDT, Partial fill uponpatient request if the prescription is for a schedule II opioid drug. Start Date: 08/16/21 Status: Ordered Calcio [place] 1 tablet, By Mouth, Daily, 0 Refills, [...] 07/27/23 8:20:00 EST, Route to Pharmacy Electronically, [facility], Partial fill upon patient request if the prescription is for a schedul... Start Date: 07/27/23 Status: Ordered Eliquis 2.5 mg oral tablet 1 tablet = 2.5 mg, By Mouth, 2 times a day, # 60 tablet, 0 Refills, Maintenance, 07/27/23 8:21:00 EST, Tablet, [facility], Partial fill upon patient [...] opioid drug. Start Date: 08/16/21 Status: Ordered medroxyPROGESTERone 10 mg oral tablet TAKE 1 TABLET BY MOUTH EVERY DAY Start Date: 07/04/23 Status: Ordered MiraLax Powder 1 pack/packet = 17 Gm, By Mouth, Daily, PRN Constipation, 0 Refills, Maintenance, 07/27/23 8:25:00 EST, Powder, Partial fill upon patient request if the prescription is for a schedule II opioid drug. Start Date: 07/27/23 Status: Ordered pantoprazole 40 mg oral delayed release tablet [...] atus Informant Obese class II Confirmed Active Social History Social History Type Response Smoking Status Never (less than 100 in lifetime) entered on: 07/04/23 Sex Patient Care team information Care Team Personnel Name: Paula Harvey RN Position: Krish RN Member Role: Primary Care Nurse Name: Elliot Booker RN Position: Krish RN Member Role: Primary Care Nurse Name: Arelis Irvin MD Position: Reference Physician Member Role: PCP Address: Address: [address] [place] [address]- Care Team Related Persons Name: AKERSALEXIS Address: home [address] [address]
--- OUTSIDE RECORDS SUMMARY | 2023-10-24 17:18 | XMS_ITS | Continuity of Care Document ---
Author Organization [facility] Address [address] [place] [address]- Care Team Providers Care Knit Goods Washer Name Role Phone Blu Hughes MD, Arelis Wise Primary Care Physician [phone] Encounter 07/28/23 - 08/02/23 [facility] [address] [place] [address]- Discharge Disposition: GOALS MET Allergies, Adverse Reactions, Alerts Substance Reaction Severity [...] drug. Start Date: 08/16/21 Status: Ordered Calcio [place] 1 tablet, By Mouth, Daily, 0 Refills, [...] 07/27/23 8:20:00 EST, Route to Pharmacy Electronically, [facility], Partial fill upon patient request if the prescription is for a schedul... Start Date: 07/27/23 Status: Ordered Eliquis 2.5 mg oral tablet 1 tablet = 2.5 mg, By Mouth, 2 times a day, # 60 tablet, 0 Refills, Maintenance, 07/27/23 8:21:00 EST, Tablet, [facility], Partial fill upon patient request if [...] Replace Required Details, Route to Pharmacy Electronically, [facility]... Start Date: 07/27/23 Stop Date: 08/03/23 Status: Ordered pantoprazole 40 mg oral delayed [...] team information Care Team Personnel Name: Paula Harvye RN Position: S RN Member Role: Primary Care Nurse Name: Elliot Booker RN Position: S RN Member Role: Primary Care Nurse Name: Blu Hughes MD , Arelis Wise Position: Reference Physician Member Role: PCP Address: Address: [address] [place] [address]- Care Team Related Persons Name: VINNY AKERS Address: home [address] [address]
--- OUTSIDE RECORDS SUMMARY | 2023-10-24 17:18 | XMS_ITS | Continuity of Care Document ---
Author Organization [facility] Address [address] [place] [address]- Care Team Providers Care Video Software Engineer Name Role Phone Blu Hughes MD, Blossom Primary Care Physician Encounter [facility] [place] Date(s): 07/04/23 - 07/11/23 [facility] [address] [place], [place] [address] Attending Physician: Darnell Wolff MD Referring Physician: Pineda GIBSON, Frederick Castellanos Allergies, Adverse Reactions, Alerts Substance Reaction Severity Status aspirin facial swelling and thorat closing Active NSAIDs Tightness in throat Active Medications Acetaminophen 0 Refills, Maintenance, 08/16/21 16:28:00 EDT, Partial fill upon patient request if the prescription is for a schedule II opioid drug. Start Date: 08/16/21 Status: Ordered busPIRone 10 mg oral tablet 10 mg, 1, tablet, By Mouth, 2 times a day, Refills 0, Maintenance, 08/16/21 16:27:00 EDT, Partial fill upon patient request if the prescription is for a schedule II opioid drug. Start Date: 08/16/21 Status: Ordered Calcio [place] By Mouth, 3 times a day, 0 Refills, Maintenance, 08/16/21 16:29:00 EDT, Partial fill upon patient request if the prescription is for a schedule II opioid drug. Start Date: 08/16/21 Status: Ordered chlorthalidone 25 mg oral tablet 25 mg, 1, tablet, By Mouth, Daily, # 30 tablet, Refills 0, Maintenance, 08/16/21 16:27:00 EDT, Partial fill upon patient request if the prescription is for a schedule II opioid drug. Start Date: 08/16/21 Status: Ordered escitalopram 5 mg oral tablet 1 tablet = 5 mg, TAKE 1 TABLET BY MOUTH EVERY DAY Start Date: 07/04/23 Status: Ordered lidocaine 0.5% topical gel Topically, 3 times a day, 0 Refills, Maintenance, 08/16/21 16:28:00 EDT, Partial [...] EVERY DAY Start Date: 07/04/23 Status: Ordered oxyCODONE 5 mg oral tablet TAKE 1 TABLET BY MOUTH EVERY 4 TO 6 HOURS NEEDED FOR PAIN DIRECTED (DO NOT DRIVE WHILE ON THIS MEDICATION) Start Date: 08/21/21 Status: Ordered solifenacin 10 mg oral tablet TAKE 1 TABLET BY MOUTH EVERY DAY Start Date: 07/04/23 Status: Ordered Problem List Condition Confirmation Course Effective Dates Status Health St atus Informant Obese class II Confirmed Active Procedures Procedure Date Related Diagnosis Body Site Status Right knee meniscus repair; x2; Excision of skin cancer nose Com pleted Vital Signs Most recent to oldest [Reference Range]: 1 Height 160.5 cm (07/04/23 8:42 AM) Weight 93.9 kg (07/04/23 8:42 AM) Oxygen Saturation [94-100 %] 99 % (07/04/23 8:42 AM) Pulse Rate [55-90 bpm] 80 bpm (07/04/23 8:42 AM) Body Mass Index [18.5-24.99 kg/m2] 36.45 kg/m2 *>HHI* (07/04/23 8:42 AM) Blood Pressure [90-138/55-84 mm Hg] 139/ 61mm Hg *H* (07/04/23 8:42 AM) Respiratory Rate [16-30 br/min] 16 br/mi n (07/04/23 8:42 AM) Mode of Delivery (Oxygen) Room air (07/04/23 8:42 AM) Blood pressure sites Arm, right (07/04/23 8:42 AM) Dry Weight 93.9 kg (07/04/23 8:42 AM) Weight Obtained Via Standing scale (07/04/23 8:42 AM) Dry Weight Obtained Via Standing scale (07/04/23 8:42 AM) Social History Social History Type Response Smoking Status Never (less than 100 in lifetime) entered on: 07/04/23 Sex EKG study * Event Display: ECG 12-Lead Authored Date: Please click on pdf link to open report * Event Display: ECG 12-Lead Authored Date: Ventricular Rate: 72 BPM Atrial Rate: 72 BPM P-R Interval: 160 ms QRS Duration: 88 ms Q-T Interval: 398 ms QTC Calculation(Bazett): 435 ms P Caldwell: 45 degrees R Caldwell: 40 degrees T Caldwell: 25 degrees Normal sinus rhythm Normal ECG When compared with ECG of 10-AUG-2021 15:09, No significant change was found Confirmed by EPI MENJIVAR ([id number]) on 07/04/2023 5:04:23 PM [place]: EPI MENJIVAR Patient Care team information Care Team Personnel Name: Blu Hughes MD , Arelis Wise Position: Reference Physician Member Role: PCP Address: Address: [address] [place] [address]- Care Team Related Persons Name: VINNY AKERS Address: home [address] [place] [address]
--- OUTSIDE RECORDS SUMMARY | 2023-10-24 17:18 | XMS_ITS | Continuity of Care Document ---
Author Organization [facility] ter Address [address] [place] [address]- Care Team Providers Care Flap Lining Binder Name Role Phone Blu Hughes MD, Blossom Primary Care Physician [place] [facility] [place] Date(s): 07/04/23 - 07/04/[address] [address] Attending Physician: Darnell Wolff MD Allergies, Adverse Reactions, Alerts Substance Reaction [...] drug. Start Date: 08/16/21 Status: Ordered Calcio [place] By Mouth, 3 times a day, 0 [...] PCP Address: Address: [address] [place] [address]- Care Team Related Persons Name: AKERSVINNY Gutierrez Address: home [address] [address]
--- OUTSIDE RECORDS SUMMARY | 2023-10-24 17:18 | XMS_ITS | Continuity of Care Document ---
Author Organization [facility] ter Address [address] [place] [address]- Care Team Providers Care Route Aide Name Role Phone Blu Hughes MD, Blossom Primary Care Physician [place] [facility] [place] Date(s): 06/25/23 - 08/17/[address] [address]- Attending Physician: Frederick Sung MD Admitting Physician: Frederick Sung MD Allergies, Adverse Reactions, [...] Start Date: 08/16/21 Status: Ordered Calcio Mic[place] 1 tablet, By Mouth, Daily, 0 Refills, [...] 07/27/23 8:20:00 EST, Route to Pharmacy Electronically, [facility], Partial fill upon patient request if the prescription is for a schedul... Start Date: 07/27/23 Status: Ordered Eliquis 2.5 mg oral tablet 1 tablet = 2.5 mg, By Mouth, 2 times a day, # 60 tablet, 0 Refills, Maintenance, 07/27/23 8:21:00 EST, Tablet, [facility], Partial fill upon patient [...] Physician Member Role: PCP Address: Address: [address] [place] [address]- Care Team Related Persons Name: VINNY AKERS Address: home [address] [address]
--- OUTSIDE RECORDS SUMMARY | 2023-10-24 17:18 | XMS_ITS | Continuity of Care Document ---
Author Organization [facility] ter Address [address] [place] [address]- Care Team Providers Care Piecer Name Role Phone Blu Hughes MD, Blossom Primary Care Physician Encounter [facility] [place] Date(s): 07/10/23 - 08/09/[address] [address]- Attending Physician: AdmtrStaci Admitting Physician: Admtr, Ar8 Referring Physician: Admtr, Ar8 Allergies, Adverse Reactions, Alerts Substance Reaction Severity [...] 07/27/23 8:20:00 EST, Route to Pharmacy Electronically, [facility], Partial fill upon patient request if the prescription is for a schedul... Start Date: 07/27/23 Status: Ordered Eliquis 2.5 mg oral tablet 1 tablet = 2.5 mg, By Mouth, 2 times a day, # 60 tablet, 0 Refills, Maintenance, 07/27/23 8:21:00 EST, Tablet, [facility], Partial fill upon patient [...] Physician Member Role: PCP Address: Address: [address] [place] [address]- Care Team Related Persons Name: AKERSALEXIS Address: home [address] [address]
--- OUTSIDE RECORDS SUMMARY | 2023-10-24 17:19 | XMS_ITS | Continuity of Care Document ---
Author Organization [facility] Address [address] [place] [address]- Care Team Providers Care Functional Manager Name Role Phone Blu Hughes MD, Blossom Primary Care Physician [place] [facility] [place](s): 07/04/23 - 08/03/23 [facility] [address] [place] [address]- Attending Physician: AdmStaci monsivais Admitting Physician: Admtr, Ar8 Referring Physician: Admtr, [...] drug. Start Date: 08/16/21 Status: Ordered Calcio [place] 1 tablet, By Mouth, Daily, 0 Refills, [...] 07/27/23 8:20:00 EST, Route to Pharmacy Electronically, [facility], Partial fill upon patient request if the prescription is for a schedul... Start Date: 07/27/23 Status: Ordered Eliquis 2.5 mg oral tablet 1 tablet = 2.5 mg, By Mouth, 2 times a day, # 60 tablet, 0 Refills, Maintenance, 07/27/23 8:21:00 EST, Tablet, [facility], Partial fill upon patient [...] Physician Member Role: PCP Address: Address: [address] [place] [address]- Care Team Related Persons Name: VINNY AKERS Address: home [address] [address]
[2023-10-24 17:22] LABS: Alanine Aminotransferase 17 U/L (0-31); Albumin Level 4.3 g/dL (3.5-5.0); Alkaline Phosphatase 74 U/L (39-117); Anion Gap 13 (12-20); Aspartate Amino Transferase 16 U/L (5-31); Bilirubin Total 0.4 mg/dL (0.0-1.0); Blood Urea Nitrogen 20 mg/dL (9-16); Calcium 10.9 mg/dL (8.4-10.2); Carbon Dioxide 31 mmol/L (22-29); Chloride 103 mmol/L (96-108); Creatinine Clr Calc Pharmacy 83.6; Estimated Glomerular Filt Rate > 60; Glucose Random 106 mg/dL (60-115); Lipase 16 U/L (8-78); Magnesium 1.8 mg/dL (1.6-2.6); Sodium 143 mmol/L (135-145); Total Protein 7.8 g/dL (6.5-8.0)
[2023-10-24] MEDS: diazePAM 5 MG TABLET 10 MG PO (18:33)
[2023-10-24 19:11] VITALS: BP 136/69; PULSE 84; RESP 16; TEMP 36.9; O2SAT 97
--- NOTE | 2023-10-24 19:20 | PC.NURSE ---
pt discharged by PA
[2023-10-24 19:21] VITALS: BP 136/69; PULSE 84; RESP 20; TEMP 36.9; O2SAT 97
== END 2023-10-24 19:22 | disposition home or self-care (01) ==
PROVIDERS: Physician Assistant Medical; Emergency Provider Emergency Medicine; PCP Internal Medicine
DX: F41.9 Anxiety disorder, unspecified (principal); G47.00 Insomnia, unspecified; I10 Essential (primary) hypertension; K21.9 Gastro-esophageal reflux disease without esophagitis
CPT/HCPCS: 36415; 80053; 83690; 83735; 85025; 99283; 99284

== ENCOUNTER 2023-10-27 00:09 | Emergency (ER) | payer OTHER, SELFPAY ==
[2023-10-27 00:23] VITALS: BP 192/74; PULSE 92; RESP 20; TEMP 36.9; O2SAT 99; BMI 38.8
[2023-10-27 02:56] VITALS: BP 165/77; PULSE 98; RESP 16; TEMP 521.6; TEMP 971; O2SAT 97
--- NOTE | 2023-10-27 09:07 | ED_ITS ---
HPI - Anxiety General Chief Complaint: Anxiety Stated Complaint: anxiety Time Seen by Provider: 10/27/23 08:55 Source: patient and RN notes reviewed Mode of arrival: ambulatory Limitations: no limitations History of Present Illness ED Provider: Randi Moscoso PA-C HPI narrative: This is a 58-year-old female, with a history of anxiety, hypertension, GERD, sleep apnea on CPAP, who presents emergency department with complaints of insomnia and increased anxiety. Patient reports that she has had increased stressors at home. is concerned as she has been able unable to sleep secondary to anxiety. Denies any homicidal or suicidal ideations. No visual or auditory hallucinations. She denies any fevers, chills, chest pain, shortness of breath, abdominal pain, nausea, vomiting or diarrhea. Patient was seen here in the emergency room on October 23 for anxiety and was discharged on Valium which he has been taking without any relief. She also has been following up with her psychiatrist however states that she believes that they are making up reasons why they can not see her - stating that her psychiatrist has told her that she is on vacation therefore she has been unable to talk to her psychiatrist. She states that ?the staff there are lying to me, the psychiatrist is not on vacation and another psychiatrist should be able to see me?. is very concerned as mental health disorders run in the family, and has been is concerned that she may be experiencing the start of a mental illness. No other complaints or concerns at this time. MD complaint: anxiety Relieving factors: nothing Exacerbating factors: nothing Associated symptoms: denies other symptoms Related Data Home Medications ?Medication ?Instructions ?Recorded ?Confirmed buspirone 10 mg tablet 10 mg PO DAILY 03/24/20 10/14/23 ketoconazole 2 % shampoo topical 06/01/22 10/14/23 omeprazole 20 mg capsule,delayed 20 mg PO DAILY PRN 08/29/22 10/14/23 release escitalopram oxalate 5 mg tablet 5 mg PO DAILY 05/22/23 10/14/23 meloxicam 15 mg tablet 15 mg PO DAILY 10/14/23 10/14/23 tramadol 50 mg tablet 50 mg PO DAILY 10/14/23 10/14/23 Previous Rx's ?Medication ?Instructions ?Recorded CPAP (CPAP Machine/Device) #1 ea 02/26/22 acetaminophen 500 mg tablet 1,000 mg (2 x 500 mg) PO Q6H PRN 06/05/22 (Tylenol Extra Strength) fever or pain 90 days #300 tabs losartan 100 mg tablet 100 mg PO DAILY 90 days #90 tabs 02/26/23 chlorthalidone 25 mg tablet 25 mg PO QAM 90 days #90 tabs 04/19/23 fluticasone propionate 50 1 spray intranasal DAILY #16 grams 07/24/23 mcg/actuation nasal spray,suspension (Flonase Allergy Relief) loratadine 10 mg tablet 10 mg PO DAILY #30 tabs 08/20/23 lidocaine 5 % topical patch 1 patch topical DAILY #30 ea 08/21/23 (Lidoderm) medroxyprogesterone 10 mg tablet 10 mg PO DAILY #90 tabs 10/07/23 solifenacin 10 mg tablet 10 mg PO DAILY #90 tabs 10/18/23 diazepam 10 mg tablet (Valium) 10 mg PO BEDTIME PRN anxiety #10 10/24/23 tabs zolpidem 5 mg tablet 5 mg PO BEDTIME PRN sleep 30 days 10/25/23 #30 tabs Allergies Allergy/AdvReac Type Severity Reaction Status Date / Time aspirin [ASA] Allergy Severe Anaphylaxis Verified 10/27/23 00:30 Review of Systems 2 Review of Systems: Yes all other systems are reviewed and are negative Constitutional: Constitutional: Reports as per [facility] Past Medical History Medical History Obesity (BMI 30-39.9) Sleep apnea VAHE (generalized anxiety disorder) Hypercalcemia Calcific shoulder tendinitis Class 1 obesity with body mass index (BMI) of 34.0 to 34.9 in adult Right leg pain Essential hypertension Diverticulosis Hemorrhoids, internal, with bleeding Family history of colon cancer History of colon polyps GERD with esophagitis Rhinitis Surgical History S/P right knee arthroscopy Hx of endoscopy History of colonoscopy (~02/2018) H/O basal cell carcinoma excision History of section History of tubal ligation Family History Family History Father Pancreatic cancer Mother Colon cancer, Onset Age: 72 Hypertension Brother No problems noted. Sister Psychiatric disorder Chronic mental illness Family/Other Chronic mental illness Social History Social History Housing: Apartment Do you presently have visiting nurse or other home services: No Alcohol intake: current Alcohol intake frequency: holidays/special occasions only Alcohol type: wine Patient Tobacco Use Status: Never used Tobacco e-Cigarette/Vaping Use: Never Used Second Hand Smoke Exposure: No Advance Directives: No Advance Directives Information Provided: No Do you have a plan to hurt others: No Plan service: No Current occupational status: employed Current occupational exposures/hazards: No Sexual orientation: Straight/Heterosexual Gender identity: Female Cognitive needs: No Hearing needs: No Vision needs: Yes Physical Exam 2 Vital Signs: Vital Signs: Last Vital Signs Temp 98.4 F 10/28/23 00:40 Pulse 96 10/28/23 00:40 Resp 18 10/28/23 00:40 BP 149/84 H 10/28/23 00:40 Pulse Ox 98 10/28/23 00:40 O2 Del Method Room Air 10/28/23 00:40 BMI result Body Mass Index 38.8 Const: General: cooperative, comfortable and no acute distress O rientation/consciousness: patient oriented x3 Limitations: no limitations HEENT: Head: Yes normal to inspection, Yes normocephalic and Yes atraumatic Ears: hearing grossly normal bilaterally General nose exam: Normal external nose present Face and sinus: Yes normal facial exam Mouth: Normal oral and palatal mucosa present, oropharynx normal and moist mucous membranes Throat: Yes posterior oropharynx normal Eyes: General: appearance normal, both eyes and all related structures E yelids: Yes eyelids normal Conjunctivae: conjunctivae normal Sclerae: s clerae normal Pupils: Equal, round and reactive pupils present EOM: EOMs intact bilaterally Neck: Neck: Yes normal visual inspection, Yes full ROM and Yes no lymphadenopathy Lymphatic: no lymphadenopathy noted Chest: Chest palpation & inspection: normal inspection of the chest Resp: Effort & Inspection: normal respiratory effort and able to speak in complete sentences Auscultation: clear to auscultation bilaterally, no crackles, no rales, no rhonchi and no wheezes Cardio: Rate: regular rate Rhythm: regular rhythm Heart sounds: S1 normal heart sound present and S2 normal heart sound present GI: Inspection: Yes normal to inspection Skin: General skin exam: no rashes or lesions noted Trauma: no lacerations or abrasions Wounds: no wounds Neuro: General: patient oriented x3 and moves all extremities Cranial nerves: Yes Equal, round and reactive pupils present Extrem: General: Yes normal to inspection Right upper extremity: normal to inspection Left upper extremity: normal to inspection Right lower extremity: normal to inspection Left lower extremity: normal to inspection Course Reevaluation(s) Reevaluation #1: Labs returned, unremarkable. Physician observation initiated pending care team consult. Time: 14:17 Reevaluation #2: Long discussion with who believes that it is very important for her to stay to be fully evaluated by the care team with collaterals. He does not believe it is safe for her to return back home. Patient anxious, pacing hallways however is redirectable. She has not a threat to the staff at this time. Patient remains in physician observation pending care team consult and evaluation. Time: 20:21 Reevaluation #3: Patient is seen by care team consulting Mickey who states patient is safe for discharge. Patient does not need psych admission. Patient has good follow-up with psych and will watch patient. Patient feels better. Patient also with see her therapist. Time: 00:02 Medications Administered Discontinued Medications Generic Name Dose Route Start Last Admin Trade Name Carley PRN Reason Stop Dose Admin Acetaminophen 975 mg 10/27/23 11:16 10/27/23 11:23 Acetaminophen 325 Mg Tablet PO 10/27/23 11:17 975 mg ONCE ONE Administration Acetaminophen 975 mg 10/27/23 21:53 10/27/23 22:16 Acetaminophen 325 Mg Tablet PO 10/27/23 21:54 975 mg ONCE ONE Administration Lorazepam 1 mg 10/27/23 11:58 10/27/23 12:04 Lorazepam 1 Mg Tablet PO 10/27/23 11:59 1 mg ONCE ONE Administration Medical Decision Making Medical Decision Making MDM Narrative: This is a 58-year-old female who presents emergency department with complaints of insomnia and anxiety. On arrival, patient alert and oriented x4. Patient was in the emergency room for approximately 8 hours before my assessment as patient has been waiting to see a medical provider. That time nothing was ordered therefore given increased anxiety, I obtained labs, EKG, as well as urine sample. Patient was seen and evaluated on October 23 for anxiety and was discharged on Valium. She has been taking this however this has not provided her with any relief. Has no SI or HI. No auditory or visual hallucinations. No drug use. is concerned that she may be having a manic episode and does not believe it is safe for her to be at home as she has not sleeping and is yelling and escalating at home. Plan: Labs, EKG, care team consult Differential Diagnosis Differential Diagnoses: The differential diagnosis associated with the presentation includes Anxiety, depression, jack, psychosis, UTI Admission/Observation Consideration of admission/observation: Escalation of care including admission/observation considered Escalation of care including admission/observation considered however given workup today not warranted at this time. Lab Data MDM Lab Attestation statement: I reviewed the patient's lab results. 10/27/23 10:10 10/27/23 10:10 Labs: Lab Results 10/27/23 10/27/23 Range/Units 10:10 10:56 WBC 9.8 (4.8-10.8) X10*3/uL RBC 4.21 (4.20-5.50) X10*6/uL Hgb 11.6 L (12.0-16.0) g/dl Hct 35.1 L (37.0-47.0) % MCV 83.4 (80.0-98.0) fL MCH 27.6 (27.0-33.0) pg MCHC 33.0 (31.0-35.0) g/dl RDW 15.4 (11.0-16.0) % Plt Count 347 (160-400) X10*3/uL MPV 9.2 L (9.4-12.3) fL Immature Gran % (Auto) 0.5 H (0.0-0.4) % Neut % (Auto) 53.7 (45-73) % Lymph % (Auto) 34.5 (20-40) % Lee % (Auto) 10.0 (2-11) % Eos % (Auto) 1.0 (0-4) % Baso % (Auto) 0.3 (0-2) % Lymph # (Auto) 3.4 (1.2-4.9) X10*3/uL Lee # (Auto) 1.0 (0.1-1.2) X10*3/uL Eos # (Auto) 0.1 (0.0-0.4) X10*3/uL Baso # (Auto) 0.0 (0.0-0.2) X10*3/uL Abs Immat Gran (auto) 0.05 H (0.00-0.03) X10*3/uL Absolute Neuts (auto) 5.3 (2.0-8.3) x10*3/uL Absolute Nucleated RBC 0.000 (0.0-0.012) X10*3/uL Nucleated RBC % (auto) 0.0 (0.0-0.2) /100WBC Sodium 139 (135-145) mmol/L Potassium 3.7 (3.3-5.1) mmol/L Chloride 102 (96-108) mmol/L Carbon Dioxide 29 (22-29) mmol/L Anion Gap 12 (12-20) BUN 19 H (9-16) mg/dL Creatinine 0.80 (0.5-1.4) mg/dL Estim Creat Clear Calc 84.9 Estimated GFR > 60 Random Glucose 101 (60-115) mg/dL Calcium 10.7 H (8.4-10.2) mg/dL Total Bilirubin 0.4 (0.0-1.0) mg/dL Direct Bilirubin 0.2 (0.0-0.5) mg/dL AST 16 (5-31) U/L ALT 16 (0-31) U/L Alkaline Phosphatase 75 (39-117) U/L Troponin I High Sens 3.4 (<3.5-17.0) ng/L Total Protein 8.0 (6.5-8.0) g/dL Albumin 4.3 (3.5-5.0) g/dL TSH 1.51 (0.32-4.0) uIU/mL Urine Color Yellow Urine Appearance Clear Urine pH 8.0 (5.0-9.0) Ur Specific [place] <= 1.005 (1.005-1.025) Urine Protein Negative (Neg-Trace) mg/dL Urine Glucose (UA) Negative (Negative) mg/dL Urine Ketones Negative (Negative) mg/dL Urine Blood Negative (Negative) Urine Nitrite Negative (Negative) Ur Leukocyte Esterase Trace H (Negative) Urine RBC 0-2 (0-2) /HPF Urine WBC 0-5 (0-5) /HPF Ur Squamous Epith Cells 0-2 (0-2) /HPF Urine Bacteria None Seen (None Seen) Hyaline Casts 0-2 (0-2) /LPF Urine Opiates Screen Not Detected (Not Detect) Ur Buprenorphine Scrn Not Detected (Not Detect) ng/mL Ur Oxycodone Screen Not Detected (Not Detect) ng/mL Urine Methadone Screen Not Detected (Not Detect) ng/mL Urine Fentanyl Screen Not Detected (Not Detect) Ur Barbiturates Screen Not Detected (Not Detect) Ur Phencyclidine Scrn Not Detected (Not Detect) Ur Amphetamines Screen Not Detected (Not Detect) U Benzodiazepines Scrn Not Detected (Not Detect) Urine Cocaine Screen Not Detected (Not Detect) U Marijuana (THC) Screen Not Detected (Not Detect) Ethyl Alcohol < 10 mg/dL Radiology Impression Discussion of test interpretation with radiology: I have reviewed the radiologist's reading. External Record Review External record reviewed: Inpatient record, Office record, Outpatient record, Prior outpatient labs, Prior outpatient radiology, Primary care record and Outside ED record Discharge Plan Discharge Clinical Impression: Insomnia, VAHE (generalized anxiety disorder) Patient Disposition: Home, Self-Care Instructions: Insomnia (ED), Anxiety (ED) Additional Instructions: Recommend follow-up with your primary care provider. Return to ED for any suicidal/homicidal, auditory/visual hallucinations, any physical complaints, or any other other concerning symptoms. Prescriptions: No Action (DME) CPAP Machine/Device Device See Rx Instructions .Route Qty: 1 0RF Rx Instructions: autoPAP mode, 6-20 cm H2O acetaminophen [Tylenol Extra Strength] 500 mg tablet 1,000 mg PO Q6H PRN (Reason: fever or pain) 90 Days Qty: 300 1RF losartan 100 mg tablet 100 mg PO DAILY 90 Days Qty: 90 3RF chlorthalidone 25 mg tablet 25 mg PO QAM 90 Days Qty: 90 3RF fluticasone propionate [Flonase Allergy Relief] 50 mcg/actuation spray,suspension 1 spray intranasal DAILY Qty: 16 0RF Rx Instructions: administer into each nostril loratadine 10 mg tablet 10 mg PO DAILY Qty: 30 6RF lidocaine [Lidoderm] 5 % adhesive patch,medicated 1 patch topical DAILY Qty: 30 0RF Rx Instructions: leave on most painful area for up to 12 hrs medroxyprogesterone 10 mg tablet 10 mg PO DAILY Qty: 90 3RF solifenacin 10 mg tablet 10 mg PO DAILY Qty: 90 2RF zolpidem 5 mg tablet 5 mg PO BEDTIME PRN (Reason: sleep) 30 Days Qty: 30 0RF diazepam [Valium] 10 mg tablet 10 mg PO BEDTIME PRN (Reason: anxiety) Qty: 10 0RF buspirone 10 mg tablet 10 mg PO DAILY meloxicam 15 mg tablet 15 mg PO DAILY tramadol 50 mg tablet 50 mg PO DAILY ketoconazole 2 % shampoo topical escitalopram oxalate 5 mg tablet 5 mg PO DAILY omeprazole 20 mg capsule,delayed release(DR/EC) 20 mg PO DAILY PRN Interventions: ED Discharge Assessment Last Done: 10/28/23 00:40 Discharge Date/Time: 10/28/23 00:44 Print Language: Belarusian
--- NOTE | 2023-10-27 09:41 | ECG_ITS ---
Test Reason : ANXIETY Blood Pressure : / mmHG Vent. Rate : 091 BPM Atrial Rate : 091 BPM P-R Int : 148 ms QRS Dur : 078 ms QT Int : 366 ms P-R-T Axes : 054 050 042 degrees QTc Int : 450 ms Normal sinus rhythm Nonspecific ST abnormality Abnormal ECG When compared with ECG of 10-FEB-2019 16:22, No significant change was found Referred By: Randi Moscoso Electronically Signed By:Mike Moore
[2023-10-27 10:23] LABS: MANUAL DIFF FLAG NO
[2023-10-27 10:27] LABS: Basophils Percent Auto 0.3 % (0-2); Eosinophils Absolute Auto 0.1 X10*3/uL (0.0-0.4); Hematocrit 35.1 % (37.0-47.0); Hemoglobin 11.6 g/dl (12.0-16.0); Imm Gran Abs Auto 0.05 X10*3/uL (0.00-0.03); Imm Gran Pct Auto 0.5 % (0.0-0.4); Lymphocytes Absolute Auto 3.4 X10*3/uL (1.2-4.9); Lymphocytes Percent Auto 34.5 % (20-40); Mean Corpuscular Hemoglobin 27.6 pg (27.0-33.0); Mean Corpuscular Volume 83.4 fL (80.0-98.0); Mean Platelet Volume 9.2 fL (9.4-12.3); Neutrophils Absolute Auto 5.3 x10*3/uL (2.0-8.3); Neutrophils Percent Auto 53.7 % (45-73); Platelet Count 347 X10*3/uL (160-400); Red Blood Count 4.21 X10*6/uL (4.20-5.50); Red Cell Distribution Width 15.4 % (11.0-16.0); White Blood Count 9.8 X10*3/uL (4.8-10.8)
[2023-10-27 10:48] LABS: Troponin-I High Sensitivity 3.4 ng/L (<3.5-17.0)
[2023-10-27 10:54] LABS: Alanine Aminotransferase 16 U/L (0-31); Albumin Level 4.3 g/dL (3.5-5.0); Alkaline Phosphatase 75 U/L (39-117); Anion Gap 12 (12-20); Aspartate Amino Transferase 16 U/L (5-31); Bilirubin Direct 0.2 mg/dL (0.0-0.5); Bilirubin Total 0.4 mg/dL (0.0-1.0); Blood Urea Nitrogen 19 mg/dL (9-16); Calcium 10.7 mg/dL (8.4-10.2); Carbon Dioxide 29 mmol/L (22-29); Chloride 102 mmol/L (96-108); Creatinine Clr Calc Pharmacy 84.9; Estimated Glomerular Filt Rate > 60; Ethanol < 10 mg/dL; Glucose Random 101 mg/dL (60-115); Potassium 3.7 mmol/L (3.3-5.1); Sodium 139 mmol/L (135-145)
[2023-10-27 11:02] LABS: TSH reflex Free T4 1.51 uIU/mL (0.32-4.0)
[2023-10-27 11:06] LABS: Appearance Urine Clear; Color Urine Yellow; Glucose Urine UA Negative (Negative); Leukocyte Esterase Urine Trace (Negative); Nitrite Urine Negative (Negative); Specific Gravity - Urine <= 1.005 (1.005-1.025); UMIC TRIGGER UACC YES; Urine Blood Negative (Negative); Urine Ketones Negative (Negative); Urine Protein Negative (Neg-Trace)
[2023-10-27 11:11] LABS: Bacteria Urine None Seen (None Seen); Hyaline Casts Urine 0-2 /LPF (0-2); RBC Urine 0-2 /HPF (0-2); Squamous Epithelial Cell Urine 0-2 /HPF (0-2); WBC Urine 0-5 /HPF (0-5)
[2023-10-27] MEDS: Acetaminophen 325 MG TABLET 975 MG PO ×2 (11:23→22:16)
[2023-10-27 11:29] LABS: Amphetamine Screen Urine Not Detected (Not Detect); Barbiturates, Urine Not Detected (Not Detect); Benzodiazepines Screen Urine Not Detected (Not Detect); Buprenorphine Scr Not Detected (Not Detect); Cannabinoid Screen Urine Not Detected (Not Detect); Cocaine Screen Urine Not Detected (Not Detect); Fentanyl, urine Not Detected (Not Detect); Methadone Screen, Urine Not Detected (Not Detect); Opiate Screen Urine Not Detected (Not Detect); Oxycodone Screen Urine Not Detected (Not Detect); Phencyclidine Screen Urine Not Detected (Not Detect)
[2023-10-27 11:47] VITALS: BP 158/104; PULSE 106; RESP 14; TEMP 36.2; O2SAT 98
[2023-10-27] MEDS: LORazepam 1 MG TABLET PO (12:04)
--- NOTE | 2023-10-27 17:46 | PC.NURSE ---
Patient alert and oriented x 3. Patient states that there is no need for her to be here. She got her sleep medications she just walked out without her belongings. Will give belongings to security.
[2023-10-27 20:55] VITALS: BP 160/89; PULSE 20; RESP 20; TEMP 37; O2SAT 99
[2023-10-27 23:11] VITALS: BP 149/84; PULSE 96; RESP 18; TEMP 36.9; O2SAT 98
[2023-10-28 00:40] VITALS: BP 149/84; PULSE 96; RESP 18; TEMP 36.9; O2SAT 98
== END 2023-10-28 00:44 | disposition home or self-care (01) ==
PROVIDERS: Physician Assistant Medical; Emergency Provider Student in an Organized Health Care Education/Training Program; PCP Internal Medicine
DX: F41.1 Generalized anxiety disorder (principal); G47.00 Insomnia, unspecified; I10 Essential (primary) hypertension; G47.30 Sleep apnea, unspecified; Z99.89 Dependence on other enabling machines and devices
CPT/HCPCS: 36415; 80048; 80076; 80307; 81001; 84443; 84484; 85025; 93005; 99284; S9485

== ENCOUNTER → 2023-10-27 09:41 | Outpatient (BNV) | payer OTHER, SELFPAY | PROVIDERS: Emergency Provider Student in an Organized Health Care Education/Training Program; PCP Internal Medicine; Visit Provider Internal Medicine Cardiovascular Disease | DX: R94.31 Abnormal electrocardiogram [ECG] [EKG] (principal) | CPT/HCPCS: 93010 ==

== ENCOUNTER 2023-10-30 12:36 | Outpatient (REF) | payer OTHER, SELFPAY ==
--- NOTE | ~2023-10-30 | US_ITS ---
EXAMINATION: US PELVIS CLINICAL INFORMATION: Abnormal uterine bleeding with fibroids. COMPARISON: Pelvic ultrasound 01/14/2023 TECHNIQUE: Ultrasound of the pelvis is performed using both transabdominal and transvaginal transducers along with Doppler. Transvaginal imaging is performed due to inadequate visualization transabdominally. FINDINGS: UTERUS: The uterus is enlarged with a volume of 386 mL measuring 11.7 x 10.1 x 6.3 cm with multiple fibroids. The double wall endometrial thickness is 7 mm. Three of the 4 fibroids seen previously are seen on the current exam ranging in size from 2.4 cm to 4.4 cm; exact comparison of fibroids to one another is a bit difficult but overall picture has not changed. ADNEXA: Neither ovary could be seen. No free fluid present. US/US pelvic and transvaginal IMPRESSION: Enlarged fibroid uterus.
== END 2023-10-30 12:37 | disposition home or self-care (01) ==
LOC: HO.US 12:36
PROVIDERS: PCP Internal Medicine; Visit Provider Obstetrics & Gynecology
DX: N93.9 Abnormal uterine and vaginal bleeding, unspecified (principal); D25.9 Leiomyoma of uterus, unspecified
CPT/HCPCS: 76830; 76856

== ENCOUNTER 2023-11-07 07:23 | Outpatient (AMB) | payer OTHER, SELFPAY ==
--- NOTE | 2023-11-07 07:26 | MHC.OFFVIS ---
Vital Signs 11/07/23 07:33 Height 5 ft 2 in Weight 204 lb BMI 37.3 BP 128/82 Intake Visit Reasons: Repeat EMB Production Controller Required: Yes Production Controller Language: Marketing Research Coordinator Name: Tricia SEVERINO Information Interpreted: non-clinical & clinical Land Management Forester: Land Management Forester Present (Tricia SEVERINO) Accompanied by: Spouse Allergies aspirin [ASA] Allergy (Severe, Verified 11/07/23 07:41) Anaphylaxis Post menopausal: Yes HPI Comments Details: The patient is presenting after endometrial biopsy. The patient has no complaints, no vaginal bleeding, no feverishness chills or abdominal pain. The endometrial biopsy pathology report showed the following: Endometrium, biopsy: -Rare benign inactive endometrial cells (see comment). -Predominantly mucus and blood with benign endocervical glandular epithelium and scant benign squamous epithelium. Comment: The endometrium is very scant and may not be bilingual sales representative of the endometrial cavity. [facility] Medical History Obesity (BMI 30-39.9) Sleep apnea VAHE (generalized anxiety disorder) Hypercalcemia Calcific shoulder tendinitis Class 1 obesity with body mass index (BMI) of 34.0 to 34.9 in adult Right leg pain Essential hypertension Diverticulosis Hemorrhoids, internal, with bleeding Family history of colon cancer History of colon polyps GERD with esophagitis Rhinitis Surgical History S/P right knee arthroscopy Hx of endoscopy History of colonoscopy (~02/2018) H/O basal cell carcinoma excision History of section History of tubal ligation Family History Father Pancreatic cancer Mother Colon cancer, Onset Age: 72 Hypertension Brother No problems noted. Sister Psychiatric disorder Chronic mental illness Family/Other Chronic mental illness Social History Housing: Apartment Do you presently have visiting nurse or other home services: No Alcohol intake: current Alcohol intake frequency: holidays/special occasions only Alcohol type: wine Patient Tobacco Use Status: Never used Tobacco e-Cigarette/Vaping Use: Never Used Second Hand Smoke Exposure: No service: No Current occupational status: employed Current occupational exposures/hazards: No Sexual orientation: Straight/Heterosexual Gender identity: Female Cognitive needs: No Hearing needs: No Vision needs: Yes Female Reproductive History Menstrual Age of Menarche: 15 Review of Systems Const All systems reviewed & are unremarkable except as noted in HPI and below Reports as per HPI and Reports no additional complaints GI Reports no additional complaints Reports no additional complaints Office Procedures Endometrial Biopsy Details: The patient was counseled regarding the indication and benefits of endometrial sampling to rule out endometrial pathology including not limited to endometrial hyperplasia or endometrial cancer and others; The alternatives (Either do nothing vs. hysteroscopy D&C) & the risks were discussed with the patient including but not limited: pain, uterine perforation, bleeding, infection, possible injury to bladder, bowel, ureter, possible need for blood transfusion with all its possible risks. The patient verbalized understanding all questions answered and signed consent. The patient was placed into the dorsal lithotomy position; a speculum was inserted in the vagina. Using aseptic technique for the procedure, the cervix was cleansed with Betadine. The anterior lip of the cervix was grasped with a single tooth tenaculum. The uterus was sounded to 7 cm with a 4 mm Pipelle was used. Tissues samples were obtained and placed in formalin, in a patient labeled container and sent to the pathology department. At the end of the procedure, there was minimal bleeding noted The patient tolerated the procedure well and was discharged in good condition with the following instructions: Nothing in the vagina until the bleeding stops. No sex until the bleeding stops, to call if any of the following occurs: fever (>100.4), flu-like symptoms, abdominal pain, heavy bleeding, four smelling vaginal discharge. The patient was instructed to schedule a Follow up appointment in 2 weeks to discuss pathology results of the biopsy and treatment options. This note was generated with a voice recognition program. Some errors may have been overlooked during the review of this note. Sometimes these errors may affect the content or meaning of a given sentence. [id number] Biopsy Assessment & Plan Assessment & Plan (1) Abnormal uterine bleeding (AUB): Comment: Proliferative endometrium on EMB in 10/23 on Provera since then-reversed to inactive endometrium in 03/25 Code(s): N93.9 - Abnormal uterine and vaginal bleeding, unspecified Category: Medical Plan: Discussed with the patient the pathology results showing rare strips of endometrium may not be bilingual sales representative for the endometrial cavity. The negative predictive value, positive predictive value, Sensitivity, specificity of using ultrasound measurement of endometrial stripe to detecting endometrial pathology including hyperplasia , polyp or cancer were discussed with the patient. Recommended to the patient that the next step is an endometrial sampling via hysteroscopy D&C possible polypectomy versus repeat endometrial biopsy to r/o endometrial pathology including hyperplasia or cancer. All the pros and cons risks and benefits of each approach were discussed with the patient, endometrial biopsy being less invasive, office procedure with less sensitivity and inability diagnose a polyp and removal versus hysteroscopy done under anesthesia more invasive more sensitive to endometrial cancer and possibility of diagnosing and endometrial polyp with the possibility of polypectomy. All questions were answered pt verbalized understanding and decided to proceed with endometrial biopsy, EMB done, see procedure note Orders: Orders Surgical Today N93.9 - Abnormal uterine and vaginal bleeding, unspecified AMB Endometrial Biopsy Today N93.9 - Abnormal uterine and vaginal bleeding, unspecified Coding Level of Care Code Procedure Only Diagnoses Abnormal uterine bleeding (AUB) N93.9 CPT Codes Endometrial Biopsy - CPT: 75994-[id number] Biopsy ([id number])
[2023-11-07 07:33] VITALS: BP 128/82; BMI 37.3
== END 2023-11-07 09:05 | disposition home or self-care (01) ==
PROVIDERS: PCP Internal Medicine; Visit Provider Obstetrics & Gynecology
DX: N93.9 Abnormal uterine and vaginal bleeding, unspecified (principal)
CPT/HCPCS: 58100

== ENCOUNTER 2023-11-07 07:23 | Outpatient (REF) | payer OTHER, SELFPAY | END 2023-11-07 07:24 | disposition home or self-care (01) | LOC: HO.LNP 07:23 | PROVIDERS: PCP Internal Medicine; Visit Provider Obstetrics & Gynecology | DX: N93.9 Abnormal uterine and vaginal bleeding, unspecified (principal) | CPT/HCPCS: 58100; 88305 ==

== ENCOUNTER 2023-11-11 14:25 | Outpatient (AMB) | payer OTHER, SELFPAY ==
[2023-11-11 14:37] VITALS: BP 120/70; PULSE 78; O2SAT 98; BMI 39.0
--- NOTE | 2023-11-11 14:37 | MHC.OFFVIS ---
Vital Signs 11/11/23 14:37 Height 5 ft 2 in Weight 213 lb BMI 39.0 BP 120/70 Blood Pressure Location Lt brachial Position Sitting Pulse 78 Pulse Source Pulse Oximeter Pulse Oximetry (%) 98 Oxygen Delivery Method Room Air Intake Visit Reasons: Obstructive sleep apnea Intake Note: pt is here for follow up of SIXTO Counseling Program Leader Required: Yes Counseling Program Leader Name: [id number] Allergies aspirin [ASA] Allergy (Severe, Verified 11/11/23 15:01) Anaphylaxis Medication List - Last Reconciled 11/11/23 by Fox Norton MD acetaminophen (Tylenol Extra Strength) 1,000 mg (2 x 500 mg) PO Q6H PRN 90 days buspirone 10 mg PO DAILY chlorthalidone 25 mg PO QAM 90 days CPAP (CPAP Machine/Device) autoPAP mode, 6-20 cm H2O diazepam (Valium) 10 mg PO BEDTIME PRN escitalopram oxalate 5 mg PO DAILY fluticasone propionate 50 mcg/actuation (Flonase Allergy Relief) 1 spray intranasal DAILY ketoconazole 2% topical lidocaine 5% (Lidoderm) 1 patch topical DAILY loratadine 10 mg PO DAILY losartan 100 mg PO DAILY 90 days medroxyprogesterone 10 mg PO DAILY meloxicam 15 mg PO DAILY omeprazole 20 mg PO DAILY PRN solifenacin 10 mg PO DAILY tramadol 50 mg PO DAILY zolpidem 10 mg PO BEDTIME PRN 30 days Do you need a note to return to daycare/school/sports/work: No HPI HPI Obstructive sleep apnea: Details: THIS 58 YEARS OLD FEMALE IS HERE FOR FOLLOW-UP FOR HER SLEEP APNEA. SHE WAS DIAGNOSED TO HAVE RATHER SEVERE OBSTRUCTIVE SLEEP APNEA ALONG WITH NOCTURNAL HYPOXEMIA BACK IN 2021. SHE HAS BEEN USING CPAP EVERY NIGHT REGULARLY. SHE CLAIMS THAT SHE USES AT LEAST. FOR 5 HOURS EVERY NIGHT HER MACHINE DOES NOT HAVE CAPABILITY FOR TRANSMITTING THE COMPLIANCE DATA. SHE [place] [facility] [place]. SO SHE DOES CLAIMS THAT SHE IS USING WITH GOOD COMPLIANCE HOWEVER WE DO NOT HAVE ANY REPORT OF COMPLIANCE. SHE HAS LOT OF ARTHRITIS AND HAS HAD KNEE SURGERY, SO DOES NOT WALK AROUND MUCH. THUS SHE HAS NOT LOST MUCH ANYWAY. SHE DENIES COUGH WHEEZING OR ANY SHORTNESS OF BREATH. [facility] Medical History Obesity (BMI 30-39.9) Sleep apnea VAHE (generalized anxiety disorder) Hypercalcemia Calcific shoulder tendinitis Class 1 obesity with body mass index (BMI) of 34.0 to 34.9 in adult Right leg pain Essential hypertension Diverticulosis Hemorrhoids, internal, with bleeding Family history of colon cancer History of colon polyps GERD with esophagitis Rhinitis Surgical History S/P right knee arthroscopy Hx of endoscopy History of colonoscopy (~02/2018) H/O basal cell carcinoma excision History of section History of tubal ligation Family History Father Pancreatic cancer Mother Colon cancer, Onset Age: 72 Hypertension Brother No problems noted. Sister Psychiatric disorder Chronic mental illness Family/Other Chronic mental illness Social History Housing: Apartment Do you presently have visiting nurse or other home services: No Alcohol intake: current Alcohol intake frequency: holidays/special occasions only Alcohol type: wine Patient Tobacco Use Status: Never used Tobacco e-Cigarette/Vaping Use: Never Used Second Hand Smoke Exposure: No service: No Current occupational status: employed Current occupational exposures/hazards: No Sexual orientation: Straight/Heterosexual Gender identity: Female Cognitive needs: No Hearing needs: No Vision needs: Yes Female Reproductive History Menstrual Age of Menarche: 15 Review of Systems Const All systems reviewed & are unremarkable except as noted in HPI and below Eyes Reports no additional complaints ENT Reports nasal congestion (Off and on only with the change of seasons.) Card Denies chest pain, Denies irregular heart rhythm, Denies leg edema and Denies dyspnea Resp Denies cough, Denies dyspnea and Denies wheezing GI Reports no additional complaints Reports no additional complaints Musc Reports no additional complaints Skin/Breast Reports system reviewed and no additional complaints, except as documented Neuro Reports no additional complaints Psych Reports anxiety (Controlled) Endo Reports no additional complaints Den/Lymph Reports no additional complaints Aller/Immun Denies wheezing Physical Exam Vital Signs: Last Vital Signs Pulse 78 11/11/23 14:37 BP 120/70 11/11/23 14:37 Pulse Ox 98 11/11/23 14:37 Oxygen Delivery Method Room Air 11/11/23 14:37 BMI result Body Mass Index 39.0 Const General: healthy appearing (Except for being overweight), comfortable, no acute distress, alert and awake Orientation/consciousness: patient oriented x3 HEENT Head: Yes normal to inspection General nose exam: No nasal polyps present, abnormal septum (DNS to the left. A small excoriation over the anterior septum on Rt.side), No nasal discharge present and Other nasal findings present (Mild DNS to left) Face and sinus: Yes sinuses nontender Mouth: oropharynx normal Throat: Yes posterior oropharynx normal Eyes General: appearance normal, both eyes and all related structures Neck Neck: Yes normal visual inspection, Yes no lymphadenopathy, Yes trachea midline and Yes no JVD Thyroid: Thyroid normal Chest Chest palpation & inspection: normal inspection of the chest, normal palpation of entire chest wall and no tenderness Resp Effort & Inspection: normal respiratory effort and no cough Auscultation: clear to auscultation bilaterally, no crackles and no wheezes Cardio Palpation: normal PMI Rate: regular rate Rhythm: regular rhythm Heart sounds: no gallops and no murmurs Peripheral pulses: Peripheral pulses 2+ throughout GI Palpation (GI): Soft to palpation, nontender, No hepatosplenomegaly present and no masses Auscultation: normal bowel sounds Back/Spine/Pelvis Thoracic/Lumbar Spine: thoracic and lumbar spine normal to inspection Skin General skin exam: no rashes or lesions noted Neuro General: patient oriented x3 and no focal motor deficits Cranial nerves: Yes CN's II-XII intact bilaterally Extrem General: Yes normal to inspection, Yes no clubbing, cyanosis or edema and Yes no calf tenderness Psych Appearance: grossly normal and well kempt Speech and movement: Normal speech and movement present Assessment & Plan Assessment & Plan (1) Obesity (BMI 30-39.9): Comment: CONTINUES TO BE MODERATELY OBESE, NOT ABLE TO LOSE WEIGHT BECAUSE SHE DOES NOT DO ANY EXERCISE. Code(s): E66.9 - Obesity, unspecified Category: Medical Plan: AGAIN ADVISED THAT SHE SHOULD CUT DOWN THE CALORIES INTAKE AND TRY TO LOSE ABOUT 10-15 LB OF WEIGHT. (2) SIXTO (obstructive sleep apnea): Comment: PATIENT HAS SYMPTOMATIC OBSTRUCTIVE SLEEP APNEA, SEVERE, DIAGNOSED IN 2021 . PATIENT DOES USE THE CPAP AT NIGHT AND CLAIMS THAT SHE USES FOR AT LEAST 5 HOURS EVERY NIGHT. WE DO NOT HAVE ANY COMPLIANCE DATA RECORDING. Code(s): G47.33 - Obstructive sleep apnea (adult) (pediatric) Category: Medical Plan: WILL CONTACT DME AND SEE IF THEY CAN HELP US IN GETTING THE COMPLIANCE DATA. (3) Nocturnal hypoxemia: Comment: PATIENT DOES HAVE SIGNIFICANT DEGREE OF NOCTURNAL HYPOXEMIA PROBABLY DUE TO SLEEP-RELATED HYPOVENTILATION. IT WAS HOPED THAT WITH THE PROPER USE OF CPAP HER HYPOXEMIA WILL RESOLVE. Code(s): G47.34 - Idiopathic sleep related nonobstructive alveolar hypoventilation Category: Medical Plan: WILL GET OVERNIGHT OXIMETRY RECORDING TO SEE IF THE HYPOXEMIA IS CLEARED Coding Level of Care Code Est Pt Level 3 (04522) Diagnoses Obesity (BMI 30-39.9) E66.9 SIXTO (obstructive sleep apnea) G47.33 Nocturnal hypoxemia G47.34
== END 2023-11-11 14:57 | disposition home or self-care (01) ==
PROVIDERS: PCP Internal Medicine; Visit Provider Internal Medicine
DX: E66.9 Obesity, unspecified (principal); G47.33 Obstructive sleep apnea (adult) (pediatric); G47.34 Idiopathic sleep related nonobstructive alveolar hypoventilation
CPT/HCPCS: 99213

== ENCOUNTER → 2023-11-11 14:25 | Outpatient (BNVA) | payer OTHER, SELFPAY | PROVIDERS: PCP Internal Medicine; Visit Provider Internal Medicine | DX: G47.33 Obstructive sleep apnea (adult) (pediatric) (principal); G47.34 Idiopathic sleep related nonobstructive alveolar hypoventilation; E66.9 Obesity, unspecified; Z68.39 Body mass index [BMI] 39.0-39.9, adult | CPT/HCPCS: 99212 ==

== ENCOUNTER 2023-11-21 07:35 | Outpatient (AMB) | payer OTHER, SELFPAY ==
[2023-11-21 07:37] VITALS: BP 122/72; BMI 38.7
--- NOTE | 2023-11-21 07:37 | MHC.OFFVIS ---
Vital Signs 11/21/23 07:37 Height 5 ft 2 in Weight 211 lb 10.3 oz BMI 38.7 BP 122/72 Intake Visit Reasons: EMB results Cell Biologist Required: Yes Cell Biologist Language: Metal Die Finisher Name: Tricia SEVERINO Information Interpreted: non-clinical & clinical Accompanied by: Spouse Allergies aspirin [ASA] Allergy (Severe, Verified 11/21/23 07:44) Anaphylaxis Post menopausal: Yes HPI Comments Details: The patient is presenting after endometrial biopsy. The patient has no complaints, no vaginal bleeding, no feverishness chills or abdominal pain. The patient had abnormal uterine bleeding in 10/23 EMB showed proliferative endometrium with no evidence of endometrial hyperplasia or malignancy or atypia, counseling about options of treatment including p.o. progestins with levo norgestrel IUD, the patient decided to proceed with p.o. progestins since then has been on medroxyprogesterone acetate 10 mg p.o. q.d. repeat EMB in 03/25 showed inactive endometrium, repeat EMB in 10/24 showed benign inactive endometrium with scant tissue repeat EMB done in 11/24, the pathology showed the following: Endometrium, biopsy: Predominantly benign endocervical glandular and squamous epithelium with blood and mucus, and scant benign atrophic endometrium (see comment). Comment: The scant endometrium may not be dealer compliance representative Pelvic ultrasound done but report is still pending, but unofficial reading shows endometrial thickness of 7 mm, One myoma posterior subserosal previously measuring 5 x 3.3 x 4.2 currently 4.4 x 3.4 x 4.2 cm, I can myoma intramural fundal previously measuring 2.7 x 2.7 x 3.1 cm currently 4 x 3.5 x 3.3 cm, 3rd myoma previously measuring 2.5 x 2.6 x 1.9 cm currently measuring 2.4 x 2.1 cm and a 4th myoma previously measuring 1.8 x 1.7 x 1.6 cm currently not seen. [facility] Medical History Obesity (BMI 30-39.9) Sleep apnea VAHE (generalized anxiety disorder) Hypercalcemia Calcific shoulder tendinitis Class 1 obesity with body mass index (BMI) of 34.0 to 34.9 in adult Right leg pain Essential hypertension Diverticulosis Hemorrhoids, internal, with bleeding Family history of colon cancer History of colon polyps GERD with esophagitis Rhinitis Surgical History S/P right knee arthroscopy Hx of endoscopy History of colonoscopy (~02/2018) H/O basal cell carcinoma excision History of section History of tubal ligation Family History Father Pancreatic cancer Mother Colon cancer, Onset Age: 72 Hypertension Brother No problems noted. Sister Psychiatric disorder Chronic mental illness Family/Other Chronic mental illness Social History Housing: Apartment Do you presently have visiting nurse or other home services: No Alcohol intake: current Alcohol intake frequency: holidays/special occasions only Alcohol type: wine Patient Tobacco Use Status: Never used Tobacco e-Cigarette/Vaping Use: Never Used Second Hand Smoke Exposure: No service: No Current occupational status: employed Current occupational exposures/hazards: No Sexual orientation: Straight/Heterosexual Gender identity: Female Cognitive needs: No Hearing needs: No Vision needs: Yes Female Reproductive History Menstrual Age of Menarche: 15 Review of Systems Const All systems reviewed & are unremarkable except as noted in HPI and below Reports as per HPI and Reports no additional complaints GI Reports no additional complaints Reports no additional complaints Physical Exam Vital Signs: Last Vital Signs BP 122/72 11/21/23 07:37 BMI result Body Mass Index 38.7 Assessment & Plan Assessment & Plan (1) Abnormal uterine bleeding (AUB): Comment: Proliferative endometrium on EMB in 10/23 on Provera since then-reversed to inactive endometrium in 03/25 10/24 and 11/24 scant benign endometrium Code(s): N93.9 - Abnormal uterine and vaginal bleeding, unspecified Category: Medical Plan: Discussed with the patient the results of endometrial biopsy pathology showing scant benign endometrium, that it might not be dealer compliance representative of the endometrial cavity. The negative predictive value, positive predictive value, Sensitivity, specificity of using ultrasound measurement of endometrial stripe to detecting endometrial pathology including hyperplasia , polyp or cancer were discussed with the patient. Given the endometrial pathology including endometrial hyperplasia and/or malignancy has not been ruled out with a high accuracy, therefore I recommended to the patient that the next step is an endometrial sampling via hysteroscopy D&C possible polypectomy versus endometrial biopsy to r/o endometrial pathology including hyperplasia or cancer. The patient is interested myoma surgical management (2) Myoma: Code(s): D21.9 - Benign neoplasm of connective and other soft tissue, unspecified Category: Medical Plan: Discussed with the patient the unofficial reading results of the pelvic ultrasound showing 1 myoma grown in size from 3.1 - 4 cm of the other 2 myomas stable to mildly decreased in size. Discussed with the patient risk of myosarcoma and symptoms that are caused by myomas including but not limited to pelvic pain, pressure symptoms, abnormal uterine bleeding. In addition discussed with the patient options of treatment for myomas including: Serial ultrasounds periodically to follow-up on the size of the myoma while targeting the treatment against fibroids related symptoms with Mirena IUD, progesterone treatment, uterine artery embolization or endometrial ablation versus definitive surgical treatment including hysterectomy. All pros and cons, risks and benefits of all options were discussed with the patient. The patient decided to proceed with definitive surgical treatment. Discussed with the patient the different types of hysterectomies including, vaginal, laparoscopic assisted vaginal, robotic assisted laparoscopic,& abdominal with BSO. All pros, cons, r/b of each approach were discussed the patient including evidence that morbidity is less and recovery is shorter with minimally invasive approaches to hysterectomy. Discussed with the patient the lack of availability of the robot [employer] robot and/or minimally invasive continuity tester specialist at [facility]. The patient requested to be referred to a tertiary care center. Instructed the patient to call our office back in case a referral appointment is not scheduled, missed or canceled so that we will assist on rescheduling another appointment, the patient verbalized understanding agreed with the plan. Coding Level of Care Code Est Pt Level 3 (98954) Diagnoses Abnormal uterine bleeding (AUB) N93.9 Myoma D21.9
== END 2023-11-21 08:00 | disposition home or self-care (01) ==
PROVIDERS: PCP Internal Medicine; Visit Provider Obstetrics & Gynecology
DX: N93.9 Abnormal uterine and vaginal bleeding, unspecified (principal); D21.9 Benign neoplasm of connective and other soft tissue, unspecified
CPT/HCPCS: 99213

== ENCOUNTER → 2023-11-21 07:35 | Outpatient (BNVA) | payer OTHER, SELFPAY | PROVIDERS: PCP Internal Medicine; Visit Provider Obstetrics & Gynecology | DX: N93.9 Abnormal uterine and vaginal bleeding, unspecified (principal); D21.9 Benign neoplasm of connective and other soft tissue, unspecified | CPT/HCPCS: 99212 ==

== ENCOUNTER 2023-11-28 08:08 | Outpatient (REF) | payer OTHER, SELFPAY ==
[2023-11-28 09:34] LABS: Alanine Aminotransferase 19 U/L (0-31); Albumin Level 4.3 g/dL (3.5-5.0); Alkaline Phosphatase 77 U/L (39-117); Anion Gap 11 (12-20); Bilirubin Total 0.6 mg/dL (0.0-1.0); Blood Urea Nitrogen 18 mg/dL (9-16); Calcium 10.4 mg/dL (8.4-10.2); Carbon Dioxide 28 mmol/L (22-29); Chloride 103 mmol/L (96-108); Cholesterol 138 mg/dL (<200); Estimated Glomerular Filt Rate > 60; Glucose Fasting 100 mg/dL (60-99); HDL Cholesterol 52 mg/dL (>40); LDL Cholesterol Calculated 69 mg/dL (<100); Potassium 4.1 mmol/L (3.3-5.1); Sodium 138 mmol/L (135-145); Triglycerides 85 mg/dL (<150)
[2023-11-28 09:46] LABS: Aspartate Amino Transferase 16 U/L (5-31)
[2023-11-28 09:52] LABS: Thyroid Stimulating Hormone 1.53 uIU/mL (0.32-4.0); Vitamin D 25-OH Total 29.3 ng/mL (>30)
[2023-11-29 11:13] LABS: Thyroglobulin Antibodies <1 IU/mL (< or = 1); Thyroid Peroxidase Antibodies 1 IU/mL (<9)
== END 2023-11-28 08:09 | disposition home or self-care (01) ==
LOC: HO.LAB 08:08
PROVIDERS: PCP Internal Medicine; Visit Provider Internal Medicine
DX: Z00.00 Encounter for general adult medical examination without abnormal findings (principal); E04.1 Nontoxic single thyroid nodule; E55.9 Vitamin D deficiency, unspecified
CPT/HCPCS: 36415; 80053; 80061; 82306; 84443; 86376; 86800

== ENCOUNTER 2023-12-10 17:06 | Outpatient (AMB) | payer OTHER, SELFPAY ==
--- NOTE | 2023-12-10 17:07 | MHC.PC.OV ---
Vital Signs 12/10/23 17:08 Height 5 ft 2 in Weight 219 lb 8 oz BMI 40.1 BP 100/62 Blood Pressure Location Lt brachial Position Sitting Pulse 94 Pulse Source Pulse Oximeter Pulse Oximetry (%) 95 Oxygen Delivery Method Room Air Intake Visit Reasons: follow up Train Station Agent Required: No Accompanied by: Grand Child Allergies aspirin [ASA] Allergy (Severe, Verified 12/10/23 17:16) Anaphylaxis Medication List - Last Reconciled 12/10/23 by Arelis Hughes MD acetaminophen (Tylenol Extra Strength) 1,000 mg (2 x 500 mg) PO Q6H PRN 90 days buspirone 10 mg PO DAILY chlorthalidone 25 mg PO QAM 90 days CPAP (CPAP Machine/Device) autoPAP mode, 6-20 cm H2O diazepam (Valium) 10 mg PO BEDTIME PRN escitalopram oxalate 5 mg PO DAILY fluticasone propionate 50 mcg/actuation (Flonase Allergy Relief) 1 spray intranasal DAILY ketoconazole 2% topical lidocaine 5% (Lidoderm) 1 patch topical DAILY loratadine 10 mg PO DAILY losartan 100 mg PO DAILY 90 days medroxyprogesterone 10 mg PO DAILY meloxicam 15 mg PO DAILY omeprazole 20 mg PO DAILY PRN solifenacin 10 mg PO DAILY tramadol 50 mg PO DAILY zolpidem 10 mg PO BEDTIME PRN 30 days Tobacco use date assessed: 07/09/23 Dental Screening Dental Screen Date: 07/09/23 HPI HPI Comments History of Present Illness Details This is a 58-year-old female with hypertension and obstructive sleep apnea that comes today complaining of lumbar pain that bothers her. I will refer her to pain management. She is also morbidly obese and has tried diet and exercise with no improvement. Will start her on Wegovy. Blood pressure stable. Compliant with CPAP machine. Labs were discussed. [facility] Medical History (Updated 12/10/23 @ 17:23 by Arelis Hughes MD) Obesity (BMI 30-39.9) Sleep apnea VAHE (generalized anxiety disorder) Hypercalcemia Calcific shoulder tendinitis Class 1 obesity with body mass index (BMI) of 34.0 to 34.9 in adult Right leg pain Essential hypertension Diverticulosis Hemorrhoids, internal, with bleeding Family history of colon cancer History of colon polyps GERD with esophagitis Rhinitis Surgical History S/P right knee arthroscopy Hx of endoscopy History of colonoscopy (~02/2018) H/O basal cell carcinoma excision History of section History of tubal ligation Family History Father Pancreatic cancer Mother Colon cancer, Onset Age: 72 Hypertension Brother No problems noted. Sister Psychiatric disorder Chronic mental illness Family/Other Chronic mental illness Social History Housing: Apartment Do you presently have visiting nurse or other home services: No Alcohol intake: current Alcohol intake frequency: holidays/special occasions only Alcohol type: wine Patient Tobacco Use Status: Never used Tobacco e-Cigarette/Vaping Use: Never Used Second Hand Smoke Exposure: No service: No Current occupational status: employed Current occupational exposures/hazards: No Sexual orientation: Straight/Heterosexual Gender identity: Female Cognitive needs: No Hearing needs: No Vision needs: Yes Female Reproductive History Menstrual Age of Menarche: 15 Questionnaire Thrive Questionnaire Date Thrive assessed: 07/09/23 VAHE-7 AMB Questionnaire VAHE-7 Date VAHE - 7 assessed: 07/09/23 Source: Developed by Drs. Drew Cartagena, Emmy Hilton, Kirby Vasquez and colleagues, with an educational jose from [employer]. Review of Systems Const All systems reviewed & are unremarkable except as noted in HPI and below Card Denies chest pain at rest, Denies chest pain with activity, Denies edema, Denies irregular heart rhythm, Denies claudication, Denies dyspnea, Denies dyspnea on exertion, Denies orthopnea, Denies paroxysmal nocturnal dyspnea and Denies slow heart rate Resp Denies cough, Denies dyspnea and Denies dyspnea on exertion GI Denies abdominal pain, Denies change in bowel habits, Denies excessive flatus, Denies nausea and Denies vomiting Physical exam (Primary Care) Vital Signs: Last Vital Signs Pulse 94 12/10/23 17:08 BP 100/62 12/10/23 17:08 Pulse Ox 95 12/10/23 17:08 Oxygen Delivery Method Room Air 12/10/23 17:08 BMI result Body Mass Index 40.1 Tobacco/Smoking Status: Tobacco use Status Tobacco use date assessed 07/09/23 12/10/23 17:13 Patient Tobacco Use Status Never used Tobacco 12/10/23 17:13 e-Cigarette/Vaping Use Never Used 12/10/23 17:13 Thrive Assessment: Date of Thrive Assessment Date Thrive assessed 07/09/23 12/10/23 17:13 Resp Effort & Inspection: normal respiratory effort Auscultation: clear to auscultation bilaterally Cardio Jugular venous distension: no JVD Rate: regular rate Rhythm: regular rhythm Heart sounds: S1 normal heart sound present and S2 normal heart sound present Extrem General: Yes full ROM Assessment and Plan Assessment & Plan (1) Morbid obesity with BMI of 40.0-44.9, adult: Code(s): E66.01 - Morbid (severe) obesity due to excess calories; Z68.41 - Body mass index [BMI] 40.0-44.9, adult Plan: Start Wegovy. BMI goal is less than 30. (2) Lumbar pain: Code(s): M54.50 - Low back pain, unspecified Plan: Referred to pain management. (3) Essential hypertension: Code(s): I10 - Essential (primary) hypertension Plan: Continue losartan. Blood pressure goal is equal or less than 130/80. (4) SIXTO (obstructive sleep apnea): Comment: PATIENT HAS SYMPTOMATIC OBSTRUCTIVE SLEEP APNEA, SEVERE, DIAGNOSED IN 2021 . PATIENT DOES USE THE CPAP AT NIGHT AND CLAIMS THAT SHE USES FOR AT LEAST 5 HOURS EVERY NIGHT. WE DO NOT HAVE ANY COMPLIANCE DATA RECORDING. Code(s): G47.33 - Obstructive sleep apnea (adult) (pediatric) Plan: Continue CPAP. Orders: Referrals Pain Management Referral M54.50 - Low back pain, unspecified Medications: New semaglutide (weight loss) (Wegovy) administer weeks 1 through 4 of therapy 0.25 mg (0.5 mL) subcut QWEEK 2 mL 0RF 4 weeks E66.01 - Morbid (severe) obesity due to excess calories, Z68.41 - Body mass index [BMI] 40.0-44.9, adult Refilled fluticasone propionate 50 mcg/actuation (Flonase Allergy Relief) administer into each nostril 1 spray intranasal DAILY 16 grams 0RF Coding Level of Care Code Est Pt Level 4 (45137) Complex EM visit Add On G2211 Diagnoses Morbid obesity with BMI of 40.0-44.9, adult E66.01; Z68.41 Lumbar pain M54.50 Essential hypertension I10 SIXTO (obstructive sleep apnea) G47.33 Time Spent (min) 22
[2023-12-10 17:08] VITALS: BP 100/62; PULSE 94; O2SAT 95; BMI 40.1
== END 2023-12-10 17:23 | disposition home or self-care (01) ==
PROVIDERS: PCP Internal Medicine; Visit Provider Internal Medicine
DX: E66.01 Morbid (severe) obesity due to excess calories (principal); Z68.41 Body mass index [BMI] 40.0-44.9, adult; M54.50 Low back pain, unspecified; I10 Essential (primary) hypertension; G47.33 Obstructive sleep apnea (adult) (pediatric)
CPT/HCPCS: 99214; G2211

== ENCOUNTER 2023-12-12 12:42 | Outpatient (AMB) | payer OTHER, SELFPAY ==
--- NOTE | 2023-12-12 12:58 | A.OFFVIS_ITS ---
Vital Signs 12/12/23 13:00 Height 5 ft 2 in Weight 218 lb 4.122 oz BMI 39.9 Intake Visit Reasons: Ultra sound follow up Sas Developer Analyst Required: Yes Sas Developer Analyst Language: Molder Sweep Services: Sas Developer Analyst Present (in person) Sas Developer Analyst Name: Tricia SEVERINO Information Interpreted: non-clinical & clinical Accompanied by: Grand Child Allergies aspirin [ASA] Allergy (Severe, Verified 12/12/23 13:07) Anaphylaxis Post menopausal: Yes HPI Comments Details: Presenting for pelvic ultrasound follow-up which showed the following: UTERUS: The uterus is enlarged with a volume of 386 mL measuring 11.7 x 10.1 x 6.3 cm with multiple fibroids. The double wall endometrial thickness is 7 mm. Three of the 4 fibroids seen previously are seen on the current exam ranging in size from 2.4 cm to 4.4 cm; exact comparison of fibroids to one another is a bit difficult but overall picture has not changed. ADNEXA: Neither ovary could be seen. No free fluid present. The patient had abnormal uterine bleeding in 10/23 EMB showed proliferative endometrium with no evidence of endometrial hyperplasia or malignancy or atypia, counseling about options of treatment including p.o. progestins with levo norgestrel IUD, the patient decided to proceed with p.o. progestins since then has been on medroxyprogesterone acetate 10 mg p.o. q.d. Repeat EMB in 03/25 showed inactive endometrium, EMB in 10/24 showed benign inactive endometrium with scant tissue Repeat EMB done in 11/24, the pathology showed the following: Endometrium, biopsy: Predominantly benign endocervical glandular and squamous epithelium with blood and mucus, and scant benign atrophic endometrium (see comment). Comment: The scant endometrium may not be volunteer patient representative [facility] Medical History Obesity (BMI 30-39.9) Sleep apnea VAHE (generalized anxiety disorder) Hypercalcemia Calcific shoulder tendinitis Class 1 obesity with body mass index (BMI) of 34.0 to 34.9 in adult Right leg pain Essential hypertension Diverticulosis Hemorrhoids, internal, with bleeding Family history of colon cancer History of colon polyps GERD with esophagitis Rhinitis Surgical History S/P right knee arthroscopy Hx of endoscopy History of colonoscopy (~02/2018) H/O basal cell carcinoma excision History of section History of tubal ligation Family History Father Pancreatic cancer Mother Colon cancer, Onset Age: 72 Hypertension Brother No problems noted. Sister Psychiatric disorder Chronic mental illness Family/Other Chronic mental illness Social History Housing: Apartment Do you presently have visiting nurse or other home services: No Alcohol intake: current Alcohol intake frequency: holidays/special occasions only Alcohol type: wine Patient Tobacco Use Status: Never used Tobacco e-Cigarette/Vaping Use: Never Used Second Hand Smoke Exposure: No service: No Current occupational status: employed Current occupational exposures/hazards: No Sexual orientation: Straight/Heterosexual Gender identity: Female Cognitive needs: No Hearing needs: No Vision needs: Yes Female Reproductive History Menstrual Age of Menarche: 15 Review of Systems Const All systems reviewed & are unremarkable except as noted in HPI and below Reports as per HPI and Reports no additional complaints GI Reports no additional complaints Reports no additional complaints Physical Exam Vital Signs: BMI result Body Mass Index 39.9 Assessment & Plan Assessment & Plan (1) Abnormal uterine bleeding (AUB): Comment: Proliferative endometrium on EMB in 10/23 on Provera since then-reversed to inactive endometrium in 03/25, 10/24 and 11/24 scant benign endometrium may not be volunteer patient representative of the enmdometrium Code(s): N93.9 - Abnormal uterine and vaginal bleeding, unspecified Category: Medical Plan: The patient was referred to [facility] obgyn appointment scheduled on 01/22/24, patient is aware. The patient is interested in minimally invasive hysterectomy for recurrent abnormal uterine bleeding and myomas. Explained to the patient the last EMB showed scant benign endometrium and may not be volunteer patient representative of the endometrium, therefore, explained to the patient that the risk of endometrial pathology including endometrial hyperplasia and /or malignancy has not been ruled out yet. All questions answered, the patient verbalized understanding (2) Myoma: Code(s): D21.9 - Benign neoplasm of connective and other soft tissue, unspecified Category: Medical Plan: Discussed with the patient the finding on ultrasound showing 3 of the previously identified for myomas on previous ultrasound with minimal difference in changes. Coding Level of Care Code Est Pt Level 3 (10750) Diagnoses Abnormal uterine bleeding (AUB) N93.9 Myoma D21.9
[2023-12-12 13:00] VITALS: BMI 39.9
== END 2023-12-12 13:34 | disposition home or self-care (01) ==
PROVIDERS: PCP Internal Medicine; Visit Provider Obstetrics & Gynecology
DX: N93.9 Abnormal uterine and vaginal bleeding, unspecified (principal); D21.9 Benign neoplasm of connective and other soft tissue, unspecified
CPT/HCPCS: 99213

== ENCOUNTER → 2023-12-12 12:42 | Outpatient (BNVA) | payer OTHER, SELFPAY | PROVIDERS: PCP Internal Medicine; Visit Provider Obstetrics & Gynecology | DX: N93.9 Abnormal uterine and vaginal bleeding, unspecified (principal); D21.9 Benign neoplasm of connective and other soft tissue, unspecified | CPT/HCPCS: 99212 ==

== ENCOUNTER 2023-12-24 16:41 | Outpatient (REF) | payer OTHER, SELFPAY | END 2023-12-24 16:42 | disposition home or self-care (01) | LOC: HO.LAB 16:41 | PROVIDERS: Visit Provider Urology | DX: R82.90 Unspecified abnormal findings in urine (principal) | CPT/HCPCS: 87086 ==

== ENCOUNTER 2024-01-02 13:00 | Outpatient (AMB) | payer OTHER, SELFPAY ==
--- NOTE | 2024-01-02 13:15 | A.OFFVIS_ITS ---
Vital Signs 01/02/24 13:40 Height 5 ft 2 in Weight 219 lb BMI 40.1 BP 134/80 Blood Pressure Location Lt brachial Position Sitting Respiration 14 Pulse 87 Pulse Source Pulse Oximeter Pulse Oximetry (%) 97 Oxygen Delivery Method Room Air Intake Visit Reasons: Low back pain Intake Note: Patient comes in for low back pain was last seen 04/21/2020. Reports pain 8/10. Allergies aspirin [ASA] Allergy (Severe, Verified 01/02/24 13:42) Anaphylaxis HPI Comments Details: Nuria is very pleasant 58 years old female who presents in my office today with complains on lower back pain which is being aggravated with prolonged sitting and flexing forward as well as with increased activities. She was under care of this office back in 2019 she was treated for facet joint arthropathy with very successful diagnostic medial branch blocks. She did not follow-up with us probably because her pain was non-existent. However recently in July of 2023 she had a surgery on her right knee she had total knee replacement. After surgery she started to complain on pain in the lower back. She was sent for physical therapy of the knee, she had physical therapy for the back long time ago and physical therapy was helpful for her pain back right now she requests help with her back pain. She reports that she can sleep normally she can do activities of daily living she can take care of herself she can function normally. 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 She reports that heat applications aggravate her pain. She had an x-ray of the lumbar spine demonstrating spondylosis of lumbar spine in 2019. She did not have any MRI at that time. She had medial branch blocks which were effective for spondylotic pain. Her past medical history significant for anemia hypertension and arthritis, past surgical history is significant for right knee replacement 07/26/2023 right meniscus surgery in 08/21/2021, some sort of a carcinoma surgery of the nose in 2019 and 2 C-sections 1 in 1089 and 1 in 2001. She denies smoking cigarettes admits social use of alcohol drinks coffee in the morning she denies recreational drugs. [facility] Medical History Obesity (BMI 30-39.9) Sleep apnea VAHE (generalized anxiety disorder) Hypercalcemia Calcific shoulder tendinitis Class 1 obesity with body mass index (BMI) of 34.0 to 34.9 in adult Right leg pain Essential hypertension Diverticulosis Hemorrhoids, internal, with bleeding Family history of colon cancer History of colon polyps GERD with esophagitis Rhinitis Surgical History S/P right knee arthroscopy Hx of endoscopy History of colonoscopy (~02/2018) H/O basal cell carcinoma excision History of section History of tubal ligation Family History Father Pancreatic cancer Mother Colon cancer, Onset Age: 72 Hypertension Brother No problems noted. Sister Psychiatric disorder Chronic mental illness Family/Other Chronic mental illness Social History Housing: Apartment Do you presently have visiting nurse or other home services: No Alcohol intake: current Alcohol intake frequency: holidays/special occasions only Alcohol type: wine Patient Tobacco Use Status: Never used Tobacco e-Cigarette/Vaping Use: Never Used Second Hand Smoke Exposure: No service: No Current occupational status: employed Current occupational exposures/hazards: No Sexual orientation: Straight/Heterosexual Gender identity: Female Cognitive needs: No Hearing needs: No Vision needs: Yes Female Reproductive History Menstrual Age of Menarche: 15 Review of Systems Const Denies body aches, Denies chills, Denies excessive sweating, Denies fever(s), Denies weight gain and Denies weight loss ENT Reports Normal hearing present Card Reports no additional complaints and Denies palpitations Resp Denies chest congestion, Denies cough and Denies hemoptysis Musc Denies back pain, Denies myalgias, Denies numbness, Denies radiating pain into limb and Denies tingling Neuro Reports Normal hearing present, Denies Abnormal speech present, Denies behavioral changes, Denies confusion, Denies numbness, Denies Sensory deficit (Neuro), Denies tingling and Denies paresthesias Psych Denies anxiety, Denies behavioral changes, Denies change in appetite, Denies confusion, Denies depression and Denies difficulty concentrating Endo Denies excessive sweating, Denies heat intolerance and Denies palpitations Physical Exam Const General: no acute distress; No confusion Nutritional Appearance: obese morbidly obese Orientation/consciousness: patient oriented x3 and No confusion Eyes General: appearance normal, both eyes and all related structures Pupils: Equal, round and reactive pupils present EOM: EOMs intact bilaterally Neck Neck: Yes full ROM Chest Chest palpation & inspection: normal inspection of the chest Resp Effort & Inspection: normal respiratory effort, able to speak in complete sentences, normal respiratory pattern, no audible wheezes and no cough Cardio Jugular venous distension: no JVD GI Inspection: Yes normal to inspection Back/Spine/Pelvis Other: Patient is able to stand on bilateral tiptoes and bilateral heels demonstrating normal strength of bilateral lower extremities, she is able to flex herself backwards but has a lot of difficulty flexing herself forward no more than 40 degrees forward from the vertical midline. She reports severe tenderness on palpation in projection of L5-S1 spinous process. SLR is negative bilaterally the Lassegue test maybe positive on the left, she denies numbness in bilateral lower extremities she denies pelvic organ dysfunction, she reports no pain increase with Valsalva maneuver, Michael test is negative bilaterally pelvic compression test is negative bilaterally, 14 finger test is negative bilaterally. Neuro General: patient oriented x3, gait normal and No confusion Cranial nerves: Yes CN's II-XII intact bilaterally, Yes Equal, round and r eactive pupils present, Yes Normal hearing present and Yes Ability to bilaterally elevate shoulders present Speech: No Abnormal speech present Gait exam (Neuro): Normal gait present Motor exam (neuro): 5/5 motor strength present throughout Sensory Exam: No Sensory deficit (Neuro) Extrem General: No pedal edema Psych Speech and movement: Normal speech and movement present Affect: normal affect Attitude: cooperative Thought process: Normal thought process present Thought content: Normal thought content present Insight: Good insight present (Psych) Judgement: Good judgement present (Psych) Assessment & Plan Assessment & Plan (1) Vertebrogenic low back pain: Code(s): M54.51 - Vertebrogenic low back pain Category: Medical (2) Spondylosis of lumbar region without myelopathy or radiculopathy: Code(s): M47.816 - Spondylosis without myelopathy or radiculopathy, lumbar region Category: Medical (3) Chronic pain syndrome: Code(s): G89.4 - Chronic pain syndrome Category: Medical Plan After performing physical examination of this patient I was left under impression that most significant pain generators of this patient is vertebra genic pain syndrome. We will send her for the MRI of the lumbar spine. I will also send her for physical therapy. Reported to me that physical therapy in the past minimally alleviated her pain however for the short period of time. If MRI will be positive for Modic type 1 and type 2 changes in the lumbar spine I will schedule patient for intercept procedure according to the levels of the MRI. Orders: Orders MR lumbar spine wo con Today G89.4 - Chronic pain syndrome, M54.51 - Vertebrogenic low back pain PT Evaluation and Treatment Today G89.4 - Chronic pain syndrome, M54.51 - Vertebrogenic low back pain Patient Instructions: I here by testify that I spent 45 minutes in conversation with this patient as well as planning her care making appropriate orders and organizing this note. Coding Level of Care Code New Pt Level 4 (84042) Diagnoses Vertebrogenic low back pain M54.51 Spondylosis of lumbar region without myelopathy or radiculopathy M47.816 Chronic pain syndrome G89.4
[2024-01-02 13:40] VITALS: BP 134/80; PULSE 87; RESP 14; O2SAT 97; BMI 40.1
== END 2024-01-02 13:34 | disposition home or self-care (01) ==
PROVIDERS: PCP Internal Medicine; Visit Provider Anesthesiology
DX: M54.51 Vertebrogenic low back pain (principal); M47.816 Spondylosis without myelopathy or radiculopathy, lumbar region; G89.4 Chronic pain syndrome
CPT/HCPCS: 99204

== ENCOUNTER → 2024-01-02 13:00 | Outpatient (BNVA) | payer OTHER, SELFPAY | PROVIDERS: PCP Internal Medicine; Visit Provider Anesthesiology | DX: M54.51 Vertebrogenic low back pain (principal); M47.816 Spondylosis without myelopathy or radiculopathy, lumbar region; G89.4 Chronic pain syndrome | CPT/HCPCS: 99202 ==

== ENCOUNTER 2024-01-03 09:02 | Outpatient (AMB) | payer OTHER, SELFPAY ==
--- NOTE | 2024-01-03 09:51 | MHC.OFFVIS ---
Intake Visit Reasons: Urodynamics Intake Note: Nuria is a 58 year old female who presents to the office today for a urodynamics procedure. Mounter Clarinets Services: Mounter Clarinets Present Mounter Clarinets Name: yari [id number] Allergies aspirin [ASA] Allergy (Severe, Verified 03/04/24 15:41) Anaphylaxis HPI Comments Details: 01/03/24--Here for urodynamics--She had pelvic US with [facility] noting multiple fibroids and was referred to [facility] for treatment. Interpretation: During the filling phase sensory urgency was noted, strong urge was noted at 171 mL there was no objective leak associated with cough or valsalva. EMG- Appropriate changes in the waveforms were noted through out the study. The patient has failed vesicare. Discussed trial of gemtesa 75 mg daily. Other therapy alternatives such as botox discussed. Review of chart: 10/10/23--Nuria this be followed for lower urinary tract symptoms stress and urge incontinence. Certified technical support professional present. She has been on VESIcare. She had knee surgery done in July and has been getting physical therapy. She states that she continued leakage associated with coughing and physical activity. Will schedule urodynamics in January to be sure she has fully recuperated from her knee surgery. 07/18/23--Nuria is a 57-year-old female who presents today to the office for Follow up. She has been of vesicare for OAB urinary symptoms. She states also had some leakage with sneezing. She states she has surgery pending on right knee tomorrow. Discussed will have her follow up once she is recovered from knee surgery to reevaluated and discussed other treatment options for mixed urinary incontinence, may consider further evaluation with urodynamics. 01/16/2023? The patient is a [place] speaking female. Certified technical support professional was present during the visit. She was last seen by me on 11/29/2022 as a new patient evaluation. She has had pelvic US on 10/12/2022 which revealed 7 mm echogenic non shadowing avascular focus. She was started on Vesicare 10 mg for lower urinary tract symptoms. I reviewed the results of renal US from 12/28/2022 revealed both kidneys were normal. she states that she is taking Veiscare daily. Cystoscopy findings: Uterine fibroids causing extrinsic compression noted left posterior lateral wall, no suspicious bladder lesions visualized. 11/29/2022? Nuria is a 57-year-old female who presents to the office as a new patient evaluation due to abnormal bladder ultrasound findings. The patient is a [place] speaking female. Certified technical support professional was present during the visit. Past medical history-- hypertension, generalized anxiety disorder, obesity, being evaluated by [facility] for vaginal bleeding and had a pelvic US, which noted abnormal bladder findings as noted below. She denies frequent UTI episode. Has episodes of urinary urgency and frequency, urine leakage associated with urgency. Denies dysuria. Evaluation today: Blood-- negative, leukocytes: negative. Bladder scan PVR: 258 mL. Pelvis US results reviewed-- 10/12/22?noted incidental 7 mm echogenic nonshadowing avascular focus. Unclear etiology. Plan: Renal US prior was ordered. Cystoscopy discussed to be scheduled. Vesicare 10 mg QD was ordered. Follow-up after 6 weeks. 10/10/23?Plan: Schedule urodynamics PFS Medical History Obesity (BMI 30-39.9) Sleep apnea VAHE (generalized anxiety disorder) Hypercalcemia Calcific shoulder tendinitis Class 1 obesity with body mass index (BMI) of 34.0 to 34.9 in adult Right leg pain Essential hypertension Diverticulosis Hemorrhoids, internal, with bleeding Family history of colon cancer History of colon polyps GERD with esophagitis Rhinitis Surgical History S/P right knee arthroscopy Hx of endoscopy History of colonoscopy (~02/2018) H/O basal cell carcinoma excision History of section History of tubal ligation Family History Father Pancreatic cancer Mother Colon cancer, Onset Age: 72 Hypertension Brother No problems noted. Sister Psychiatric disorder Chronic mental illness Family/Other Chronic mental illness Social History Housing: Apartment Do you presently have visiting nurse or other home services: No Alcohol intake: current Alcohol intake frequency: holidays/special occasions only Alcohol type: wine Patient Tobacco Use Status: Never used Tobacco e-Cigarette/Vaping Use: Never Used Second Hand Smoke Exposure: No service: No Current occupational status: employed Current occupational exposures/hazards: No Sexual orientation: Straight/Heterosexual Gender identity: Female Cognitive needs: No Hearing needs: No Vision needs: Yes Female Reproductive History Menstrual Age of Menarche: 15 Office Procedures Urodynamic Studies Consent Discussed risk and benefit or proposed procedure with the patient. Information consent for procedure given to the patient. Discussed technical aspects, risks, benefits and alternatives in full. Addressed all of the patient's questions and concerns regarding the procedure. The patient demonstrated knowledge and understanding. They wish to proceed with this procedure. Preparation The patient was prepped in the usual manner. A soft shoe dancer was present and in the room. Genitalia was prepped with betadine solution in a sterile manner. Complex Uroflow Complex uroflow performed by: Fatuma Schmidt Maximum urinary flow rate (mL/second): 14 Voiding time (seconds): 23 Voided volume (mL): 118 Residual urine (mL): 0 Cystometrogram Vaginal/rectal catheter type: rectal First sensation at (mL): 23 mL First desire at (mL): 171 mL Strong desire to void occured at (mL): 381 mL Maximum fill (mL): 381 mL Voided with max detrussor pressure of (cm H2O): 6.4 03237-Eumcbuadodvwif w/ [employer]VIS[employer]CR[employer] 12852-Pkmcifd-Xxiqnznjmkkk First 42362-Jdnp/Urinary Muscle Study 84222-Cgzfm-Bwmitvkfa Pressure Test Procedure code (CPT) selection complete Office Meds nitrofurantoin monohydrate/macrocrystals 100 mg capsule Performing Provider: Fatuma Schmidt MD Performing Location: [facility] [place] [facility] Administered by: Deepak Patle LPN on 01/03/24 09:51 Dose Route Admin Location Dispensed Lot Number Expiration Date NDC Dining Room Cashier 100 mg PO 1 cap Assessment & Plan Assessment & Plan (1) Urinary urgency: Code(s): R39.15 - Urgency of urination Category: Medical (2) Urinary frequency: Code(s): R35.0 - Frequency of micturition Category: Medical Plan gemtesa 75 mg daily Orders: Orders AMB Urodynamics Studies 01/03/24 N39.3 - Stress incontinence (female) (male), N32.81 - Overactive bladder, R35.0 - Frequency of micturition, R39.15 - Urgency of urination Medications: New vibegron (Gemtesa) 75 mg PO DAILY 30 tabs 3RF Discontinued solifenacin Discontinued Reason: Doctor's Order 10 mg PO DAILY 90 tabs 2RF Patient Instructions: The patient had an opportunity to ask questions regarding treatment plan. The patient expressed understanding and agreement with the above treatment plan. The patient is aware they should contact our office by phone for worsening of their current condition or the appearance of new symptoms. Compliance is encouraged with any medications and followup testing that is ordered. It is a privilege to be allowed the opportunity to participate in the urologic care of your patient. If you have any questions or concerns regarding treatment for the above conditions please do not hesitate to contact me. The office telephone contact is [phone]. This note is constructed in part using voice recognition software. While every effort has been made to ensure accuracy hemmer chainstitch errors may have been included. Yours sincerely, Fatuma Schmidt MD Coding Level of Care Code Procedure Only Diagnoses Urinary urgency R39.15 Urinary frequency R35.0 CPT Codes Urodynamic Studies - CPT: 22095-Upxlhqeafhralg w/ [employer] ([id number]) Urodynamic Studies - CPT: 58965-Mpszxrg-Wcgpqhoofrop First ([id number]) Urodynamic Studies - CPT: 33213-Ktuh/Urinary Muscle Study ([id number]) Urodynamic Studies - CPT: 02678-Truvj-Xqbxqtzmk Pressure Test ([id number])
== END 2024-01-03 11:31 | disposition home or self-care (01) ==
PROVIDERS: PCP Internal Medicine; Visit Provider Urology
DX: N39.3 Stress incontinence (female) (male) (principal); N32.81 Overactive bladder; R35.0 Frequency of micturition; R39.15 Urgency of urination
CPT/HCPCS: 51728; 51741; 51784; 51797

== ENCOUNTER → 2024-01-03 09:02 | Outpatient (BNVA) | payer OTHER, SELFPAY | PROVIDERS: PCP Internal Medicine; Visit Provider Urology | DX: R35.0 Frequency of micturition (principal); N32.81 Overactive bladder; N39.3 Stress incontinence (female) (male); R39.15 Urgency of urination | CPT/HCPCS: 51728; 51741; 51784; 51797; 99212 ==

== ENCOUNTER 2024-02-06 13:42 | Outpatient (REF) | payer OTHER, SELFPAY ==
--- NOTE | ~2024-02-06 | US_ITS ---
EXAMINATION: US THYROID CLINICAL INFORMATION: Nontoxic single thyroid nodule. COMPARISON: Thyroid ultrasound 03/28/2023. TECHNIQUE: Linear transducer grayscale and color Doppler examination with attention to the region of the thyroid. FINDINGS: SIZE: Measurements of the thyroid lobes and nodules are given in sagittal, anteroposterior and transverse dimensions respectively. Right Thyroid Lobe: 4.9 x 1.4 x 1.3 cm, volume 4.7 mL. Previously 6.1 x 2.1 x 1.8 cm, volume 12.2 mL. Parenchyma: The gland echotexture is homogeneous. Thyroid vascularity is normal. Left Thyroid Lobe: 4.5 x 1.4 x 1.3 cm, volume 4.3 mL. Previously 5.2 x 1.7 x 1.4 cm, volume 6.4 mL. Parenchyma: The gland echotexture is homogeneous. Thyroid vascularity is normal. Isthmus: 0.3 cm in maximum AP dimension. Previously 0.4 cm. Estimated total number of nodules greater than or equal to 1 cm: 1. Pattern Cleaner nodules are described as follows: 1. Location: Right mid. Size: 1.1 x 0.8 x 0.9 cm, volume 0.4 mL. Previously: 1.4 x 1.0 x 0.60 cm, volume 0.4 mL. Nodule characteristics: Composition: Cystic(0). ACR TI-RADS total points: 0 Previous: 0 ACR TI-RADS category: 1 Previous: 1 Significant change in size (>/= 20% in 2 dimensions and minimal increase of 2 mm or 50% or greater increase in volume): No Change in features: No Change in ACR TI-RADS risk category: No 2. Location: Right inferior. Size: 0.4 x 0.3 x 0.4 cm, volume 0.03 mL. Previously: 0.46 x 0.32 x 0.40 cm, volume 0.03 mL. Nodule characteristics: Composition: Solid (2). Echogenicity: Hypoechoic (2). Shape: Not taller than wide (0). Margins: Smooth (0). Echogenic Foci: None (0). ACR TI-RADS total points: 4 Previous: 4 ACR TI-RADS category: 4 Previous: 4 Significant change in size (>/= 20% in 2 dimensions and minimal increase of 2 mm or 50% or greater increase in volume): No Change in features: No Change in ACR TI-RADS risk category: No NODES: No lymphadenopathy is seen in the tissue surrounding the thyroid gland. US/US thyroid IMPRESSION: Nonspecific decreased size of the thyroid gland compared to prior from 03/28/2023, correlate with thyroid function tests. Unchanged 1.1 cm TR-1 cyst in the right mid pole and stable 0.4 cm TR-4 nodule in the right lower pole. No additional imaging follow-up is recommended for these observations. ACR TI-RADS RECOMMENDATION REFERENCE: Ultrasound-guided fine-needle aspiration, follow up ultrasound, no further followup. * TR1 (0 point) and TR2 (2 points): No FNA or followup * TR3 (3 points): FNA if more than or equal to 2.5 cm in maximum dimension, follow up ultrasound in 1, 3 and 5 years if 1.5 to 2.4 cm in maximum dimension. * TR4 (4-6 points): FNA if more than or equal to 1.5 cm in maximum dimension, follow up ultrasound in 1, 2, 3 and 5 years if 1 to 1.4 cm in maximum dimension. * TR5 (more than or equal to 7 points): FNA if more than or equal to 1 cm in maximum dimension, follow up ultrasound every year for 5 years if 0.5 to 0.9 cm in maximum dimension. * TR3, TR4 or TR5 nodules that are below the size threshold for follow up receive no followup. Electronically signed by: Tamiko Cross MD 02/25/2024 04:23 PM EDT
== END 2024-02-06 13:43 | disposition home or self-care (01) ==
LOC: HO.US 13:42
PROVIDERS: PCP Internal Medicine; Visit Provider Internal Medicine
DX: E04.1 Nontoxic single thyroid nodule (principal)
CPT/HCPCS: 76536

== ENCOUNTER → 2024-02-15 14:52 | Outpatient (BNV) | payer OTHER, SELFPAY | PROVIDERS: PCP Internal Medicine; Visit Provider Radiology Diagnostic Radiology | DX: G89.4 Chronic pain syndrome (principal) | CPT/HCPCS: 72148 ==

== ENCOUNTER 2024-02-15 15:16 | Outpatient (REF) | payer OTHER, SELFPAY ==
--- NOTE | ~2024-02-15 | MR_ITS ---
EXAMINATION: MR LUMBAR SPINE WITHOUT CONTRAST CLINICAL INFORMATION: Chronic pain syndrome; constipation, urinary hesitancy. 58 year female, also complaining of bilateral finger numbness. COMPARISON: No prior MRI. X-rays lumbar 10/21/2019. TECHNIQUE: Multiplanar multisequence MR imaging of the lumbar spine was done without IV contrast. Examination was performed on a 1.5 Leola Siemens magnet, utilizing standard sequences. FINDINGS: CORONAL ALIGNMENT: -Normal. SAGITTAL ALIGNMENT: - Normal lordosis. No subluxations. LUMBOSACRAL JUNCTION: -Normal. There are 5 [id number] lumbar-type vertebral bodies. VERTEBRAL BODIES/BONE MARROW: -There is a hemangioma in the left aspect of L2. Smaller in the superior aspect of L1. -No abnormal infiltrating bone marrow signal. -No gross bone marrow edema. DISCS: -Mild loss of disc height and signal at L3-4, and L5-S1. -Discs otherwise are normal in height and signal. SPINAL CANAL: -No abnormal developmental findings. CONUS MEDULLARIS: -Terminates at L1. Morphology and signal is normal. INTRADURAL NERVE ROOTS: - Within normal limits. Axial Disc Space Images: T12-L1: Mild hypertrophic facet changes bilaterally. No significant central canal or neural foraminal narrowing. L1-L2: Trace disc bulge, without mass effect. Mild hypertrophic degenerative facet changes bilaterally. No significant central canal or neural foraminal narrowing. L2-L3: Tiny left far lateral and foraminal protrusion of disc material. No significant mass effect. Mild hypertrophic degenerative facet changes bilaterally. No significant central canal or neural foraminal narrowing. L3-L4: There is a minimal shallow concentric disc bulge extending into both foraminal zones. This minimally indents upon the ventral thecal sac but does not cause mass effect upon nerve roots. Mild hypertrophic degenerative facet changes bilaterally. There is no significant central canal narrowing. There is minimal foraminal narrowing right greater than left. L4-L5: Shallow concentric disc bulge present extending into both foraminal zones. This indents upon the ventral thecal sac but does not contact nerve roots. Mild to moderate hypertrophic degenerative facet changes bilaterally. There is no significant central canal narrowing. There is minimal bilateral neural foraminal narrowing. L5-S1: There is a broad-based central disc protrusion with annular fissuring, shallow, indenting upon the ventral thecal sac but not causing mass effect or contacting nerve roots. Moderate hypertrophic degenerative facet changes bilaterally, with the combination of findings resulting in minimal central canal narrowing, and mild bilateral neural foraminal narrowing. IMAGED SI JOINTS: -Zfko-et-gklsjewf degenerative arthrosis bilaterally. PARAVERTEBRAL AND INCLUDED EXTRASPINAL SOFT TISSUES: -A neutrally flexed uterus is partially visualized with several prominent fibroids present. -Paraspinal structures and muscles appear normal. -Limited imaging of retroperitoneal structures demonstrates no abnormalities. MR/MR lumbar spine wo con IMPRESSION: 1. Mild spondylosis of the lumbar spine most significant L3-4 and L5-S1, without evidence of significant central canal, subarticular recess, or neural foraminal narrowing or nerve root compression/impingement. 2. Fibroid uterus, partially imaged. 3. See the body the report for additional details. Electronically signed by: Jimmie Arteaga MD 03/13/2024 01:37 PM EDT
== END 2024-02-15 15:17 | disposition home or self-care (01) ==
LOC: HO.MRI 15:16
PROVIDERS: PCP Internal Medicine; Visit Provider Anesthesiology
DX: M54.51 Vertebrogenic low back pain (principal); G89.4 Chronic pain syndrome
CPT/HCPCS: 72148

== ENCOUNTER 2024-02-17 14:26 | Outpatient (REF) | payer OTHER, SELFPAY ==
--- NOTE | ~2024-02-17 | MM_ITS ---
EXAMINATION: MM SCREENING DIGITAL BREAST TOMOSYNTHESIS, BILATERAL CLINICAL INFORMATION: Screening. Asymptomatic. COMPARISON: Mammography: Comparison is made with available priors TECHNIQUE: Digital breast mammography with tomosynthesis is performed in both the craniocaudal and mediolateral oblique views along with computer-aided detection (CAD). FINDINGS: There are scattered areas of fibroglandular density (ACR BI-RADS breast composition Category b). There are no significant masses, abnormal calcifications, or other abnormalities. MM/MM tomosynthesis screening BI IMPRESSION: No mammographic evidence of malignancy. ASSESSMENT: BI-RADS BI-RADS 1 - Negative RECOMMENDATION: Routine annual mammography screening. 1 year F/U This examination should not preclude the clinical evaluation of a suspicious palpable abnormality. This patient's information was entered into a reminder system with a target due date for their next mammogram. Electronically signed by: Uzma John DO 02/28/2024 10:48 AM EDT
== END 2024-02-17 14:27 | disposition home or self-care (01) ==
LOC: HO.MAMMO 14:26
PROVIDERS: PCP Internal Medicine; Visit Provider Internal Medicine
DX: Z12.31 Encounter for screening mammogram for malignant neoplasm of breast (principal)
CPT/HCPCS: 77063; 77067

== ENCOUNTER → 2024-02-17 14:45 | Outpatient (BNV) | payer OTHER, SELFPAY | PROVIDERS: PCP Internal Medicine; Visit Provider Internal Medicine | DX: Z12.31 Encounter for screening mammogram for malignant neoplasm of breast (principal) | CPT/HCPCS: 77063; 77067 ==

== ENCOUNTER → 2024-02-20 14:54 | Outpatient (BNVA) | payer OTHER, SELFPAY | PROVIDERS: PCP Internal Medicine; Visit Provider Anesthesiology ==

== ENCOUNTER 2024-03-04 15:14 | Outpatient (AMB) | payer OTHER, SELFPAY ==
--- NOTE | 2024-03-04 15:28 | A.OFFVIS_ITS ---
Vital Signs 03/04/24 15:40 Height 5 ft 2 in Weight 212 lb 8 oz BMI 38.9 BP 130/70 Blood Pressure Location Lt brachial Position Sitting Respiration 16 Pulse 79 Pulse Source Pulse Oximeter Pulse Oximetry (%) 96 Oxygen Delivery Method Room Air Intake Visit Reasons: FOLLOW UP Intake Note: Patient comes in for follow up. Reports pain 08/10. Coordinator Of Genetic Services Required: Yes Coordinator Of Genetic Services Services: Coordinator Of Genetic Services Present Coordinator Of Genetic Services Name: Elizabeth Patel Allergies aspirin [ASA] Allergy (Severe, Verified 03/04/24 15:41) Anaphylaxis HPI Comments Details: Nuria is back in my office after the MRI of the lumbar spine was performed on her. The MRI is not read yet. However I can certainly say that if there are any endplate changes they are mainly located at L5-S1 interspace in there so miniscule that I do not believe that they can cause pain of this patient. The patient stated today that her pain is much better now and she does not need any assistance. She came only to find out what is going on with her MRI. I explained to her my interpretation of her MRI and I express her my insistence that MRI will be read by radiologist. We agreed that she will come to my office if her pain will become stronger and we will discuss the reading of the MRI at that time. In 2019 she received L3-L4 does ramus L5 medial branch block with me and she reported 24 hours of complete pain relief. We can repeat this injection when she will be back in this office with her pain complaints aggravated. If this will be as effective as it was before we can schedule her for sprint PNS trial to help her pain better. Prior: complains on lower back pain which is being aggravated with prolonged sitting and flexing forward as well as with increased activities. She was under care of this office back in 2019 she was treated for facet joint arthropathy with very successful diagnostic medial branch blocks. She did not follow-up with us probably because her pain was non-existent. However recently in July of 2023 she had a surgery on her right knee she had total knee replacement. After surgery she started to complain on pain in the lower back. She was sent for physical therapy of the knee, she had physical therapy for the back long time ago and physical therapy was helpful for her pain back right now she requests help with her back pain. She reports that she can sleep normally she can do activities of daily living she can take care of herself she can function normally. 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 She reports that heat applications aggravate her pain. She had an x-ray of the lumbar spine demonstrating spondylosis of lumbar spine in 2019. She did not have any MRI at that time. She had medial branch blocks which were effective for spondylotic pain. Her past medical history significant for anemia hypertension and arthritis, past surgical history is significant for right knee replacement 07/26/2023 right meniscus surgery in 08/21/2021, some sort of a carcinoma surgery of the nose in 2018 and 2 C-sections 1 in 1088 and 1 in 2001. She denies smoking cigarettes admits social use of alcohol drinks coffee in the morning she denies recreational drugs. [facility] Medical History Obesity (BMI 30-39.9) Sleep apnea VAHE (generalized anxiety disorder) Hypercalcemia Calcific shoulder tendinitis Class 1 obesity with body mass index (BMI) of 34.0 to 34.9 in adult Right leg pain Essential hypertension Diverticulosis Hemorrhoids, internal, with bleeding Family history of colon cancer History of colon polyps GERD with esophagitis Rhinitis Surgical History S/P right knee arthroscopy Hx of endoscopy History of colonoscopy (~02/2018) H/O basal cell carcinoma excision History of section History of tubal ligation Family History Father Pancreatic cancer Mother Colon cancer, Onset Age: 72 Hypertension Brother No problems noted. Sister Psychiatric disorder Chronic mental illness Family/Other Chronic mental illness Social History Housing: Apartment Do you presently have visiting nurse or other home services: No Alcohol intake: current Alcohol intake frequency: holidays/special occasions only Alcohol type: wine Patient Tobacco Use Status: Never used Tobacco e-Cigarette/Vaping Use: Never Used Second Hand Smoke Exposure: No service: No Current occupational status: employed Current occupational exposures/hazards: No Sexual orientation: Straight/Heterosexual Gender identity: Female Cognitive needs: No Hearing needs: No Vision needs: Yes Female Reproductive History Menstrual Age of Menarche: 15 Review of Systems Const All systems reviewed & are unremarkable except as noted in HPI and below ENT Reports Normal hearing present Neuro Reports Normal hearing present, Denies Abnormal speech present, Denies confusion and Denies Sensory deficit (Neuro) Psych Denies confusion Physical Exam Vital Signs: Last Vital Signs Pulse 79 03/04/24 15:40 Resp 16 03/04/24 15:40 BP 130/70 03/04/24 15:40 Pulse Ox 96 03/04/24 15:40 Oxygen Delivery Method Room Air 03/04/24 15:40 BMI result Body Mass Index 38.9 Const General: no acute distress; No confusion Nutritional Appearance: obese morbidly obese Orientation/consciousness: patient oriented x3 and No confusion Eyes General: appearance normal, both eyes and all related structures Pupils: Equal, round and reactive pupils present EOM: EOMs intact bilaterally Neck Neck: Yes full ROM Chest Chest palpation & inspection: normal inspection of the chest Resp Effort & Inspection: normal respiratory effort, able to speak in complete sentences, normal respiratory pattern, no audible wheezes and no cough Cardio Jugular venous distension: no JVD GI Inspection: Yes normal to inspection Back/Spine/Pelvis Other: Patient is able to stand on bilateral tiptoes and bilateral heels demonstrating normal strength of bilateral lower extremities, she is able to flex herself backwards but has a lot of difficulty flexing herself forward no more than 40 degrees forward from the vertical midline. She reports severe tenderness on palpation in projection of L5-S1 spinous process. SLR is negative bilaterally the Lassegue test maybe positive on the left, she denies numbness in bilateral lower extremities she denies pelvic organ dysfunction, she reports no pain increase with Valsalva maneuver, Michael test is negative bilaterally pelvic compression test is negative bilaterally, 14 finger test is negative bilaterally. Neuro General: patient oriented x3, gait normal and No confusion Cranial nerves: Yes CN's II-XII intact bilaterally, Yes Equal, round and reactive pupils present, Yes Normal hearing present and Yes Ability to bilaterally elevate shoulders present Speech: No Abnormal speech present Gait exam (Neuro): Normal gait present Motor exam (neuro): 5/5 motor strength present throughout Sensory Exam: No Sensory deficit (Neuro) Extrem General: No pedal edema Psych Speech and movement: Normal speech and movement present Affect: normal affect Attitude: cooperative Thought process: Normal thought process present Thought content: Normal thought content present Insight: Good insight present (Psych) Judgement: Good judgement present (Psych) Assessment & Plan Assessment & Plan (1) Vertebrogenic low back pain: Code(s): M54.51 - Vertebrogenic low back pain Category: Medical (2) Spondylosis of lumbar region without myelopathy or radiculopathy: Code(s): M47.816 - Spondylosis without myelopathy or radiculopathy, lumbar region Category: Medical (3) Chronic pain syndrome: Code(s): G89.4 - Chronic pain syndrome Category: Medical Plan Last time after performing physical examination of this patient I was left under impression that most significant pain generators of this patient is vertebra genic pain syndrome. However on the MRI I did not find any prominent Modic type changes short of L5-S1 interval however even at this interval the are miniscule changes mostly in the anterior portion of the endplates of L5 and S1. Her pain meanwhile is getting better without any intervention. We agreed that if her pain will come back she will schedule an appointment with me. In 2019 she received from me very successful medial branch block L3-L4 does ramus L5 which relieved her pain 100% for 1 day. Most likely her pain is coming from spondylosis and facet arthropathy. I will schedule her for the diagnostic medial branch block after the next appointment if her pain will come back. Patient Instructions: I here by testify that I spent 35 minutes in conversation with this patient as well as planning her care and organizing this note. Elizabeth Patel who is certified finisher plate was helping us to maintain this conversation is [place]. Coding Level of Care Code Est Pt Level 4 (51583) Diagnoses Vertebrogenic low back pain M54.51 Spondylosis of lumbar region without myelopathy or radiculopathy M47.816 Chronic pain syndrome G89.4
[2024-03-04 15:40] VITALS: BP 130/70; PULSE 79; RESP 16; O2SAT 96; BMI 38.9
== END 2024-03-04 15:56 | disposition home or self-care (01) ==
PROVIDERS: PCP Internal Medicine; Visit Provider Anesthesiology
DX: M54.51 Vertebrogenic low back pain (principal); M47.816 Spondylosis without myelopathy or radiculopathy, lumbar region; G89.4 Chronic pain syndrome
CPT/HCPCS: 99214

== ENCOUNTER → 2024-03-04 15:14 | Outpatient (BNVA) | payer OTHER, SELFPAY | PROVIDERS: PCP Internal Medicine; Visit Provider Anesthesiology | DX: M54.51 Vertebrogenic low back pain (principal); M47.816 Spondylosis without myelopathy or radiculopathy, lumbar region; G89.4 Chronic pain syndrome | CPT/HCPCS: 99212 ==

== ENCOUNTER 2024-04-13 13:48 | Outpatient (AMB) | payer OTHER, SELFPAY ==
--- NOTE | 2024-04-13 13:53 | A.OFFVIS_ITS ---
Vital Signs 04/13/24 14:01 Height 5 ft 2 in Weight 209 lb 7.026 oz BMI 38.3 BP 142/80 H Blood Pressure Location Lt brachial Position Sitting Pulse 87 Pulse Source Doppler Pulse Oximetry (%) 97 Oxygen Delivery Method Room Air Intake Visit Reasons: Obstructive sleep apnea Intake Note: Patient is here to follow up on SIXTO, patient stated she has not been using her CPAP in about 3 months, patient had a hard time getting used to the machine and said she has been sleeping well without it Molasses Coloring Operator Required: Yes Molasses Coloring Operator Name: Selena Burdick Allergies aspirin [ASA] Allergy (Severe, Verified 04/13/24 14:26) Anaphylaxis Medication List - Last Reconciled 04/13/24 by Fox Norton MD acetaminophen (Tylenol Extra Strength) 1,000 mg (2 x 500 mg) PO Q6H PRN 90 days buspirone 10 mg PO DAILY chlorthalidone 25 mg PO QAM 90 days CPAP (CPAP Machine/Device) autoPAP mode, 6-20 cm H2O diazepam (Valium) 10 mg PO BEDTIME PRN escitalopram oxalate 5 mg PO DAILY fluticasone propionate 50 mcg/actuation (Flonase Allergy Relief) 1 spray intranasal DAILY 90 days ketoconazole 2% topical lidocaine 5% (Lidoderm) 1 patch topical DAILY loratadine 10 mg PO DAILY losartan 100 mg PO DAILY 90 days medroxyprogesterone 10 mg PO DAILY meloxicam 15 mg PO DAILY omeprazole 20 mg PO DAILY PRN semaglutide (weight loss) (Wegovy) 0.25 mg (0.5 mL) subcut QWEEK 4 weeks tramadol 50 mg PO DAILY vibegron (Gemtesa) 75 mg PO DAILY zolpidem 10 mg PO BEDTIME PRN 30 days Do you need a note to return to daycare/school/sports/work: No HPI HPI Obstructive sleep apnea: Details: 58 years old female, grossly obese with severe obstructive sleep apnea/nocturnal hypoxemia, comes for follow-up. She states that since her last visit she has not use the CPAP regularly. She tried her best but could not tolerate the CPAP mask. She states that she is sleeping mostly in the lateral position and does sleep throughout the night. She denies daytime sleepiness. There has been no change in her weight. She has been approved for Semaglutide ( Wagovy ) therapy but has not started yet. Hopes that she will be able to lose some weight once she is on this therapy. She has lot of arthritis and not able to do much exercise. [facility] Medical History Obesity (BMI 30-39.9) Sleep apnea VAHE (generalized anxiety disorder) Hypercalcemia Calcific shoulder tendinitis Class 1 obesity with body mass index (BMI) of 34.0 to 34.9 in adult Right leg pain Essential hypertension Diverticulosis Hemorrhoids, internal, with bleeding Family history of colon cancer History of colon polyps GERD with esophagitis Rhinitis Surgical History S/P right knee arthroscopy Hx of endoscopy History of colonoscopy (~02/2018) H/O basal cell carcinoma excision History of section History of tubal ligation Family History Father Pancreatic cancer Mother Colon cancer, Onset Age: 72 Hypertension Brother No problems noted. Sister Psychiatric disorder Chronic mental illness Family/Other Chronic mental illness Social History Housing: Apartment Do you presently have visiting nurse or other home services: No Alcohol intake: current Alcohol intake frequency: holidays/special occasions only Alcohol type: wine Patient Tobacco Use Status: Never used Tobacco e-Cigarette/Vaping Use: Never Used Second Hand Smoke Exposure: No service: No Current occupational status: employed Current occupational exposures/hazards: No Sexual orientation: Straight/Heterosexual Gender identity: Female Cognitive needs: No Hearing needs: No Vision needs: Yes Female Reproductive History Menstrual Age of Menarche: 15 Review of Systems Const All systems reviewed & are unremarkable except as noted in HPI and below Eyes Reports no additional complaints ENT Reports nasal congestion (Off and on only with the change of seasons.) Card Denies chest pain, Denies irregular heart rhythm, Denies leg edema and Denies dyspnea Resp Denies cough, Denies dyspnea and Denies wheezing GI Reports no additional complaints Reports no additional complaints Musc Reports no additional complaints Skin/Breast Reports system reviewed and no additional complaints, except as documented Neuro Reports no additional complaints Psych Reports anxiety (Controlled) Endo Reports no additional complaints Den/Lymph Reports no additional complaints Aller/Immun Denies wheezing Physical Exam Vital Signs: Last Vital Signs Pulse 87 04/13/24 14:01 BP 142/80 H 04/13/24 14:01 Pulse Ox 97 04/13/24 14:01 Oxygen Delivery Method Room Air 04/13/24 14:01 BMI result Body Mass Index 38.3 Const General: healthy appearing (Except for being overweight), comfortable, no acute distress, alert and awake Orientation/consciousness: patient oriented x3 HEENT Head: Yes normal to inspection General nose exam: No nasal polyps present, abnormal septum (DNS to the left. A small excoriation over the anterior septum on Rt.side), No nasal discharge present and Other nasal findings present (Mild DNS to left) Face and sinus: Yes sinuses nontender Mouth: oropharynx normal Throat: Yes posterior oropharynx normal Eyes General: appearance normal, both eyes and all related structures Neck Neck: Yes normal visual inspection, Yes no lymphadenopathy, Yes trachea midline and Yes no JVD Thyroid: Thyroid normal Chest Chest palpation & inspection: normal inspection of the chest, normal palpation of entire chest wall and no tenderness Resp Effort & Inspection: normal respiratory effort and no cough Auscultation: clear to auscultation bilaterally, no crackles and no wheezes Cardio Palpation: normal PMI Rate: regular rate Rhythm: regular rhythm Heart sounds: no gallops and no murmurs Peripheral pulses: Peripheral pulses 2+ throughout GI Palpation (GI): Soft to palpation, nontender, No hepatosplenomegaly present and no masses Auscultation: normal bowel sounds Back/Spine/Pelvis Thoracic/Lumbar Spine: thoracic and lumbar spine normal to inspection Skin General skin exam: no rashes or lesions noted Neuro General: patient oriented x3 and no focal motor deficits Cranial nerves: Yes CN's II-XII intact bilaterally Extrem General: Yes normal to inspection, Yes no clubbing, cyanosis or edema and Yes no calf tenderness Psych Appearance: grossly normal and well kempt Speech and movement: Normal speech and movement present Results Reviewed Results Reviewed: There is no compliance report as she has not use the CPAP since last visit Assessment & Plan Assessment & Plan (1) Obesity (BMI 30-39.9): Comment: CONTINUES TO BE MODERATELY OBESE, NOT ABLE TO LOSE WEIGHT BECAUSE SHE DOES NOT DO ANY EXERCISE, She has lot of arthritis which prevents her from doing any physical exercise. Code(s): E66.9 - Obesity, unspecified Category: Medical Plan: Encouraged her to start on Semaglutide therapy, watch diet and try to lose weight. (2) SIXTO (obstructive sleep apnea): Comment: PATIENT HAS SYMPTOMATIC OBSTRUCTIVE SLEEP APNEA, SEVERE, DIAGNOSED IN 2021 . UP UNTIL LAST VISIT 6 MONTHS AGO SHE WAS USING THE CPAP BUT THEN SHE HAS STOPPED , CLAIMS THAT SHE JUST DOES NOT TOLERATE THE CPAP ON HER FACE. CLAIMS THAT SHE IS SLEEPING IN LATERAL POSITION AND DOES GET GOOD SLEEP WITHOUT THE CPAP. Code(s): G47.33 - Obstructive sleep apnea (adult) (pediatric) Category: Medical Plan: I EXPLAINED TO HER THAT, HER SLEEP APNEA WAS RATHER SEVERE AND WITH NOCTURNAL HYPOXEMIA SO IT IS IMPORTANT FOR HER TO USE THE CPAP, UNTIL SHE LOSES SIGNIFICANT WEIGHT. SHE PROMISES THAT SHE IS GOING TO TRY USING THE CPAP EVERY NIGHT. WILL RECHECK IN 3 MONTHS. (3) Nocturnal hypoxemia: Comment: PATIENT DOES HAVE SIGNIFICANT DEGREE OF NOCTURNAL HYPOXEMIA PROBABLY DUE TO SLEEP-RELATED HYPOVENTILATION. IT WAS HOPED THAT WITH THE PROPER USE OF CPAP HER HYPOXEMIA WILL RESOLVE. NOW SHE IS NOT USING THE CPAP, SO SHE MAY NEED O2 SUPPLEMENTATION AT NIGHT. Code(s): G47.34 - Idiopathic sleep related nonobstructive alveolar hypoventilation Category: Medical Plan: DISCUSSED WITH THE PATIENT AND SHE AGREES THAT SHE WILL GIVE A GOOD TRY TO USE CPAP EVERY NIGHT. ONCE SHE STARTS USING CPAP REGULARLY SHE WOULD NEED TO HAVE OVERNIGHT OXIMETRY RECORDING TO ENSURE THAT HYPOXEMIA IS CORRECTED. I WILL RECHECK HER IN 3 MONTHS. Coding Level of Care Code Est Pt Level 3 (07916) Diagnoses Obesity (BMI 30-39.9) E66.9 SIXTO (obstructive sleep apnea) G47.33 Nocturnal hypoxemia G47.34
[2024-04-13 14:01] VITALS: BP 142/80; PULSE 87; O2SAT 97; BMI 38.3
== END 2024-04-13 14:34 | disposition home or self-care (01) ==
PROVIDERS: PCP Internal Medicine; Visit Provider Internal Medicine
DX: E66.9 Obesity, unspecified (principal); G47.33 Obstructive sleep apnea (adult) (pediatric); G47.34 Idiopathic sleep related nonobstructive alveolar hypoventilation
CPT/HCPCS: 99213

== ENCOUNTER → 2024-04-13 13:48 | Outpatient (BNVA) | payer OTHER, SELFPAY | PROVIDERS: PCP Internal Medicine; Visit Provider Internal Medicine | DX: G47.33 Obstructive sleep apnea (adult) (pediatric) (principal); G47.34 Idiopathic sleep related nonobstructive alveolar hypoventilation; E66.09 Other obesity due to excess calories; Z68.38 Body mass index [BMI] 38.0-38.9, adult; Z99.89 Dependence on other enabling machines and devices | CPT/HCPCS: 99212 ==

== ENCOUNTER 2024-04-15 13:53 | Outpatient (AMB) | payer OTHER, SELFPAY ==
--- NOTE | 2024-04-15 14:01 | MHC.PC.OV ---
Vital Signs 04/15/24 14:04 Height 5 ft 2 in Weight 207 lb BMI 37.9 BP 130/80 Blood Pressure Location Lt brachial Position Sitting Intake Visit Reasons: bp Intake Note: Patient here for a follow up BP Station Supervisor Required: No Accompanied by: Self / Same As Patient Allergies aspirin [ASA] Allergy (Severe, Verified 04/15/24 14:14) Anaphylaxis Medication List - Last Reconciled 04/15/24 by Arelis Hughes MD acetaminophen (Tylenol Extra Strength) 1,000 mg (2 x 500 mg) PO Q6H PRN 90 days buspirone 10 mg PO DAILY chlorthalidone 25 mg PO QAM 90 days CPAP (CPAP Machine/Device) autoPAP mode, 6-20 cm H2O diazepam (Valium) 10 mg PO BEDTIME PRN escitalopram oxalate 5 mg PO DAILY fluticasone propionate 50 mcg/actuation (Flonase Allergy Relief) 1 spray intranasal DAILY 90 days ketoconazole 2% topical lidocaine 5% (Lidoderm) 1 patch topical DAILY loratadine 10 mg PO DAILY losartan 100 mg PO DAILY 90 days medroxyprogesterone 10 mg PO DAILY meloxicam 15 mg PO DAILY omeprazole 20 mg PO DAILY PRN semaglutide (weight loss) (Wegovy) 0.25 mg (0.5 mL) subcut QWEEK 4 weeks tramadol 50 mg PO DAILY vibegron (Gemtesa) 75 mg PO DAILY zolpidem 10 mg PO BEDTIME PRN 30 days Tobacco use date assessed: 07/09/23 Dental Screening Dental Screen Date: 04/15/24 Did you have a dental visit in the last 12 months?: No Did you have a dental problem in the last 6 months where you did not have access to dental care?: No Was dental information given to patient?: Patient has dentist HPI HPI Comments History of Present Illness Details This is a 58-year-old female with hypertension, obstructive sleep apnea on CPAP, anxiety and obesity that comes today for follow-up on her conditions. Blood pressure stable. She is compliant with her CPAP machine and feels more rested while using it. On buspirone for anxiety. She is obese with BMI of 37.9 and just started semaglutide today. No chest pain or shortness on breath. [facility] Medical History (Updated 04/15/24 @ 15:02 by Arelis Hughes MD) Obesity (BMI 30-39.9) Sleep apnea VAHE (generalized anxiety disorder) Hypercalcemia Calcific shoulder tendinitis Class 1 obesity with body mass index (BMI) of 34.0 to 34.9 in adult Right leg pain Essential hypertension Diverticulosis Hemorrhoids, internal, with bleeding Family history of colon cancer History of colon polyps GERD with esophagitis Rhinitis Surgical History S/P right knee arthroscopy Hx of endoscopy History of colonoscopy (~02/2018) H/O basal cell carcinoma excision History of section History of tubal ligation Family History Father Pancreatic cancer Mother Colon cancer, Onset Age: 72 Hypertension Brother No problems noted. Sister Psychiatric disorder Chronic mental illness Family/Other Chronic mental illness Social History Housing: Apartment Do you presently have visiting nurse or other home services: No Alcohol intake: current Alcohol intake frequency: holidays/special occasions only Alcohol type: wine Patient Tobacco Use Status: Never used Tobacco e-Cigarette/Vaping Use: Never Used Second Hand Smoke Exposure: No service: No Current occupational status: employed Current occupational exposures/hazards: No Sexual orientation: Straight/Heterosexual Gender identity: Female Cognitive needs: No Hearing needs: No Vision needs: Yes Female Reproductive History Menstrual Age of Menarche: 15 Questionnaire Thrive Questionnaire Date Thrive assessed: 07/09/23 VAHE-7 AMB Questionnaire VAHE-7 Date VAHE - 7 assessed: 07/09/23 Source: Developed by Drs. Drew Cartagena, Emmy Hilton, Kirby Vasquez and colleagues, with an educational jose from [employer]. Review of Systems Const All systems reviewed & are unremarkable except as noted in HPI and below Card Denies chest pain at rest, Denies chest pain with activity, Denies edema, Denies irregular heart rhythm, Denies claudication, Denies dyspnea, Denies dyspnea on exertion, Denies orthopnea, Denies paroxysmal nocturnal dyspnea and Denies slow heart rate Resp Denies cough, Denies dyspnea and Denies dyspnea on exertion GI Denies abdominal pain, Denies change in bowel habits, Denies excessive flatus, Denies nausea and Denies vomiting Denies urinary incontinence, Denies urinary hesitancy and Denies urinary urgency Musc Denies abnormal gait, Denies atrophy, Denies deformity and Denies limited range of motion Skin/Breast Denies bleeding lesions, Denies changing lesions and Denies rash Neuro Denies abnormal gait and Denies lack of coordination Physical exam (Primary Care) Vital Signs: Last Vital Signs BP 130/80 04/15/24 14:04 BMI result Body Mass Index 37.9 BMI Assessment/Plan discussion: High BMI High, discussed plan: lifestyle, weight reduction, dietary and physical activity Tobacco/Smoking Status: Tobacco use Status Tobacco use date assessed 07/09/23 04/15/24 14:07 Patient Tobacco Use Status Never used Tobacco 04/15/24 14:07 e-Cigarette/Vaping Use Never Used 04/15/24 14:07 Thrive Assessment: Date of Thrive Assessment Date Thrive assessed 07/09/23 04/15/24 14:07 Resp Effort & Inspection: normal respiratory effort Auscultation: clear to auscultation bilaterally Cardio Jugular venous distension: no JVD Rate: regular rate Rhythm: regular rhythm Heart sounds: S1 normal heart sound present and S2 normal heart sound present Extrem General: Yes full ROM Office Procedures Flu Questionnaire Does the patient have a severe egg allergy?: No Does the patient have severe life threatening allergies?: No Does the patient have a fever or illness today?: No Has the patient ever had Guillain-Golden Syndrome?: No Has the patient ever had any past reaction to a flu shot?: No Immunizations Fluarix Triv [id number] (PF) 45 mcg (15 mcg x 3)/0.5 mL IM syringe Performing Provider: Arelis Hughes MD [facility] [place] [facility] Administered by: Niru Nielson LPN on 04/15/24 14:32 Dose Route Admin Location Dispensed Lot Number Expiration Date [facility] [employer] Developer 0.5 mL IM Left Deltoid 0.5 mL [id number] 11/30/24 32013-136-11 [employer] VIS Given Date VIS Provided VIS Publication Date 04/15/24 Single Vaccine 21 Eligibility Eligibility Date Funding Source Not [facility] Eligible 04/15/24 Private Coding Level of Care Code Est Pt Level 4 (71925) Complex EM visit Add On G2211 Diagnoses SIXTO (obstructive sleep apnea) G47.33 VAHE (generalized anxiety disorder) F41.1 Essential hypertension I10 Class 2 severe obesity due to excess calories with serious comorbidity and body mass index (BMI) of 37.0 to 37.9 in adult E66.812; E66.01; Z68.37 Obesity type: due to excess calories Serious obesity comorbidity presence: with serious comorbidity Time Spent (min) 23 Assessment & Plan Assessment & Plan (1) SIXTO (obstructive sleep apnea): Comment: PATIENT HAS SYMPTOMATIC OBSTRUCTIVE SLEEP APNEA, SEVERE, DIAGNOSED IN 2021 . UP UNTIL LAST VISIT 6 MONTHS AGO SHE WAS USING THE CPAP BUT THEN SHE HAS STOPPED , CLAIMS THAT SHE JUST DOES NOT TOLERATE THE CPAP ON HER FACE. CLAIMS THAT SHE IS SLEEPING IN LATERAL POSITION AND DOES GET GOOD SLEEP WITHOUT THE CPAP. Code(s): G47.33 - Obstructive sleep apnea (adult) (pediatric) Category: Medical Plan: Be compliant with CPAP. (2) VAHE (generalized anxiety disorder): Code(s): F41.1 - Generalized anxiety disorder Category: Medical Plan: Continue buspirone. (3) Essential hypertension: Code(s): I10 - Essential (primary) hypertension Category: Medical Plan: Continue losartan. Blood pressure goal is equal or less than 130/80. (4) Class 2 obesity with body mass index (BMI) of 37.0 to 37.9 in adult: Code(s): E66.812 - Obesity, class 2; Z68.37 - Body mass index [BMI] 37.0-37.9, adult Category: Medical Qualifiers: Obesity type: due to excess calories Serious obesity comorbidity presence: with serious comorbidity Qualified Code(s): E66.812 - Obesity, class 2; E66.01 - Morbid (severe) obesity due to excess calories; Z68.37 - Body mass index [BMI] 37.0-37.9, adult Plan: Continue semaglutide. Start diet and exercise. BMI goal is less than 30. Orders: Orders Influenza [id number] Immunization Today Z23 - Encounter for immunization
[2024-04-15 14:04] VITALS: BP 130/80; BMI 37.9
== END 2024-04-15 14:36 | disposition home or self-care (01) ==
PROVIDERS: PCP Internal Medicine; Visit Provider Internal Medicine
DX: G47.33 Obstructive sleep apnea (adult) (pediatric) (principal); F41.1 Generalized anxiety disorder; E66.01 Morbid (severe) obesity due to excess calories; Z68.37 Body mass index [BMI] 37.0-37.9, adult; I10 Essential (primary) hypertension; Z23 Encounter for immunization

== ENCOUNTER → 2024-04-15 13:53 | Outpatient (BNVA) | payer OTHER, SELFPAY | PROVIDERS: PCP Internal Medicine; Visit Provider Internal Medicine | DX: Z23 Encounter for immunization (principal); G47.33 Obstructive sleep apnea (adult) (pediatric); F41.1 Generalized anxiety disorder; I10 Essential (primary) hypertension; E66.01 Morbid (severe) obesity due to excess calories; Z68.37 Body mass index [BMI] 37.0-37.9, adult | CPT/HCPCS: 90471; 90656; 99212 ==

== ENCOUNTER 2024-06-11 14:57 | Outpatient (AMB) | payer OTHER, SELFPAY ==
--- NOTE | 2024-06-11 15:01 | A.OFFVIS_ITS ---
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 No complaints. Last Pap/HPV was negative in 05/23 Last Mammogram was BI-RADS 1 in 02/24 Last Colonoscopy was in 05/24, the recommendation was to repeat in 5 years [facility] Medical History Obesity (BMI 30-39.9) Sleep apnea VAHE (generalized anxiety disorder) Hypercalcemia Calcific shoulder tendinitis Class 1 obesity with body mass index (BMI) of 34.0 to 34.9 in adult Right leg pain Essential hypertension Diverticulosis Hemorrhoids, internal, with bleeding Family history of colon cancer History of colon polyps GERD with esophagitis Rhinitis Surgical History S/P right knee arthroscopy Hx of endoscopy History of colonoscopy (~02/2018) H/O basal cell carcinoma excision History of section History of tubal ligation Family History Father Pancreatic cancer Mother Colon cancer, Onset Age: 72 Hypertension Brother No problems noted. Sister Psychiatric disorder Chronic mental illness Family/Other Chronic mental illness Social History Housing: Apartment Do you presently have visiting nurse or other home services: No Alcohol intake: current Alcohol intake frequency: holidays/special occasions only Alcohol type: wine Patient Tobacco Use Status: Never used Tobacco e-Cigarette/Vaping Use: Never Used Second Hand Smoke Exposure: No service: No Current occupational status: employed Current occupational exposures/hazards: No Sexual orientation: Straight/Heterosexual Gender identity: Female Cognitive needs: No Hearing needs: No Vision needs: Yes Female Reproductive History Menstrual Age of Menarche: 15 Duration of menses: 6-7 days Date of last menstrual period: 05/14/24 Total pregnancies: 3 Full term: 3 Date of last pap smear: 05/11/21 (negative hpv/negative pap smear) Date of Mammogram: 02/17/24 (BI RAD 1) Review of Systems Const All systems reviewed & are unremarkable except as noted in HPI and below Card Reports as per HPI Resp Reports as per HPI GI Reports as per HPI and Reports no additional complaints Reports as per HPI Physical Exam Vital Signs: Last Vital Signs BP 130/72 06/11/24 15:08 BMI result Body Mass Index 35.7 Const General: cooperative, healthy appearing and comfortable Chest Chest palpation & inspection: normal inspection of the chest and normal palpation of entire chest wall Breast/axilla inspection: normal inspection of the breasts and normal inspection of the axillae Breast/axilla palpation: normal palpation of the breasts, normal palpation of the axillae and no axillary lymphadenopathy Resp Effort & Inspection: normal respiratory effort Auscultation: clear to auscultation bilaterally Percussion: percussion normal Cardio Palpation: normal PMI Rate: regular rate Rhythm: regular rhythm Heart sounds: no murmurs and no rubs Peripheral pulses: Peripheral pulses 2+ throughout GI Inspection: Yes normal to inspection Palpation (GI): Soft to palpation, nontender, no guarding, not rigid and No hepatosplenomegaly present Percussion: Yes normal to percussion Auscultation: normal bowel sounds Rectal Exam - Female: deferred General: Yes bladder normal to palpation External Female Exam: No lesion Speculum Exam - Vagina: normal appearance of the vagina, normal palpation, normal vaginal discharge and not erythematous Speculum Exam - Cervix: normal appearance of the cervix and normal palpation Bimanual exam- vagina & uterus: normal bimanual exam, normal palpation, uterine size normal, bladder normal to palpation, consistency normal and normal palpation Bimanual Exam- Adnexa, other: normal adnexae, no masses and no tenderness Assessment & Plan Assessment & Plan (1) Well woman exam: Code(s): Z01.419 - Encounter for gynecological examination (general) (routine) without abnormal findings Category: Medical Plan: Co testing not indicated this year. Counseled the patient about the recommended dietary allowance of 1200 mg of Calcium & 600 IU of vitamin D. Instructions given the patient to schedule next screening Mammogram in 02/25. The patient was instructed to perform monthly self-breast exams and schedule annual exam in a year. All questions answered and the patient verbalized understanding. Coding Level of Care Code Est Pt Prev Care 40-64y(11497) Diagnoses Well woman exam Z01.419
[2024-06-11 15:08] VITALS: BP 130/72; BMI 35.7
== END 2024-06-11 15:24 | disposition home or self-care (01) ==
LOC: HO.HWS 14:57
PROVIDERS: PCP Internal Medicine; Visit Provider Obstetrics & Gynecology
DX: Z01.419 Encounter for gynecological examination (general) (routine) without abnormal findings (principal)
CPT/HCPCS: 99396; 99459

== ENCOUNTER → 2024-06-11 14:57 | Outpatient (BNVA) | payer OTHER, SELFPAY | PROVIDERS: PCP Internal Medicine; Visit Provider Obstetrics & Gynecology | DX: Z01.419 Encounter for gynecological examination (general) (routine) without abnormal findings (principal) | CPT/HCPCS: 99396; 99459 ==

== ENCOUNTER 2024-07-06 13:45 | Outpatient (AMB) | payer OTHER, SELFPAY ==
[2024-07-06 14:02] VITALS: BP 102/64; PULSE 96; O2SAT 97; BMI 35.9
--- NOTE | 2024-07-06 14:02 | A.OFFVIS_ITS ---
Vital Signs 07/06/24 14:02 Height 5 ft 2 in Weight 196 lb 3.382 oz BMI 35.9 BP 102/64 Blood Pressure Location Lt brachial Position Sitting Pulse 96 Pulse Source Pulse Oximeter Pulse Oximetry (%) 97 Oxygen Delivery Method Room Air Intake Visit Reasons: Obstructive sleep apnea Intake Note: pt is here for SIXTO follow up, and states she is feeling good, she is trying to use cpap, doing good, Director Transition Required: Yes Director Transition Services: Director Transition Present Director Transition Name: [id number] Allergies aspirin [ASA] Allergy (Severe, Verified 07/06/24 14:16) Anaphylaxis Medication List - Last Reconciled 07/06/24 by Fox Norton MD acetaminophen (Tylenol Extra Strength) 1,000 mg (2 x 500 mg) PO Q6H PRN 90 days buspirone 10 mg PO DAILY chlorthalidone 25 mg PO QAM 90 days CPAP (CPAP Machine/Device) autoPAP mode, 6-20 cm H2O diazepam (Valium) 10 mg PO BEDTIME PRN escitalopram oxalate 5 mg PO DAILY fluticasone propionate 50 mcg/actuation (Flonase Allergy Relief) 1 spray intranasal DAILY 90 days ketoconazole 2% topical lidocaine 5% (Lidoderm) 1 patch topical DAILY loratadine 10 mg PO DAILY losartan 100 mg PO DAILY 90 days omeprazole 20 mg PO DAILY PRN semaglutide (weight loss) (Wegovy) 0.25 mg (0.5 mL) subcut QWEEK 4 weeks semaglutide (weight loss) (Wegovy) 0.5 mg (0.5 mL) subcut QWEEK 4 weeks semaglutide (weight loss) (Wegovy) 1 mg (0.5 mL) subcut Q7D 4 weeks semaglutide (weight loss) (Wegovy) 1.7 mg (0.75 mL) subcut QWEEK 4 weeks tramadol 50 mg PO DAILY vibegron (Gemtesa) 75 mg PO DAILY zolpidem 10 mg PO BEDTIME PRN 30 days Do you need a note to return to daycare/school/sports/work: No HPI HPI Obstructive sleep apnea: Details: THIS 58 YEARS OLD FEMALE ZAMBIAN-SPEAKING WITH DIAGNOSIS OF OBSTRUCTIVE SLEEP APNEA IS HERE FOR FOLLOW-UP. SINCE OUR LAST VISIT SHE HAS BEEN USING CPAP MORE REGULARLY. SHE SLEEPS GOOD AND DENIES ANY DAYTIME SLEEPINESS. SHE IS ON WEIGHT REDUCTION PROGRAM WITH INJECTIONS OF WAGOVY . SO FAR THERE HAS BEEN NO SIGNIFICANT DROP IN HER WEIGHT. SHE CLAIMS THAT THE CURRENT MASK FITS OKAY AND SHE IS NOT HAVING ANY ISSUES WITH THE USE OF CPAP. [facility] Medical History Obesity (BMI 30-39.9) Sleep apnea VAHE (generalized anxiety disorder) Hypercalcemia Calcific shoulder tendinitis Class 1 obesity with body mass index (BMI) of 34.0 to 34.9 in adult Right leg pain Essential hypertension Diverticulosis Hemorrhoids, internal, with bleeding Family history of colon cancer History of colon polyps GERD with esophagitis Rhinitis Surgical History S/P right knee arthroscopy Hx of endoscopy History of colonoscopy (~02/2018) H/O basal cell carcinoma excision History of section History of tubal ligation Family History Father Pancreatic cancer Mother Colon cancer, Onset Age: 72 Hypertension Brother No problems noted. Sister Psychiatric disorder Chronic mental illness Family/Other Chronic mental illness Social History Housing: Apartment Do you presently have visiting nurse or other home services: No Alcohol intake: current Alcohol intake frequency: holidays/special occasions only Alcohol type: wine Patient Tobacco Use Status: Never used Tobacco e-Cigarette/Vaping Use: Never Used Second Hand Smoke Exposure: No service: No Current occupational status: employed Current occupational exposures/hazards: No Sexual orientation: Straight/Heterosexual Gender identity: Female Cognitive needs: No Hearing needs: No Vision needs: Yes Female Reproductive History Menstrual Age of Menarche: 15 Review of Systems Const All systems reviewed & are unremarkable except as noted in HPI and below Eyes Reports no additional complaints ENT Reports nasal congestion (Off and on only with the change of seasons.) Card Denies chest pain, Denies irregular heart rhythm, Denies leg edema and Denies dyspnea Resp Denies cough, Denies dyspnea and Denies wheezing GI Reports no additional complaints Reports no additional complaints Musc Reports no additional complaints Skin/Breast Reports system reviewed and no additional complaints, except as documented Neuro Reports no additional complaints Psych Reports anxiety (Controlled) Endo Reports no additional complaints Den/Lymph Reports no additional complaints Aller/Immun Denies wheezing Physical Exam Vital Signs: Last Vital Signs Pulse 96 07/06/24 14:02 BP 102/64 07/06/24 14:02 Pulse Ox 97 07/06/24 14:02 Oxygen Delivery Method Room Air 07/06/24 14:02 BMI result Body Mass Index 35.9 Const General: healthy appearing (Except for being overweight), comfortable, no acute distress, alert and awake Orientation/consciousness: patient oriented x3 HEENT Head: Yes normal to inspection General nose exam: No nasal polyps present, abnormal septum (DNS to the left. A small excoriation over the anterior septum on Rt.side), No nasal discharge present and Other nasal findings present (Mild DNS to left) Face and sinus: Yes sinuses nontender Mouth: oropharynx normal Throat: Yes posterior oropharynx normal Eyes General: appearance normal, both eyes and all related structures Neck Neck: Yes normal visual inspection, Yes no lymphadenopathy, Yes trachea midline and Yes no JVD Thyroid: Thyroid normal Chest Chest palpation & inspection: normal inspection of the chest, normal palpation of entire chest wall and no tenderness Resp Effort & Inspection: normal respiratory effort and no cough Auscultation: clear to auscultation bilaterally, no crackles and no wheezes Cardio Palpation: normal PMI Rate: regular rate Rhythm: regular rhythm Heart sounds: no gallops and no murmurs Peripheral pulses: Peripheral pulses 2+ throughout GI Palpation (GI): Soft to palpation, nontender, No hepatosplenomegaly present and no masses Auscultation: normal bowel sounds Back/Spine/Pelvis Thoracic/Lumbar Spine: thoracic and lumbar spine normal to inspection Skin General skin exam: no rashes or lesions noted Neuro General: patient oriented x3 and no focal motor deficits Cranial nerves: Yes CN's II-XII intact bilaterally Extrem General: Yes normal to inspection, Yes no clubbing, cyanosis or edema and Yes no calf tenderness Psych Appearance: grossly normal and well kempt Speech and movement: Normal speech and movement present Results Reviewed Results Reviewed: COMPLIANCE REPORT COULD NOT BE DOWNLOADED. SHE STATES THAT SHE IS USING CPAP EVERY NIGHT FOR AT LEAST 4-5 HOURS PER NIGHT. WE HAVE REQUESTED THE DME SUPPLIER TO DOWNLOAD THE COMPLIANCE FROM THE CHIP IN HER CPAP DEVICE. Assessment & Plan Assessment & Plan (1) Obesity (BMI 30-39.9): Comment: CONTINUES TO BE MODERATELY OBESE, NOT ABLE TO LOSE WEIGHT BECAUSE SHE DOES NOT DO ANY EXERCISE, She has lot of arthritis which prevents her from doing any physical exercise. NOW ON INJECTIONS OF WAGOVY , Code(s): E66.9 - Obesity, unspecified Category: Medical Plan: ENCOURAGED TO CONTINUE WATCHING DIET AND CONTINUE THE WAGOVY INJECTIONS (2) SIXTO (obstructive sleep apnea): Comment: PATIENT HAS SYMPTOMATIC OBSTRUCTIVE SLEEP APNEA, SEVERE, DIAGNOSED IN 2021 . NOW SHE IS USING THE CPAP REGULARLY AND SLEEPING BETTER. Code(s): G47.33 - Obstructive sleep apnea (adult) (pediatric) Category: Medical Plan: CONTINUE TO USE CPAP EVERY NIGHT AT LEAST FOR 5 HOURS PER NIGHT. DME SUPPLIER WILL CONTACT HER TO GET THE CHIP FROM THE MACHINE AND THEN DOWNLOAD THE COMPLIANCE DATA. (3) Nocturnal hypoxemia: Comment: PATIENT DOES HAVE SIGNIFICANT DEGREE OF NOCTURNAL HYPOXEMIA PROBABLY DUE TO SLEEP-RELATED HYPOVENTILATION. IT WAS HOPED THAT WITH THE PROPER USE OF CPAP HER HYPOXEMIA WILL RESOLVE. SHE HAS STARTED USING THE CPAP MORE REGULARLY. Code(s): G47.34 - Idiopathic sleep related nonobstructive alveolar hypoventilation Category: Medical Plan: AT SOME POINT WE MAY DO OVERNIGHT OXIMETRY RECORDING TO MAKE SURE THAT HYPOXEMIA IS CORRECTED. Coding Level of Care Code Est Pt Level 3 (84227) Diagnoses Obesity (BMI 30-39.9) E66.9 SIXTO (obstructive sleep apnea) G47.33 Nocturnal hypoxemia G47.34
--- OUTSIDE RECORDS SUMMARY | 2024-07-06 15:15 | XMS_ITS | Encounter Summary ---
Author Organization [employer] [facility] Address [address] [place] [address] [address] [place] [address] Care Team Providers Care Cake Stripper Name Role Phone Unavailable Primary Care Provider Unavailabl e Encounter Details Date Type Department Care Team (Latest Contact Info) Description 06/27/2018 Abstract [facility] CONVERSIONS Dental, Provider, DDS Social History Tobacco Use Types Packs/Day Years Used Date Smoking Tobacco: Never Assessed Sex and Gender Information Value Date Recorded Sex Assigned at Male 04/02/2022 10:27 AM EDT Legal Sex Male 10:27 AM EDT Gender Identity Female 04/02/2022 10:27 AM EDT Sexual Orientation Straight 04/02/2022 10 :27 AM EDT documented as of this encounter Plan of Treatment Upcoming Encounters Date Type Department Care Team (Late st Contact Info) Description 11/25/2024 1:00 PM EDT Office Visit [facility] ADULT DENTAL [address] [place] [address] Raeann, Alpa [address] [place] [address] documented as of this encounter Visit Diagnoses Not on filedocumented in this encounter
--- OUTSIDE RECORDS SUMMARY | 2024-07-06 15:15 | XMS_ITS | Encounter Summary ---
Author Organization [employer] [facility] Address [address] [place] [address] [address] [place] [address] Care Team Providers Care Interior Designer Name Role Phone Unavailable Primary Care Provider Unavailabl e Encounter Details Date Type Department Care Team (Latest Contact Info) Description 08/05/2020 Abstract [facility] CONVERSIONS Dental, Provider, DDS Social History Tobacco [...] Description 11/25/2024 1:00 PM EDT Office Visit [facility] ADULT DENTAL [address] [place] [address] Raeann, Alpa [address] [place] [address] documented as of this encounter Visit Diagnoses Not on filedocumented in this encounter
--- OUTSIDE RECORDS SUMMARY | 2024-07-06 15:15 | XMS_ITS | Clinical Summary ---
Author Organization [employer] Address [address] [facility] [address] [place] [address] Care Team Providers Care Laborer Marine [employer] Name Role Phone Unavailable Primary Care Provider Unavailabl e Allergies Active Allergy Reactions Criticality Noted Date Comments Aspirin Hives 10/24/1994 Medications busPIRone (Buspar) 10 MG tablet TAKE 1 TABLET BY MOUTH 3 TIMES A DAY FOR ANXIETY 3 Active chlorthalidone (Hygroton) 25 MG tablet Take 25 mg by mouth in the morning. 3 Active escitalopram (Lexapro) 5 MG tablet Take 5 mg by mouth in the morning. 3 Active ketoconazole (NIZOral) 2 % shampoo USE EVERY OTHER DAY SHAMPOO LET SIT ON THE SCALP FOR 10 MINUTES THEN LATHER AND RINSE 3 Active lidocaine (Lidoderm) 5 % patch PLACE 2 PATCHES TO SKIN AND LEAVE ON MOST PAINFUL AREA FOR UP TO 12 HOURS DAILY 3 Active loratadine (Claritin) 10 MG tablet Take 10 mg by mouth in the morning. 3 Active losartan (Cozaar) 100 MG tablet Take 100 mg by mouth in the morning. 3 Active GaviLAX 17 GM/SCOOP powder MIX AND DRINK 17 G ORALLY DAILY FOR 30 DAYS 3 Active amoxicillin (Amoxil) 500 MG capsule TAKE 4 CAPSULES 1 HOUR PRIOR TO PROCEDURE 4 Active Active Problems Problem Noted Date Diagnosed Date Missing teeth, acquired 06/27/2023 Localized gingival recession, minimal 06/07/2023 Localized enlargement of gingiva 05/15/2023 Open margin on tooth sikhism 05/15/2023 Acute apical periodontitis of pulpal origin 05/03 Back pain 2022 Dental calculus 2022 Encounters Date Type Department Care Team Description 05/25/2024 1:00 PM EST Office Visit [facility] ADULT DENTAL [address] [place] [address] Alpa Cary Localized gingival recession, minimal (Primary Dx); Dental calculus; Missing teeth, acquired from Last 3 Months Social History Tobacco Use Types Packs/Day Years Used Date Smoking Tobacco: Never Passive Smoke Exposure: Never Smokeless Tobacco: Never Tobacco Cessation:Counseling Given: Not Answered Alcohol Use Standard Drinks/Week Comments Defer 0 (1 standard drink = 0.6 oz pur e alcohol) Sex and Gender Information Value Date Recorded Sex Assigned at Male 04/02/2022 10:27 AM EDT Legal Sex Male 10:27 AM EDT Gender Identity Female 04/02/2022 10:27 AM EDT Sexual Orientation Straight 04/02/2022 10 :27 AM EDT Last Filed Vital Signs Vital Sign Reading Time Taken Comments Blood Pressure 138/86 05/25/2024 12:57 PM EST Pulse 72 06/27/2023 2:28 PM EST Temperature - - Respiratory Rate - - Oxygen Saturation - - Inhaled Oxygen Concentration - - Weight - - Height - - Body Mass Index - - Plan of Treatment Upcoming Encounters Date Type Department Care Team (Late st Contact Info) Description 11/25/2024 1:00 PM EDT Office Visit [facility] ADULT DENTAL [address] [place] [address] Alpa Cary [address] [place] [address] Health Maintenance Due Date Last Done Comments CT Colonography 1967 Colonoscopy 1967 Colorectal Cancer Screening 1967 Depression Screening 1967 FIT DNA/Cologuard 1967 FIT 1967 FOBT 1967 HIV Screening 1967 Lipid Panel 1967 SDOH Screening 1967 Sigmoidoscopy 1967 Alcohol/Substance Use Screening 1979 Hepatitis C Screening 09/25/1985 DTaP/Tdap/Td Vaccines (1 - Tdap) 09/25/1986 Hepatitis B Vaccines (1 of 3 - 19+ 3-dose series) 09/25/1986 Pneumococcal Vaccine: 50+ Years (1 of 1 - PCV) 09/25/2017 Zoster Vaccines (1 of 2) 09/25/2017 Dental Oral Exam 12/27/2023 06/27/2023, 02/28/2022 COVID-19 Vaccine (2 - season) 2024 08/27/2020 Dental X-Ray: Bitewings 06/08/2024 06/07/2023, 05/15 Dental Prophylaxis 11/24/2024 05/25/2024, 0 06/07/2023, 2022 Dental X-Ray: Full Mouth 03/01/2025 02/28/2022 Tobacco Screening 05/25/2025 05/25/2024 RSV Patients and Patients Aged 60 years or older (1 - 1-dose 75+ series) 09/25/2042 Influenza Vaccine Completed 04/15/2024, , 03/08/2021, Additional history exists HIB Vaccines Aged Out No longer eligi ble based on patient's age to complete this topic HPV Vaccines Aged Out No longer eligi ble based on patient's age to complete this topic Hepatitis A Vaccines Aged Out No long er eligible based on patient's age to complete this topic IPV Vaccines Aged Out No longer eligi ble based on patient's age to complete this topic Meningococcal Vaccine Aged Out No teresa maria victoria eligible based on patient's age to complete this topic Pneumococcal Vaccine: Pediatrics (0 to 5 Years) and At-Risk Patients (6 to 49) Years) Aged Out No longer eligible based on patient's age to complete this topic RSV under 20 months Aged Out No longe r eligible based on patient's age to complete this topic Rotavirus Vaccines Aged Out No longer eligible based on patient's age to complete this topic Procedures Procedure Name Priority Date/Time Associated Diagnosis Comments ADJUNCTIVE GENERAL SERVICES - PROFESSIONAL VISITS - CASE PRESENTATION, SUBSEQUENT TO DETAILED AND EXTENSIVE TREATMENT PLANNING Routine 05/25/2024 1:00 PM EST Localized gingival recession, minimal Dental calculus Missing teeth, acquired ORAL HYGIENE INSTRUCTIONS Routine 05/25/2024 1:00 PM EST Localized gingival recession, minimal Dental calculus Missing teeth, acquired PROPHYLAXIS - ADULT Routine 05/25/2024 1 :00 PM EST Dental calculus PERIODIC ORAL EVALUATION - ESTABLISHED PATIENT Routine 06/27/2023 2:30 PM EST BITEWINGS - 4 RADIOGRAPHIC IMAGES Routine 06/07/2023 1:00 PM EST Dental calculus Localized gingival recession, minimal from Last 3 Months or Most Recently Relevant to Health Maintenance Insurance [address] [place] [id number] [facility] MEDICAID STAND ADULT [address] [place] [phone] [place] [address] [place] [address] [address] [place] [id number]
--- OUTSIDE RECORDS SUMMARY | 2024-07-06 15:15 | XMS_ITS | Encounter Summary ---
Author Organization [employer] [facility] Address [address] [place] [address] [address]t [place] [address] Care Team Providers Care Manufacturing Plant Controller Name Role Phone Unavailable Primary Care Provider Unavailabl e Encounter Details Date Type Department Care Team (Latest Contact Info) Description 02/28/2022 Abstract [facility] CONVERSIONS Dental, Provider, DDS Social History Tobacco [...] Description 11/25/2024 1:00 PM EDT Office Visit [facility] ADULT DENTAL [address] [place] [address] Raeann, Alpa [address] [place] [address] documented as of this encounter Visit Diagnoses Not on filedocumented in this encounter
== END 2024-07-06 14:25 | disposition home or self-care (01) ==
PROVIDERS: PCP Internal Medicine; Visit Provider Internal Medicine
DX: E66.9 Obesity, unspecified (principal); G47.33 Obstructive sleep apnea (adult) (pediatric); G47.34 Idiopathic sleep related nonobstructive alveolar hypoventilation
CPT/HCPCS: 99213

== ENCOUNTER → 2024-07-06 13:45 | Outpatient (BNVA) | payer OTHER, SELFPAY | PROVIDERS: PCP Internal Medicine; Visit Provider Internal Medicine | DX: G47.33 Obstructive sleep apnea (adult) (pediatric) (principal); G47.34 Idiopathic sleep related nonobstructive alveolar hypoventilation; E66.9 Obesity, unspecified; Z68.35 Body mass index [BMI] 35.0-35.9, adult; Z99.89 Dependence on other enabling machines and devices | CPT/HCPCS: 99212 ==

== ENCOUNTER 2024-07-31 12:42 | Outpatient (AMB) | payer OTHER, SELFPAY ==
--- NOTE | 2024-07-31 14:42 | MHC.OFFVISWM ---
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* Paper And Pulp Mill Operator Required: Yes Paper And Pulp Mill Operator Services: Paper And Pulp Mill Operator Present Information Interpreted: clinical only Allergies aspirin [ASA] Allergy (Severe, Verified 07/31/24 14:42) Anaphylaxis Medication List - Last Reconciled 07/31/24 by Juarez Llanes MD acetaminophen (Tylenol Extra Strength) 1,000 mg (2 x 500 mg) PO Q6H PRN 90 days buspirone 10 mg PO DAILY chlorthalidone 25 mg PO QAM 90 days CPAP (CPAP Machine/Device) autoPAP mode, 6-20 cm H2O escitalopram oxalate 5 mg PO DAILY fluticasone propionate 50 mcg/actuation (Flonase Allergy Relief) 1 spray intranasal DAILY 90 days loratadine 10 mg PO DAILY losartan 100 mg PO DAILY 90 days tramadol 50 mg PO DAILY HPI HPI 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 Start: 2.33pm, End: 3.18pm HPI Comments Details: Previous weight loss efforts: Wegovy for 2 months: lost 16lbs Wakes up: 6.30am, Sleeps: 11pm Breakfast: only on weekends Lunch: 11-12pm (salad, chicken, pasta) Dinner: 6-7pm (rice, fish, rice, beans) Snacks: after dinner (crackers with milk) Exercise: none Fluids: Coffee: occasionally, tea: none, soda: none, juice: twice per day, ETOH: 2/month [facility] Medical History Obesity (BMI 30-39.9) Sleep apnea VAHE (generalized anxiety disorder) Hypercalcemia Calcific shoulder tendinitis Class 1 obesity with body mass index (BMI) of 34.0 to 34.9 in adult Right leg pain Essential hypertension Diverticulosis Hemorrhoids, internal, with bleeding Family history of colon cancer History of colon polyps GERD with esophagitis Rhinitis Surgical History S/P right knee arthroscopy Hx of endoscopy History of colonoscopy (~02/2018) H/O basal cell carcinoma excision History of section History of tubal ligation Family History Father Pancreatic cancer Mother Colon cancer, Onset Age: 72 Hypertension Brother No problems noted. Sister Psychiatric disorder Chronic mental illness Family/Other Chronic mental illness Social History Housing: Apartment Do you presently have visiting nurse or other home services: No Alcohol intake: current Alcohol intake frequency: holidays/special occasions only Alcohol type: wine Patient Tobacco Use Status: Never used Tobacco e-Cigarette/Vaping Use: Never Used Second Hand Smoke Exposure: No service: No Current occupational status: employed Current occupational exposures/hazards: No Sexual orientation: Straight/Heterosexual Gender identity: Female Cognitive needs: No Hearing needs: No Vision needs: Yes Female Reproductive History Menstrual Age of Menarche: 15 Physical Exam Vital Signs: BMI result Body Mass Index 35.0 Telehealth Telehealth Telehealth Platform: Telephone Location of provider rendering services: practice address Location of patient: address on file Patient Identification confirmed using: Name, : Yes Telehealth method: voice only Patient verbally consented to treatment: Yes Patient verbally consented to billing insurance company: Yes Patient informed of any privacy concerns related to visit: Yes Minutes spent on Phone/Video with Pt.: 45 Assessment & Plan Assessment & Plan (1) Class 2 obesity with body mass index (BMI) of 38.0 to 38.9 in adult: Code(s): E66.9 - Obesity, unspecified; Z68.38 - Body mass index [BMI] 38.0-38.9, adult Category: Medical Qualifiers: Obesity type: due to excess calories Serious obesity comorbidity presence: with serious comorbidity Qualified Code(s): E66.812 - Obesity, class 2; E66.01 - Morbid (severe) obesity due to excess calories; Z68.38 - Body mass index [BMI] 38.0-38.9, adult Plan: 1. We discussed in detail the available therapeutic options: 1) her insurance may allow the use of Zepbound since she has medically treated hypertension on two medications 2) We discussed our lifestyle intervention program and 3) We also discussed about the lap sleeve gastrectomy. I emphasized the importance of close follow-up, adherence to instructions and good communication. The surgery does not replace the need to change your lifestlyle which is the cause of the obesity problem. The surgery provides the motivation to try again to change your lifestyle, it reduces the appetite and make the transition to a better lifestyle easier and doubles the amount of weight you would lose compared to doing the lifestyle change without the surgery. You will need to be on a liquid diet with protein shakes for 2 weeks before surgery to maximize weight loss and boost your nutritional status to recover better from surgery and also for the first two weeks after surgery to let the stomach heal before we introduce other foods. After the first 2 weeks we will introduce protein bars and soft foods like scrambled eggs, cottage cheese and yogurt and after the 6th week will introduce meat, fish and cooked vegetables in small amounts. Over time you should be able to eat everything in small amounts. Side effects like nausea, vomiting, heartburn or abdominal pain are not common in the practice unless you are not following in the practice. This operation requires lifetime commitment to following in our practice and communication with me. You will much less weight and experience side effects if you don?t communicate or not following in the practice. Complications are rare and in our practice is about 1/10 of the national average. She would like to discuss these options with her and she will get back to me with her decision.
--- OUTSIDE RECORDS SUMMARY | 2024-07-31 14:47 | XMS_ITS | Encounter Summary ---
Author Organization [employer] [facility] Address [address] [place] [address] [address] [place] [address] Care Team Providers Care Architect Manager Name Role Phone Unavailable Primary Care Provider Unavailabl e Encounter Details Date Type Department Care Team (Latest Contact Info) Description 06/27/2018 Abstract [facility] CONVERSIONS Dental, Provider, DDS Social [...] Care Team (Late st Contact Info) Description 08/11/2024 2:30 PM EDT Office Visit [facility] ADULT DENTAL [address] [place] [address] Dannie Allen DDS [address] [place] [address] 11/25/2024 1:00 PM EDT Office Visit [facility] ADULT DENTAL [address] [place] [address] Alpa Cary [address] [place] [address] documented as of this encounter Visit Diagnoses Not on filedocumented in this encounter
--- OUTSIDE RECORDS SUMMARY | 2024-07-31 14:47 | XMS_ITS | Encounter Summary ---
Author Organization [email or web address] [facility] Address [address] [place] [address] [address] [place] [address] Care Team Providers Care Base Loader Name Role Phone Unavailable Primary Care Provider Unavailabl e Encounter Details Date Type Department Care Team (Latest Contact Info) Description 08/05/2020 Abstract [facility] CONVERSIONS Dental, Provider, DDS Social History Tobacco [...] Description 08/11/2024 2:30 PM EDT Office Visit [facility] ADULT DENTAL [address] [place] [address] Dannie Allen DDS [address] [place] [address] 11/25/2024 1:00 PM EDT Office Visit [facility]ULT D[facility] [address] [place] [address] Alpa Cary [address] [place] [address] documented as of this encounter Visit Diagnoses Not on filedocumented in this encounter
--- OUTSIDE RECORDS SUMMARY | 2024-07-31 14:47 | XMS_ITS | Clinical Summary ---
Author Organization [employer] Address [address] [facility] [address] [place] [address] Care Team Providers Care Ski Guide Name Role Phone Unavailable Primary Care Provider [...] Active Problems Problem Noted Date Diagnosed Date Severe obesity 07/07/2024 Missing teeth, acquired 06/27/2023 Localized gingival recession, minimal 06/07/2023 Localized enlargement of gingiva 05/15/2023 Open margin on tooth scientologist 05/15/2023 Acute apical periodontitis of pulpal origin 05/03 Back pain 2022 Dental calculus 2022 Encounters Date Type Department Care Team Description 07/07/2024 8:30 AM EST Office Visit [facility] [address] [place] [address] Tangela Campos, DDS Open fracture of tooth, initial encounter (Primary Dx); Recurrent dental caries extending into dentin 05/25/2024 1:00 PM EST Office Visit [facility] [address] [place] [address] Alpa Cary Localized gingival recession, minimal (Primary [...] Description 08/11/2024 2:30 PM EDT Office Visit [facility] [address] [place] [address] Dannie Allen DDS [address] [place] [address] 11/25/2024 1:00 PM EDT Office Visit [facility] [address] [place] [address] Alpa Cary [address] [place] [address] Health Maintenance Due Date Last Done Comments [...] X-Ray: Full Mouth 03/01/2025 02/28/2022 Tobacco Screening 07/07/2025 07/07/2024 RSV Patients and Patients Aged 60 years [...] Procedure Name Priority Date/Time Associated Diagnosis Comments 28 LIMITED ORAL EVALUATION - PROBLEM FOCUSED Routine 07/07/2024 8:30 AM EST Open fracture of tooth, initial encounter Recurrent dental caries extending into dentin CASE PRESENTATION, DETAILED AND EXTENSIVE TREATMENT PLANNING Routine 07/07/2024 8:30 AM EST Open fracture of tooth, initial encounter Recurrent dental caries extending into dentin INTRAORAL - PERIAPICAL FIRST RADIOGRAPHIC IMAGE Routine 07/07/2024 8:30 AM EST Open fracture of tooth, initial encounter Recurrent dental caries extending into dentin CASE PRESENTATION, DETAILED AND EXTENSIVE TREATMENT PLANNING Routine 05/25/2024 [...] Most Recently Relevant to Health Maintenance Insurance [facility] MEDICAID STAND ADULT
--- OUTSIDE RECORDS SUMMARY | 2024-07-31 14:47 | XMS_ITS | Encounter Summary ---
Author Organization [facility] Address [address] [place] [address] [address] [place] [address] Care Team Providers Care Medic Technician Name Role Phone Unavailable Primary Care Provider Unavailabl e Encounter Details Date Type Department Care Team (Latest Contact Info) Description 02/28/2022 Abstract [facility] CONVERSIONS Dental, Provider, DDS Social History Tobacco [...] Description 08/11/2024 2:30 PM EDT Office Visit [facility]ULT [facility] [address] [place] [address] Dannie Allen DDS [address] [place] [address] 11/25/2024 1:00 PM EDT Office Visit [facility] [address] [place] [address] Alpa Cary [address] [place] [address] documented as of this encounter Visit Diagnoses Not on filedocumented in this encounter
--- OUTSIDE RECORDS SUMMARY | 2024-07-31 14:47 | XMS_ITS | Encounter Summary ---
Author Organization [employer] Address [address] [facility] [address] [place] [address] Care Team Providers Care Systems Tester Name Role Phone Unavailable Primary Care Provider Unavailabl e Reason for Visit * Reason Comments Dental Exam Patient presents tod ay with a broken molar on lower right side Encounter Details Date Type Department Care Team ([facility] st Contact Info) Description 07/07/2024 8:30 AM EST Office Visit [facility] ADULT [facility] [address] [place] [address] Tangela Campos DDS [address] [place] [address] Open fracture of tooth, initial encounter (Primary Dx); Recurrent dental caries extending into dentin Social History Tobacco Use Types Packs/Day Years Used Date Smoking Tobacco: Never Passive Smoke Exposure: Never Smokeless Tobacco: Never Alcohol Use Standard Drinks/Week Comments Defer 0 (1 standard drink = 0.6 oz pur e alcohol) Sex and Gender Information Value Date Recorded Sex Assigned at Male 04/02/2022 10:27 AM EDT Legal Sex Male 10:27 AM EDT Gender Identity Female 04/02/2022 10:27 AM EDT Sexual Orientation Straight 04/02/2022 10 :27 AM EDT documented as of this encounter Progress Notes * Tangela Campos DDS - 07/07/2024 8:30 AM EST Dental procedures in this visit D0140 - LIMITED ORAL EVALUATION - PROBLEM FOCUSED 28 (Completed) Service provider: Tangela Campos DDS Billing provider: Tangela Campos DDS D0220 - INTRAORAL - PERIAPICAL FIRST RADIOGRAPHIC IMAGE (Completed) Service provider: Tangela Campos DDS Billing provider: Tangela Campos DDS D9450 - ADJUNCTIVE GENERAL SERVICES - PROFESSIONAL VISITS - CASE PRESENTATION, SUBSEQUENT TO DETAILED AND EXTENSIVE TREATMENT PLANNING (Completed) Service provider: Tangela Campos DDS Billing provider: Tangela Campos DDS Patient ID: Nuria Garcia is a 58 y.o. adult. Time Out: Timeout Date: 07/07/24, Timeout Time: 0846 (broekn molar lower right side) Location: [facility] Tooth: #28 Procedure: Limited exam Verified the above with patient, assistant teacher, and provider. Confirmed via patient's chart, intraorally and by radiographs. Tugboat Pilot: not applicable Chief Complaint Patient presents with Dental Exam Patient presents today with a broken molar on lower right side Medical Hx: Vitals: There were no vitals taken for this visit. Past Medical History: Diagnosis Date Anxiety Arthritis Back pain Hypertension [facility] and [facility], Pending implant Medications: Outpatient Encounter Medications as of 07/07/2024 Medication Sig Dispense Refill amoxicillin (Amoxil) 500 MG capsule TAKE 4 CAPSULES 1 HOUR PRIOR TO PROCEDURE busPIRone (Buspar) 10 MG tablet TAKE 1 TABLET BY MOUTH 3 TIMES A DAY FOR ANXIETY chlorthalidone (Hygroton) 25 MG tablet Take 25 mg by mouth in the morning. escitalopram (Lexapro) 5 MG tablet Take 5 mg by mouth in the morning. loratadine (Claritin) 10 MG tablet Take 10 mg by mouth in the morning. losartan (Cozaar) 100 MG tablet Take 100 mg by mouth in the morning. GaviLAX 17 GM/SCOOP powder MIX AND DRINK 17 G ORALLY DAILY FOR 30 DAYS (Patient not taking: Reported on 07/07/2024) ketoconazole (NIZOral) 2 % shampoo USE EVERY OTHER DAY SHAMPOO LET SIT ON THE SCALP FOR 10 MINUTES THEN LATHER AND RINSE (Patient not taking: Reported on 07/07/2024) lidocaine (Lidoderm) 5 % patch PLACE 2 PATCHES TO SKIN AND LEAVE ON MOST PAINFUL AREA FOR UP TO 12 HOURS DAILY (Patient not taking: Reported on 07/07/2024) No facility-administered encounter medications on file as of 07/07/2024. Subjective: Pain: not present Duration: 2 days tooth fractured over the weekend Objective: Tooth: #28 Radiographs Taken: BW(s) and PA(s) Radiographic Findings: fracture of B cusp #28. Amalgam filling detached, fracture extends under gumline on B. No sensitivity, no pain to percussion or palpation. Recurrent decay noticed Endo Testing: Cold: No response Percussion: no pain Palpation: no pain Diagnosis: Fractured tooth; recurrent decay Assessment/Plan: Referred for ext and JUAN Prescriptions: none Pt tolerated procedure well, all questions answered. Dismissed in good condition. NV: Ext JUAN Behavioral [facility] Care Coordinator: Selena Brock Dentist: Tangela Campos DDS documented in this encounter Plan of Treatment Upcoming Encounters Date Type Department Care Team (Late st Contact Info) Description 08/11/2024 2:30 PM EDT Office Visit [facility] [address] [place] [address] Dannie Allen DDS [address] [place] [address] 11/25/2024 1:00 PM EDT Office Visit [facility] [address] [place] [address] Alpa Cary [address] [place] [address] Scheduled Orders Name Type Priority Associated Diagnoses Orde r Schedule 28 28 EXTRACTION, ERUPTED TOOTH OR EXPOSED ROOT (ELEVATION AND/OR FORCEPS REMOVAL) Dental Routine 1 Occurrences s tarting 07/07/2024 documented as of this encounter Procedures Procedure Name Priority Date/Time Associated Diagnosis [...] encounter Recurrent dental caries extending into dentin documented in this encounter Visit Diagnoses Diagnosis Open fracture of tooth, initial encounter- Primary Recurrent dental caries extending into dentin documented in this encounter
[2024-07-31 14:51] VITALS: BMI 35.0
== END 2024-07-31 15:18 | disposition home or self-care (01) ==
LOC: HO.HBS 12:42
PROVIDERS: PCP Internal Medicine; Visit Provider Surgery
DX: E66.812 Obesity, class 2 (principal); Z68.35 Body mass index [BMI] 35.0-35.9, adult
CPT/HCPCS: 99204

== ENCOUNTER → 2024-07-31 12:42 | Outpatient (BNVA) | payer OTHER, SELFPAY | PROVIDERS: PCP Internal Medicine; Visit Provider Surgery ==

== ENCOUNTER 2024-08-17 13:36 | Outpatient (AMB) | payer OTHER, SELFPAY ==
--- NOTE | 2024-08-17 14:07 | MHC.PC.OV ---
Vital Signs 08/17/24 14:10 Height 5 ft 2 in Weight 192 lb BMI 35.1 BP 132/80 Blood Pressure Location Lt brachial Position Sitting Intake Visit Reasons: 4mth f/u Intake Note: Patient here for a 4 month follow up Estimator Printing Plate Making Required: Yes Estimator Printing Plate Making Language: Sample Preparation Supervisor Name: Arelis Hughes MD Information Interpreted: non-clinical & clinical Accompanied by: Self / Same As Patient Allergies aspirin [ASA] Allergy (Severe, Verified 08/17/24 14:41) Anaphylaxis Medication List - Last Reconciled 08/17/24 by Arelis Hughes MD acetaminophen (Tylenol Extra Strength) 1,000 mg (2 x 500 mg) PO Q6H PRN 90 days buspirone 10 mg PO DAILY chlorthalidone 25 mg PO QAM 90 days CPAP (CPAP Machine/Device) autoPAP mode, 6-20 cm H2O escitalopram oxalate 5 mg PO DAILY fluticasone propionate 50 mcg/actuation (Flonase Allergy Relief) 1 spray intranasal DAILY 90 days loratadine 10 mg PO DAILY losartan 100 mg PO DAILY 90 days medroxyprogesterone mg PO DAILY tramadol 50 mg PO DAILY Tobacco use date assessed: 08/17/24 Dental Screening Dental Screen Date: 08/17/24 Did you have a dental visit in the last 12 months?: Yes Did you have a dental problem in the last 6 months where you did not have access to dental care?: No Was dental information given to patient?: Patient has dentist HPI HPI Comments History of Present Illness Details The patient is a 58-year-old female presenting with a multi-faceted medical history involving essential hypertension, anxiety disorder, depression, uterine fibroids, and obesity. The patient manages hypertension with chlortalidone and losartan, with an acknowledged diagnosis of obstructive sleep apnea treated using CPAP. There is a history of anxiety and depressive disorders managed with buspirone and citalopram, accompanied by periodic fluctuations in symptoms. Uterine fibroids present with significant anemia due to bleeding, prompting surgical intervention discussions. [facility] Medical History (Updated 08/17/24 @ 19:08 by Arelis Hughes MD) Morbid obesity with BMI of 40.0-44.9, adult Obesity (BMI 30-39.9) Sleep apnea VAHE (generalized anxiety disorder) Hypercalcemia Calcific shoulder tendinitis Class 1 obesity with body mass index (BMI) of 34.0 to 34.9 in adult Right leg pain Essential hypertension Diverticulosis Hemorrhoids, internal, with bleeding Family history of colon cancer History of colon polyps GERD with esophagitis Rhinitis Surgical History S/P right knee arthroscopy Hx of endoscopy History of colonoscopy (~02/2018) H/O basal cell carcinoma excision History of section History of tubal ligation Family History Father Pancreatic cancer Mother Colon cancer, Onset Age: 72 Hypertension Brother No problems noted. Sister Psychiatric disorder Chronic mental illness Family/Other Chronic mental illness Social History Housing: Apartment Do you presently have visiting nurse or other home services: No Alcohol intake: current Alcohol intake frequency: holidays/special occasions only Alcohol type: wine Patient Tobacco Use Status: Never used Tobacco e-Cigarette/Vaping Use: Never Used Second Hand Smoke Exposure: No service: No Current occupational status: employed Current occupational exposures/hazards: No Sexual orientation: Straight/Heterosexual Gender identity: Female Cognitive needs: No Hearing needs: No Vision needs: Yes Female Reproductive History Menstrual Age of Menarche: 15 Questionnaire PHQ-9 Over the last 2 weeks, how often have you been bothered by any of the following problems? 1. Little interest or pleasure in doing things: not at all 2. Feeling down, depressed, or hopeless: not at all 3. Trouble falling or staying asleep, or sleeping too much: not at all 4. Feeling tired or having little energy: not at all 5. Poor appetite or overeating: not at all 6. Feeling bad about yourself - or that you are a failure or have let yourself or your family down: not at all 7. Trouble concentrating on things, such as reading the newspaper or watching television: not at all 8. Moving or speaking so slowly that other people could have noticed. Or the opposite - being so fidgety or restless that you have been moving around a lot more than usual: not at all 9. Thoughts that you would be better off or of hurting yourself in some way: not at all Total score: 0 Depression Screening Interpretation: Negative Depression Screening Done: Yes 23055 - PHQ-9 Billing: Yes Source: Developed by Drs. Drew Cartagena, Emmy Hilton, Kirby Vasquez and colleagues, with an educational jose from [employer]. Thrive Questionnaire Date Thrive assessed: 08/17/24 I am a: Patient What is your living situation today?: I have a steady place to live Within the past 12 months, did the food you bought not last and you didn't have the money to get more?: Never true Within the past 12 months, did you worry whether your food would run out before you got money to buy more?: Never true Do you have trouble paying for medicines?: No Do you have trouble getting transportation to medical appointments?: No Do you have trouble paying your heating and electricity bill?: No Do you have trouble taking care of your child, family member or friend?: No Do you have trouble with day-to-day activities such as bathing, preparing meals, shopping, managing finances, etc.?: No Are you currently unemployed and looking for a job?: No Are you interested in more education?: No Please select the resources that you would like help with: None Currently or been in a relationship where the following occur: No concerns reported THRIVE Score: 0 AUDIT C Alcohol Use Questionnaire (AUDIT-C) 1. How often do you have a drink containing alcohol?: Monthly or less 2. How many drinks containing alcohol do you have on a typical day when you are drinking?: 1 or 2 3. How often do you have six or more drinks on one occasion?: Never Total Score: 1 Score Reviewed/Action Taken: No VAHE-7 AMB Questionnaire VAHE-7 Date VAHE - 7 assessed: 08/17/24 Feeling nervous, anxious, or on edge: 0 = Not at all Not being able to stop or control worryin = Not at all Worrying too much about different things: 0 = Not at all Trouble relaxin = Not at all Being so restless that it is hard to sit still: 0 = Not at all Becoming easily annoyed or irritable: 0 = Not at all Feeling afraid as if something awful might happen: 0 = Not at all Total VAHE-7 score (0-4 normal; 5-9 mild; 10-14 moderate; 15-21 severe): 0 Source: Developed by Drs. Drew Cartagena, Emmy Hilton, Kirby Vasquez and colleagues, with an educational jose from [employer]. VAHE-7 Assessment Billing VAHE-7 Assessment Tool: VAHE-7 Assessment 26557 Review of Systems Const All systems reviewed & are unremarkable except as noted in HPI and below Card Denies chest pain at rest, Denies chest pain with activity, Denies edema, Denies irregular heart rhythm, Denies claudication, Denies dyspnea, Denies dyspnea on exertion, Denies orthopnea, Denies paroxysmal nocturnal dyspnea and Denies slow heart rate Resp Denies cough, Denies dyspnea and Denies dyspnea on exertion GI Denies abdominal pain, Denies change in bowel habits, Denies excessive flatus, Denies nausea and Denies vomiting Denies urinary incontinence, Denies urinary hesitancy and Denies urinary urgency Musc Denies atrophy, Denies deformity and Denies limited range of motion Skin/Breast Denies bleeding lesions, Denies changing lesions and Denies rash Physical exam (Primary Care) Vital Signs: Last Vital Signs BP 132/80 08/17/24 14:10 BMI result Body Mass Index 35.1 BMI Assessment/Plan discussion: High BMI High, discussed plan: lifestyle, weight reduction, dietary and physical activity Tobacco/Smoking Status: Tobacco use Status Tobacco use date assessed 08/17/24 08/17/24 14:15 Patient Tobacco Use Status Never used Tobacco 08/17/24 14:15 e-Cigarette/Vaping Use Never Used 08/17/24 14:15 PHQ-9: PHQ-9 Score PHQ-9: Total score 0 08/17/24 14:45 Depression Screening Interpretation: Negative Thrive Assessment: Date of Thrive Assessment Date Thrive assessed 08/17/24 08/17/24 14:15 Currently or been in a relationship where the following occur: No concerns reported Resp Effort & Inspection: normal respiratory effort Auscultation: clear to auscultation bilaterally Cardio Jugular venous distension: no JVD Rate: regular rate Rhythm: regular rhythm Heart sounds: S1 normal heart sound present and S2 normal heart sound present Extrem General: Yes full ROM Coding Level of Care Code Est Pt Level 4 (87651) Complex EM visit Add On G2211 Diagnoses Essential hypertension I10 VAHE (generalized anxiety disorder) F41.1 SIXTO (obstructive sleep apnea) G47.33 Obesity (BMI 30-39.9) E66.9 Additional Codes VAHE-7 Assessment Billing - VAHE-7 Assessment Tool: VAHE-7 Assessment 35960 ([id number]) PHQ-9 - 60570 - PHQ-9 Billing: Yes ([id number]) Time Spent (min) 22 Assessment & Plan Assessment & Plan (1) Essential hypertension: Code(s): I10 - Essential (primary) hypertension Category: Medical (2) VAHE (generalized anxiety disorder): Code(s): F41.1 - Generalized anxiety disorder Category: Medical (3) SIXTO (obstructive sleep apnea): Comment: PATIENT HAS SYMPTOMATIC OBSTRUCTIVE SLEEP APNEA, SEVERE, DIAGNOSED IN 2021 . NOW SHE IS USING THE CPAP REGULARLY AND SLEEPING BETTER. Code(s): G47.33 - Obstructive sleep apnea (adult) (pediatric) Category: Medical (4) Obesity (BMI 30-39.9): Comment: CONTINUES TO BE MODERATELY OBESE, NOT ABLE TO LOSE WEIGHT BECAUSE SHE DOES NOT DO ANY EXERCISE, She has lot of arthritis which prevents her from doing any physical exercise. NOW ON INJECTIONS OF [place] , Code(s): E66.9 - Obesity, unspecified Category: Medical Plan The ongoing management of essential hypertension will continue with chlortalidone and losartan. Anxiety and depressive disorders will remain under the current treatment regimen of buspirone and citalopram with vigilance for symptom fluctuations. Surgical removal of uterine fibroids is planned, addressing anemia and persistent bleeding, pending alignment with the patient's availability for medical leave. Management of obesity will focus on structured dietary modifications with potential adjunct medication pending insurance approval, accompanied by an encouragement for increased physical activity within personal limits. Patient was informed and verbally consented to the use of an ambient scribe for clinic note documentation during this visit. During the consultation, I discussed with the patient the management options for her primary health conditions, focusing on pharmaceutical treatments for hypertension, anxiety, and depression. Surgical options for her uterine fibroids were reviewed, with a hysterectomy being the recommended approach to address anemia. We discussed the implications of insurance approvals for weight management medications and strategies to navigate family meal planning and exercise routines. The patient's concerns regarding medical leave and [facility] policy constraints were acknowledged, exploring alternatives in scheduling upcoming procedures to minimize occupational disruptions. Orders: Orders Complete Blood Count Auto Diff Today D64.9 - Anemia, unspecified Lipid Panel Today E78.5 - Hyperlipidemia, unspecified IRON PROFILE Today D64.9 - Anemia, unspecified Vitamin B12 and Folate Today E53.8 - Deficiency of other specified B group vitamins Vitamin D 25-OH Total Today E55.9 - Vitamin D deficiency, unspecified Comprehensive [place]. Panel Fast Today E66.01 - Morbid (severe) obesity due to excess calories, E66.812 - Obesity, class 2, Z68.37 - Body mass index [BMI] 37.0-37.9, adult Medications: New tirzepatide (weight loss) (Zepbound) for 4 weeks 2.5 mg (0.5 mL) subcut QWEEK 2 mL 0RF 4 weeks E66.9 - Obesity, unspecified Patient Instructions: - Continue hypertension medications as currently prescribed. - Maintain psychiatric medications and attend follow-up appointments. - Await scheduling confirmation and prepare for forthcoming hysterectomy. - Review and adjust diet with a focus on nutrient-dense foods. - Engage in exercise as tolerated, aiming for moderate activity 5 times per week. - Follow up with the office for any changes in medication approval or if experiencing new symptoms.
[2024-08-17 14:10] VITALS: BP 132/80; BMI 35.1
== END 2024-08-17 14:59 | disposition home or self-care (01) ==
LOC: HO.HMCH 13:37
PROVIDERS: PCP Internal Medicine; Visit Provider Internal Medicine
DX: I10 Essential (primary) hypertension (principal); E66.9 Obesity, unspecified; Z68.35 Body mass index [BMI] 35.0-35.9, adult; F41.1 Generalized anxiety disorder; G47.33 Obstructive sleep apnea (adult) (pediatric)

== ENCOUNTER → 2024-08-17 13:36 | Outpatient (BNVA) | payer OTHER, SELFPAY | PROVIDERS: PCP Internal Medicine; Visit Provider Internal Medicine | DX: I10 Essential (primary) hypertension (principal); F41.1 Generalized anxiety disorder; G47.33 Obstructive sleep apnea (adult) (pediatric); E66.9 Obesity, unspecified; Z68.35 Body mass index [BMI] 35.0-35.9, adult; Z71.3 Dietary counseling and surveillance | CPT/HCPCS: 96127; 99212 ==

== ENCOUNTER 2024-10-06 13:45 | Outpatient (AMB) | payer MEDICAID, SELFPAY ==
[2024-10-06 14:04] VITALS: BP 102/60; PULSE 79; O2SAT 97; BMI 34.9
--- NOTE | 2024-10-06 14:04 | A.OFFVIS_ITS ---
Vital Signs 10/06/24 14:04 Height 5 ft 2 in Weight 191 lb BMI 34.9 BP 102/60 Blood Pressure Location Lt brachial Position Sitting Pulse 79 Pulse Source Pulse Oximeter Pulse Oximetry (%) 97 Oxygen Delivery Method Room Air Intake Visit Reasons: Obstructive sleep apnea Intake Note: pt is here for SIXTO follow up and states she is trying to use it but it bothers her a lot especially the mask. Maintenance Painter Apprentice Required: No Maintenance Painter Apprentice Name: [id number] Allergies aspirin [ASA] Allergy (Severe, Verified 10/06/24 14:11) Anaphylaxis Medication List - Last Reconciled 10/06/24 by Fox Norton MD acetaminophen (Tylenol Extra Strength) 1,000 mg (2 x 500 mg) PO Q6H PRN 90 days buspirone 10 mg PO DAILY chlorthalidone 25 mg PO QAM 90 days CPAP (CPAP Machine/Device) autoPAP mode, 6-20 cm H2O escitalopram oxalate 5 mg PO DAILY fluticasone propionate 50 mcg/actuation (Flonase Allergy Relief) 1 spray intranasal DAILY 90 days loratadine 10 mg PO DAILY losartan 100 mg PO DAILY 90 days medroxyprogesterone mg PO DAILY tirzepatide (weight loss) (Zepbound) 2.5 mg (0.5 mL) subcut QWEEK 4 weeks tramadol 50 mg PO DAILY HPI HPI Obstructive sleep apnea: Details: 59 YEARS OLD FEMALE GUAMANIAN-SPEAKING WAS INTERVIEWED THROUGH THE [employer] [facility]. SHE COMES AFTER 3 MONTHS AND CLAIMS THAT SHE IS NOT ABLE TO USE THE CPAP. SHE HAS NASAL MASK, AND SAY IS WHEN SHE HAS THE MASK ON SHE FEELS MORE UNCOMFORTABLE AND CAN NOT SLEEP. WITHOUT THE CPAP ON SHE IS SLEEPING BETTER. SHE DENIES ANY DAYTIME SLEEPINESS. SHE HAS TRIED TO LOSE WEIGHT, BUT GAVE UP ON ZEPBOUND INJECTIONS, NOW SHE IS JUST WATCHING HER DIET. SHE DENIES ANY BREATHING ISSUES BUT DOES HAVE INTERMITTENT NASAL CONGESTION FOR WHICH SHE TAKES LORATADINE 10 MG ONCE A DAY FLONASE 1 SPRAY IN EACH NOSTRIL B.I.D. [facility] Medical History Morbid obesity with BMI of 40.0-44.9, adult Obesity (BMI 30-39.9) Sleep apnea VAHE (generalized anxiety disorder) Hypercalcemia Calcific shoulder tendinitis Class 1 obesity with body mass index (BMI) of 34.0 to 34.9 in adult Right leg pain Essential hypertension Diverticulosis Hemorrhoids, internal, with bleeding Family history of colon cancer History of colon polyps GERD with esophagitis Rhinitis Surgical History S/P right knee arthroscopy Hx of endoscopy History of colonoscopy (~02/2018) H/O basal cell carcinoma excision History of section History of tubal ligation Family History Father Pancreatic cancer Mother Colon cancer, Onset Age: 72 Hypertension Brother No problems noted. Sister Psychiatric disorder Chronic mental illness Family/Other Chronic mental illness Social History Housing: Apartment Do you presently have visiting nurse or other home services: No Alcohol intake: current Alcohol intake frequency: holidays/special occasions only Alcohol type: wine Patient Tobacco Use Status: Never used Tobacco e-Cigarette/Vaping Use: Never Used Second Hand Smoke Exposure: No service: No Current occupational status: employed Current occupational exposures/hazards: No Sexual orientation: Straight/Heterosexual Gender identity: Female Cognitive needs: No Hearing needs: No Vision needs: Yes Female Reproductive History Menstrual Age of Menarche: 15 Review of Systems Const All systems reviewed & are unremarkable except as noted in HPI and below Eyes Reports no additional complaints ENT Reports nasal congestion (Off and on only with the change of seasons.) Card Denies chest pain, Denies irregular heart rhythm, Denies leg edema and Denies dyspnea Resp Denies cough, Denies dyspnea and Denies wheezing GI Reports no additional complaints Reports no additional complaints Musc Reports no additional complaints Skin/Breast Reports system reviewed and no additional complaints, except as documented Neuro Reports no additional complaints Psych Reports anxiety (Controlled) Endo Reports no additional complaints Den/Lymph Reports no additional complaints Aller/Immun Denies wheezing Physical Exam Vital Signs: Last Vital Signs Pulse 79 10/06/24 14:04 BP 102/60 10/06/24 14:04 Pulse Ox 97 10/06/24 14:04 Oxygen Delivery Method Room Air 10/06/24 14:04 BMI result Body Mass Index 34.9 Const General: healthy appearing (Except for being overweight), comfortable, no acute distress, alert and awake Orientation/consciousness: patient oriented x3 HEENT Head: Yes normal to inspection General nose exam: No nasal polyps present, abnormal septum (DNS to the left. A small excoriation over the anterior septum on Rt.side), No nasal discharge present and Other nasal findings present (Mild DNS to left) Face and sinus: Yes sinuses nontender Mouth: oropharynx normal Throat: Yes posterior oropharynx normal Eyes General: appearance normal, both eyes and all related structures Neck Neck: Yes normal visual inspection, Yes no lymphadenopathy, Yes trachea midline and Yes no JVD Thyroid: Thyroid normal Chest Chest palpation & inspection: normal inspection of the chest, normal palpation of entire chest wall and no tenderness Resp Effort & Inspection: normal respiratory effort and no cough Auscultation: clear to auscultation bilaterally, no crackles and no wheezes Cardio Palpation: normal PMI Rate: regular rate Rhythm: regular rhythm Heart sounds: no gallops and no murmurs Peripheral pulses: Peripheral pulses 2+ throughout GI Palpation (GI): Soft to palpation, nontender, No hepatosplenomegaly present and no masses Auscultation: normal bowel sounds Back/Spine/Pelvis Thoracic/Lumbar Spine: thoracic and lumbar spine normal to inspection Skin General skin exam: no rashes or lesions noted Neuro General: patient oriented x3 and no focal motor deficits Cranial nerves: Yes CN's II-XII intact bilaterally Extrem General: Yes normal to inspection, Yes no clubbing, cyanosis or edema and Yes no calf tenderness Psych Appearance: grossly normal and well kempt Speech and movement: Normal speech and movement present Results Reviewed Results Reviewed: COMPLIANCE REPORT IS REVIEWED AND SHE HAS USED ONLY 2 NIGHTS DURING THE LAST 1 MONTH.. WHEN SHE DOES USE HER RESIDUAL AHI IS DOWN TO 1.1 Assessment & Plan Assessment & Plan (1) Obesity (BMI 30-39.9): Comment: CONTINUES TO BE MODERATELY OBESE, NOT ABLE TO LOSE WEIGHT BECAUSE SHE DOES NOT DO ANY EXERCISE, SHE HAS LOT OF ARTHRITIS WHICH PREVENTS HER FROM EXERCISING. SHE WAS GETTING ZEPBOUND INJECTIONS TO LOSE WEIGHT BUT AFTER A FEW MONTHS OF THIS THERAPY SHE GAVE UP ON THAT ALSO. Code(s): E66.9 - Obesity, unspecified Category: Medical Plan: DISCUSSED ABOUT CALORIES REDUCTION, AND TRY TO WALK MUCH POSSIBLE. TOLD HER THAT SHE HAS TO LOSE ABOUT 10-15 LB OF WEIGHT AND THEN WE MAY CONSIDER TO DISCONTINUE THE USE OF CPAP. (2) SIXTO (obstructive sleep apnea): Comment: PATIENT HAS SYMPTOMATIC OBSTRUCTIVE SLEEP APNEA, SEVERE, DIAGNOSED IN 2021 . She was using CPAP regularly and sleeping better. However lately has stopped using the CPAP because she just can not go to sleep with the CPAP mask on, Claims that she is sleeping fine even without the CPAP. Code(s): G47.33 - Obstructive sleep apnea (adult) (pediatric) Category: Medical Plan: Patient shows no motivation to go back to using CPAP, I tried to tell her that keep the CPAP device home and if she starts having issues with the sleep at night she should go back to using the CPAP regularly. (3) Nocturnal hypoxemia: Comment: PATIENT DOES HAVE SIGNIFICANT DEGREE OF NOCTURNAL HYPOXEMIA PROBABLY DUE TO SLEEP-RELATED HYPOVENTILATION. IT WAS HOPED THAT WITH THE PROPER USE OF CPAP HER HYPOXEMIA WILL RESOLVE. HOWEVER NOW SHE HAS GIVEN UP ON USING THE CPAP, WE WILL HAVE TO CHECK HER OVERNIGHT OXIMETRY AT SOME POINT TO MAKE SURE THAT THERE IS NO HYPOXEMIA AT NIGHT, Code(s): G47.34 - Idiopathic sleep related nonobstructive alveolar hypoventilation Category: Medical Plan: SLEEP HYGIENE EXPLAINED. ADVISE THAT SHE SHOULD TRY TO SLEEP. IN LATERAL POSITION ADVISED TO LOSE ABOUT 10-15 LB, SO THAT WE DO NOT HAVE TO PUT HER BACK ON THE CPAP. Coding Level of Care Code Est Pt Level 3 (03161) Diagnoses Obesity (BMI 30-39.9) E66.9 SIXTO (obstructive sleep apnea) G47.33 Nocturnal hypoxemia G47.34
--- OUTSIDE RECORDS SUMMARY | 2024-10-06 15:05 | XMS_ITS | Encounter Summary ---
Author Organization [employer] Address [address] [place] [address] Care Team Providers Care Supply Chain Engineer Name Role Phone Unavailable Primary Care Provider Unavailabl e Encounter Details Date Type Department Care Team (Latest Contact Info) Description 02/28/2022 Abstract [facility] CONVERSIONS Dental, Provider, DDS Social History Tobacco Use Types Packs/Day Years Used Date Smoking Tobacco: Never Assessed Comments Unknown Sex and Gender Information Value Date Recorded Sex Assigned at Female 08/11/2024 2:48 PM EDT Legal Sex Male 10:27 AM EDT Gender Identity Female 04/02/2022 10:27 AM EDT Sexual Orientation Straight 04/02/2022 10 :27 AM EDT documented as of this encounter Plan of Treatment Upcoming Encounters Date Type Department Care Team (Late st Contact Info) Description 11/25/2024 1:00 PM EDT Office Visit [facility] ADULT DENTAL [address] [place] [address] Raeann, Alpa [address] [place] [address] documented as of this encounter Visit Diagnoses Not on filedocumented in this encounter
--- OUTSIDE RECORDS SUMMARY | 2024-10-06 15:05 | XMS_ITS | Encounter Summary ---
Author Organization [employer] Address [address] [place] [address] Care Team Providers Care Transcription Name Role Phone Unavailable Primary Care Provider Unavailabl e Encounter Details Date Type Department Care Team (Latest Contact Info) Description 08/05/2020 Abstract [facility] CONVERSIONS Dental, Provider, DDS Social [...] Description 11/25/2024 1:00 PM EDT Office Visit [facility] ADULT DENTAL [address] [place] [address] Raeann, Alpa [address] [place] [address] documented as of this encounter Visit Diagnoses Not on filedocumented in this encounter
--- OUTSIDE RECORDS SUMMARY | 2024-10-06 15:05 | XMS_ITS | Encounter Summary ---
Author Organization [employer] Address [address] [place] [address] Care Team Providers Care Glass Enamel Mixer Name Role Phone Unavailable Primary Care Provider Unavailabl e Encounter Details Date Type Department Care Team (Latest Contact Info) Description 06/27/2018 Abstract [facility] CONVERSIONS Dental, Provider, DDS Social [...] Description 11/25/2024 1:00 PM EDT Office Visit [facility] ADULT DENTAL [address] [place] [address] Raeann, Alpa [address] [place] [address] documented as of this encounter Visit Diagnoses Not on filedocumented in this encounter
--- OUTSIDE RECORDS SUMMARY | 2024-10-06 15:05 | XMS_ITS | Clinical Summary ---
Author Organization [employer] Address [address] [place] [address] Care Team Providers Care Valve Repairer Reclamation Name Role Phone Unavailable Primary Care Provider Unavailabl e Allergies Active Allergy Reactions Criticality Noted Date Comments Aspirin Hives 10/24/1994 Medications busPIRone (Buspar) 10 MG tablet TAKE 1 TABLET BY MOUTH 3 TIMES A DAY FOR ANXIETY 08/07/2022 Active chlorthalidone (Hygroton) 25 MG tablet Take 25 mg by mouth in the morning. 07/29/2022 Active escitalopram (Lexapro) 5 MG tablet Take 5 mg by mouth in the morning. 08/07/2022 Active ketoconazole (NIZOral) 2 % shampoo USE EVERY OTHER DAY SHAMPOO LET SIT ON THE SCALP FOR 10 MINUTES THEN LATHER AND RINSE 07/04/2022 Active lidocaine (Lidoderm) 5 % patch 08/07/2022 Active loratadine (Claritin) 10 MG tablet Take 10 mg by mouth in the morning. 09/12/2022 Active losartan (Cozaar) 100 MG tablet Take 100 mg by mouth in the morning. 09/04/2022 Active GaviLAX 17 GM/SCOOP powder MIX AND DRINK 17 G ORALLY DAILY FOR 30 DAYS 08/25/2022 Active medroxyPROGESTE Mac (Provera) 10 MG tablet Take 10 mg by mouth Once per day. Active acetaminophen (Tylenol 8 Hour) 650 MG ER tablet Take 1 tablet (650 mg) by mouth every 8 (eight) hours if needed for mild pain. Do not crush, chew, or split. 21 tablet 08/11/2024 Active Active Problems Problem Noted Date Diagnosed Date Open fracture of tooth 08/11/2024 Severe obesity 07/07/2024 Missing teeth, acquired 06/27/2023 Localized gingival recession, minimal 06/07/2023 Localized enlargement of gingiva 05/15/2023 Open margin on tooth holiness 05/15/2023 Acute apical periodontitis of pulpal origin 05/03 Back pain 2022 Dental calculus 2022 Encounters Date Type Department Care Team Description 08/11/2024 2:30 PM EDT Office Visit [facility] ADULT DENTAL [address] [place] [address] Dannie Allen DDS Open fracture of tooth, initial encounter (Primary Dx) 08/08/2024 Travel from Last 3 Months Social History Tobacco Use Types Packs/Day Years Used Date Smoking Tobacco: Never Passive Smoke Exposure: Never Smokeless Tobacco: Never Tobacco Cessation:Counseling Given: Not Answered Alcohol Use Standard Drinks/Week Comments Never 0 (1 standard drink = 0.6 oz pur e alcohol) Comments Unknown Sex and Gender Information Value Date Recorded Sex Assigned at Female 08/11/2024 2:48 PM EDT Legal Sex Male 10:27 AM EDT Gender Identity Female 04/02/2022 10:27 AM EDT Sexual Orientation Straight 04/02/2022 10 :27 AM EDT Last Filed Vital Signs Vital Sign Reading Time Taken Comments Blood Pressure 120/66 08/11/2024 2:44 PM EDT Pulse 72 06/27/2023 2:28 PM EST Temperature - - Respiratory Rate - - Oxygen Saturation - - Inhaled Oxygen Concentration - - Weight - - Height - - Body Mass Index - - Plan of Treatment Upcoming Encounters Date Type Department Care Team (Late st Contact Info) Description 11/25/2024 1:00 PM EDT Office Visit [facility] ADULT DENT[facility] [address] [place] [address] Alpa [place] [address] [place] [address] Health Maintenance Due Date Last Done Comments CT Colonography 1967 Colonoscopy 1967 Colorectal Cancer Screening 1967 Depression Screening 1967 FIT DNA/Cologuard 1967 FIT 1967 FOBT 1967 HIV Screening 1967 Lipid Panel 1967 SDOH Screening 1967 Sigmoidoscopy 1967 Alcohol/Substance Use Screening 1979 Hepatitis C Screening 09/25/1985 DTaP/Tdap/Td Vaccines (1 - Tdap) 09/25/1986 Hepatitis B Vaccines (1 of 3 - 19+ 3-dose series) 09/25/1986 Pap Smear 09/25/1988 Cervical Cancer Screening 09/25/1997 HPV/Cotest 09/25/1997 Mammogram 2007 Pneumococcal Vaccine: 50+ Years (1 of 1 - PCV) 09/25/2017 Zoster Vaccines (1 of 2) 09/25/2017 Dental Oral Exam 12/27/2023 06/27/2023, 02/28/2022 COVID-19 Vaccine (2 - season) 2024 08/27/2020 Dental X-Ray: Bitewings 06/08/2024 06/07/2023, 05/15 Dental Prophylaxis 11/24/2024 05/25/2024, 0 06/07/2023, 2022 Dental X-Ray: Full Mouth 03/01/2025 02/28/2022 Tobacco Screening 08/11/2025 08/11/2024 RSV Patients and Patients Aged 60 years [...] Procedure Name Priority Date/Time Associated Diagnosis Comments CASE PRESENTATION, DETAILED AND EXTENSIVE TREATMENT PLANNING Routine 08/11/2024 2:30 PM EDT 28 EXTRACTION, ERUPTED TOOTH REQ REMOVAL OF BONE AND/OR SECTIONING OF TOOTH Routine 08/11/2024 2:30 PM EDT PROPHYLAXIS - ADULT Routine 05/25/2024 1:00 PM EST Dental calculus PERIODIC ORAL EVALUATION - ESTABLISHED PATIENT Routine 06/27/2023 2:30 PM EST BITEWINGS - 4 RADIOGRAPHIC IMAGES Routine 06/07/2023 1:00 PM EST Dental calculus Localized gingival recession, minimal from Last 3 Months or Most Recently Relevant to Health Maintenance Insurance [place] AD[place]
== END 2024-10-06 14:19 | disposition home or self-care (01) ==
LOC: HO.HPS 13:46
PROVIDERS: PCP Internal Medicine; Visit Provider Internal Medicine
DX: E66.9 Obesity, unspecified (principal); G47.33 Obstructive sleep apnea (adult) (pediatric); G47.34 Idiopathic sleep related nonobstructive alveolar hypoventilation
CPT/HCPCS: 99213

== ENCOUNTER → 2024-10-06 13:45 | Outpatient (BNVA) | payer OTHER, SELFPAY | PROVIDERS: PCP Internal Medicine; Visit Provider Internal Medicine | DX: G47.33 Obstructive sleep apnea (adult) (pediatric) (principal); G47.34 Idiopathic sleep related nonobstructive alveolar hypoventilation; E66.9 Obesity, unspecified; Z68.34 Body mass index [BMI] 34.0-34.9, adult | CPT/HCPCS: 99212 ==

== ENCOUNTER 2024-10-16 07:03 | Outpatient (REF) | payer OTHER, SELFPAY ==
[2024-10-16 07:13] LABS: MANUAL DIFF FLAG NO
[2024-10-16 07:49] LABS: Basophils Percent Auto 0.5 % (0-2); Eosinophils Absolute Auto 0.2 X10*3/uL (0.0-0.4); Eosinophils Percent Auto 2.5 % (0-4); Hematocrit 38.4 % (37.0-47.0); Hemoglobin 12.3 g/dl (12.0-16.0); Imm Gran Abs Auto 0.03 X10*3/uL (0.00-0.03); Imm Gran Pct Auto 0.4 % (0.0-0.4); Lymphocytes Absolute Auto 3.7 X10*3/uL (1.2-4.9); Lymphocytes Percent Auto 47.9 % (20-40); Mean Corpuscular Hemoglobin 27.2 pg (27.0-33.0); Mean Corpuscular Volume 84.8 fL (80.0-98.0); Mean Platelet Volume 9.7 fL (9.4-12.3); Monocytes Absolute Auto 0.7 X10*3/uL (0.1-1.2); Monocytes Percent Auto 9.3 % (2-11); Neutrophils Absolute Auto 3.1 x10*3/uL (2.0-8.3); Neutrophils Percent Auto 39.4 % (45-73); Platelet Count 387 X10*3/uL (160-400); Red Blood Count 4.53 X10*6/uL (4.20-5.50); Red Cell Distribution Width 14.9 % (11.0-16.0); White Blood Count 7.7 X10*3/uL (4.8-10.8)
[2024-10-16 08:29] LABS: Alanine Aminotransferase 16 U/L (0-31); Albumin Level 4.3 g/dL (3.5-5.0); Alkaline Phosphatase 68 U/L (39-117); Anion Gap 11 (12-20); Aspartate Amino Transferase 15 U/L (5-31); Bilirubin Total 0.5 mg/dL (0.0-1.0); Blood Urea Nitrogen 17 mg/dL (9-16); Calcium 10.8 mg/dL (8.4-10.2); Carbon Dioxide 31 mmol/L (22-29); Chloride 104 mmol/L (96-108); Cholesterol 149 mg/dL (<200); Estimated Glomerular Filt Rate > 60; Glucose Fasting 101 mg/dL (60-99); HDL Cholesterol 56 mg/dL (>40); Iron 43 mcg/dL (30-160); LDL Cholesterol Calculated 78 mg/dL (<100); Percent Iron Saturation 15 % (15-50); Potassium 4.1 mmol/L (3.3-5.1); Sodium 142 mmol/L (135-145); Total Iron Binding Capacity 292 mcg/dL (228-428); Total Protein 7.9 g/dL (6.5-8.0); Triglycerides 76 mg/dL (<150); Unsaturated Iron Binding 249 ug/dL
[2024-10-16 08:51] LABS: Vitamin D 25-OH Total 33.1 ng/mL (>30)
[2024-10-16 09:09] LABS: Folate 14.4 ng/mL (> or = 4.0); Vitamin B12 353 pg/mL (200-900)
== END 2024-10-16 07:04 | disposition home or self-care (01) ==
LOC: HO.LAB 07:03
PROVIDERS: PCP Internal Medicine; Visit Provider Internal Medicine
DX: E78.5 Hyperlipidemia, unspecified (principal); E66.812 Obesity, class 2; E66.01 Morbid (severe) obesity due to excess calories; Z68.37 Body mass index [BMI] 37.0-37.9, adult; D64.9 Anemia, unspecified; E53.8 Deficiency of other specified B group vitamins; E55.9 Vitamin D deficiency, unspecified
CPT/HCPCS: 36415; 80053; 80061; 82306; 82607; 82746; 83540; 85025

== ENCOUNTER 2024-10-20 14:12 | Outpatient (AMB) | payer OTHER, SELFPAY ==
[2024-10-20 14:24] VITALS: BP 138/80; BMI 34.6
--- NOTE | 2024-10-20 14:24 | A.OFFPC_ITS ---
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 Required: No Accompanied by: Self / Same As Patient Allergies aspirin [ASA] Allergy (Severe, Verified 10/20/24 14:47) Anaphylaxis Medication List - Last Reconciled 10/20/24 by Arelis Hughes MD buspirone 10 mg PO DAILY chlorthalidone 25 mg PO QAM 90 days CPAP (CPAP Machine/Device) autoPAP mode, 6-20 cm H2O escitalopram oxalate 5 mg PO DAILY fluticasone propionate 50 mcg/actuation (Flonase Allergy Relief) 1 spray intranasal DAILY 90 days loratadine 10 mg PO DAILY losartan 100 mg PO DAILY 90 days medroxyprogesterone mg PO DAILY tramadol 50 mg PO DAILY Tobacco use date assessed: 08/17/24 Dental Screening Dental Screen Date: 08/17/24 HPI HPI Comments History of Present Illness Details The patient is a 59-year-old female presenting for her physical exam. She has a bleeding disorder related to uterine fibroids. She has experienced ongoing bleeding and consulted a information clerk automobile [employer] for evaluation. A recent diagnostic procedure involving a camera was conducted to assess her fibroids, and the information clerk [employer] is considering a hysterectomy based on the findings. A follow-up is scheduled to advance this decision, focusing specifically on the fibroid condition and necessary interventions. This medical history includes prior consults and monitoring due to family history of colon cancer, affecting her mother, and an earlier of her father from pancreatic cancer. - Tetanus vaccination: last received in 2014, due presently - Colonoscopy: performed in 2021 with th e next scheduled in 2026, due to family history of colon cancer - Mammography: conducted in February, [place] regular gynecologic evaluation [facility] Medical History Morbid obesity with BMI of 40.0-44.9, adult Obesity (BMI 30-39.9) Sleep apnea VAHE (generalized anxiety disorder) Hypercalcemia Calcific shoulder tendinitis Class 1 obesity with body mass index (BMI) of 34.0 to 34.9 in adult Right leg pain Essential hypertension Diverticulosis Hemorrhoids, internal, with bleeding Family history of colon cancer History of colon polyps GERD with esophagitis Rhinitis Surgical History S/P right knee arthroscopy Hx of endoscopy History of colonoscopy (~02/2018) H/O basal cell carcinoma excision History of section History of tubal ligation Family History Father Pancreatic cancer Mother Colon cancer, Onset Age: 72 Hypertension Brother No problems noted. Sister Psychiatric disorder Chronic mental illness Family/Other Chronic mental illness Social History Housing: Apartment Do you presently have visiting nurse or other home services: No Alcohol intake: current Alcohol intake frequency: holidays/special occasions only Alcohol type: wine Patient Tobacco Use Status: Never used Tobacco e-Cigarette/Vaping Use: Never Used Second Hand Smoke Exposure: No service: No Current occupational status: employed Current occupational exposures/hazards: No Sexual orientation: Straight/Heterosexual Gender identity: Female Cognitive needs: No Hearing needs: No Vision needs: Yes Female Reproductive History Menstrual Age of Menarche: 15 Questionnaire PHQ-9 Over the last 2 weeks, how often have you been bothered by any of the following problems? 1. Little interest or pleasure in doing things: not at all 2. Feeling down, depressed, or hopeless: not at all 3. Trouble falling or staying asleep, or sleeping too much: not at all 4. Feeling tired or having little energy: several days 5. Poor appetite or overeating: not at all 6. Feeling bad about yourself - or that you are a failure or have let yourself or your family down: not at all 7. Trouble concentrating on things, such as reading the newspaper or watching television: not at all 8. Moving or speaking so slowly that other people could have noticed. Or the opposite - being so fidgety or restless that you have been moving around a lot more than usual: not at all 9. Thoughts that you would be better off or of hurting yourself in some way: not at all Total score: 1 Depression Screening Interpretation: Negative Depression Screening Done: Yes 45087 - PHQ-9 Billing: Yes Source: Developed by Drs. Drew LEmmy Mcmillan, Kirby Vasquez and colleagues, with an educational jose from [employer]. Thrive Questionnaire Date Thrive assessed: 08/17/24 I am a: Patient What is your living situation today?: I have a steady place to live Within the past 12 months, did the food you bought not last and you didn't have the money to get more?: Never true Within the past 12 months, did you worry whether your food would run out before you got money to buy more?: I choose not to answer this question Do you have trouble paying for medicines?: No Do you have trouble getting transportation to medical appointments?: No Do you have trouble paying your heating and electricity bill?: No Do you have trouble taking care of your child, family member or friend?: No Do you have trouble with day-to-day activities such as bathing, preparing meals, shopping, managing finances, etc.?: No Are you currently unemployed and looking for a job?: No Are you interested in more education?: No Please select the resources that you would like help with: None Currently or been in a relationship where the following occur: No concerns reported THRIVE Score: 0 AUDIT C Alcohol Use Questionnaire (AUDIT-C) 1. How often do you have a drink containing alcohol?: Monthly or less 2. How many drinks containing alcohol do you have on a typical day when you are drinking?: 3 or 4 3. How often do you have six or more drinks on one occasion?: Never Total Score: 2 Score Reviewed/Action Taken: No VAHE-7 AMB Questionnaire VAHE-7 Date VAHE - 7 assessed: 08/17/24 Feeling nervous, anxious, or on edge: 1 = Several days Not being able to stop or control worryin = Several days Worrying too much about different things: 1 = Several days Trouble relaxin = Several days Being so restless that it is hard to sit still: 0 = Not at all Becoming easily annoyed or irritable: 0 = Not at all Feeling afraid as if something awful might happen: 0 = Not at all Total VAHE-7 score (0-4 normal; 5-9 mild; 10-14 moderate; 15-21 severe): 4 Source: Developed by Emmy Patel Kurt Kroenke and colleagues, with an educational jose from [employer]. VAHE-7 Assessment Billing VAHE-7 Assessment Tool: VAHE-7 Assessment 89183 Review of Systems Const All systems reviewed & are unremarkable except as noted in HPI and below Card Denies chest pain at rest, Denies chest pain with activity, Denies edema, Denies irregular heart rhythm, Denies claudication, Denies dyspnea, Denies dyspnea on exertion, Denies orthopnea, Denies paroxysmal nocturnal dyspnea and Denies slow heart rate Resp Denies cough, Denies dyspnea and Denies dyspnea on exertion Denies urinary incontinence, Denies urinary hesitancy and Denies urinary urgency Musc Denies atrophy, Denies deformity and Denies limited range of motion Physical exam (Primary Care) Vital Signs: Last Vital Signs BP 138/80 10/20/24 14:24 BMI result Body Mass Index 34.6 BMI Assessment/Plan discussion: High BMI High, discussed plan: lifestyle, weight reduction, dietary and physical activity Tobacco/Smoking Status: Tobacco use Status Tobacco use date assessed 08/17/24 10/20/24 14:29 Patient Tobacco Use Status Never used Tobacco 10/20/24 14:29 e-Cigarette/Vaping Use Never Used 10/20/24 14:29 PHQ-9: PHQ-9 Score PHQ-9: Total score 1 10/20/24 15:00 Depression Screening Interpretation: Negative Thrive Assessment: Date of Thrive Assessment Date Thrive assessed 08/17/24 10/20/24 14:29 Currently or been in a relationship where the following occur: No concerns reported [facility] Head: Yes normal to inspection, Yes normocephalic and Yes atraumatic Ears: external ears normal Eyes General: appearance normal, both eyes and all related structures Eyelids: Yes eyelids normal Conjunctivae: conjunctivae normal Neck Neck: Yes normal visual inspection and Yes supple Resp Effort & Inspection: normal respiratory effort Auscultation: clear to auscultation bilaterally Cardio Jugular venous distension: no JVD Rate: regular rate Rhythm: regular rhythm Heart sounds: S1 normal heart sound present and S2 normal heart sound present GI Inspection: Yes normal to inspection Palpation (GI): Soft to palpation and nontender Auscultation: normal bowel sounds Skin General skin exam: no rashes or lesions noted Neuro General: no focal motor deficits Extrem General: Yes full ROM Psych Appearance: grossly normal Coding Level of Care Code Complex EM visit Add On G2211 Diagnoses Physical exam Z00.00 Additional Codes VAHE-7 Assessment Billing - VAHE-7 Assessment Tool: VAHE-7 Assessment 45884 ([id number]) PHQ-9 - 71511 - PHQ-9 Billing: Yes ([id number]) Time Spent (min) 32 Assessment & Plan Assessment & Plan (1) Physical exam: Code(s): Z00.00 - Encounter for general adult medical examination without abnormal findings Category: Medical Plan The evaluation of the patient's uterine fibroids continues with emphasis on managing bleeding symptoms. Potential surgical intervention remains a possibility, contingent on upcoming diagnostic discussions. Ongoing management of anxiety and hypertension is crucial, as is monitoring her mild glucose levels. Given her family history of colon cancer, she's on a five-year screening schedule. Review and management of her fibroids will continue to address the bleeding disorder, with a simon follow-up appointment on November 06 to discuss whether surgical intervention is indicated. Patient was informed and verbally consented to the use of an ambient scribe for clinic note documentation during this visit. I discussed with the patient the importance of ongoing monitoring and intervention for her uterine fibroids, with particular attention to potential belle rgical options, including the possibility of a hysterectomy. We reviewed her recent diagnostic camera study results and prepared for an upcoming follow-up appointment to finalize intervention plans. I explained the continued use of medications for managing anxiety and hypertension, monitored her lab results with specific emphasis on her slightly elevated glucose, and addressed her family history's influence on her colonoscopy schedule. Furthermore, we covered potential financial and social support options, emphasizing a holistic view of her healthcare plan. Patient Instructions: - Continue to monitor symptoms and report any significant changes - Await results and outcomes of the fibroid evaluation - Maintain current medication regimen for anxiety and hypertension - Adhere to scheduled colonoscopy screenings and mammograms - Follow up with the information clerk [employer] on November 06 for further discussion on fibroids - Avoid aspirin and products containing aspirin due to allergy risks
--- OUTSIDE RECORDS SUMMARY | 2024-10-20 15:39 | XMS_ITS | Encounter Summary ---
Author Organization [employer] Address [address] [facility] [address] [place] [address] Care Team Providers Care Slusher Operator Name Role Phone Unavailable Primary Care Provider Unavailabl e Encounter Details Date Type Department Care Team (Latest Contact Info) Description 06/27/2018 Abstract [facility] CONVERSION[facility] Dental, Provider, DDS Social History [...] Description 11/25/2024 1:00 PM EDT Office Visit [facility] [address] [place] [address] Raeann, Alpa [address] [place] [address] documented as of this encounter Visit Diagnoses Not on filedocumented in this encounter
--- OUTSIDE RECORDS SUMMARY | 2024-10-20 15:39 | XMS_ITS | Clinical Summary ---
Author Organization [employer] Address [address] [facility] [address] 7[address] [place] [address] Care Team Providers Care Damper Worker Name Role Phone Unavailable Primary Care Provider [...] of gingiva 05/15/2023 Open margin on tooth yazdanism 05/15/2023 Acute apical periodontitis of pulpal origin 05/03 Back pain 2022 Dental calculus 2022 Encounters Date Type Department Care Team Description 08/11/2024 2:30 PM EDT Office Visit [facility] [address] [place] [address] Dannie Allen DDS Open fracture of tooth, [...] Description 11/25/2024 1:00 PM EDT Office Visit [facility] [address] [place] [address] RaeannAlpa [address] [place] [address] Health Maintenance Due Date Last Done Comments CT Colonography 1967 Colonoscopy 1967 Colorectal Cancer Screening 1967 Depression Screening 1967 FIT DNA/Cologuard 1967 FIT 1967 FOBT 1967 HIV Screening 1967 Lipid Panel 1967 SDOH Screening 1967 Sigmoidoscopy 1967 Disability Screening 1967 Alcohol/Substance Use Screening 1979 Hepatitis C [...] patient's age to complete this topic Meningococcal B Vaccine Aged Out No l onger eligible based on patient's age to complete [...] PM EDT PROPHYLAXIS - ADULT Routine 05/25/2024 1 :00 PM EST Dental calculus PERIODIC ORAL EVALUATION - ESTABLISHED PATIENT Routine 06/27/2023 2:30 PM EST BITEWINGS - 4 RADIOGRAPHIC IMAGES Routine 06/07/2023 1:00 PM EST Dental calculus Localized gingival recession, minimal from Last 3 Months or Most Recently Relevant to Health Maintenance Insurance [address] [place] [address] [facility] STAND ADULT
--- OUTSIDE RECORDS SUMMARY | 2024-10-20 15:39 | XMS_ITS | Encounter Summary ---
Author Organization [employer] Address [address] [facility] [address] [place] [address] Care Team Providers Care Pug Machine Operator Name Role Phone Unavailable Primary Care Provider Unavailabl e Encounter Details Date Type Department Care Team (Latest Contact Info) Description 08/05/2020 Abstract [facility] CONVERSIONS Dental, Provider, DDS Social History Tobacco [...] Description 11/25/2024 1:00 PM EDT Office Visit [facility] [address] [place] [address] Raeann, Alpa [address] [place] [address] documented as of this encounter Visit Diagnoses Not on filedocumented in this encounter
--- OUTSIDE RECORDS SUMMARY | 2024-10-20 15:40 | XMS_ITS | Encounter Summary ---
Author Organization [employer] Address [address] [facility] [address] [place] [address] Care Team Providers Care Charrer Name Role Phone Unavailable Primary Care Provider Unavailabl e Encounter Details Date Type Department Care Team (Latest Contact Info) Description 02/28/2022 Abstract [facility] CONVERSION[facility] Dental, Provider, DDS Social History [...] Description 11/25/2024 1:00 PM EDT Office Visit [facility] [address] [place] [address] Raeann, Alpa [address] [place] [address] documented as of this encounter Visit Diagnoses Not on filedocumented in this encounter
== END 2024-10-20 15:02 | disposition home or self-care (01) ==
LOC: HO.HMCH 14:13
PROVIDERS: PCP Internal Medicine; Visit Provider Internal Medicine
DX: Z00.00 Encounter for general adult medical examination without abnormal findings (principal)

== ENCOUNTER → 2024-10-20 14:12 | Outpatient (BNVA) | payer OTHER, SELFPAY | PROVIDERS: PCP Internal Medicine; Visit Provider Internal Medicine | DX: Z00.00 Encounter for general adult medical examination without abnormal findings (principal) | CPT/HCPCS: 96127; 99396 ==

== ENCOUNTER 2025-01-14 10:40 | Outpatient (AMB) | payer OTHER, SELFPAY ==
[2025-01-14 10:56] VITALS: BP 130/70; PULSE 77; O2SAT 100; BMI 36.1
--- NOTE | 2025-01-14 10:56 | MHC.OFFVIS ---
Vital Signs 01/14/25 10:56 Height 5 ft 2 in Weight 197 lb 5.019 oz BMI 36.1 BP 130/70 Blood Pressure Location Rt brachial Position Sitting Pulse 77 Pulse Source Pulse Oximeter Pulse Oximetry (%) 100 Oxygen Delivery Method Room Air Intake Visit Reasons: sixto Intake Note: pt is here for follow and states she is feeling good, she states she has not been using cpap, and feels well without it, and when she retried it made her anxious. Foley Artist Required: No Allergies aspirin (ASA) Allergy (Severe, Verified 01/14/25 11:48) Anaphylaxis Medication List - Last Reconciled 01/14/25 by Fox Norton MD buspirone 10 mg PO DAILY chlorthalidone 25 mg PO QAM 90 days CPAP (CPAP Machine/Device) autoPAP mode, 6-20 cm H2O escitalopram oxalate 5 mg PO DAILY fluticasone propionate 50 mcg/actuation (Flonase Allergy Relief) 1 spray intranasal DAILY 90 days loratadine 10 mg PO DAILY losartan 100 mg PO DAILY 90 days medroxyprogesterone mg PO DAILY tramadol 50 mg PO DAILY Do you need a note to return to daycare/school/sports/work: No HPI HPI sixto: Details: This 59 years old Georgian-speaking female is here for follow-up after 3 months She is a case of gross obesity, obstructive sleep apnea, and has not been able to use the CPAP . She has also not been able to lose much weight. However she claims that she is sleeping well every night without any frequent awakenings. She denies daytime sleepiness. Continues to have mild nasal congestion due to chronic allergic rhinitis. Denies smoking, cough or wheezing. [facility] Medical History (Updated 01/14/25 @ 12:56 by Fox Norton MD) Allergic rhinitis Morbid obesity with BMI of 40.0-44.9, adult Obesity (BMI 30-39.9) Sleep apnea VAHE (generalized anxiety disorder) Hypercalcemia Calcific shoulder tendinitis Class 1 obesity with body mass index (BMI) of 34.0 to 34.9 in adult Right leg pain Essential hypertension Diverticulosis Hemorrhoids, internal, with bleeding Family history of colon cancer History of colon polyps GERD with esophagitis Rhinitis Surgical History S/P right knee arthroscopy Hx of endoscopy History of colonoscopy (~02/2018) H/O basal cell carcinoma excision History of section History of tubal ligation Family History Father Pancreatic cancer Mother Colon cancer, Onset Age: 72 Hypertension Brother No problems noted. Sister Psychiatric disorder Chronic mental illness Family/Other Chronic mental illness Social History Housing: Apartment Do you presently have visiting nurse or other home services: No Alcohol intake: current Alcohol intake frequency: holidays/special occasions only Alcohol type: wine Patient Tobacco Use Status: Never used Tobacco e-Cigarette/Vaping Use: Never Used Second Hand Smoke Exposure: No service: No Current occupational status: employed Current occupational exposures/hazards: No Sexual orientation: Straight/Heterosexual Gender identity: Female Cognitive needs: No Hearing needs: No Vision needs: Yes Female Reproductive History Menstrual Age of Menarche: 15 Review of Systems Const All systems reviewed & are unremarkable except as noted in HPI and below Eyes Reports no additional complaints ENT Reports nasal congestion (Off and on only with the change of seasons.) Card Denies chest pain, Denies irregular heart rhythm, Denies leg edema and Denies dyspnea Resp Denies cough, Denies dyspnea and Denies wheezing GI Reports no additional complaints Reports no additional complaints Musc Reports no additional complaints Skin/Breast Reports system reviewed and no additional complaints, except as documented Neuro Reports no additional complaints Psych Reports anxiety (Controlled) Endo Reports no additional complaints Den/Lymph Reports no additional complaints Aller/Immun Denies wheezing Physical Exam Vital Signs: Last Vital Signs Pulse 77 01/14/25 10:56 BP 130/70 01/14/25 10:56 Pulse Ox 100 01/14/25 10:56 Oxygen Delivery Method Room Air 01/14/25 10:56 BMI result Body Mass Index 36.1 Const General: healthy appearing (Except for being overweight), comfortable, no acute distress, alert and awake Orientation/consciousness: patient oriented x3 HEENT Head: Yes normal to inspection General nose exam: No nasal polyps present, abnormal septum (DNS to the left. A small excoriation over the anterior septum on Rt.side), No nasal discharge present and Other nasal findings present (Mild DNS to left) Face and sinus: Yes sinuses nontender Mouth: oropharynx normal Throat: Yes posterior oropharynx normal Eyes General: appearance normal, both eyes and all related structures Neck Neck: Yes normal visual inspection, Yes no lymphadenopathy, Yes trachea midline and Yes no JVD Thyroid: Thyroid normal Chest Chest palpation & inspection: normal inspection of the chest, normal palpation of entire chest wall and no tenderness Resp Effort & Inspection: normal respiratory effort and no cough Auscultation: clear to auscultation bilaterally, no crackles and no wheezes Cardio Palpation: normal PMI Rate: regular rate Rhythm: regular rhythm Heart sounds: no gallops and no murmurs Peripheral pulses: Peripheral pulses 2+ throughout GI Palpation (GI): Soft to palpation, nontender, No hepatosplenomegaly present and no masses Auscultation: normal bowel sounds Back/Spine/Pelvis Thoracic/Lumbar Spine: thoracic and lumbar spine normal to inspection Skin General skin exam: no rashes or lesions noted Neuro General: patient oriented x3 and no focal motor deficits Cranial nerves: Yes CN's II-XII intact bilaterally Extrem General: Yes normal to inspection, Yes no clubbing, cyanosis or edema and Yes no calf tenderness Psych Appearance: grossly normal and well kempt Speech and movement: Normal speech and movement present Assessment & Plan Assessment & Plan (1) Obesity (BMI 30-39.9): Comment: CONTINUES TO BE MODERATELY OBESE, NOT ABLE TO LOSE WEIGHT BECAUSE SHE DOES NOT DO ANY EXERCISE, SHE HAS LOT OF ARTHRITIS WHICH PREVENTS HER FROM EXERCISING. SHE WAS GETTING ZEPBOUND INJECTIONS TO LOSE WEIGHT BUT AFTER A FEW MONTHS OF THIS THERAPY SHE GAVE UP ON THAT ALSO. Code(s): E66.9 - Obesity, unspecified Category: Medical Plan: HAD A LONG TALK AND STRESS THAT SHE HAS TO LOSE WEIGHT., OTHERWISE SHE WOULD NEED TO GO BACK TO USING CPAP. (2) SIXTO (obstructive sleep apnea): Comment: PATIENT HAS OBSTRUCTIVE SLEEP APNEA, SEVERE, DIAGNOSED IN 2021 . She was using CPAP regularly and sleeping better. However lately has stopped using the CPAP because she just can not go to sleep with the CPAP mask on, Claims that she is sleeping fine even without the CPAP. She is trying to sleep in lateral position. Weight reduction was advised but she has not been able to lose much weight. As she can not use the CPAP, at the same time she is stating that she has no problem in sleeping now. She also denies daytime sleepiness. Code(s): G47.33 - Obstructive sleep apnea (adult) (pediatric) Category: Medical Plan: Talked to her in detail through the raker buffing wheel, Advised her that she has to lose about 10-15 lb of weight, . Initially to start with Position, therapy explained (3) Allergic rhinitis: Comment: She does have nasal congestion/blockage off and on, this is due to her perennial allergic rhinitis. Using Flonase and also Loratdine are helping. Code(s): J30.9 - Allergic rhinitis, unspecified Category: Medical Plan: Flonase-50 2 spray in each nostril daily May use loratadine 10 mg once a day p.r.n. Coding Level of Care Code Est Pt Level 3 (60117) Diagnoses Obesity (BMI 30-39.9) E66.9 SIXTO (obstructive sleep apnea) G47.33 Allergic rhinitis J30.9
--- OUTSIDE RECORDS SUMMARY | 2025-01-14 11:48 | XMS_ITS | Encounter Summary ---
Author Organization [employer] Address [address] [facility] 7t [place] [address] Care Team Providers Care Brake Holder Name Role Phone Unavailable Primary Care Provider Unavailabl e Encounter Details Date Type Department Care Team (Latest Contact Info) Description 06/27/2018 Abstract [facility] CONVERSIONS Dental, Provider, DDS Social History [...] Care Team (Late st Contact Info) Description 06/15/2025 3:00 PM EST Office Visit [facility] [address] [place] [address] Raeann, Alpa [address] [place] [address] documented as of this encounter Visit Diagnoses Not on filedocumented in this encounter
== END 2025-01-14 11:48 | disposition home or self-care (01) ==
LOC: HO.HPS 10:42
PROVIDERS: PCP Internal Medicine; Visit Provider Internal Medicine
DX: E66.9 Obesity, unspecified (principal); G47.33 Obstructive sleep apnea (adult) (pediatric); J30.9 Allergic rhinitis, unspecified
CPT/HCPCS: 99213

== ENCOUNTER → 2025-01-14 10:40 | Outpatient (BNVA) | payer OTHER, SELFPAY | PROVIDERS: PCP Internal Medicine; Visit Provider Internal Medicine | DX: G47.33 Obstructive sleep apnea (adult) (pediatric) (principal); E66.9 Obesity, unspecified; J30.9 Allergic rhinitis, unspecified | CPT/HCPCS: 99212 ==

== ENCOUNTER 2025-02-22 13:44 | Outpatient (REF) | payer OTHER, SELFPAY ==
--- NOTE | ~2025-02-22 | MM_ITS ---
EXAMINATION: MM SCREENING DIGITAL BREAST TOMOSYNTHESIS, BILATERAL CLINICAL INFORMATION: Screening. Asymptomatic. COMPARISON: Comparison made to multiple prior, most recent February 17, 2024, and most remote January 14, 2020. TECHNIQUE: Digital breast tomosynthesis is performed in mediolateral oblique and craniocaudal views along with computer-aided detection (CAD). Synthesized 2D images are generated from the tomosynthesis. FINDINGS: BREAST COMPOSITION: There are scattered areas of fibroglandular density. BILATERAL BREASTS: No significant masses, suspicious calcifications or other abnormalities are seen in either breast. MM/MM tomosynthesis screening BI IMPRESSION: BILATERAL BREASTS: Negative, no mammographic evidence of malignancy. Normal interval follow-up is recommended in 12 months. ASSESSMENT: BI-RADS: Category 1: Negative RECOMMENDATION: Routine annual mammography screening. FOLLOW-UP: 1 year F/U This examination should not preclude the clinical evaluation of a suspicious palpable abnormality. This patient's information was entered into a reminder system with a target due date for their next mammogram. Electronically signed by: Ashutosh Cee MD 02/23/2025 07:00 PM EDT
--- OUTSIDE RECORDS SUMMARY | 2025-02-22 16:11 | XMS_ITS | Encounter Summary ---
Demographics Address [address] [place] [address] [address] [place] [address] Home Phone Work Phone Mobile Phone Email Address Preferred Language es
== END 2025-02-22 13:45 | disposition home or self-care (01) ==
LOC: HO.MAMMO 13:44
PROVIDERS: PCP Internal Medicine; Visit Provider Internal Medicine
DX: Z12.31 Encounter for screening mammogram for malignant neoplasm of breast (principal)
CPT/HCPCS: 77063; 77067

== ENCOUNTER → 2025-02-22 14:15 | Outpatient (BNV) | payer OTHER, SELFPAY | PROVIDERS: PCP Internal Medicine; Visit Provider Radiology Body Imaging | DX: Z12.31 Encounter for screening mammogram for malignant neoplasm of breast (principal) | CPT/HCPCS: 77063; 77067 ==

== ENCOUNTER 2025-02-23 14:54 | Outpatient (AMB) | payer OTHER, SELFPAY ==
--- NOTE | 2025-02-23 14:59 | A.OFFPC_ITS ---
Vital Signs 02/23/25 15:00 Height 5 ft 2 in Weight 200 lb 2 oz BMI 36.6 BP 140/68 H Blood Pressure Location Lt brachial Position Sitting Respiration 18 Pulse 75 Pulse Source Pulse Oximeter Temp 97.3 F Temp Source Temporal Artery Scan Pulse Oximetry (%) 97 Oxygen Delivery Method Room Air Intake Visit Reasons: bp Dialysis Equipment Technician Required: No Accompanied by: Self / Same As Patient Allergies aspirin (ASA) Allergy (Severe, Verified 02/23/25 15:19) Anaphylaxis Medication List - Last Reconciled 02/23/25 by Arelis Hughes MD buspirone 10 mg PO DAILY chlorthalidone 25 mg PO QAM 90 days CPAP (CPAP Machine/Device) autoPAP mode, 6-20 cm H2O escitalopram oxalate 5 mg PO DAILY fluticasone propionate 50 mcg/actuation (Flonase Allergy Relief) 1 spray intranasal DAILY 90 days loratadine 10 mg PO DAILY losartan 100 mg PO DAILY 90 days medroxyprogesterone mg PO DAILY tramadol 50 mg PO DAILY Tobacco use date assessed: 02/23/25 Dental Screening Dental Screen Date: 02/23/25 Did you have a dental visit in the last 12 months?: Yes Did you have a dental problem in the last 6 months where you did not have access to dental care?: No Was dental information given to patient?: Patient has dentist HPI HPI Comments History of Present Illness Details The patient is a 59-year-old female presenting with back pain and w eight management concerns. Has hypertension soewhat stable. The patient reports significant back pain, which is exacerbated by her work activities and is associated with her weight issues. Her weight has been a persistent issue, contributing to her discomfort and affecting her daily activities. She is currently on a regimen of escitalopram for depression with anxiety, loratadine for allergic rhinitis, and losartan for essential hypertension. Additionally, she uses bupropion for anxiety management. [facility] Medical History Allergic rhinitis Morbid obesity with BMI of 40.0-44.9, adult Obesity (BMI 30-39.9) Sleep apnea VAHE (generalized anxiety disorder) Hypercalcemia Calcific shoulder tendinitis Class 1 obesity with body mass index (BMI) of 34.0 to 34.9 in adult Right leg pain Essential hypertension Diverticulosis Hemorrhoids, internal, with bleeding Family history of colon cancer History of colon polyps GERD with esophagitis Rhinitis Surgical History S/P right knee arthroscopy Hx of endoscopy History of colonoscopy (~02/2018) H/O basal cell carcinoma excision History of section History of tubal ligation Family History Father Pancreatic cancer Mother Colon cancer, Onset Age: 72 Hypertension Brother No problems noted. Sister Psychiatric disorder Chronic mental illness Family/Other Chronic mental illness Social History Housing: Apartment Do you presently have visiting nurse or other home services: No Alcohol intake: current Alcohol intake frequency: holidays/special occasions only Alcohol type: wine Patient Tobacco Use Status: Never used Tobacco e-Cigarette/Vaping Use: Never Used Second Hand Smoke Exposure: No service: No Current occupational status: employed Current occupational exposures/hazards: No Sexual orientation: Straight/Heterosexual Gender identity: Female Cognitive needs: No Hearing needs: No Vision needs: Yes Female Reproductive History Menstrual Age of Menarche: 15 Questionnaire Thrive Questionnaire Date Thrive assessed: 10/13/24 I am a: Patient What is your living situation today?: I have a steady place to live Within the past 12 months, did the food you bought not last and you didn't have the money to get more?: Never true Within the past 12 months, did you worry whether your food would run out before you got money to buy more?: I choose not to answer this question Do you have trouble paying for medicines?: No Do you have trouble getting transportation to medical appointments?: No Do you have trouble paying your heating and electricity bill?: No Do you have trouble taking care of your child, family member or friend?: No Do you have trouble with day-to-day activities such as bathing, preparing meals, shopping, managing finances, etc.?: No Are you currently unemployed and looking for a job?: No Are you interested in more education?: No Please select the resources that you would like help with: None Currently or been in a relationship where the following occur: No concerns reported THRIVE Score: 0 VAHE-7 AMB Questionnaire VAHE-7 Date VAHE - 7 assessed: 08/17/24 Source: Developed by Drs. Drew Cartagena, Emmy Hilton, Kirby Vasquez and colleagues, with an educational jose from [employer]. Review of Systems Const All systems reviewed & are unremarkable except as noted in HPI and below Card Denies chest pain at rest, Denies chest pain with activity, Denies edema, Denies irregular heart rhythm, Denies claudication, Denies dyspnea, Denies dyspnea on exertion, Denies orthopnea, Denies paroxysmal nocturnal dyspnea and Denies slow heart rate Resp Denies cough, Denies dyspnea and Denies dyspnea on exertion Physical exam (Primary Care) Vital Signs: Last Vital Signs Temp 97.3 F 02/23/25 15:00 Pulse 75 02/23/25 15:00 Resp 18 02/23/25 15:00 BP 140/68 H 02/23/25 15:00 Pulse Ox 97 02/23/25 15:00 Oxygen Delivery Method Room Air 02/23/25 15:00 BMI result Body Mass Index 36.6 BMI Assessment/Plan discussion: High BMI High, discussed plan: lifestyle, weight reduction, dietary and physical activity Tobacco/Smoking Status: Tobacco use Status Tobacco use date assessed 02/23/25 02/23/25 15:06 Patient Tobacco Use Status Never used Tobacco 02/23/25 15:06 e-Cigarette/Vaping Use Never Used 02/23/25 15:06 Thrive Assessment: Date of Thrive Assessment Date Thrive assessed 10/13/24 02/23/25 15:06 Currently or been in a relationship where the following occur: No concerns reported Resp Effort & Inspection: normal respiratory effort Auscultation: clear to auscultation bilaterally Cardio Jugular venous distension: no JVD Rate: regular rate Rhythm: regular rhythm Heart sounds: S1 normal heart sound present and S2 normal heart sound present Psych Appearance: grossly normal Coding Level of Care Code Est Pt Level 4 (23013) Diagnoses Essential hypertension I10 VAHE (generalized anxiety disorder) F41.1 SIXTO (obstructive sleep apnea) G47.33 Allergic rhinitis J30.9 Lumbar pain M54.50 Time Spent (min) 23 Assessment & Plan Assessment & Plan (1) Essential hypertension: Code(s): I10 - Essential (primary) hypertension Category: Medical (2) VAHE (generalized anxiety disorder): Code(s): F41.1 - Generalized anxiety disorder Category: Medical (3) SIXTO (obstructive sleep apnea): Comment: PATIENT HAS OBSTRUCTIVE SLEEP APNEA, SEVERE, DIAGNOSED IN 2021 . She was using CPAP regularly and sleeping better. However lately has stopped using the CPAP because she just can not go to sleep with the CPAP mask on, Claims that she is sleeping fine even without the CPAP. She is trying to sleep in lateral position. Weight reduction was advised but she has not been able to lose much weight. As she can not use the CPAP, at the same time she is stating that she has no problem in sleeping now. She also denies daytime sleepiness. Code(s): G47.33 - Obstructive sleep apnea (adult) (pediatric) Category: Medical (4) Allergic rhinitis: Comment: She does have nasal congestion/blockage off and on, this is due to her perennial allergic rhinitis. Using Flonase and also Loratdine are helping. Code(s): J30.9 - Allergic rhinitis, unspecified Category: Medical (5) Lumbar pain: Code(s): M54.50 - Low back pain, unspecified Category: Medical Plan Plan Patient was informed and verbally consented to the use of an ambient scribe for clinic note documentation during this visit. 1. Depression With Anxiety The patient is currently managed with escitalopram and bupropion for depression with anxiety. 2. Allergic Rhinitis The patient is taking loratadine for management of allergic rhinitis. 3. Essential Hypertension The patient is on losartan 100 mg for essential hypertension. 4. Obesity The patient is advised to manage her weight through dietary modifications, including reducing intake of bread and donuts. 5. Back Pain The patient reports back pain exacerbated by work activities, and weight management is recommended to alleviate symptoms.
[2025-02-23 15:00] VITALS: BP 140/68; PULSE 75; RESP 18; TEMP 36.3; O2SAT 97; BMI 36.6
--- OUTSIDE RECORDS SUMMARY | 2025-02-23 17:59 | XMS_ITS | Encounter Summary ---
Author Organization [employer] Address [address] [place] [address] Care Team Providers Care Line Producer Name Role Phone Unavailable Primary Care Provider Unavailabl e Encounter Details Date Type Department Care Team (Latest Contact Info) Description 08/05/2020 Abstract [facility] CONVERSIONS Dental, Provider, DDS Social History [...] Description 06/15/2025 3:00 PM EST Office Visit [facility] ADULT DENTAL [address] [place] [address] Raeann, Alpa [address] [place] [address] documented as of this encounter Visit Diagnoses Not on filedocumented in this encounter
--- OUTSIDE RECORDS SUMMARY | 2025-02-23 17:59 | XMS_ITS | Encounter Summary ---
Author Organization [employer] Address [address] [place] [address] Care Team Providers Care Tumbler Dyeing Machine Operator Name Role Phone Unavailable Primary Care Provider Unavailabl e Encounter Details Date Type Department Care Team (Latest Contact Info) Description 06/27/2018 Abstract [facility] CONVERSIONS Dental, Provider, DDS Social History Tobacco [...] Description 06/15/2025 3:00 PM EST Office Visit [facility] ADULT DENTAL [address] [place] [address] Raeann, Alpa [address] [place] [address] documented as of this encounter Visit Diagnoses Not on filedocumented in this encounter
--- OUTSIDE RECORDS SUMMARY | 2025-02-23 17:59 | XMS_ITS | Encounter Summary ---
Author Organization [employer] Address [address] [place] [address] Care Team Providers Care Mail Service Coordinator Name Role Phone Unavailable Primary Care Provider Unavailabl e Encounter Details Date Type Department Care Team (Latest Contact Info) Description 02/28/2022 Abstract [facility] CONVERSIONS Dental, Provider, DDS Social History Tobacco [...] Description 06/15/2025 3:00 PM EST Office Visit [facility] ADULT DENTAL [address] [place] [address] Raeann, Alpa [address] [place] [address] documented as of this encounter Visit Diagnoses Not on filedocumented in this encounter
--- OUTSIDE RECORDS SUMMARY | 2025-02-23 17:59 | XMS_ITS | Clinical Summary ---
Author Organization [employer] Address [address] [place] [address] Care Team Providers Care Shirt Sewer Name Role Phone Unavailable Primary Care Provider [...] of gingiva 05/15/2023 Open margin on tooth anabaptism 05/15/2023 Acute apical periodontitis of pulpal origin 05/03 Back pain 2022 Dental calculus 2022 Encounters Date Type Department Care Team Description 12/07/2024 10:00 AM EDT Office Visit [facility] ADULT DENTAL [address] [place] [address] RaeannAlpa diaz Localized gingival recession, minimal (Primary Dx); Missing teeth, acquired; Dental calculus 11/30/2024 Travel from Last 3 Months Social History [...] Sign Reading Time Taken Comments Blood Pressure 136/84 12/07/2024 10:02 AM EDT Pulse 72 06/27/2023 2:28 PM EST Temperature - - Respiratory Rate - - Oxygen Saturation - - Inhaled Oxygen Concentration - - Weight - - Height - - Body Mass Index - - Plan of Treatment Upcoming Encounters Date Type Department Care Team (Late st Contact Info) Description 06/15/2025 3:00 PM EST Office Visit [facility] ADULT DENTAL [address] [place] [address] Alpa Cary [address] [place] [address] Health Maintenance Due Date Last Done Comments [...] 09/25/2017 Zoster Vaccines (1 of 2) 09/25/2017 COVID-19 Vaccine (2 - season) 2025 08/27/2020 Influenza Vaccine (#1) 2025 , 03/07/2023, 03/08/2021, Additional history exists Dental X-Ray: Full Mouth 03/01/2025 02/28/2022 Dental Oral Exam 06/10/2025 12/07/2024, , 02/28/2022 Dental Prophylaxis 06/10/2025 12/07/2024, 1 07/26/2023, 06/07/2023, Additional history exists Tobacco Screening 12/07/2025 12/07/2024 Dental X-Ray: Bitewings 12/08/2025 12/08/19, 06/07/2023, 05/15/2023 RSV Patients and Patients Aged 60 years or older (1 - 1-dose 75+ series) 09/25/2042 HIB Vaccines Aged Out No longer eligi [...] Procedure Name Priority Date/Time Associated Diagnosis Comments PERIODIC ORAL EVALUATION - ESTABLISHED PATIENT Routine 12/07/2024 10:00 AM EDT ORAL HYGIENE INSTRUCTIONS Routine 12/07/2024 10:00 AM EDT Localized gingival recession, minimal Missing teeth, acquired Dental calculus CASE PRESENTATION, DETAILED AND EXTENSIVE TREATMENT PLANNING Routine 12/07/2024 10:00 AM EDT Localized gingival recession, minimal Missing teeth, acquired Dental calculus PROPHYLAXIS - ADULT Routine 12/07/2024 1 0:00 AM EDT Localized gingival recession, minimal Missing teeth, acquired Dental calculus 24,25 INTRAORAL - PERIAPICAL EACH ADDITIONAL RADIOGRAPHIC IMAGE Routine 12/07/2024 10:00 AM EDT Localized gingival recession, minimal Missing teeth, acquired Dental calculus 8,9 INTRAORAL - PERIAPICAL FIRST RADIOGRAPHIC IMAGE Routine 12/07/2024 10:00 AM EDT Localized gingival recession, minimal Missing teeth, acquired Dental calculus BITEWINGS - 4 RADIOGRAPHIC IMAGES Routine 12/07/2024 10:00 AM EDT Localized gingival recession, minimal Missing teeth, acquired Dental calculus from Last 3 Months Insurance [facility] STAND ADULT
== END 2025-02-23 15:30 | disposition home or self-care (01) ==
LOC: HO.HMCH 14:55
PROVIDERS: PCP Internal Medicine; Visit Provider Internal Medicine
DX: I10 Essential (primary) hypertension (principal); F41.1 Generalized anxiety disorder; G47.33 Obstructive sleep apnea (adult) (pediatric); J30.9 Allergic rhinitis, unspecified; M54.50 Low back pain, unspecified

== ENCOUNTER → 2025-02-23 14:54 | Outpatient (BNVA) | payer OTHER, SELFPAY | PROVIDERS: PCP Internal Medicine; Visit Provider Internal Medicine | DX: I10 Essential (primary) hypertension (principal); F41.1 Generalized anxiety disorder; G47.33 Obstructive sleep apnea (adult) (pediatric); F41.8 Other specified anxiety disorders; J30.9 Allergic rhinitis, unspecified; M54.50 Low back pain, unspecified; E66.9 Obesity, unspecified | CPT/HCPCS: 99212 ==